=== PATIENT | male | born 1950 | race Caucasian/White ===

== ENCOUNTER → 2023-10-07 07:06 | Outpatient (REF) | payer MEDICARE, OTHER, SELFPAY ==
[2023-10-07 09:48] LABS: % Basophils 1.3 % (0-2); % Eosinophils 9.6 % (0-6); % Immature Granulocytes 3.4 % (0-0.5); % Lymphocytes 34.4 % (20.5-51.1); % Monocytes 8.3 % (1.7-9.3); Absolute Basophils 0.1 10^3/uL (0-0.2); Absolute Eosinophils 0.5 10^3/uL (0-0.7); Absolute Immature Granulocytes 0.2 10^3/uL (0-0.05); Absolute Lymphocytes 1.8 10^3/uL (1.2-3.4); Absolute Monocytes 0.4 10^3/uL (0.1-0.6); Absolute Neutrophils 2.3 10^3/uL (1.4-6.5); Hematocrit 33.5 % (39.0-52.0); Hemoglobin 11.2 g/dL (13.0-18.0); Mean Corp Hgb Conc. 33.4 g/dL (33.0-37.0); Mean Corpuscular Hgb 31.5 pg (27.0-31.0); Mean Corpuscular Volume 94.1 fL (80.0-94.0); Mean Platelet Volume 12.9 fL (7.4-10.4); Nucleated Red Blood Cells % 0.4 % (-); Platelet Count 122 10^3/uL (130-400); Red Blood Cell Count 3.56 10^6/uL (4.70-6.10); Red Cell Dist. Width 13.9 % (11.5-14.5); White Blood Cell Count 5.3 10^3/uL (4.8-10.8)
[2023-10-07 10:04] LABS: ALT (SGPT) 20 U/L (0-50); AST (SGOT) 32 U/L (17-59); Albumin 4.6 g/dl (3.5-5.0); Alkaline Phosphatase 74 U/L (38-126); Blood Urea Nitrogen 19 mg/dl (9-20); Calcium 9.8 mg/dl (8.4-10.2); Carbon Dioxide 28 mmol/L (22-30); Chloride 100 mmol/L (98-107); Glucose 128 mg/dl (70-99); Potassium 4.7 mmol/L (3.5-5.1); Sodium 137 mmol/L (135-145); Total Bilirubin 0.5 mg/dl (0.2-1.3); Total Protein 7.3 g/dl (6.3-8.2); eGFR > 60.00
[2023-10-07 10:26] LABS: PSA, Total - Screen 0.47 ng/ml (0.0-4.0); TSH Reflex To Free T4 3.06 uIU/ml (0.47-4.68)
[2023-10-07 10:54] LABS: Microalbumin, Random Urine <0.6 mg/dl (0.6-1.7)
[2023-10-08 10:20] LABS: Glycohemoglobin (HgbA1c) 6.3 % (4.0-5.6)
== END ==
LOC: HWLAB 07:06
PROVIDERS: ATTENDING PHYSICIAN Internal Medicine Endocrinology, Diabetes & Metabolism; FAMILY PHYSICIAN Nurse Practitioner Family
DX: E11.9 Type 2 diabetes mellitus without complications (principal); E78.5 Hyperlipidemia, unspecified; E11.40 Type 2 diabetes mellitus with diabetic neuropathy, unspecified; Z12.5 Encounter for screening for malignant neoplasm of prostate; R26.89 Other abnormalities of gait and mobility
CPT/HCPCS: 36415; 80053; 82043; 82570; 83036; 84443; 85025; G0103

== ENCOUNTER → 2024-01-10 08:02 | Outpatient (REF) | payer MEDICARE, OTHER, SELFPAY ==
[2024-01-10 10:09] LABS: ALT (SGPT) 57 U/L (0-50); AST (SGOT) 62 U/L (17-59); Albumin 4.8 g/dl (3.5-5.0); Alkaline Phosphatase 67 U/L (38-126); Blood Urea Nitrogen 15 mg/dl (9-20); Calcium 9.3 mg/dl (8.4-10.2); Carbon Dioxide 27 mmol/L (22-30); Chloride 100 mmol/L (98-107); Glucose 148 mg/dl (70-99); Iron 161 ug/dl (49-181); Potassium 4.5 mmol/L (3.5-5.1); Sodium 141 mmol/L (135-145); Total Bilirubin 0.4 mg/dl (0.2-1.3); Total Protein 7.7 g/dl (6.3-8.2); eGFR > 60.00
[2024-01-10 10:19] LABS: Percent Saturation 63 % (20-50); Total Iron Binding Capacity 253 ug/dl (261-462)
[2024-01-10 10:24] LABS: Hematocrit 31.9 % (39.0-52.0); Hemoglobin 10.9 g/dL (13.0-18.0); Mean Corp Hgb Conc. 34.2 g/dL (33.0-37.0); Mean Corpuscular Hgb 32.9 pg (27.0-31.0); Mean Corpuscular Volume 96.4 fL (80.0-94.0); Red Blood Cell Count 3.31 10^6/uL (4.70-6.10); Red Cell Dist. Width 14.2 % (11.5-14.5); White Blood Cell Count 3.6 10^3/uL (4.8-10.8)
[2024-01-10 11:13] LABS: Vitamin B12 962 pg/ml (239-931)
[2024-01-10 11:25] LABS: % Basophils 1.4 % (0-2); % Eosinophils 5.9 % (0-6); % Immature Granulocytes 6.4 % (0-0.5); % Lymphocytes 36.9 % (20.5-51.1); % Monocytes 11.5 % (1.7-9.3); % Neutrophils 37.9 % (42.2-75.2); Absolute Basophils 0.1 10^3/uL (0-0.2); Absolute Eosinophils 0.2 10^3/uL (0-0.7); Absolute Immature Granulocytes 0.2 10^3/uL (0-0.05); Absolute Lymphocytes 1.3 10^3/uL (1.2-3.4); Absolute Monocytes 0.4 10^3/uL (0.1-0.6); Absolute Neutrophils 1.4 10^3/uL (1.4-6.5); Mean Platelet Volume 12.5 fL (7.4-10.4); Nucleated Red Blood Cells % 0 % (-); Platelet Count 60 10^3/uL (130-400)
[2024-01-10 11:48] LABS: Glycohemoglobin (HgbA1c) 6.6 % (4.0-5.6)
== END ==
LOC: HWLAB 08:02
PROVIDERS: ATTENDING PHYSICIAN Internal Medicine Endocrinology, Diabetes & Metabolism; FAMILY PHYSICIAN Nurse Practitioner Family
DX: D64.9 Anemia, unspecified (principal); Z51.81 Encounter for therapeutic drug level monitoring; E11.9 Type 2 diabetes mellitus without complications
CPT/HCPCS: 36415; 80053; 82607; 82728; 83036; 83540; 83550; 85025

== ENCOUNTER → 2024-01-19 06:13 | Outpatient (REF) | payer MEDICARE, OTHER, SELFPAY ==
[2024-01-19 09:19] LABS: Hematocrit 30.4 % (39.0-52.0); Hemoglobin 10.3 g/dL (13.0-18.0); Mean Corp Hgb Conc. 33.9 g/dL (33.0-37.0); Mean Corpuscular Hgb 33.3 pg (27.0-31.0); Mean Corpuscular Volume 98.4 fL (80.0-94.0); Red Blood Cell Count 3.09 10^6/uL (4.70-6.10); Red Cell Dist. Width 14.5 % (11.5-14.5); White Blood Cell Count 3.8 10^3/uL (4.8-10.8)
[2024-01-19 09:27] LABS: APTT 29.1 Sec (23.4-35.0); PT 14.3 Sec (11.4-14.6)
[2024-01-19 09:29] LABS: % Basophils 1.6 % (0-2); % Eosinophils 7.1 % (0-6); % Immature Granulocytes 4.5 % (0-0.5); % Monocytes 8.6 % (1.7-9.3); % Neutrophils 28.2 % (42.2-75.2); Absolute Basophils 0.1 10^3/uL (0-0.2); Absolute Eosinophils 0.3 10^3/uL (0-0.7); Absolute Immature Granulocytes 0.2 10^3/uL (0-0.05); Absolute Lymphocytes 1.9 10^3/uL (1.2-3.4); Absolute Monocytes 0.3 10^3/uL (0.1-0.6); Absolute Neutrophils 1.1 10^3/uL (1.4-6.5); Nucleated Red Blood Cells % 0.5 % (-); Platelet Count 51 10^3/uL (130-400)
[2024-01-19 11:18] LABS: Folate > 20.0 ng/ml (2.76-20)
[2024-01-21 05:44] LABS: Copper, Serum 92.3 ug/dL (70.0-140.0)
== END ==
LOC: HWLAB 06:13
PROVIDERS: ATTENDING PHYSICIAN Nurse Practitioner Acute Care; FAMILY PHYSICIAN Nurse Practitioner Family
DX: D61.818 Other pancytopenia (principal); D75.89 Other specified diseases of blood and blood-forming organs; G64 Other disorders of peripheral nervous system; E11.65 Type 2 diabetes mellitus with hyperglycemia
CPT/HCPCS: 36415; 82525; 82746; 82784; 83521; 84155; 84165; 85025; 85610; 85730; 86334

== ENCOUNTER → 2024-02-24 06:57 | Outpatient (REF) | payer MEDICARE, OTHER, SELFPAY ==
[2024-02-24 07:35] VITALS: BP 120/68; BP_SYST 78
[2024-02-24 07:55] LABS: Hematocrit 26.4 % (39.0-52.0); Mean Corp Hgb Conc. 34.1 g/dL (33.0-37.0); Mean Corpuscular Hgb 33.6 pg (27.0-31.0); Mean Corpuscular Volume 98.5 fL (80.0-94.0); Red Blood Cell Count 2.68 10^6/uL (4.70-6.10); Red Cell Dist. Width 15.4 % (11.5-14.5); White Blood Cell Count 3.7 10^3/uL (4.8-10.8)
[2024-02-24 07:59] LABS: INR 1.13; PT 14.8 Sec (11.4-14.6)
[2024-02-24] MEDS: FLUSH (NSS) 1 FLUSH IV (08:15)
[2024-02-24] MEDS: NSS (PRESERVATIVE FREE) 0.25 ML IV (08:15)
[2024-02-24] MEDS: ATIVAN 0.5 MG IV (08:15)
[2024-02-24 08:59] VITALS: BP 125/87
[2024-02-24 09:00] LABS: Mean Platelet Volume 11.7 fL (7.4-10.4); Platelet Count 42 10^3/uL (130-400)
[2024-02-24 10:13] LABS: Absolute Neutrophils -Man Diff 1.5 10^3/uL (1.4-6.5); Band Neutrophils 6 % (0-3); Eosinophils 3 % (0-6); Lymphocytes 32 % (20-51); Monocytes 12 % (2-9); Segmented Neutrophils 35 % (42-75)
[2024-02-24 10:14] LABS: Atypical Lymphocytes 6 %; Metamyelocytes 1 % (-); Myelocytes 5 % (-); Normal RBC Morphology No; Platelets Checked YES
[2024-02-24 10:15] LABS: Anisocytosis Slight; Hypochromasia Slight; Ovalocytes FEW; Target Cells FEW
[2024-02-24 10:16] LABS: Acanthocytes FEW
[2024-02-24 10:17] LABS: Total Cells Counted 100
== END ==
LOC: RADI 06:57
PROVIDERS: ATTENDING PHYSICIAN Nurse Practitioner Acute Care; FAMILY PHYSICIAN Nurse Practitioner Family
DX: D61.818 Other pancytopenia (principal); D68.8 Other specified coagulation defects
CPT/HCPCS: 88305; 88311; 88312; 36415; 38222; 77012; 85025; 85610; 88313

== ENCOUNTER 2024-04-07 19:22 | Inpatient (IN) | payer MEDICARE, OTHER, SELFPAY ==
[2024-04-07] VITALS (16 sets, daily range): BP systolic 107–138; BP diastolic 55–71; BMI 27.7
[2024-04-07 12:19] LABS: ALT (SGPT) 32 U/L (0-50); AST (SGOT) 52 U/L (17-59); Albumin 4.1 g/dl (3.5-5.0); Alkaline Phosphatase 49 U/L (38-126); Blood Urea Nitrogen 12 mg/dl (9-20); Calcium 8.2 mg/dl (8.4-10.2); Carbon Dioxide 24 mmol/L (22-30); Chloride 101 mmol/L (98-107); Glucose 128 mg/dl (70-99); Potassium 4.4 mmol/L (3.5-5.1); Sodium 135 mmol/L (135-145); Total Protein 6.9 g/dl (6.3-8.2); eGFR > 60.00
[2024-04-07 13:18] LABS: Hematocrit 19.5 % (39.0-52.0); Hemoglobin 6.7 g/dL (13.0-18.0); Mean Corp Hgb Conc. 34.4 g/dL (33.0-37.0); Mean Corpuscular Hgb 34.2 pg (27.0-31.0); Mean Corpuscular Volume 99.5 fL (80.0-94.0); Platelet Count 19 10^3/uL (130-400); Red Blood Cell Count 1.96 10^6/uL (4.70-6.10); Red Cell Dist. Width 16.2 % (11.5-14.5); White Blood Cell Count 2.2 10^3/uL (4.8-10.8)
[2024-04-07 13:19] LABS: Nucleated Red Blood Cells % 2.7 % (-)
[2024-04-07 14:41] LABS: Band Neutrophils 3 % (0-3); Segmented Neutrophils 19 % (42-75)
[2024-04-07 14:42] LABS: Lymphocytes 54 % (20-51); Metamyelocytes 1 % (-); Myelocytes 3 % (-)
[2024-04-07 14:43] LABS: Atypical Lymphocytes 6 %; Monocytes 14 % (2-9)
[2024-04-07 14:44] LABS: Normal RBC Morphology No; Nucleated Red Blood Cells 2 (-); Platelets Checked Yes
[2024-04-07 14:45] LABS: Anisocytosis 1+; Hypochromasia 1+; Ovalocytes 1+; Total Cells Counted 100
[2024-04-07 14:46] LABS: Absolute Neutrophils -Man Diff 0.4 10^3/uL (1.4-6.5)
--- NOTE | 2024-04-07 15:10 | ED.GENMED ---
History of Present Illness
<Álvaro Valladares PA-C - Last Filed: 04/07/24 15:25>
General
Chief Complaint: Breathing Problem
Source: patient
Exam Limitations: none
Time Seen by Provider: 04/07/24 14:27
History of Present Illness
History of Present Illness:
73-year-old male presents with shortness of breath and dyspnea on exertion worsening over the past several days. He has been worked up in the recent past for pancytopenia. He had a bone marrow biopsy on 23 February. His follow-up appointment was
canceled and he does not see the oncologist again until April 16. He denies any active bleeding. He denies any black or dark or tarry stools. He denies chest pain abdominal pain. No other complaints. He states that at rest he feels okay but
with any exertion he becomes short of breath. He is not anticoagulated
Phy Exam
<Álvaro Valladares PA-C - Last Filed: 04/07/24 15:25>
Physical Exam
Physical Exam:
General: Well-appearing male no acute respiratory distress
HEENT: Normocephalic atraumatic
Heart: Regular rate and rhythm
Lungs: Clear no wheeze
Abdomen is soft nontender
Rectal exam: No hemorrhoids or fissures. Stool is brown and heme-negative
Extremities: Mild edema bilateral lower extremity
Scores
<Álvaro Valladares PA-C - Last Filed: 04/07/24 15:25>
Heart Failure Risk
Heart Failure Risk Score: Not Applicable
Course
<Álvaro Valladares PA-C - Last Filed: 04/07/24 15:25>
Orders/Labs/Results
Orders:
Orders
04/07/24 11:30
Electrocardiogram (*1) Urgent
Reason for Study: Chest Pain
EKG- Treatment ONCE
04/07/24 11:54
Type And Crossmatch [Type+Screen] Urgent
Complete Blood Count/With Diff Urgent
Comprehensive Metabolic Panel Urgent
Manual Differential Urgent
04/07/24 14:02
ABO2 Urgent
BBK Wristband Number:
Associate notified that ABO2 has been ordered: [id number]
Date: 04/07/24
Time: 12:04
Computer Systems Security Analyst ID: [id number]
04/07/24 15:16
Blood Bank Products [* Blood Bank Products] Urgent
Blood Bank Products: *Packed RBC Leuko(PRBC's)
Quantity: 1
Transfuse Today: Yes
Reason: Anemia
04/07/24 15:17
Blood Bank Products [* Blood Bank Products] Urgent
Blood Bank Products: *Plt Single Donor Leuko
Quantity: 1
Transfuse Today: Yes
Reason: Thrombocytopenia
Abnormal Lab Results
04/07/24
11:54
WBC 2.2 L* 10^3/uL
(4.8-10.8)
RBC 1.96 L 10^6/uL
(4.70-6.10)
Hgb 6.7 L* g/dL
(13.0-18.0)
Hct 19.5 L* %
(39.0-52.0)
MCV 99.5 H fL
(80.0-94.0)
MCH 34.2 H pg
(27.0-31.0)
RDW 16.2 H %
(11.5-14.5)
Plt Count 19 L* 10^3/uL
(130-400)
Abs Neuts (Manual) 0.4 L* 10^3/uL
(1.4-6.5)
Segmented Neutrophils 19 L %
(42-75)
Lymphocytes (Manual) 54 H %
(20-51)
Monocytes (Manual) 14 H %
(2-9)
Creatinine 0.6 L mg/dL
(0.7-1.3)
Glucose 128 H mg/dl
(70-99)
Calcium 8.2 L mg/dl
(8.4-10.2)
04/07/24 11:54
04/07/24 11:54
Vital Signs
Initial and Last Documented VS:
Initial Vital Signs
Temp Pulse Resp BP Pulse Ox
97.6 F 78 18 109/57 99
04/07/24 11:26 04/07/24 11:26 04/07/24 11:26 04/07/24 11:26 04/07/24 11:26
Last Documented Vital Signs
Temp Pulse Resp BP Pulse Ox
97.6 F 73 12 130/57 99
04/07/24 11:26 04/07/24 14:01 04/07/24 14:01 04/07/24 14:01 04/07/24 11:26
<Eliz Silver MD - Last Filed: 04/07/24 15:39>
Orders/Labs/Results
Orders:
Orders
04/07/24 11:30
Electrocardiogram (*1) Urgent
Reason for Study: Chest Pain
EKG- Treatment ONCE
04/07/24 11:54
Type And Crossmatch [Type+Screen] Urgent
Complete Blood Count/With Diff Urgent
Comprehensive Metabolic Panel Urgent
Manual Differential Urgent
04/07/24 14:02
ABO2 Urgent
BBK Wristband Number:
Associate notified that ABO2 has been ordered: [id number]
Date: 04/07/24
Time: 12:04
Computer Systems Security Analyst ID: [id number]
04/07/24 15:16
Blood Bank Products [* Blood Bank Products] Urgent
Blood Bank Products: *Packed RBC Leuko(PRBC's)
Quantity: 1
Transfuse Today: Yes
Reason: Anemia
04/07/24 15:17
Blood Bank Products [* Blood Bank Products] Urgent
Blood Bank Products: *Plt Single Donor Leuko
Quantity: 1
Transfuse Today: Yes
Reason: Thrombocytopenia
Abnormal Lab Results
04/07/24
11:54
WBC 2.2 L* 10^3/uL
(4.8-10.8)
RBC 1.96 L 10^6/uL
(4.70-6.10)
Hgb 6.7 L* g/dL
(13.0-18.0)
Hct 19.5 L* %
(39.0-52.0)
MCV 99.5 H fL
(80.0-94.0)
MCH 34.2 H pg
(27.0-31.0)
RDW 16.2 H %
(11.5-14.5)
Plt Count 19 L* 10^3/uL
(130-400)
Abs Neuts (Manual) 0.4 L* 10^3/uL
(1.4-6.5)
Segmented Neutrophils 19 L %
(42-75)
Lymphocytes (Manual) 54 H %
(20-51)
Monocytes (Manual) 14 H %
(2-9)
Creatinine 0.6 L mg/dL
(0.7-1.3)
Glucose 128 H mg/dl
(70-99)
Calcium 8.2 L mg/dl
(8.4-10.2)
04/07/24 11:54
04/07/24 11:54
Vital Signs
Initial and Last Documented VS:
Initial Vital Signs
Temp Pulse Resp BP Pulse Ox
97.6 F 78 18 109/57 99
04/07/24 11:26 04/07/24 11:26 04/07/24 11:26 04/07/24 11:26 04/07/24 11:26
Last Documented Vital Signs
Temp Pulse Resp BP Pulse Ox
97.6 F 73 12 130/57 99
04/07/24 11:26 04/07/24 14:01 04/07/24 14:04/07/24 14:04/07/24 11:26
<Álvaro Valladares PA-C - Last Filed: 04/07/24 15:25>
MDM/Problems Addressed
Differential Diagnosis Includes:
Patient with dyspnea on exertion. Past medical history of pancytopenia with recent bone marrow biopsy. Consider anemia source of shortness of breath versus CHF versus electrolyte abnormality
CBC demonstrates pancytopenia now with hemoglobin of 6.7 which is over 3 g drop from last month. Platelet count 19,000. White blood cell count is 2.2.
Will obtain consent for blood transfusion secondary to symptomatic anemia. Notified hematology. 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
<Álvaro Valladares PA-C - Last Filed: 04/07/24 15:25>
*Critical Care Note
Total Time (30-74mins, 75-104mins- exclusive of procedures): Not Applicable
<Álvaro Valladares PA-C - Last Filed: 04/07/24 15:25>
Update Note
Update Note:
Discussed findings with oncology. She recommended transfusing with blood and platelets. Due to his symptomatic anemia, will admit patient to hospital. Consent obtained. Unit of packed red blood cells and platelets were ordered
ED Attending Note
<Álvaro Valladares PA-C - Last Filed: 04/07/24 15:25>
-
Portions of this chart may have been created with voice recognition software.� Occasional wrong word or��sound alike� substitutions may have occurred due to the inherent limitations of voice recognition software.
<Eliz Silver MD - Last Filed: 04/07/24 15:39>
ED Attending Note
Patient seen and examined by attending physician: Yes
I performed the substantive portion of visit, reviewed & personally made and approve the management plan that is documented in note by myself or LALITHA.: Yes
ED Attending Note:
73-year-old male with recent anemia status post bone marrow biopsy but yet unaware of the results presents to the emergency department with complaints of dyspnea with minimal exertion over the past couple days. He denies chest pain, cough, fevers,
abdominal pain, or other complaints. On exam, patient in bed. Awake alert, eating a meal, in no distress. Case was reviewed with hematology plan is to transfuse patient both red cells and platelets, hematology will address bone marrow biopsy
results with patient.
Discharge Plan
Departure
Patient Disposition: Admit
Date of Disposition: 04/07/24
Time of Disposition: 15:25
Presentation/result/management discussed w/ accepting MD/DO: Hospitalist
Discharge Problem:
Symptomatic anemia
Prescriptions:
No Action
rosuvastatin 20 mg Tablet
20 mg PO DAILY
Centrum Silver 0.4 mg-300 mcg- 250 mcg Tablet
1 tab PO DAILY
Mounjaro 5 mg/0.5 mL Pen Injector
5 mg SC MO
cyanocobalamin (vitamin B-12) 1,000 mcg Tablet
1,000 mcg PO DAILY
metformin 500 mg Tablet Extended Release 24 Hr
1,000 mg PO DAILY
Referrals:
Ranjan Young CRNP [Family Provider] -
Interventions
Interventions:
*Risk Screen - Suicide Last Done: 04/07/24 11:26
*Neglect/Abuse Screening Last Done: 04/07/24 11:26
ED- Cardiac Assessment Last Done: 04/07/24 14:55
ED- Pulmonary Assessment Last Done: 04/07/24 14:55
Discharge Date and Time
Print Language: [place]
--- NOTE | 2024-04-07 18:29 | HPS.HSE ---
Family Physician
-
Family Physician: DALLAS Hinojosa
Chief Complaint
-
Dyspnea on exertion
History of Present Illness
73-year-old man presents with shortness of breath and dyspnea on exertion worsening over the past several days. He has been worked up in the recent past for pancytopenia. He had a bone marrow biopsy on 23 February. His follow-up with the
oncologist is on April 16. He denies any active bleeding, but had red streaks on his toilet paper yesterday after a hard stool. He denies any black or dark or tarry stools. He denies chest pain abdominal pain. No other complaints. He states
that at rest he feels okay but with any exertion he becomes short of breath. He is not anticoagulated. In the ED, his CBC was:
WBC 2.2, ANC 400
BUN/Creat 6.7/19.5
PLT 19
He was ordered PRBC and PLT transfusions.
Medical History
Past Medical History
Past Medical History: Reports Other
Additional Past Medical History:
unspecified hyperlipidemia
Type 2 diabetes mellitus with diabetic neuropathy,
Balance problem
Recent abnormal bone marrow biopsy
Past Surgical History: Reports None
Social History
Tobacco: Non-smoker
Alcohol: None
Drug: None
Personal:
Living: With Family
Family History
Family History: Not pertinent
Allergies / Home Medications
Allergies reflects when Allergies were last updated in [facility] [employer].
Home Medications with original date entered in [employer] [facility] [employer]
Allergy/Medication List:
Allergies
Allergy/AdvReac Type Severity Reaction Status Date / Time
No Known Allergies Allergy Verified 04/07/24 11:26
Home Medications
pyzwjloa-zex-fckwa acid 0.4 mg-lycopene 300 mcg-lutein 250 mcg tablet (Centrum Silver) 1 tab PO DAILY 02/22/24
rosuvastatin 20 mg tablet 20 mg PO DAILY 02/22/24
tirzepatide 5 mg/0.5 mL subcutaneous pen injector (Mounjaro) 5 mg SC MO 02/22/24
cyanocobalamin (vitamin B-12) 1,000 mcg tablet 1,000 mcg PO DAILY 04/07/24
metformin 500 mg tablet,extended release 24 hr 1,000 mg PO DAILY 04/07/24
Review of Systems
-
History Source: Patient
A 12 point ROS was completed and negative except as noted: Yes
Physical Exam
Vital Signs
Vital Signs
Temp Pulse Resp BP Pulse Ox
98.9 F 72 20 118/69 98
04/07/24 18:26 04/07/24 18:26 04/07/24 18:26 04/07/24 18:26 04/07/24 18:26
Physical Exam
General: Well Developed, Well Nourished, No Apparent Distress, Comfortable and Conversant
HEENT: NormoCephalic, Moist mucous membranes, Nose Appears Normal and Ears Appear Normal
Respiratory: Clear
Cardiac: S1/S2 and Regular Rhythm
GI: Soft, Non Tender and Non Distended
Musculoskeletal: No Clubbing, No Cyanosis and No Edema
Skin: Warm and Dry; No Rash or Jaundice
Neuro: Awake, Alert, Oriented and AO x 3
Psych: Calm
Laboratory Results
-
04/07/24 11:54
04/07/24 11:54
Laboratory Results
Total Bilirubin 1.0 mg/dl (0.2-1.3) 04/07/24 11:54
AST 52 U/L (17-59) 04/07/24 11:54
ALT 32 U/L (0-50) 04/07/24 11:54
Alkaline Phosphatase 49 U/L (38-126) 04/07/24 11:54
Data Reviewed
-
Lab Data: Labs Reviewed by me
Impression/Plan
-
IMPRESSION:
73 man with pancytopenia and TREVINO.
PLAN:
1. Pancytopenia - concerning for leukemia
Hematology consulted
PRBC and PLT transfused
Check CBC in am
Current ANC 400
AM plan based on CBC and plan by hematology.
2. Red streaks on toilet paper - likely hemorrhoids
Stool softener
Outpatient f/u
Full code
VCD for DVT (avoid heparin)
[2024-04-07] MEDS: COLACE 100 MG PO (21:02)
--- NOTE | 2024-04-08 07:02 | W.PN.HOSP.TC ---
Today's Communication/Plan
-
discharge
Assessment / Plan
Assessment / Plan
Physical Exam
General: No acute distress. Appears comfortable at this time
HEENT: NormoCephalic, Atraumatic, Moist mucous membranes, Pale Palpebral Conjunctiva
Respiratory: Clear
Cardiac: S1/S2 and Regular Rhythm
GI: Soft, Non Tender and Non Distended
Musculoskeletal: No Clubbing, No Cyanosis and No Edema
Skin: Pallor
Neuro: Aox3
Psych: Calm
73 man with pancytopenia and TREVINO.
PLAN:
#Pancytopenia
#Neutropenic
received 1 PRBC and PLT transfusion with subsequent improvement in levels noted
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
Patient reports overall feeling well, symptomatically improved, eager to go home
# Red streaks on toilet paper - likely hemorrhoids
Stool softener
Outpatient f/u with primary
Full code
VCD for DVT (avoid heparin)
Medically stable for discharge home with outpatient follow up recommendations.
discussed with patient and patient's Valarie
Total Time Preparing Discharge ___40____ minutes including examination of the patient, summary of the hospital stay, instructions for continuing care to all relevant caregivers; and preparation of discharge records, prescriptions, and referral
forms if necessary.
Anticipated Discharge: Today
Subjective/Interval History
-
Date of Service: April 08, 2024
Seen and examined at bedside in no acute distress sitting up comfortably in chair. Reports overall feeling well. Denies shortness of breath at rest. Reports ambulating without issues. Eager to go home. Denies new acute issues. Valarie
present during evaluation.
Objective Data
-
Labs:
Laboratory Results
04/08/24
05:31
WBC Pending
Hgb Pending
Hct Pending
Plt Count Pending
Vital Signs:
Vital Signs
Temp Pulse Resp BP Pulse Ox
99.0 F 70 17 125/65 98
04/07/24 23:31 04/07/24 23:31 04/07/24 23:31 04/07/24 23:31 04/07/24 23:31
I&O
04/07/24 04/08/24 04/09/24
06:59 06:59 06:59
Intake Total 1084 / 1084
Output Total 300 / 300
Balance 784 / 784
[2024-04-08 07:10] VITALS: BP 126/64
[2024-04-08 07:19] LABS: Hematocrit 20.8 % (39.0-52.0); Hemoglobin 7.1 g/dL (13.0-18.0); Mean Corp Hgb Conc. 34.1 g/dL (33.0-37.0); Mean Corpuscular Hgb 33.6 pg (27.0-31.0); Mean Corpuscular Volume 98.6 fL (80.0-94.0); Mean Platelet Volume 13.9 fL (7.4-10.4); Platelet Count 31 10^3/uL (130-400); Red Blood Cell Count 2.11 10^6/uL (4.70-6.10); Red Cell Dist. Width 16.8 % (11.5-14.5); White Blood Cell Count 2.4 10^3/uL (4.8-10.8)
--- NOTE | 2024-04-08 09:33 | CON.ONC ---
Impression
Impression
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
symptomatic anemia
thrombocytopenia
neutropenia
Plan
Plan
I reviewed BM biopsy results w/ patient and his , c/w high risk MDS
Okay for d/c home
Will arrange office visit to see me on 04/10 to plan treatment
Discussed azacitadine/venetoclax (per [facility] guidelines)
Will also refer to [facility] for BMT eval
Patient History
History of Present Illness
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 He's scheduled to see me in the office next week to review path and plan treatment, but presented
to the ER yesterday w/ TREVINO, and was found to have worsening cytopenias. He was transfused 1 unit prbcs and 1 unit platelets overnight, and is eager to go home. He feels well, no fevers or signs of infection.
Past-Medical/Surgical History
Past�Medical�History HLD,�DM2,�prostate�cancer,�b12�deficiency,�peripheral�neuropathy,�sleep�apnea
Surgical�History Hernia�repair�as�
Social�History Patient�denies�ever�using�tobacco. Social�use�of�alcohol.�Patient�reports�an�average�of�<�1�drinks�per�month. Denies�any�illicit�drug�use. Occupational�Status:�Former���retired. Patient�has�not�had�any�occupational�exposure.
Marital�Status:�Patient�is�
Family�Medical�History Father���Stroke Mother���Heart�problems,�Parkinsons,�guillian�bare Sister���CA,�thyroid�issues,�diabetes
Patient Medication
�Medication �Instructions �Recorded �Confirmed �Last Taken �Type
jrpfhfwh-zbd-bxbxs acid 0.4 1 tab PO DAILY 02/22/24 04/07/24 04/06/24 History
mg-lycopene 300 mcg-lutein 250 mcg
tablet (Centrum Silver)
rosuvastatin 20 mg tablet 20 mg PO DAILY 02/22/24 04/07/24 04/06/24 History
tirzepatide 5 mg/0.5 mL 5 mg SC MO 02/22/24 04/07/24 03/26/24 History
subcutaneous pen injector
(Mounjaro)
cyanocobalamin (vitamin B-12) 1,000 mcg PO DAILY 04/07/24 04/07/24 04/06/24 History
1,000 mcg tablet
metformin 500 mg tablet,extended 1,000 mg PO DAILY 04/07/24 04/07/24 04/06/24 History
release 24 hr
Active Medications
Generic Name Dose Route Start Last Admin
Trade Name Freq PRN Reason Stop Dose Admin
Cyanocobalamin 1,000 mcg 04/08/24 08:00
Cyanocobalamin 1,000 Mcg Tablet PO 05/06/24 07:59
DAILY LINDA
Docusate Sodium 100 mg 04/07/24 20:17 04/07/24 21:02
Docusate Sodium 100 Mg Capsule PO 05/05/24 20:16 100 mg
BID LINDA Administration
Metformin HCl 1,000 mg 04/08/24 08:00
Metformin 500 Mg Extended Release Tablet PO 05/06/24 07:59
DAILY LINDA
Multivitamins Therapeutic 1 tablet 04/08/24 08:00
Multivitamin Tablet PO 05/06/24 07:59
DAILY LINDA
Polyethylene Glycol 17 grams 04/07/24 20:17
Polyethylene Glycol Powder 17 Grams Packet PO 05/05/24 20:16
DAILYPRN PRN
constipation
Rosuvastatin Calcium 20 mg 04/08/24 08:00
Rosuvastatin (Crestor) 20 Mg Tablet PO 05/06/24 07:59
DAILY LINDA
Senna/Docusate Sodium 1 tablet 04/07/24 20:17
Docusate W/Senna (Yaneth-Colace) Tablet PO 05/05/24 20:16
BIDPRN PRN
constipation
Sodium Chloride 0 flush 04/07/24 22:00
Sodium Chloride 0.9% (Flush) Syringe IV 05/05/24 21:59
PER PROTOCOL LINDA
Review of Systems
-
All Other Systems: Not reviewed unless documented
Physical Exam
-
General: Well Developed, Well Nourished, No Apparent Distress, Comfortable and Conversant; Negative Respiratory Distress, Appears in Distress or Appears Chronically Ill
HEENT: Negative Jaundice
Neurology: Non Focal, No Lateralizing Symptoms and No Word Finding Difficulty
Skin: Warm and Dry
Psych: Calm and Intact Judgement/Insight
Labs
Lab Results
WBC 2.4 10^3/uL (4.8-10.8) L* 04/08/24 05:31
RBC 2.11 10^6/uL (4.70-6.10) L 04/08/24 05:31
Hgb 7.1 g/dL (13.0-18.0) L 04/08/24 05:31
Hct 20.8 % (39.0-52.0) L* 04/08/24 05:31
MCV 98.6 fL (80.0-94.0) H 04/08/24 05:31
MCH 33.6 pg (27.0-31.0) H 04/08/24 05:31
MCHC 34.1 g/dL (33.0-37.0) 04/08/24 05:31
RDW 16.8 % (11.5-14.5) H 04/08/24 05:31
Plt Count 31 10^3/uL (130-400) L D 04/08/24 05:31
MPV 13.9 fL (7.4-10.4) H 04/08/24 05:31
Creatinine 0.6 mg/dL (0.7-1.3) L 04/07/24 11:54
Vital Signs
Vital Signs
Temp Pulse Resp BP Pulse Ox
98.8 F 71 18 126/64 96
04/08/24 07:10 04/08/24 07:10 04/08/24 07:10 04/08/24 07:10 04/08/24 07:10
[2024-04-08] MEDS: VITAMIN B-12 1000 MCG PO (09:35)
[2024-04-08] MEDS: CRESTOR 20 MG PO (09:35)
[2024-04-08] MEDS: COLACE 100 MG PO (09:35)
[2024-04-08] MEDS: THERAGRAN 1 TABLET PO (09:35)
[2024-04-08] MEDS: GLUCOPHAGE XR EXTENDED RELEASE 1000 MG PO (09:36)
[2024-04-08 10:36] LABS: Atypical Lymphocytes 1 %; Band Neutrophils 2 % (0-3); Eosinophils 2 % (0-6); Lymphocytes 60 % (20-51); Metamyelocytes 1 % (-); Monocytes 2 % (2-9); Myelocytes 2 % (-); Plasmacytoid Lymphocytes 1 %; Segmented Neutrophils 21 % (42-75)
[2024-04-08 10:37] LABS: Platelets Checked Yes
[2024-04-08 10:38] LABS: Anisocytosis 1+; Hypochromasia 1+; Normal RBC Morphology No; Nucleated Red Blood Cells 2 (-); Ovalocytes 1+; Polychromasia 1+
[2024-04-08 10:39] LABS: Total Cells Counted 100
[2024-04-08 10:40] LABS: Absolute Neutrophils -Man Diff 0.5 10^3/uL (1.4-6.5); Blasts 8 % (-)
--- NOTE | 2024-04-08 10:58 | W.DCSUMMARY ---
Discharge Summary
Discharge Data
Date of Admission: 04/07/24
Date of Discharge: 04/08/24
-
Pending Results: No
Discharge Plan
-
Patient Disposition: Home (Routine Discharge)
Discharge Diagnosis/Procedures: Pancytopenia
Neutropenia
Bone Marrow Biopsy Results February 2024 concerning for Myelodysplastic Syndrome
Suspected Hemorrhoids
Condition: Fair
Diet: Other diet
Additional Diets: Neutropenic Diet
Activity: As tolerated
Driving Restrictions: As prior to admission
Bathing Restrictions: None
Activity Restrictions/Additional Instructions:
Please follow up with oncology at the planned date 04/10/24. Follow up with primary care provider in 1 week of discharge.
Colace, laxative, has been prescribed to minimize straining/exacerbation of likely hemorrhoids leading to bloody streaks on wiping. Hold if diarrhea. Colace is available over the counter.
Please take medications as prescribed/recommended and follow up with primary care provider and/or other healthcare provider involved in your care for refills and/or further adjustment to your medication regimen as necessary.
Instructions: Neutropenia, Low-bacteria diet
Referrals:
Ranjan Young CRNP [Family Provider] - in one week
Lore Kwong MD [Active] - 04/10/24
Prescriptions:
New
docusate sodium 100 mg Capsule
100 mg PO BID Qty: 60 0RF
Continued
rosuvastatin 20 mg Tablet
20 mg PO DAILY
Centrum Silver 0.4 mg-300 mcg- 250 mcg Tablet
1 tab PO DAILY
Mounjaro 5 mg/0.5 mL Pen Injector
5 mg SC MO
cyanocobalamin (vitamin B-12) 1,000 mcg Tablet
1,000 mcg PO DAILY
metformin 500 mg Tablet Extended Release 24 Hr
1,000 mg PO DAILY
Discharge Orders:
Discharge Patient (As Directed); Ordered 04/08/24
Ordered By: Brijesh Trujillo
Discharge Date and Time
Print Language: [place]
--- NOTE | 2024-04-08 11:38 | CM ---
Patient discharged home without CM assessment.
[2024-04-09 18:40] LABS: Hepatitis C Antibody Negative (Negative)
== END 2024-04-08 11:28 | disposition home or self-care (01) | DRG 810 ==
LOC: 2 NORTH 19:22
PROVIDERS: Student in an Organized Health Care Education/Training Program; ADMITTING PHYSICIAN Internal Medicine; ATTENDING PHYSICIAN Internal Medicine; CONSULT PHYSICIAN Internal Medicine Hematology & Oncology; EMERGENCY PHYSICIAN Emergency Medicine; FAMILY PHYSICIAN Nurse Practitioner Family
PROC: 30233N1 Transfusion of Nonautologous Red Blood Cells into Peripheral Vein, Percutaneous Approach (ICD-10-PCS; 2024-04-07)
PROC: 30233R1 Transfusion of Nonautologous Platelets into Peripheral Vein, Percutaneous Approach (ICD-10-PCS; 2024-04-07)
DX: D61.818 Other pancytopenia (principal); D70.9 Neutropenia, unspecified; D46.9 Myelodysplastic syndrome, unspecified; K64.9 Unspecified hemorrhoids; E78.5 Hyperlipidemia, unspecified; E11.42 Type 2 diabetes mellitus with diabetic polyneuropathy; Z79.84 Long term (current) use of oral hypoglycemic drugs; Z79.899 Other long term (current) drug therapy; Z85.46 Personal history of malignant neoplasm of prostate
CPT/HCPCS: 36430; 80053; 85025; 86803; 86850; 86900; 86901; 86920; 93005; 99285; P9016; P9073

== ENCOUNTER → 2024-04-10 14:31 | Outpatient (REF) | payer MEDICARE, OTHER, SELFPAY ==
[2024-04-10 15:26] LABS: Hematocrit 22.6 % (39.0-52.0); Hemoglobin 7.6 g/dL (13.0-18.0); Mean Corp Hgb Conc. 33.6 g/dL (33.0-37.0); Mean Corpuscular Hgb 33.6 pg (27.0-31.0); Platelet Count 21 10^3/uL (130-400); Red Blood Cell Count 2.26 10^6/uL (4.70-6.10); Red Cell Dist. Width 16.4 % (11.5-14.5); White Blood Cell Count 2.7 10^3/uL (4.8-10.8)
[2024-04-10 15:36] LABS: ALT (SGPT) 30 U/L (0-50); AST (SGOT) 47 U/L (17-59); Albumin 4.1 g/dl (3.5-5.0); Alkaline Phosphatase 62 U/L (38-126); Blood Urea Nitrogen 11 mg/dl (9-20); Calcium 8.5 mg/dl (8.4-10.2); Carbon Dioxide 29 mmol/L (22-30); Chloride 101 mmol/L (98-107); Glucose 139 mg/dl (70-99); LDH 303 U/L (120-246); Potassium 4.5 mmol/L (3.5-5.1); Sodium 138 mmol/L (135-145); Total Bilirubin 0.7 mg/dl (0.2-1.3); Uric Acid 4.7 mg/dl (3.5-8.5); eGFR > 60.00
[2024-04-10 15:55] LABS: Absolute Neutrophils -Man Diff 0.7 10^3/uL (1.4-6.5); Atypical Lymphocytes 4 %; Band Neutrophils 2 % (0-3); Lymphocytes 55 % (20-51); Monocytes 4 % (2-9); Segmented Neutrophils 26 % (42-75)
[2024-04-10 15:56] LABS: Blasts 9 % (-); Normal RBC Morphology Yes; Platelets Checked Yes; Total Cells Counted 100
[2024-04-10 16:06] LABS: TSH 1.65 uIU/ml (0.47-4.68)
== END ==
LOC: OIDL 14:31
PROVIDERS: ATTENDING PHYSICIAN Internal Medicine Hematology & Oncology
DX: D61.818 Other pancytopenia (principal); R53.82 Chronic fatigue, unspecified
CPT/HCPCS: 80053; 83615; 84443; 84550; 85025; 86850; 86900; 86901

== ENCOUNTER 2024-04-14 10:27 | Emergency (ER) | payer MEDICARE, OTHER, SELFPAY ==
[2024-04-14] VITALS (23 sets, daily range): BP systolic 104–125; BP diastolic 52–74; BMI 27.4
--- NOTE | 2024-04-14 11:24 | ED.GENMED ---
History of Present Illness
General
Chief Complaint: Abnormal Lab Value
Time Seen by Provider: 04/14/24 11:23
History of Present Illness
History of Present Illness:
TIME OF INITIAL ENCOUNTER:
HPI: The patient had a bone marrow biopsy last month that was concerning for myelodysplastic syndrome sign: The patient was admitted here overnight 1 week ago. He came back today because he felt that his hemoglobin was low again. Dr. Kwong, his
oncologist recommended that he follows up with [facility] and has an appointment this week related to the myelodysplastic syndrome. Last night, he collapsed but did not pass out. A similar episode happened again today.
EXAM:
GENERAL: Appears somewhat weak, diabetes
HEENT: Moist oral mucosa
CARDIOVASCULAR: No murmurs, normal heart rate, regular rhythm, No chest wall tenderness
PULMONARY: No respiratory distress, breath sounds are clear and equal
ABDOMEN: Soft with no peritoneal signs, no tenderness
RECTAL: No gross blood, Hemoccult negative, brown stool
NEUROLOGIC: Excellent strength all extremities, no coordination deficits
PSYCHIATRIC: Appropriate mental status, normal insight and judgement
EXTREMITIES: Nontender, no edema, moves all extremities equally
SKIN: Appears pale
NUMBER AND COMPLEXITY OF PROBLEMS ADDRESSED AT THE ENCOUNTER
� Chronic conditions affecting care: Myelodysplastic syndrome
� Acute Exacerbation and/or Progression of Chronic Illness: This is an acute but recurrent problem
� Differential Diagnosis includes: Anemia related to MDS, GI bleed, dysrhythmia less likely
AMOUNT AND/OR COMPLEXITY OF DATA TO BE REVIEWED AND ANALYZED
� I performed an independent evaluation of and my interpretation is:
EKG: Sinus 81, normal axis, no acute ST ability
CT:
X-rays:
Laboratory Studies: White count 1.8, hemoglobin 6.5 platelets 15, BUN normal, ferritin 890
Other:
� Review of other/old records: I reviewed records, the patient was admitted here 1 week ago and was transfused for the first time with a hemoglobin of 6.7. The following day was 7.1 and then 4 days ago was up to 7.6.
� Clinical information was obtained by an independent historian: I spoke to at bedside
� Prescriptions/Medications Considered but not given:
� Further testing considered but not performed:
RISK OF COMPLICATIONS AND/OR MORBIDITY OR MORTALITY OF PATIENT MANAGEMENT
� Social determinants of health affecting care: Lives at home
� Discussion with other providers: Notify Dr. Gaspar of patient's desire to go home and his abnormal lab findings
� Escalation of care including admission/observation vs risk of discharge considered: See below.
ANY OTHER UPDATES:
1 PM: It is noted that the patient's hemoglobin is down to 6.5. He is heme-negative brown stool he is pancytopenic.
Patient receiving blood and platelets. I offered and recommended keeping patient in the hospital however the patient adamantly prefers to go home. He has been hemodynamically stable and there has been no sign of GI bleeding.
2:45 PM: I reassessed patient. He received first round of platelets and is getting blood. He is still eager to go home. Well-appearing. Has close follow-up arranged.
Phy Exam
Physical Exam
Physical Exam:
See HPI
Course
Orders/Labs/Results
Orders:
Orders
04/14/24 10:38
Electrocardiogram (*1) Urgent
Reason for Study: Other
Other Reason for Exam: low hgb
EKG- Treatment ONCE
04/14/24 11:37
Type+Screen Urgent
Complete Blood Count/With Diff Urgent
Comprehensive Metabolic Panel Urgent
Ferritin Urgent
Iron Urgent
Manual Differential Urgent
Total Iron Binding Urgent
04/14/24 12:15
* Blood Bank Products Urgent
Blood Bank Products: *Packed RBC Leuko(PRBC's)
Quantity: 1
Transfuse Today: Yes
Reason: Anemia
04/14/24 12:38
Blood Bank Products [* Blood Bank Products] Urgent
's Orders: Eliseo Lincoln, DO
Blood Bank Products: *Plt Single Donor Leuko
Quantity: 2
Transfuse Today: Yes
Reason: Thrombocytopenia
Abnormal Lab Results
04/14/24
11:37
WBC 1.8 L* 10^3/uL
(4.8-10.8)
RBC 1.95 L 10^6/uL
(4.70-6.10)
Hgb 6.5 L* g/dL
(13.0-18.0)
Hct 19.2 L* %
(39.0-52.0)
MCV 98.5 H fL
(80.0-94.0)
MCH 33.3 H pg
(27.0-31.0)
RDW 16.3 H %
(11.5-14.5)
Plt Count 15 L* D 10^3/uL
(130-400)
Sodium 134 L mmol/L
(135-145)
Creatinine 0.5 L mg/dL
(0.7-1.3)
Glucose 144 H mg/dl
(70-99)
TIBC 217 L ug/dl
(261-462)
Ferritin 896.0 H ng/ml
(17.9-464.0)
Crossmatch IS Only See Detail
04/14/24 11:37
04/14/24 11:37
Vital Signs
Initial and Last Documented VS:
Initial Vital Signs
Temp Pulse Resp BP Pulse Ox
36.7 C 84 16 122/52 98
04/14/24 10:35 04/14/24 10:35 04/14/24 10:35 04/14/24 10:35 04/14/24 10:35
Last Documented Vital Signs
Temp Pulse Resp BP Pulse Ox
37.4 C 78 17 115/55 97
04/14/24 14:35 04/14/24 14:35 04/14/24 14:35 04/14/24 14:35 04/14/24 14:35
*Critical Care Note
Total Time (30-74mins, 75-104mins- exclusive of procedures): Not Applicable
ED Attending Note
-
Portions of this chart may have been created with voice recognition software.� Occasional wrong word or��sound alike� substitutions may have occurred due to the inherent limitations of voice recognition software.
Discharge Plan
Departure
Patient Disposition: Home (Routine Discharge)
Date of Disposition: 04/14/24
Time of Disposition: 14:22
Patient with high blood pressure during this ER visit?: Yes
Discharge Problem:
Pancytopenia
Instructions: Blood transfusion, BLOOD PRESSURE
Prescriptions:
No Action
rosuvastatin 20 mg Tablet
20 mg PO DAILY
Centrum Silver 0.4 mg-300 mcg- 250 mcg Tablet
1 tab PO DAILY
Mounjaro 5 mg/0.5 mL Pen Injector
5 mg SC MO
cyanocobalamin (vitamin B-12) 1,000 mcg Tablet
1,000 mcg PO DAILY
metformin 500 mg Tablet Extended Release 24 Hr
1,000 mg PO DAILY
docusate sodium 100 mg capsule
100 mg PO DAILY
Referrals:
Ranjan Young CRNP [Family Provider] -
Activity Restrictions/Additional Instructions:
Your white count is 1.8, hemoglobin 6.5 which is lower than last admission. Platelet count is 15. We have given you blood and platelets. I spoke to Dr. Gaspar. Return here if you feel worse. Follow-up with your doctors at [facility].
Interventions
Interventions:
*Risk Screen - Suicide Last Done: 04/14/24 10:35
*General Assessment Last Done: 04/14/24 11:43
*Neglect/Abuse Screening Last Done: 04/14/24 10:35
ED- Fall Risk Assessment Last Done: 04/14/24 11:44
*ED COVID-19 Vaccine History Last Done: 04/14/24 11:43
Discharge Date and Time
Print Language: LEBANESE
[2024-04-14 12:15] LABS: ALT (SGPT) 37 U/L (0-50); AST (SGOT) 54 U/L (17-59); Albumin 3.7 g/dl (3.5-5.0); Alkaline Phosphatase 55 U/L (38-126); Blood Urea Nitrogen 12 mg/dl (9-20); Calcium 8.5 mg/dl (8.4-10.2); Carbon Dioxide 27 mmol/L (22-30); Chloride 100 mmol/L (98-107); Estimated Creatinine Clearance 117 ml/min; Glucose 144 mg/dl (70-99); Iron 86 ug/dl (49-181); Potassium 4.3 mmol/L (3.5-5.1); Sodium 134 mmol/L (135-145); Total Bilirubin 0.7 mg/dl (0.2-1.3); Total Protein 6.6 g/dl (6.3-8.2); eGFR > 60.00
[2024-04-14 12:17] LABS: Hematocrit 19.2 % (39.0-52.0); Hemoglobin 6.5 g/dL (13.0-18.0); Mean Corp Hgb Conc. 33.9 g/dL (33.0-37.0); Mean Corpuscular Hgb 33.3 pg (27.0-31.0); Mean Corpuscular Volume 98.5 fL (80.0-94.0); Platelet Count 15 10^3/uL (130-400); Red Blood Cell Count 1.95 10^6/uL (4.70-6.10); Red Cell Dist. Width 16.3 % (11.5-14.5); White Blood Cell Count 1.8 10^3/uL (4.8-10.8)
[2024-04-14 12:24] LABS: Percent Saturation 39 % (20-50); Total Iron Binding Capacity 217 ug/dl (261-462)
--- NOTE | 2024-04-14 14:30 | EDRN ---
delay in note d/t pt care.. spoke with blood bank when receiving platelets for pt. they state that they had to call [facility] for another unit of platelets STAT. pt and updated on this. aware it could take up to 4 hours to receive from
[facility].
Spoke with blood bank at 1421 and they noted that the unit of platelet should be received @ this facility within the next hour. pt and aware. pt is receiving unit PRBC's @ this time.
[2024-04-14 14:37] LABS: Band Neutrophils 1 % (0-3); Lymphocytes 42 % (20-51); Monocytes 6 % (2-9)
[2024-04-14 14:38] LABS: Atypical Lymphocytes 4 %; Eosinophils 6 % (0-6); Metamyelocytes 3 % (-); Myelocytes 5 % (-); Plasmacytoid Lymphocytes 1 %
[2024-04-14 14:39] LABS: Promyelocytes 5 % (-)
[2024-04-14 14:41] LABS: Segmented Neutrophils 27 % (42-75)
[2024-04-14 14:42] LABS: Normal RBC Morphology No; Platelets Checked Yes
[2024-04-14 14:43] LABS: Anisocytosis Slight
[2024-04-14 14:47] LABS: Ovalocytes FEW
[2024-04-14 14:48] LABS: Total Cells Counted 100
[2024-04-14 14:51] LABS: Absolute Neutrophils -Man Diff 0.5 10^3/uL (1.4-6.5)
== END 2024-04-14 17:20 | disposition home or self-care (01) ==
LOC: EMR 10:27
PROVIDERS: EMERGENCY PHYSICIAN Emergency Medicine; FAMILY PHYSICIAN Nurse Practitioner Family
DX: D61.818 Other pancytopenia (principal); D46.9 Myelodysplastic syndrome, unspecified
CPT/HCPCS: 99283; 36430; 80053; 82728; 83540; 83550; 85025; 86850; 86900; 86901; 86920; 93005; P9016; P9073

== ENCOUNTER → 2024-04-16 10:30 | Outpatient (REF) | payer MEDICARE, OTHER, SELFPAY ==
[2024-04-16 11:34] LABS: ALT (SGPT) 35 U/L (0-50); AST (SGOT) 50 U/L (17-59); Alkaline Phosphatase 65 U/L (38-126); Blood Urea Nitrogen 11 mg/dl (9-20); Calcium 8.6 mg/dl (8.4-10.2); Carbon Dioxide 26 mmol/L (22-30); Chloride 99 mmol/L (98-107); Glucose 147 mg/dl (70-99); Sodium 135 mmol/L (135-145); eGFR > 60.00
[2024-04-16 11:42] LABS: Hematocrit 23.6 % (39.0-52.0); Mean Corp Hgb Conc. 33.9 g/dL (33.0-37.0); Mean Corpuscular Hgb 33.3 pg (27.0-31.0); Mean Corpuscular Volume 98.3 fL (80.0-94.0); Red Cell Dist. Width 15.9 % (11.5-14.5)
[2024-04-16 12:08] LABS: Absolute Neutrophils -Man Diff 0.7 10^3/uL (1.4-6.5); Band Neutrophils 1 % (0-3); Eosinophils 2 % (0-6); Lymphocytes 38 % (20-51); Monocytes 10 % (2-9); Platelet Count 20 10^3/uL (130-400); Segmented Neutrophils 36 % (42-75)
[2024-04-16 12:09] LABS: Anisocytosis 1+; Atypical Lymphocytes 4 %; Blasts 4 % (-); Hypochromasia 1+; Myelocytes 5 % (-); Normal RBC Morphology No; Ovalocytes 2+; Platelets Checked Yes; Polychromasia 1+
[2024-04-16 12:10] LABS: Total Cells Counted 100
== END ==
LOC: OIDL 10:30
PROVIDERS: ATTENDING PHYSICIAN Internal Medicine Hematology & Oncology
DX: D61.818 Other pancytopenia (principal)
CPT/HCPCS: 36415; 80053; 85025

== ENCOUNTER 2024-04-20 09:59 | Outpatient (RCR) | payer MEDICARE, OTHER, SELFPAY ==
[2024-04-20 12:50] VITALS: BP 127/66
[2024-04-20 13:05] VITALS: BP 111/73
[2024-04-20 15:10] VITALS: BP 135/65
== END 2024-04-20 15:37 | disposition home or self-care (01) ==
LOC: OID 09:59
PROVIDERS: ATTENDING PHYSICIAN Internal Medicine Hematology & Oncology
DX: D61.818 Other pancytopenia (principal); D75.89 Other specified diseases of blood and blood-forming organs; G64 Other disorders of peripheral nervous system; D46.22 Refractory anemia with excess of blasts 2
CPT/HCPCS: 36415; 36430; 85025; 86850; 86900; 86901; 86920

== ENCOUNTER 2024-05-05 04:15 | Inpatient (IN) | payer MEDICARE, OTHER, SELFPAY ==
[2024-05-04 20:53] VITALS: BP 150/58; BMI 27.2
[2024-05-04 21:00] VITALS: BP 121/55
[2024-05-04 21:27] LABS: ALT (SGPT) 44 U/L (0-50); AST (SGOT) 59 U/L (17-59); Albumin 3.8 g/dl (3.5-5.0); Alkaline Phosphatase 74 U/L (38-126); Blood Urea Nitrogen 16 mg/dl (9-20); Calcium 8.5 mg/dl (8.4-10.2); Carbon Dioxide 25 mmol/L (22-30); Chloride 96 mmol/L (98-107); Estimated Creatinine Clearance 117 ml/min; Glucose 170 mg/dl (70-99); Potassium 4.3 mmol/L (3.5-5.1); Sodium 129 mmol/L (135-145); Total Protein 7.1 g/dl (6.3-8.2); eGFR > 60.00
[2024-05-04 21:34] LABS: COVID-19 Antigen Negative (Negative)
[2024-05-04 21:39] LABS: Troponin I < 0.012 ng/ml
[2024-05-04 22:00] VITALS: BP 122/62
[2024-05-04 22:24] LABS: Hematocrit 24.1 % (39.0-52.0); Hemoglobin 7.9 g/dL (13.0-18.0); Mean Corp Hgb Conc. 32.8 g/dL (33.0-37.0); Mean Corpuscular Hgb 31.2 pg (27.0-31.0); Mean Corpuscular Volume 95.3 fL (80.0-94.0); Red Blood Cell Count 2.53 10^6/uL (4.70-6.10); Red Cell Dist. Width 15.7 % (11.5-14.5)
[2024-05-04 22:26] LABS: Atypical Lymphocytes 4 %; Band Neutrophils 4 % (0-3); Lymphocytes 36 % (20-51); Metamyelocytes 8 % (-); Monocytes 18 % (2-9); Myelocytes 6 % (-); Platelets Checked Yes; Segmented Neutrophils 22 % (42-75)
[2024-05-04 22:28] LABS: Anisocytosis 1+; Macrocytosis 2+; Normal RBC Morphology No; Nucleated Red Blood Cells 6 (-); Ovalocytes 1+; Tear Drop Red Blood Cells Occasional; Total Cells Counted 50
[2024-05-04 22:33] LABS: Platelet Count 16 10^3/uL (130-400)
[2024-05-04 22:34] LABS: Absolute Neutrophils -Man Diff 0.5 10^3/uL (1.4-6.5); Blasts 2 % (-)
[2024-05-04 23:04] VITALS: BP 119/77
--- NOTE | 2024-05-04 23:54 | ED.GENMED ---
History of Present Illness
General
Chief Complaint: Weakness
Time Seen by Provider: 05/04/24 23:16
History of Present Illness
History of Present Illness:
73-year-old male with MDS presenting for weakness. Patient reports chronic fatigue and weakness since being diagnosed with leukemia, however worsened tonight with difficulty ambulating. Notes that he gets this way when his blood counts are low.
He has been following with [place] [facility], and is due to start chemotherapy on Tuesday. He has a left upper extremity PICC line. Tonight, patient also started to have chills. He has had a mild cough since last week. Also notes some urinary
urgency. Denies abdominal pain. reports that she took his temperature earlier today and it was normal. Denies additional acute medical complaints
Phy Exam
Physical Exam
Physical Exam:
General: Well-appearing, no clinical signs of dehydration, nontoxic and in no acute distress
HEENT: protecting airway
Neck: appears supple
CV: Normal heart rate, regular rhythm
Resp: No accessory muscle use, no increased work of breathing, lungs clear to auscultation bilaterally
Abd: Soft and non-distended, no tenderness to palpation
Extremities: No deformities, no swelling, no erythema
Neuro: alert, no focal neurologic deficit
: deferred
Rectal: deferred
Psych: Normal affect
Skin: Intact
Course
Orders/Labs/Results
Orders:
Orders
05/04/24 21:04
Electrocardiogram (*1) Urgent
Reason for Study: Fatigue / Weakness
EKG- Treatment ONCE
05/04/24 21:05
COVID-19 Antigen Urgent
Source: Nasal Swab
Complete Blood Count/With Diff Urgent
Comprehensive Metabolic Panel Urgent
Manual Differential Urgent
Troponin I Urgent
Influenza A+B Rapid Molecular Urgent
MASON Source: Nasal Swab
Specimen Description:
05/04/24 21:06
CR Chest - 2 Views Urgent
Comment:
Reason For Exam: weak, cough, PICC line placement verification
05/04/24 23:45
Urinalysis Reflex To Culture Urgent
0.9% Sodium Chloride 1000 ml [Nss] 1,000 ml IV BOLUS
05/04/24 23:46
Blood Culture Q30M
MASON Source: Blood/Venous
Specimen Description:
05/05/24 00:02
* Blood Bank Products Urgent
Blood Bank Products: *Plt Single Donor Leuko
Quantity: 1
Transfuse Today: Yes
Reason: Thrombocytopenia
05/05/24 00:03
* Blood Bank Products Urgent
Blood Bank Products: *Packed RBC Leuko(PRBC's)
Quantity: 1
Transfuse Today: Yes
Reason: Thrombocytopenia
05/05/24 00:18
Type+Screen Routine
BBK Wristband Number:
Blood Culture Q30M
MASON Source: Blood/Venous
Specimen Description:
05/05/24 01:06
Lactic Acid Urgent
05/05/24 02:49
Zosyn 4.5 grams IVPB NOW Piperacillin/Tazo 4.5 Gram [Zosyn] 4.5 gram in 100 ml IV NOW
Abnormal Lab Results
05/04/24
21:05
WBC 2.0 L* 10^3/uL
(4.8-10.8)
RBC 2.53 L 10^6/uL
(4.70-6.10)
Hgb 7.9 L g/dL
(13.0-18.0)
Hct 24.1 L %
(39.0-52.0)
MCV 95.3 H fL
(80.0-94.0)
MCH 31.2 H pg
(27.0-31.0)
MCHC 32.8 L g/dL
(33.0-37.0)
RDW 15.7 H %
(11.5-14.5)
Plt Count 16 L* 10^3/uL
(130-400)
Abs Neuts (Manual) 0.5 L* 10^3/uL
(1.4-6.5)
Segmented Neutrophils 22 L %
(42-75)
Band Neutrophils 4 H %
(0-3)
Monocytes (Manual) 18 H %
(2-9)
Blast Cells 2 H* %
(-)
Sodium 129 L mmol/L
(135-145)
Chloride 96 L mmol/L
(98-107)
Creatinine 0.6 L mg/dL
(0.7-1.3)
Glucose 170 H mg/dl
(70-99)
05/04/24 21:05
05/04/24 21:05
Vital Signs
Initial and Last Documented VS:
Initial Vital Signs
Temp Pulse BP Pulse Ox
100 F 90 150/58 95
05/04/24 20:53 05/04/24 20:53 05/04/24 20:53 05/04/24 20:53
Last Documented Vital Signs
Temp Pulse Resp BP Pulse Ox
100 F 83 24 127/63 98
05/04/24 20:53 05/05/24 02:00 05/05/24 02:00 05/05/24 02:00 05/04/24 23:03
MDM/Problems Addressed
MDM/Problems Addressed:
73-year-old male with history of MDS presenting for weakness, fatigue, concern for fever. Vital signs are significant for low-grade fever.
On exam patient is resting comfortably, no acute distress or discomfort. Patient had laboratory analysis prior to my assessment. Patient with anemia and low platelets, however appear to be around his baseline. Patient also with low neutrophils.
In the setting of fever with low neutrophils, concern for neutropenic fever. Will add blood cultures. Unclear source of infection, however does note some cough and urinary symptoms. Viral swabs negative. Chest x-ray without sign of pneumonia.
Pending urinalysis. Patient notes that he gets transfusion when he is feeling incredibly weak, so will transfuse platelets and PRBC. Will draw cultures off of left upper extremity PICC line, however without external signs of infection.
02:50 - Patient still unable to provide urine. Will start broad antibiotics and plan for admission for neutropenic fever. Patient consented for transfusion
*Critical Care Note
Total Time (30-74mins, 75-104mins- exclusive of procedures): Not Applicable
ED Attending Note
-
Portions of this chart may have been created with voice recognition software.� Occasional wrong word or��sound alike� substitutions may have occurred due to the inherent limitations of voice recognition software.
Discharge Plan
Departure
Prescriptions:
No Action
rosuvastatin 20 mg Tablet
20 mg PO DAILY
Centrum Silver 0.4 mg-300 mcg- 250 mcg Tablet
1 tab PO DAILY
cyanocobalamin (vitamin B-12) 1,000 mcg Tablet
1,000 mcg PO DAILY
metformin 500 mg Tablet Extended Release 24 Hr
1,000 mg PO DAILY
docusate sodium 100 mg capsule
200 mg PO DAILY
prochlorperazine maleate 10 mg Tablet
10 mg PO Q6HPRN PRN (Reason: nausea)
Referrals:
NONE,* [Family Provider] -
Interventions
Interventions:
*Risk Screen - Suicide Last Done: 05/04/24 20:56
*General Assessment Last Done: 05/04/24 20:56
*Neglect/Abuse Screening Last Done: 05/04/24 20:56
ED- Fall Risk Assessment Last Done: 05/04/24 21:00
*ED COVID-19 Vaccine History Last Done: 05/04/24 20:56
ED- Cardiac Assessment Last Done: 05/04/24 20:59
ED- Neurological Assessment Last Done: 05/04/24 20:58
ED- Pulmonary Assessment Last Done: 05/04/24 20:59
Discharge Date and Time
Print Language: LUXEMBOURGER
[2024-05-05] VITALS (12 sets, daily range): BP systolic 117–147; BP diastolic 57–86; PULSE 83; O2SAT 97; BMI 26.7
[2024-05-05] MEDS: NSS 1000 IV ×3 (00:06→22:11)
[2024-05-05 01:26] LABS: Lactic Acid 0.8 mmol/L (0.7-2.0)
--- NOTE | 2024-05-05 03:49 | HPS.HSE ---
Family Physician
-
Family Physician: * NONE
Chief Complaint
-
Weakness and lethargy
History of Present Illness
This is a 73-year-old woman who has a past medical history of pancytopenia, diabetes, hyperlipidemia presenting to the emergency department with weakness.
Patient has a history of pancytopenia and was recently admitted with low hemoglobin and platelet counts as well as a low white count. Had a bone marrow consistent with myelodysplastic syndrome but also had 10% blast. He is currently being followed
by hematology oncology pain as well as atorvastatin. He is status post PICC line 5 days ago. Plan is to start treatment on Tuesday (in 2 days)
Patient reports that he has had a nonproductive cough for about 1 week. He has some nasal congestion. He is also reports some sore throat as well. Denies any headache. He denies any shortness of breath at rest but reports dyspnea on exertion
which he reports he is been going on for several weeks due to his anemia. Denies any abdominal pain, nausea vomiting or diarrhea. He denies any urinary symptoms such as dysuria, frequency incontinence or urgency. He denies having any flank pain.
He denies any skin rash. He denies any known sick contacts. He reports that this is the first time he had a fever.
On arrival in the emergency department he was febrile to 100, blood pressure was 127/60 with a pulse of 83 and he was satting at 100% on room air. ECG showed normal sinus rhythm at rate of 68, troponin was negative. COVID test was negative,
influenza was also negative. Chest x-ray shows no acute infiltrates. The CBC was notable for a white count of 2, ANC less than 500, platelet count was 16, hemoglobin was 7.9. He had a sodium of 129, rest of the electrolytes BUN and creatinine
were normal.
Medical History
Past Medical History
Past Medical History: Reports Hypercholesterolemia, NIDDM and Other (Pancytopenia)
Past Surgical History: Reports None
Social History
Tobacco: Non-smoker
Alcohol: Occasional
Drug: None
Personal:
Living: With Family
Employment: Retired
Family History
Family History: Not pertinent
Allergies / Home Medications
Allergies reflects when Allergies were last updated in [employer].
Home Medications with original date entered in [employer]
Allergy/Medication List:
Allergies
Allergy/AdvReac Type Severity Reaction Status Date / Time
No Known Allergies Allergy Verified 05/03/24 11:25
Home Medications
fidswvnr-zwj-yvbiw acid 0.4 mg-lycopene 300 mcg-lutein 250 mcg tablet (Centrum Silver) 1 tab PO DAILY 02/22/24
rosuvastatin 20 mg tablet 20 mg PO DAILY 02/22/24
cyanocobalamin (vitamin B-12) 1,000 mcg tablet 1,000 mcg PO DAILY 04/07/24
metformin 500 mg tablet,extended release 24 hr 1,000 mg PO DAILY 04/07/24
docusate sodium 100 mg capsule 200 mg PO DAILY 04/14/24
prochlorperazine maleate 10 mg tablet 10 mg PO Q6HPRN PRN nausea 05/04/24
Review of Systems
-
History Source: Patient
Constitutional: Reports Fatigue
EENT: Reports No Symptoms
Respiratory: Reports Cough
Cardiac: Reports No Symptoms
Abdomen/GI: Reports No Symptoms
: Reports No Symptoms
Musculoskeletal: Reports No Symptoms
Skin: Reports No Symptoms
Neurological: Reports No Symptoms
Endocrine: Reports No Symptoms
Hematologic/Lymphatic: Reports No Symptoms
Psych: Reports No Symptoms
Physical Exam
Vital Signs
Vital Signs
Temp Pulse Resp BP Pulse Ox
100 F 83 24 127/63 98
05/04/24 20:53 05/05/24 02:00 05/05/24 02:00 05/05/24 02:00 05/04/24 23:03
Physical Exam
General: Well Developed, Well Nourished, No Apparent Distress and Comfortable
HEENT: NormoCephalic, Anicteric, Moist mucous membranes, Atraumatic and PERRLA; No Thrush
Respiratory: Clear
Cardiac: S1/S2 and Regular Rhythm
Breast: Deferred by me
GI: Soft, Non Tender, Non Distended and Normal Bowel Sounds
Rectal: Deferred by Provider
Genito-urinary: Clear Urine and No costovertebral tender
Musculoskeletal: No Clubbing, No Cyanosis and No Edema
Skin: Warm; No Rash
Neuro: AO x 3 and Nonfocal/grossly intact
Hematologic/Lymphatic: No Lymphadenopathy
Psych: Calm
Laboratory Results
-
05/04/24 21:05
05/04/24 21:05
Laboratory Results
Lactic Acid 0.8 mmol/L (0.7-2.0) 05/05/24 01:06
Total Bilirubin 1.0 mg/dl (0.2-1.3) 05/04/24 21:05
AST 59 U/L (17-59) 05/04/24 21:05
ALT 44 U/L (0-50) 05/04/24 21:05
Alkaline Phosphatase 74 U/L (38-126) 05/04/24 21:05
Troponin I < 0.012 ng/ml 05/04/24 21:05
Data Reviewed
-
Diagnostic Radiology: Image Personally Visualized and interpreted
Medical Tests (Nuc Med, Echo, EKG etc): Image Personally Visualized and interpreted
Lab Data: Labs Reviewed by me
Old Records: Reviewed
Impression/Plan
-
IMPRESSION:
73-year-old coming with fever of unknown source. He has fatigue, lethargy and weakness and in the past this was attributed to his anemia he usually gets a transfusion. On the last admission they got a transfusion for same level of hemoglobin as
well as platelet transfusion. He is fever workup here so far has been negative with a negative chest x-ray, negative viral panel. Blood culture pending. Risk factors include neutropenia, recent PICC line placement and a URI with nonproductive
cough.
PLAN:
1. Fever of unknown source / neutropenic fever -
- admit to med/surg
- monitor fever profile
- u/a pending, urine culture pending
- blood culture sent
- negative flu/covid
- will check rapid strep and mono (sore throat)
- will cover for neutropenic fever with cefepime 2 g q 8
- given recent picc will add vancomycin for now
- mrsa swab
- ID consult.
2. Pancytopenia - MDS/ suspected, BM bx in Feb 2024, showing high risk MDS w/ 10% blasts. Worsening cytopenias, dyspneas and now fever. s/p picc with plan to start chemo in 2 days.
- transfuse for hgb > 8, 1 unit prbc
- transfuse 1 unit platelety
- monitor neutropenia, neutropenic precautions
- oncology consultation
3. DM II
- continue metformin and low dose ISS for now
4. Hyponatremia - na 129. He looks dehydrated on my exam. Urine is dark
- 1 L NS in ED, blood and platelet to be given
- continue with NS at 75 ml/hr
- reassess after volume expansion
DVT PPX - SCDs given thrombocytopenia
Code status - full code
[2024-05-05 03:57] LABS: Urine Albumin 2+ (Neg - Trace); Urine Bilirubin Negative (Negative); Urine Character Clear (Clear); Urine Color Yellow; Urine Glucose Negative (Negative); Urine Ketone 2+ (Negative); Urine Leukocyte Negative (Negative); Urine Nitrite Negative (Negative); Urine Occult Blood Negative (Negative); Urine Specific Gravity 1.015 (<1.030); Urine Urobilinogen 1+ (Neg - 1+)
[2024-05-05 04:17] LABS: Urine Squamous Cell 0-2 /LPF (Few)
[2024-05-05 04:18] LABS: Urine Bacteria Few (Negative); Urine Red Blood Cell 0-2 /HPF (0-2)
[2024-05-05] MEDS: STERILE WATER FOR INJECTION 10 ML IV ×3 (04:21→21:54)
[2024-05-05] MEDS: MAXIPIME 2000 MG IV ×3 (04:21→21:54)
[2024-05-05] MEDS: FLUSH (NSS) 1 FLUSH IV ×2 (04:21→12:54)
[2024-05-05] MEDS: VANCOCIN 540 MG IV (04:55)
[2024-05-05 05:35] LABS: Monotest Negative (Negative)
--- NOTE | 2024-05-05 05:45 | CON.ONC ---
Impression
Impression
Myelodysplastic syndrome with increased blasts 2, 10% blasts with cytogenetics complex karyotype including monosomy 5 and trisomy 8, also biallelic TP53 which is associated with a poor prognosis. IPSS-R risk category is very high risk.
Low grade neutropenic fever, Tm 100
pancytopenia
Plan
Plan
Follow cultures and temp curve. If remains afebrile and cultures negative, suspect he can be discharged soon (most likely Tuesday pm) with F/U Tuesday to start Vidaza chemotherapy as planned. Await formal ID consultation which has been ordered.
Regarding transfusion threshold, transfuse PRN for HgB < 7 and PLT < 10K to try to minimize exposure (lessens risk for alloimmunization).
Therefore, will CANCEL transfusions ordered in ER and not yet given.
Thank you
Patient History
History of Present Illness
CC: Weakness
73-year-old man who has a past medical history of pancytopenia, diabetes, hyperlipidemia presenting to the emergency department with weakness.
Patient has a history of pancytopenia and was recently diagnosed with high risk myelodysplastic syndrome. Plan is to start Vidaza + venetoclax Sunday 05/07. He has non specific symptoms including a nonproductive cough, nasal congestion, sore throat
for about 1 week. His encourgaed him to come to the ER for evaluation. In the ER his temp was 100, vitals otherwise normal. Because of neutropenia and low grade fever, he was admitted for infectious workup and antibiotic treatment and was
ordered 1 u PRBC for HgB 7.9 and 1 u PLT for PLT = 16k (not given yet). Started on empiric Vanco + Zosyn in ER and continued on Cefepime. Currently patient feels well and would prefer to be home as soon as possible.
Past-Medical/Surgical History
PMH: HLD, DM2, prostate cancer, b12 deficiency, peripheral neuropathy, sleep apnea
PSH: PICC line, Hernia repair as infant
SH: No TOB, ETOH 1x/mo, , retired
FH:
Father - Stroke
Mother - Heart problems, Parkinsons, guillian bare
Sister - CA, thyroid issues, diabetes
Patient Medication
�Medication �Instructions �Recorded �Confirmed �Last Taken �Type
fzpacddm-mtq-usbia acid 0.4 1 tab PO DAILY 02/22/24 05/04/24 05/03/24 History
mg-lycopene 300 mcg-lutein 250 mcg
tablet (Centrum Silver)
rosuvastatin 20 mg tablet 20 mg PO DAILY 02/22/24 05/04/24 05/03/24 History
cyanocobalamin (vitamin B-12) 1,000 mcg PO DAILY 04/07/24 05/04/24 05/03/24 History
1,000 mcg tablet
metformin 500 mg tablet,extended 1,000 mg PO DAILY 04/07/24 05/04/24 05/03/24 History
release 24 hr
docusate sodium 100 mg capsule 200 mg PO DAILY 04/14/24 05/04/24 05/03/24 History
prochlorperazine maleate 10 mg 10 mg PO Q6HPRN PRN nausea 05/04/24 05/04/24 Unknown History
tablet
Active Medications
Generic Name Dose Route Start Last Admin
Trade Name Freq PRN Reason Stop Dose Admin
Acetaminophen 650 mg 05/05/24 05:39
Acetaminophen 325 Mg Tablet PO 06/02/24 05:38
Q4HPRN PRN
mild pain/BETHEA/temp> 100.4F
Bisacodyl 10 mg 05/05/24 05:39
Bisacodyl 10 Mg Rectal Suppository RECTAL 06/02/24 05:38
[id number] PRN
constipation
Cefepime HCl 2,000 mg 05/05/24 11:30
Cefepime Hcl 2,000 Mg/12.5 Ml Vial IV
Q8H LINDA
Cyanocobalamin 1,000 mcg 05/05/24 08:00
Cyanocobalamin 1,000 Mcg Tablet PO 06/02/24 07:59
DAILY LINDA
Docusate Sodium 200 mg 05/05/24 08:00
Docusate Sodium 100 Mg Capsule PO 06/02/24 07:59
DAILY LINDA
Guaifenesin/Dextromethorphan 5 ml 05/05/24 05:39
Guaifenesin/Dextromethorphan 200 Mg/10 Ml Cup PO 06/02/24 05:38
Q4HPRN PRN
cough
Vancomycin HCl 2,000 mg/ 540 mls @ 270 mls/hr 05/05/24 03:52 05/05/24 04:55
Sodium Chloride IV 05/05/24 05:51 540 mls
NOW STA Administration
Sodium Chloride 1,000 mls @ 75 mls/hr 05/05/24 05:39
Nss IV
[id number] LINDA
Vancomycin HCl 1 each/ Device 0 mls @ 0 mls/hr 05/05/24 05:39
IV
PER PROTOCOL LINDA
As Directed
Insulin Aspart 0 units 05/05/24 07:30
Insulin Aspart Low Resistance 300 Units/3 Ml Pen.Injctr SC 06/02/24 07:29
AC LINDA
Protocol
Metformin HCl 1,000 mg 05/05/24 08:00
Metformin 500 Mg Extended Release Tablet PO 06/02/24 07:59
DAILY LINDA
Non-Formulary Medication 1 tablet 05/05/24 08:00
Vplwqito-Xfs-Fh-Lycopen-Lutein [Centrum Silver] PO 06/02/24 07:59
DAILY LINDA
Ondansetron HCl 4 mg 05/05/24 05:39
Ondansetron 4 Mg/2 Ml Vial IV 06/02/24 05:38
Q6HPRN PRN
nausea and vomiting
Polyethylene Glycol 17 grams 05/05/24 05:39
Polyethylene Glycol Powder 17 Grams Packet PO 06/02/24 05:38
DAILYPRN PRN
constipation
Rosuvastatin Calcium 20 mg 05/05/24 08:00
Rosuvastatin (Crestor) 20 Mg Tablet PO 06/02/24 07:59
DAILY LINDA
Sodium Chloride 0 flush 05/05/24 04:00 05/05/24 04:21
Sodium Chloride 0.9% (Flush) Syringe IV 06/02/24 03:59 1 flush
PER PROTOCOL LINDA Administration
Physical Exam
-
General: Well Developed, Well Nourished, No Apparent Distress and Comfortable; Negative Respiratory Distress
HEENT: Negative Jaundice
Cardiology: Normal Sinus Rhythm, S1 and S2
Pulmonary: Clear
GI: Soft and Normal Bowel Sounds
Extremities: No C/C/E
Neurology: Non Focal
Psych: Calm
Labs
Lab Results
WBC 2.0 10^3/uL (4.8-10.8) L* 05/04/24 21:05
RBC 2.53 10^6/uL (4.70-6.10) L 05/04/24 21:05
Hgb 7.9 g/dL (13.0-18.0) L 05/04/24 21:05
Hct 24.1 % (39.0-52.0) L 05/04/24 21:05
MCV 95.3 fL (80.0-94.0) H 05/04/24 21:05
MCH 31.2 pg (27.0-31.0) H 05/04/24 21:05
MCHC 32.8 g/dL (33.0-37.0) L 05/04/24 21:05
RDW 15.7 % (11.5-14.5) H 05/04/24 21:05
Plt Count 16 10^3/uL (130-400) L* 05/04/24 21:05
MPV Not Reportable 05/04/24 21:05
Creatinine 0.6 mg/dL (0.7-1.3) L 05/04/24 21:05
Vital Signs
Vital Signs
Temp Pulse Resp BP Pulse Ox
99.4 F 86 19 132/62 97
05/05/24 05:43 05/05/24 05:43 05/05/24 05:43 05/05/24 05:43 05/05/24 05:43
[2024-05-05] MEDS: CRESTOR 20 MG PO (08:12)
[2024-05-05] MEDS: COLACE 200 MG PO (08:12)
[2024-05-05] MEDS: THERAGRAN 1 TABLET PO (08:12)
[2024-05-05] MEDS: GLUCOPHAGE XR EXTENDED RELEASE 1000 MG PO (08:12)
[2024-05-05] MEDS: VITAMIN B-12 1000 MCG PO (08:13)
[2024-05-05 08:14] LABS: Glucose - Point of Care 118 mg/dl (70-99)
--- NOTE | 2024-05-05 08:29 | PHA.VAN.IN ---
Assessment
- Assessment
Renal Function: Appears similar to baseline
Concomitant Antimicrobials: Cefepime 2G Q8H
AUC Dosing Plan
- Dosing Variables
Dosing Weight (kg): 84.414
Dosing CrCl (ml/min): 117
Vd coefficient (L/kg): 0.7
- Empiric Dosing
Initial / Loading Dose: Vanco 2000mg Loading Dose Given on 05/05/24 at 0455
Maintenance Regimen: Vanco 1500mg Q12H Starting 05/05/24 at 1800
Estimated AUC (mcg*h/mL): 538
Estimated Peak (mcg*h/mL): 36
Estimated Trough (mcg/ml): 12.4
Estimated Half Life (H): 11.14
- Monitoring
No levels ordered at this time: Consider in the next few days
Pharmacokinetics Vancomycin I
- -
Patient Age: 73
Patient Sex: Male
Vancomycin Day #: 1
Indication: Skin And Soft Tissue
Requesting Provider: Jenny
Pertinent Antimicrobial Allergies:
No Known Drug Allergies
Height / Weight:
Height 5 ft 10 in
Actual Weight 84.414 kg
Pertinent Past Medical History: T2DM, pancytopenia, myelodysplastic syndrome
- Vital Signs / Lab Results
Temp Pulse Resp BP Pulse Ox
100.1 F 86 20 147/68 96
05/05/24 07:10 05/05/24 07:10 05/05/24 07:10 05/05/24 07:10 05/05/24 07:10
Lab Results - Hematology
05/04/24
21:05
WBC 2.0 L*
Band Neutrophils 4 H
Lab Results - Chemistry
05/04/24
21:05
BUN 16
Creatinine 0.6 L
Estimated Creat Clear 117
Albumin 3.8
05/05/24 05/05/24
00:18 01:06
Lactic Acid Cancelled 0.8
Lab Results - Urine
05/05/24
03:49
Urine Nitrite (Reflex) Negative
Leukocyte Esterase Rfl Negative
Urine WBC (Reflex) 3-5
Ur Squamous Epith Cells 0-2
Urine Bacteria (Reflex) Few A
Microbiology Results
05/05/24 04:21 Streptococcus Rapid Screen - Final
Throat/Pharynx Rapid Strep Screen (Group A) Negative
05/04/24 21:05 Influenza Types A & B (JAIMIE) - Final
Nasal Swab Negative for Influenza A & B, NAAT
Negative results must be combined with clinical observations
and patient history.
Nucleic Acid Amplification test (NAAT)performed on the
[employer] platform.
--- NOTE | 2024-05-05 09:35 | W.PN.HOSP.TC ---
Today's Communication/Plan
-
hold on transfusions
PT/OT
await ID
await cultures
Assessment / Plan
Assessment / Plan
pt is a 73 year old male
Neutropenic fever--Fever of unknown source--WBC 2K with ANC 500, 2 blasts (10% by cytogenics)--cultures pending--covid/flu neg--await ID consult--has PICC line--cont vanco/cefepime--rapid strep neg
Pancytopenia - MDS/BM bx in Feb 2024, showing high risk MDS w/10% blasts by cytogenics. Worsening cytopenias, dyspneas and now fever. s/p picc with plan to start chemo in 2 days- transfuse for hgb <7, platelet < 10K to minimize exposure (lessens
risk for alloimmunization) as per heme--apprec onc
Type 2 DM- continue metformin and low dose ISS for now
Hyponatremia--Na 129 on admission --cont IVF--await labs
DVT Proph - SCDs given thrombocytopenia
Code status - full code
Anticipated Discharge: 24 - 48 hours
Subjective/Interval History
-
Date of Service: May 05, 2024
pt denies c/o-- (on phone with him when I entered the room) says he is weak and needs the blood (per [facility])
Objective Data
-
Labs:
Laboratory Results
05/04/24 05/05/24 05/05/24
21:05 08:53 08:54
WBC 2.0 L* Pending
Hgb 7.9 L Pending
Hct 24.1 L Pending
Plt Count 16 L* Pending
Sodium Pending
Potassium Pending
Chloride Pending
Carbon Dioxide Pending
BUN Pending
Creatinine Pending
Glucose Pending
Calcium Pending
Vital Signs:
max temp for 24 hours
05/04/24
20:53
Temp 100 F
Vital Signs
Temp Pulse Resp BP Pulse Ox
100.1 F 86 20 147/68 96
05/05/24 07:10 05/05/24 07:10 05/05/24 07:10 05/05/24 07:10 05/05/24 07:10
Review of Systems
-
All other systems: Reviewed and negative
Physical Exam
-
General: Well Developed, Well Nourished and No Apparent Distress
HEENT: Normocephalic and Atraumatic
Respiratory: Clear to Auscultation; Negative Wheezes or Rhonchi
Cardiac: Regular Rhythm and S1/S2; Negative Murmur
GI: Soft, Nontender, Nondistended and Normal Bowel Sounds
Musculoskeletal: No Clubbing, No Cyanosis and No Edema
Neuro: Awake and Alert
Psych: Calm
[2024-05-05 10:05] LABS: Hematocrit 21.7 % (39.0-52.0); Hemoglobin 7.5 g/dL (13.0-18.0); Mean Corp Hgb Conc. 34.6 g/dL (33.0-37.0); Mean Corpuscular Hgb 32.6 pg (27.0-31.0); Mean Corpuscular Volume 94.3 fL (80.0-94.0); Platelet Count 15 10^3/uL (130-400); White Blood Cell Count 2.4 10^3/uL (4.8-10.8)
[2024-05-05 10:14] LABS: Blood Urea Nitrogen 10 mg/dl (9-20); Carbon Dioxide 23 mmol/L (22-30); Chloride 99 mmol/L (98-107); Estimated Creatinine Clearance 117 ml/min; Glucose 114 mg/dl (70-99); Potassium 4.2 mmol/L (3.5-5.1); Sodium 131 mmol/L (135-145); eGFR > 60.00
[2024-05-05 12:10] LABS: Glucose - Point of Care 170 mg/dl (70-99)
--- NOTE | 2024-05-05 12:11 | CON.ID ---
Consultation
-
Date/Time Consultation Requested: 05/05/2024 0539
Date/Time Consultation Performed: 05/05/2024 1123
Requesting Provider: Dr. Alvarado
Performing Provider: Dr. Escalante
Reason for Consultation: Febrile neutropenia
Chief Complaint / Past History
History of Present Illness
Wang Donaldson is a 73-year-old man with a significant past medical history of MDS being evaluated regarding febrile neutropenia. History is obtained from chart review, along with patient interview.
The patient is followed in the outpatient setting by [facility]on[facility] for his underlying MDS, and is due to initiate chemotherapy early next week. He reports feeling wavering fatigue over the past month, but yesterday while at home he developed severe
fatigue in the evening. According to his , he slid off the bed, and she could not get him back up onto the bed, at which time EMS was called. They have been following his temperatures, and his temp was noted to be normal yesterday a.m., but
when EMS arrived he was noted to be 100.3. Prior to admission he denies any pain. He denies any chills, but always feels 'cold'. He denies any cough or congestion. Of note, in anticipation of upcoming chemotherapy a PICC line was placed this
past week. It has been cared for by home nursing and flushed daily. There have been no reported issues with it thus far.
Past History
Additional Past Medical History:
MDS
DM
Additional Past Surgical History:
Hernia repair
Allergy History:
No Known Allergies Allergy (Verified 05/03/24 11:25)
Medications Reviewed: Yes
Current Antibiotics:
Cefepime 2 g IV every 8 hours
Vancomycin (dosing per pharmacy)
Social History
Tobacco: Non-Smoker
Alcohol: None
Drug: None
Personal:
Living: With Family
Employment: Retired
Family History
Family History: Not Pertinent
Review of Systems
Vital Signs
Temp Pulse Resp BP Pulse Ox
100.1 F 86 20 147/68 96
05/05/24 07:10 05/05/24 07:10 05/05/24 07:10 05/05/24 07:10 05/05/24 12:07
Physical Exam
Physical Exam
Constitutional: No Acute Distress, Comfortable, Chronically Ill and Non-toxic
Eyes: No Conjunctival Hemorrhage and Sclera Anicteric
Cardiovascular: S1/S2; Negative S3/S4 or Murmur
Pulmonary: Clear; Negative Wheezes, Rales or Rhonchi
Gastrointestinal: Soft; Negative Non Tender or Non Distended
Genito-Urinary: Negative Silver or CVA Tenderness
Extremities: Negative Edema, Cyanosis or Erythema
Neurological: Awake and Alert
Psychological: Calm
.
Lab / Diagnostic Study Results
05/05/24 08:53
05/05/24 08:54
Total Counted 50 05/04/24 21:05
Abs Neuts (Manual) 0.5 10^3/uL (1.4-6.5) L* 05/04/24 21:05
Segmented Neutrophils 22 % (42-75) L 05/04/24 21:05
Band Neutrophils 4 % (0-3) H 05/04/24 21:05
Lymphocytes (Manual) 36 % (20-51) 05/04/24 21:05
Lactic Acid 0.8 mmol/L (0.7-2.0) 05/05/24 01:06
Ur Squamous Epith Cells 0-2 /LPF (Few) 05/05/24 03:49
Microbiology Results
Micro:
05/05/24 04:21 Streptococcus Screen (MASON) - Pending
Throat/Pharynx Streptococcus Rapid Screen - Final
Rapid Strep Screen (Group A) Negative
05/05/24 04:21 MRSA Screen - Pending
Nose
05/05/24 00:18 Blood Culture - Pending
Blood/Venous
05/05/24 00:08 Blood Culture - Pending
Blood/Venous
05/04/24 21:05 Influenza Types A & B (JAIMIE) - Final
Nasal Swab Negative for Influenza A & B, NAAT
Negative results must be combined with clinical observations
and patient history.
Nucleic Acid Amplification test (NAAT)performed on the
[employer] platform.
Imaging:
05/04/2024 CXR (2 view): No acute cardiopulmonary processes noted.
Assessment / Plan
Neutropenia
- ANC ~ 500
Low-grade temperature (although not specifically to the point of 100.5)
Profound fatigue
MDS
-Tentatively to start chemotherapy this coming week
Hx DM
Recommendations:
Given profound fatigue and low-grade fever, agree with initiation of cefepime.
Will continue for now.
Discontinue further vancomycin.
Await blood cultures.
If cultures remain negative, and patient remains afebrile, agree with discharge in the next 24 hours or so with follow-up in the outpatient setting.
Care Review
Plan reviewed with: Physician (Hospitalist)
[2024-05-05 13:40] LABS: Band Neutrophils 12 % (0-3); Segmented Neutrophils 24 % (42-75)
[2024-05-05 13:41] LABS: Eosinophils 12 % (0-6); Lymphocytes 40 % (20-51); Monocytes 8 % (2-9); Normal RBC Morphology No; Platelets Checked Yes
[2024-05-05 13:42] LABS: Anisocytosis 1+; Myelocytes 2 % (-); Nucleated Red Blood Cells 2 (-)
[2024-05-05 13:43] LABS: Acanthocytes FEW; Ovalocytes 1+; Polychromasia 1+
[2024-05-05 13:44] LABS: Target Cells FEW; Total Cells Counted 100
[2024-05-05 13:46] LABS: Absolute Neutrophils -Man Diff 0.8 10^3/uL (1.4-6.5)
[2024-05-05 13:47] LABS: Blasts 2 % (-)
--- NOTE | 2024-05-05 15:08 | CM ---
CM met with pt and spouse at bedside.
Pt resides with spouse in a 2 SH bedroom/bath on 2nd floor. Stair lift recently installed. Has a RW on each level. Uses RW for ambulation independently. There is 1 +1 step to enter the home. Bathroom equipped with grab bars.
Pt is currently open with [facility]. Preference is to resume with [facility] [place]. Will send referral via [facility].
Confirmed PCP is Shawn Young with [facility]. Pharmacy is [facility] in [place].
Discharge dispo anticipated is home with resumption of care/[facility].
[2024-05-05 16:51] LABS: Glucose - Point of Care 171 mg/dl (70-99)
--- NOTE | 2024-05-05 19:25 | PTCARENOTE ---
Pt noted with bruised/purple lump on the occipital area, stating that he 'bumped his head on the side of the bed', but does not recall when it happened. C/o pain only when palpating the area. Neurological checks done and WNL. VS 122/58, 81, T98.2,
Pox 98% RA. Manufacturers Representative DALLAS Novak, made aware, no new orders at this time, apply ice as needed for pain and will perform ordered head MRI in the morning.
[2024-05-05 22:09] LABS: Glucose - Point of Care 125 mg/dl (70-99)
[2024-05-06] MEDS: MAXIPIME 2000 MG IV (04:53)
[2024-05-06] MEDS: STERILE WATER FOR INJECTION 10 ML IV (04:59)
[2024-05-06 07:20] VITALS: BP 136/71
[2024-05-06 07:32] LABS: Glucose - Point of Care 101 mg/dl (70-99)
[2024-05-06 08:33] LABS: Hematocrit 20.5 % (39.0-52.0); Mean Corp Hgb Conc. 34.1 g/dL (33.0-37.0); Mean Corpuscular Volume 93.6 fL (80.0-94.0); Platelet Count 11 10^3/uL (130-400); Red Blood Cell Count 2.19 10^6/uL (4.70-6.10); Red Cell Dist. Width 15.9 % (11.5-14.5); White Blood Cell Count 2.4 10^3/uL (4.8-10.8)
[2024-05-06] MEDS: VITAMIN B-12 1000 MCG PO (08:45)
[2024-05-06] MEDS: CRESTOR 20 MG PO (08:45)
[2024-05-06] MEDS: THERAGRAN 1 TABLET PO (08:45)
[2024-05-06] MEDS: COLACE 200 MG PO (08:45)
[2024-05-06] MEDS: GLUCOPHAGE XR EXTENDED RELEASE 1000 MG PO (08:45)
[2024-05-06 08:52] LABS: ALT (SGPT) 40 U/L (0-50); AST (SGOT) 56 U/L (17-59); Albumin 3.2 g/dl (3.5-5.0); Alkaline Phosphatase 59 U/L (38-126); Blood Urea Nitrogen 9 mg/dl (9-20); Calcium 7.8 mg/dl (8.4-10.2); Carbon Dioxide 22 mmol/L (22-30); Chloride 102 mmol/L (98-107); Estimated Creatinine Clearance 117 ml/min; Glucose 100 mg/dl (70-99); Potassium 3.9 mmol/L (3.5-5.1); Sodium 131 mmol/L (135-145); Total Bilirubin 0.9 mg/dl (0.2-1.3); Total Protein 6.2 g/dl (6.3-8.2); eGFR > 60.00
--- NOTE | 2024-05-06 09:12 | W.PN.HOSP.TC ---
Addendum entered and electronically signed by Clark Paul MD 05/06/24 14:49:
MRI brain: There are no focal or acute intracranial abnormalities.
There is moderate cortical and cerebellar atrophy with extensive nonspecific white matter changes as described above.
There is bilateral maxillary sinusitis worse on the left than the right
Medically cleared for d/c.
Total time spent on d/c = 34 min. This included today's physical exam, progress note, review of laboratory and diagnostic data, preparation of discharge documents and prescriptions, and discussions about the pt's hospital course and discharge plan
with the patient and other emergency medicine medical director involved in the patient's care.
Original Note:
Today's Communication/Plan
-
d/c if OK with ID
Assessment / Plan
Assessment / Plan
Gen: NAD, AAOx3.
Eyes: EOMI, PERRLA, no scleral icterus.
Neck: supple.
CV: RRR, +S1/S2, no m/r/g.
Resp: CTAB, no rales, wheezes, or rhonchi.
Abd: +BS, soft, NT, ND
Skin: No rashes.
Neuro: CN 2-12 intact, non-focal.
Psych: Normal mood and affect.
Lab Results
05/04/24 05/05/24 05/05/24
21:05 00:18 01:06
WBC 2.0 L*
RBC 2.53 L
Hgb 7.9 L
Hct 24.1 L
MCV 95.3 H
MCH 31.2 H
MCHC 32.8 L
RDW 15.7 H
Plt Count 16 L*
Plt Count Comment Yes
MPV Not Reportable
Total Counted 50
Abs Neuts (Manual) 0.5 L*
Segmented Neutrophils 22 L
Band Neutrophils 4 H
Lymphocytes (Manual) 36
Monocytes (Manual) 18 H
Eosinophils (Manual)
Metamyelocytes 8
Myelocytes 6
Nucleated RBCs 6
Atypical Lymphocytes 4
Blast Cells 2 H*
Normal RBC Morphology No
Polychromasia
Anisocytosis 1+
Macrocytosis 2+
Target Cells
Tear Drop Cells Occasional
Ovalocytes 1+
Acanthocytes (Spur)
Sodium 129 L
Potassium 4.3
Chloride 96 L
Carbon Dioxide 25
BUN 16
Creatinine 0.6 L
Estimated Creat Clear 117
eGFR > 60.00
Glucose 170 H
Lactic Acid Cancelled 0.8
Calcium 8.5
Magnesium
Total Bilirubin 1.0
AST 59
ALT 44
Alkaline Phosphatase 74
Troponin I < 0.012
Total Protein 7.1
Albumin 3.8
Urine Color
Urine Clarity
Urine pH
Ur Specific [place]
Urine Ketones
Ur Occult Blood Reflex
Urine Nitrite (Reflex)
Urine Bilirubin
Urine Urobilinogen
Leukocyte Esterase Rfl
Urine RBC
Urine WBC (Reflex)
Ur Squamous Epith Cells
Urine Bacteria (Reflex)
Urine Glucose
Urine Albumin (Reflex)
Monoscreen
SARS-CoV-2 Antigen Negative
POC Glucose
Blood Type O POS
Antibody Screen Negative
Crossmatch IS Only See Detail
05/05/24 05/05/24 05/05/24
03:49 04:21 08:13
WBC
RBC
Hgb
Hct
MCV
MCH
MCHC
RDW
Plt Count
Plt Count Comment
MPV
Total Counted
Abs Neuts (Manual)
Segmented Neutrophils
Band Neutrophils
Lymphocytes (Manual)
Monocytes (Manual)
Eosinophils (Manual)
Metamyelocytes
Myelocytes
Nucleated RBCs
Atypical Lymphocytes
Blast Cells
Normal RBC Morphology
Polychromasia
Anisocytosis
Macrocytosis
Target Cells
Tear Drop Cells
Ovalocytes
Acanthocytes (Spur)
Sodium
Potassium
Chloride
Carbon Dioxide
BUN
Creatinine
Estimated Creat Clear
eGFR
Glucose
Lactic Acid
Calcium
Magnesium
Total Bilirubin
AST
ALT
Alkaline Phosphatase
Troponin I
Total Protein
Albumin
Urine Color Yellow
Urine Clarity Clear
Urine pH 6.0
Ur Specific [place] 1.015
Urine Ketones 2+ A
Ur Occult Blood Reflex Negative
Urine Nitrite (Reflex) Negative
Urine Bilirubin Negative
Urine Urobilinogen 1+
Leukocyte Esterase Rfl Negative
Urine RBC 0-2
Urine WBC (Reflex) 3-5
Ur Squamous Epith Cells 0-2
Urine Bacteria (Reflex) Few A
Urine Glucose Negative
Urine Albumin (Reflex) 2+ A
Monoscreen Negative
SARS-CoV-2 Antigen
POC Glucose 118 H
Blood Type
Antibody Screen
Crossmatch IS Only
05/05/24 05/05/24 05/05/24
08:53 08:54 12:09
WBC 2.4 L*
RBC 2.30 L
Hgb 7.5 L
Hct 21.7 L
MCV 94.3 H
MCH 32.6 H
MCHC 34.6
RDW 16.0 H
Plt Count 15 L*
Plt Count Comment Yes
MPV Not Reportable
Total Counted 100
Abs Neuts (Manual) 0.8 L*
Segmented Neutrophils 24 L
Band Neutrophils 12 H D
Lymphocytes (Manual) 40
Monocytes (Manual) 8
Eosinophils (Manual) 12 H
Metamyelocytes
Myelocytes 2
Nucleated RBCs 2
Atypical Lymphocytes
Blast Cells 2 H*
Normal RBC Morphology No
Polychromasia 1+
Anisocytosis 1+
Macrocytosis
Target Cells Few
Tear Drop Cells
Ovalocytes 1+
Acanthocytes (Spur) Few
Sodium 131 L
Potassium 4.2
Chloride 99
Carbon Dioxide 23
BUN 10
Creatinine 0.6 L
Estimated Creat Clear 117
eGFR > 60.00
Glucose 114 H
Lactic Acid
Calcium 8.0 L
Magnesium
Total Bilirubin
AST
ALT
Alkaline Phosphatase
Troponin I
Total Protein
Albumin
Urine Color
Urine Clarity
Urine pH
Ur Specific [place]
Urine Ketones
Ur Occult Blood Reflex
Urine Nitrite (Reflex)
Urine Bilirubin
Urine Urobilinogen
Leukocyte Esterase Rfl
Urine RBC
Urine WBC (Reflex)
Ur Squamous Epith Cells
Urine Bacteria (Reflex)
Urine Glucose
Urine Albumin (Reflex)
Monoscreen
SARS-CoV-2 Antigen
POC Glucose 170 H
Blood Type
Antibody Screen
Crossmatch IS Only
05/05/24 05/05/24 05/06/24
16:50 22:03 07:26
WBC
RBC
Hgb
Hct
MCV
MCH
MCHC
RDW
Plt Count
Plt Count Comment
MPV
Total Counted
Abs Neuts (Manual)
Segmented Neutrophils
Band Neutrophils
Lymphocytes (Manual)
Monocytes (Manual)
Eosinophils (Manual)
Metamyelocytes
Myelocytes
Nucleated RBCs
Atypical Lymphocytes
Blast Cells
Normal RBC Morphology
Polychromasia
Anisocytosis
Macrocytosis
Target Cells
Tear Drop Cells
Ovalocytes
Acanthocytes (Spur)
Sodium
Potassium
Chloride
Carbon Dioxide
BUN
Creatinine
Estimated Creat Clear
eGFR
Glucose
Lactic Acid
Calcium
Magnesium
Total Bilirubin
AST
ALT
Alkaline Phosphatase
Troponin I
Total Protein
Albumin
Urine Color
Urine Clarity
Urine pH
Ur Specific [place]
Urine Ketones
Ur Occult Blood Reflex
Urine Nitrite (Reflex)
Urine Bilirubin
Urine Urobilinogen
Leukocyte Esterase Rfl
Urine RBC
Urine WBC (Reflex)
Ur Squamous Epith Cells
Urine Bacteria (Reflex)
Urine Glucose
Urine Albumin (Reflex)
Monoscreen
SARS-CoV-2 Antigen
POC Glucose 171 H 125 H 101 H
Blood Type
Antibody Screen
Crossmatch IS Only
05/06/24
08:15
WBC 2.4 L*
RBC 2.19 L
Hgb 7.0 L
Hct 20.5 L*
MCV 93.6
MCH 32.0 H
MCHC 34.1
RDW 15.9 H
Plt Count 11 L* D
Plt Count Comment
MPV
Total Counted
Abs Neuts (Manual)
Segmented Neutrophils
Band Neutrophils
Lymphocytes (Manual)
Monocytes (Manual)
Eosinophils (Manual)
Metamyelocytes
Myelocytes
Nucleated RBCs
Atypical Lymphocytes
Blast Cells
Normal RBC Morphology
Polychromasia
Anisocytosis
Macrocytosis
Target Cells
Tear Drop Cells
Ovalocytes
Acanthocytes (Spur)
Sodium 131 L
Potassium 3.9
Chloride 102
Carbon Dioxide 22
BUN 9
Creatinine 0.5 L
Estimated Creat Clear 117
eGFR > 60.00
Glucose 100 H
Lactic Acid
Calcium 7.8 L
Magnesium 2.0
Total Bilirubin 0.9
AST 56
ALT 40
Alkaline Phosphatase 59
Troponin I
Total Protein 6.2 L
Albumin 3.2 L
Urine Color
Urine Clarity
Urine pH
Ur Specific [place]
Urine Ketones
Ur Occult Blood Reflex
Urine Nitrite (Reflex)
Urine Bilirubin
Urine Urobilinogen
Leukocyte Esterase Rfl
Urine RBC
Urine WBC (Reflex)
Ur Squamous Epith Cells
Urine Bacteria (Reflex)
Urine Glucose
Urine Albumin (Reflex)
Monoscreen
SARS-CoV-2 Antigen
POC Glucose
Blood Type
Antibody Screen
Crossmatch IS Only
05/05/24 04:21 Nose MRSA Screen - Final
No Methicillin Resistant Staphylococcus aureus isolated.
05/05/24 00:18 Blood/Venous Blood Culture - Preliminary
No Growth in 24 hours- Final report to follow
05/05/24 00:08 Blood/Venous Blood Culture - Preliminary
No Growth in 24 hours- Final report to follow
05/05/24 04:21 Throat/Pharynx Streptococcus Rapid Screen - Final
Rapid Strep Screen (Group A) Negative
05/04/24 21:05 Nasal Swab Influenza Types A & B (JAIMIE) - Final
Negative for Influenza A & B, NAAT
Negative results must be combined with clinical observations
and patient history.
Nucleic Acid Amplification test (NAAT)performed on the
[employer] platform.
CXR: No acute cardiopulmonary process.
Neutropenic fever:
-with pancytopenia
-source unknown, CXR NEG, U/A unremarkable
-COVID/Flu NEG
-BCxs NGTD, rapid strep NEG
-ID/ONC following
-cont Cefepime
Pancytopenia:
-due to MDS
-BMBx Feb 2024 showed high risk MDS w/10% blasts by cytogenics
-presents with worsening cytopenias, dyspneas and now fever
-s/p PICC with plan to start chemo in 2 days
-transfuse for hgb <7, platelet < 10K to minimize exposure (lessens risk for alloimmunization) as per ONC
Other problems:
DM2: continue metformin/SSI/accuchecks
Hyponatremia, mild, improved with IVFs
MRI brain done, read pending
FULL code
No DVT proph with severe thrombocytopenia (plts 11)
Anticipated Discharge: Within 24 hours
Subjective/Interval History
-
Date of Service: May 06, 2024
No new complaints.
Objective Data
-
Labs:
Laboratory Results
05/06/24
08:15
WBC 2.4 L*
Hgb 7.0 L
Hct 20.5 L*
Plt Count 11 L* D
Sodium 131 L
Potassium 3.9
Chloride 102
Carbon Dioxide 22
BUN 9
Creatinine 0.5 L
Glucose 100 H
Calcium 7.8 L
Total Bilirubin 0.9
AST 56
ALT 40
Alkaline Phosphatase 59
Vital Signs:
Vital Signs
Temp Pulse Resp BP Pulse Ox
99.7 F 76 20 136/71 95
05/06/24 07:20 05/06/24 07:20 05/06/24 07:20 05/06/24 07:20 05/06/24 07:20
I&O
05/05/24 05/06/24 05/07/24
06:59 06:59 06:59
Intake Total 1780 / 1780 900 / 900
Output Total 500 / 500
Balance 1280 / 1280 900 / 900
[2024-05-06 09:24] LABS: Band Neutrophils 4 % (0-3); Eosinophils 5 % (0-6); Lymphocytes 48 % (20-51); Monocytes 10 % (2-9); Myelocytes 2 % (-); Segmented Neutrophils 29 % (42-75)
[2024-05-06 09:25] LABS: Absolute Neutrophils -Man Diff 0.7 10^3/uL (1.4-6.5); Anisocytosis 1+; Blasts 2 % (-); Hypochromasia 1+; Normal RBC Morphology No; Ovalocytes Slight; Platelets Checked Yes; Polychromasia 1+; Total Cells Counted 100
--- NOTE | 2024-05-06 11:08 | W.PN.ID1 ---
Date of Service
Date of Service: May 06, 2024
Today's Communication
Discontinue antibiotics. See below�
Assessment / Plan
Neutropenia
- ANC ~ 500
Low-grade temperature (although not specifically to the point of 100.5)
Profound fatigue
MDS
-Tentatively to start chemotherapy this coming week
Hx DM
Recommendations:
Cultures negative at this point in time. Patient has remained afebrile overnight.
No objection from a Infectious Diseases standpoint to discharge. No further antibiotics are necessary.
Patient will be seen tomorrow in the outpatient infusion department.
����������������������������������������������������������
Chief Complaint
-: Fever
Subjective / Review of Systems
Review of Systems: No Fever, No Chills and No Cough
Vital Signs / Physical Exam
Vital Signs
Vital Signs
Temp Pulse Resp BP Pulse Ox
99.7 F 76 20 136/71 95
05/06/24 07:20 05/06/24 07:20 05/06/24 07:20 05/06/24 07:20 05/06/24 07:20
Physical Exam
Constitutional: No Acute Distress, Comfortable and Non-toxic
Eyes: Sclera Anicteric
Pulmonary: Clear and Non Labored
Gastrointestinal: Non Distended
Neurological: Awake and Alert
Psychological: Calm
Objective Data
Lab Data
Lab Results
05/06/24 08:15
05/06/24 08:15
Estimated Creat Clear 117 ml/min 05/06/24 08:15
Lactic Acid 0.8 mmol/L (0.7-2.0) 05/05/24 01:06
Total Bilirubin 0.9 mg/dl (0.2-1.3) 05/06/24 08:15
AST 56 U/L (17-59) 05/06/24 08:15
ALT 40 U/L (0-50) 05/06/24 08:15
Alkaline Phosphatase 59 U/L (38-126) 05/06/24 08:15
Most recent labs reviewed.
Micro Results:
05/05/24 04:21 Streptococcus Screen (MASON) - Preliminary
Throat/Pharynx Culture in Progress
Streptococcus Rapid Screen - Final
Rapid Strep Screen (Group A) Negative
05/05/24 04:21 MRSA Screen - Final
Nose No Methicillin Resistant Staphylococcus aureus isolated.
05/05/24 00:18 Blood Culture - Preliminary
Blood/Venous No Growth in 24 hours- Final report to follow
05/05/24 00:08 Blood Culture - Preliminary
Blood/Venous No Growth in 24 hours- Final report to follow
05/04/24 21:05 Influenza Types A & B (JAIMIE) - Final
Nasal Swab Negative for Influenza A & B, NAAT
Negative results must be combined with clinical observations
and patient history.
Nucleic Acid Amplification test (NAAT)performed on the
Med[employer] platform.
Imaging:
05/04/2024 CXR (2 view): No acute cardiopulmonary processes noted.
Care Review
Plan reviewed with: Physician (Hospitalist)
--- NOTE | 2024-05-06 11:13 | CM ---
Addendum entered by Gudelia Quiros 05/06/24 15:09:
updated clinical information sent to [facility] via [facility]
Addendum entered by Gudelia Quiros 05/06/24 14:56:
[facility]

Addendum entered by Gudelia Quiros 05/06/24 14:54:
Plan: Discharge to home today with Home Health Services from [facility]; family will transport home
[facility] will resume services
Original Note:
Received a note via [facility] that patient was current with [facility]
Plan: Discharge to home tomorrow; new Home Health referral sent to [facility] for home PT
[2024-05-06] MEDS: NSS IV (11:49)
[2024-05-06 15:05] VITALS: BP 127/68
[2024-05-07 19:00] LABS: Hepatitis C Antibody Negative (Negative)
== END 2024-05-06 15:30 | disposition home or self-care (01) | DRG 809 ==
LOC: 2 NORTH 04:15
PROVIDERS: Emergency Medicine; Internal Medicine; ADMITTING PHYSICIAN Internal Medicine; ATTENDING PHYSICIAN Internal Medicine; CONSULT PHYSICIAN Internal Medicine Hematology & Oncology; CONSULT PHYSICIAN Internal Medicine Infectious Disease; EMERGENCY PHYSICIAN Student in an Organized Health Care Education/Training Program
DX: D70.9 Neutropenia, unspecified (principal); C95.90 Leukemia, unspecified not having achieved remission; E87.1 Hypo-osmolality and hyponatremia; Q93.9 Deletion from autosomes, unspecified; D61.818 Other pancytopenia; Z11.52 Encounter for screening for COVID-19; E11.42 Type 2 diabetes mellitus with diabetic polyneuropathy; Q92.8 Other specified trisomies and partial trisomies of autosomes; Z79.4 Long term (current) use of insulin; Z79.899 Other long term (current) drug therapy; Z82.0 Family history of epilepsy and other diseases of the nervous system; Z82.3 Family history of stroke; Z83.3 Family history of diabetes mellitus
CPT/HCPCS: 36591; 70551; 71046; 80048; 80053; 81003; 81015; 82962; 83605; 83735; 84484; 85025; 86308; 86803; 86850; 86900; 86901; 86920; 87040; 87070; 87502; 87811; 87880; 93005; 96361; 96374; 97116; 97163; 97167; 97530; 97535; 99285

== ENCOUNTER 2024-05-15 14:46 | Emergency (ER) | payer MEDICARE, OTHER, SELFPAY ==
[2024-05-15 15:05] VITALS: BP 114/50
[2024-05-15 15:22] VITALS: BP 119/62
[2024-05-15 15:26] VITALS: BMI 26.5
[2024-05-15 15:28] VITALS: BP 119/62
--- NOTE | 2024-05-15 15:31 | EDRN ---
this RN received the pt from the waiting room, [facility] did not do transfusion reaction lab work, this RN notified Dr. Kwong and lab was ordered and confirmed with the lab
[2024-05-15 16:00] VITALS: BP 112/60
[2024-05-15 16:15] LABS: COVID-19 Antigen Negative (Negative)
--- NOTE | 2024-05-15 16:37 | ED.GENMED ---
History of Present Illness
General
Chief Complaint: Medication Reaction
Source: patient
Time Seen by Provider: 05/15/24 15:49
History of Present Illness
History of Present Illness:
73-year-old male presents to the emergency room from the outpatient infusion center for suspected transfusion reaction. Patient was receiving platelets and during the infusion of platelets began to have chills and rigors. His temperature increased
to 101. Patient received 100 mg of Solu-Cortef, 50 mg of Benadryl and 650 of Tylenol at 2 PM. Currently the patient feels back to his baseline. He denies any chest pain, flank pain or back pain, shortness of breath.
Phy Exam
Physical Exam
Physical Exam:
General: Awake, Alert, Oriented X3. No acute distress but appears chronically ill
Vitals: unremarkable
Head: Atraumatic
Eyes: Pupils equal, EOMI
Throat: Airway intact, no exudates
Neck: Trachea midline
Lungs: Clear and equal b/l
Heart: Regular rate, no murmurs
Abd: Soft, Nontender, No pulsatile mass
Neuro: Nonfocal
Skin: Pale, warm, dry, no rash
Extremities: pulses equal b/l, no edema
Sepsis
Sepsis Screening
Sepsis Assessment: Sepsis Ruled Out
Sepsis Screen
Sepsis Screen: Sepsis Ruled Out
Date: 05/15/24
Time: 19:59
Course
Orders/Labs/Results
Orders:
Orders
05/15/24 15:36
Transfusion Reaction Urgent
COVID-19 Antigen Urgent
Source: Nasal Swab
Influenza A+B Rapid Molecular Urgent
MASON Source: Nasal Swab
Specimen Description:
Vital Signs
Initial and Last Documented VS:
Initial Vital Signs
Temp Pulse Resp BP Pulse Ox
101.0 F H 94 20 114/50 98
05/15/24 15:05 05/15/24 15:05 05/15/24 15:05 05/15/24 15:05 05/15/24 15:05
Last Documented Vital Signs
Temp Pulse Resp BP Pulse Ox
98.5 F 77 29 105/60 95
05/15/24 15:28 05/15/24 17:30 05/15/24 17:30 05/15/24 17:00 05/15/24 17:30
MDM/Problems Addressed
Differential Diagnosis Includes:
Transfusion reaction, viral syndrome
MDM/Problems Addressed:
Viral test negative. Patient's fever resolved. He has no symptoms at the time my evaluation. Transfusion reaction panel sent. Discussed presentation sound Spencer. No need to hospitalize the patient. They will try to arrange further
transfusions over the next couple days.
*Pulse Oximetry
Patient hypoxic: no
*Critical Care Note
Total Time (30-74mins, 75-104mins- exclusive of procedures): Not Applicable
ED Attending Note
-
Portions of this chart may have been created with voice recognition software.� Occasional wrong word or��sound alike� substitutions may have occurred due to the inherent limitations of voice recognition software.
Discharge Plan
Departure
Patient Disposition: Home (Routine Discharge)
Date of Disposition: 05/15/24
Time of Disposition: 17:29
Patient with high blood pressure during this ER visit?: No
Condition: Good
Discharge Problem:
Transfusion reaction due to platelet antibody
Instructions: Blood transfusion
Prescriptions:
No Action
rosuvastatin 20 mg Tablet
20 mg PO DAILY
Centrum Silver 0.4 mg-300 mcg- 250 mcg Tablet
1 tab PO DAILY
cyanocobalamin (vitamin B-12) 1,000 mcg Tablet
1,000 mcg PO DAILY
metformin 500 mg Tablet Extended Release 24 Hr
1,000 mg PO DAILY
azacitidine [Vidaza] 100 mg Recon Soln
157 mg IV DAILY
docusate sodium 100 mg capsule
200 mg PO DAILY
prochlorperazine maleate 10 mg Tablet
10 mg PO Q6HPRN PRN (Reason: nausea)
Activity Restrictions/Additional Instructions:
It appears he had a reaction to the platelet transfusion. I discuss your situation with Dr. Lore Kwong who feels it is safe at this point for you to go home. Call the office tomorrow to see if they can arrange for your blood products in the
next day or 2. This will somewhat depend upon the testing the blood bank has to do in response to this reaction.
Interventions
Interventions:
*Risk Screen - Suicide Last Done: 05/15/24 15:28
*General Assessment Last Done: 05/15/24 15:28
*Neglect/Abuse Screening Last Done: 05/15/24 15:28
ED- Fall Risk Assessment Last Done: 05/15/24 15:28
*ED COVID-19 Vaccine History Last Done: 05/15/24 15:05
*Nursing Disposition Last Done: 05/15/24 17:41
ED-Skin Assessment Last Done: 05/15/24 15:28
ED- Pulmonary Assessment Last Done: 05/15/24 15:28
ED-EENT Assessment Last Done: 05/15/24 15:28
Discharge Date and Time
Discharge Date/Time: 05/15/24 18:04
Print Language: PERSIAN
[2024-05-15 17:00] VITALS: BP 105/60
== END 2024-05-15 18:04 | disposition home or self-care (01) ==
LOC: EMR 14:46
PROVIDERS: EMERGENCY PHYSICIAN Emergency Medicine; FAMILY PHYSICIAN Nurse Practitioner Family
DX: T80.910A Acute hemolytic transfusion reaction, unspecified incompatibility, initial encounter (principal); R50.9 Fever, unspecified; Y84.8 Other medical procedures as the cause of abnormal reaction of the patient, or of later complication, without mention of misadventure at the time of the procedure; Y92.238 Other place in hospital as the place of occurrence of the external cause; Z11.52 Encounter for screening for COVID-19
CPT/HCPCS: 99283; 86078; 87502; 87811

== ENCOUNTER 2024-05-18 09:07 | Outpatient (RCR) | payer MEDICARE, OTHER, SELFPAY ==
[2024-04-20 12:07] LABS: Hematocrit 19.4 % (39.0-52.0); Hemoglobin 6.7 g/dL (13.0-18.0); Mean Corp Hgb Conc. 34.5 g/dL (33.0-37.0); Mean Corpuscular Hgb 33.7 pg (27.0-31.0); Mean Corpuscular Volume 97.5 fL (80.0-94.0); Platelet Count 16 10^3/uL (130-400); Red Blood Cell Count 1.99 10^6/uL (4.70-6.10); Red Cell Dist. Width 15.8 % (11.5-14.5)
[2024-04-20 12:08] LABS: Absolute Neutrophils -Man Diff 0.5 10^3/uL (1.4-6.5); Band Neutrophils 4 % (0-3); Eosinophils 5 % (0-6); Lymphocytes 47 % (20-51); Monocytes 7 % (2-9); Plasmacytoid Lymphocytes 6 %; Segmented Neutrophils 23 % (42-75)
[2024-04-20 12:09] LABS: Anisocytosis 1+; Hypochromasia 1+; Metamyelocytes 5 % (-); Myelocytes 2 % (-); Normal RBC Morphology No; Nucleated Red Blood Cells 2 (-); Ovalocytes 2+; Platelets Checked Yes; Polychromasia 1+; Promyelocytes 1 % (-)
[2024-04-20 12:10] LABS: Acanthocytes 1+; Total Cells Counted 100
[2024-04-23 10:00] VITALS: BP 126/62
[2024-04-23 10:48] LABS: ALT (SGPT) 38 U/L (0-50); AST (SGOT) 56 U/L (17-59); Albumin 3.9 g/dl (3.5-5.0); Alkaline Phosphatase 69 U/L (38-126); Blood Urea Nitrogen 9 mg/dl (9-20); Calcium 8.5 mg/dl (8.4-10.2); Carbon Dioxide 25 mmol/L (22-30); Chloride 101 mmol/L (98-107); Glucose 150 mg/dl (70-99); Potassium 4.1 mmol/L (3.5-5.1); Sodium 136 mmol/L (135-145); Total Bilirubin 1.1 mg/dl (0.2-1.3); Total Protein 6.9 g/dl (6.3-8.2); eGFR > 60.00
[2024-04-23 11:23] LABS: Hematocrit 23.1 % (39.0-52.0); Hemoglobin 7.8 g/dL (13.0-18.0); Mean Corp Hgb Conc. 33.8 g/dL (33.0-37.0); Mean Corpuscular Hgb 32.5 pg (27.0-31.0); Mean Corpuscular Volume 96.3 fL (80.0-94.0); Platelet Count 17 10^3/uL (130-400); Red Cell Dist. Width 15.8 % (11.5-14.5); White Blood Cell Count 1.9 10^3/uL (4.8-10.8)
[2024-04-23 11:25] VITALS: BP 126/62
[2024-04-23 11:40] VITALS: BP 118/62
[2024-04-23 13:40] VITALS: BP 146/71
[2024-04-23 14:27] LABS: Absolute Neutrophils -Man Diff 0.6 10^3/uL (1.4-6.5); Band Neutrophils 2 % (0-3); Segmented Neutrophils 34 % (42-75)
[2024-04-23 14:28] LABS: Atypical Lymphocytes 2 %; Blasts 5 % (-); Lymphocytes 39 % (20-51); Metamyelocytes 1 % (-); Monocytes 11 % (2-9); Myelocytes 5 % (-); Platelets Checked Yes; Total Cells Counted 100
[2024-04-23 14:29] LABS: Normal RBC Morphology Yes
[2024-04-26 14:20] LABS: Hematocrit 28.6 % (39.0-52.0); Hemoglobin 9.6 g/dL (13.0-18.0); Mean Corp Hgb Conc. 33.6 g/dL (33.0-37.0); Mean Corpuscular Hgb 31.8 pg (27.0-31.0); Mean Corpuscular Volume 94.7 fL (80.0-94.0); Platelet Count 20 10^3/uL (130-400); Red Blood Cell Count 3.02 10^6/uL (4.70-6.10); Red Cell Dist. Width 16.3 % (11.5-14.5); White Blood Cell Count 2.3 10^3/uL (4.8-10.8)
[2024-04-26 14:23] LABS: ALT (SGPT) 43 U/L (0-50); AST (SGOT) 58 U/L (17-59); Albumin 3.8 g/dl (3.5-5.0); Alkaline Phosphatase 77 U/L (38-126); Blood Urea Nitrogen 10 mg/dl (9-20); Carbon Dioxide 31 mmol/L (22-30); Chloride 99 mmol/L (98-107); Glucose 137 mg/dl (70-99); Potassium 4.4 mmol/L (3.5-5.1); Sodium 135 mmol/L (135-145); Total Bilirubin 0.8 mg/dl (0.2-1.3); Total Protein 7.4 g/dl (6.3-8.2); eGFR > 60.00
[2024-04-26 15:06] LABS: Absolute Neutrophils -Man Diff 0.3 10^3/uL (1.4-6.5); Band Neutrophils 0 % (0-3); Lymphocytes 62 % (20-51); Segmented Neutrophils 15 % (42-75)
[2024-04-26 15:07] LABS: Atypical Lymphocytes 2 %; Eosinophils 3 % (0-6); Monocytes 15 % (2-9); Myelocytes 3 % (-); Platelets Checked YES
[2024-04-26 15:08] LABS: Normal RBC Morphology No
[2024-04-26 15:09] LABS: Microcytosis FEW; Ovalocytes FEW; Target Cells FEW
[2024-04-26 15:23] LABS: Total Cells Counted 100
[2024-05-03 11:12] VITALS: BP 116/52
[2024-05-03 12:19] LABS: Hematocrit 24.6 % (39.0-52.0); Hemoglobin 8.3 g/dL (13.0-18.0); Mean Corp Hgb Conc. 33.7 g/dL (33.0-37.0); Mean Corpuscular Hgb 31.8 pg (27.0-31.0); Mean Corpuscular Volume 94.3 fL (80.0-94.0); Platelet Count 17 10^3/uL (130-400); Red Blood Cell Count 2.61 10^6/uL (4.70-6.10); Red Cell Dist. Width 15.9 % (11.5-14.5); White Blood Cell Count 2.5 10^3/uL (4.8-10.8)
[2024-05-03 12:23] LABS: ALT (SGPT) 41 U/L (0-50); AST (SGOT) 51 U/L (17-59); Albumin 3.9 g/dl (3.5-5.0); Alkaline Phosphatase 79 U/L (38-126); Blood Urea Nitrogen 12 mg/dl (9-20); Calcium 8.5 mg/dl (8.4-10.2); Carbon Dioxide 26 mmol/L (22-30); Chloride 97 mmol/L (98-107); Glucose 151 mg/dl (70-99); Potassium 4.1 mmol/L (3.5-5.1); Sodium 131 mmol/L (135-145); Total Bilirubin 1.1 mg/dl (0.2-1.3); Total Protein 7.1 g/dl (6.3-8.2); eGFR > 60.00
[2024-05-03 14:16] LABS: Absolute Neutrophils -Man Diff 0.9 10^3/uL (1.4-6.5); Band Neutrophils 1 % (0-3); Segmented Neutrophils 36 % (42-75)
[2024-05-03 14:17] LABS: Blasts 3 % (-); Eosinophils 3 % (0-6); Hypochromasia 1+; Lymphocytes 38 % (20-51); Macrocytosis Occasional; Metamyelocytes 2 % (-); Monocytes 11 % (2-9); Myelocytes 6 % (-); Normal RBC Morphology No; Platelets Checked Yes
[2024-05-03 14:18] LABS: Ovalocytes 1+; Total Cells Counted 100
[2024-05-07] MEDS: CATHFLO/ACTIVASE 2 MG INTRACATH (11:58)
[2024-05-07 12:20] VITALS: BP 112/62
[2024-05-07] MEDS: DECADRON 50.8 MG IV (12:37)
[2024-05-07] MEDS: ALOXI 5 MG IV (12:37)
[2024-05-07 12:47] LABS: ALT (SGPT) 43 U/L (0-50); AST (SGOT) 56 U/L (17-59); Albumin 3.9 g/dl (3.5-5.0); Alkaline Phosphatase 67 U/L (38-126); Blood Urea Nitrogen 11 mg/dl (9-20); Calcium 8.3 mg/dl (8.4-10.2); Carbon Dioxide 21 mmol/L (22-30); Chloride 100 mmol/L (98-107); Glucose 149 mg/dl (70-99); Sodium 133 mmol/L (135-145); Total Bilirubin 1.1 mg/dl (0.2-1.3); Total Protein 6.9 g/dl (6.3-8.2); eGFR > 60.00
[2024-05-07 12:49] VITALS: BMI 27.4
[2024-05-07 12:51] LABS: Hematocrit 22.5 % (39.0-52.0); Hemoglobin 7.7 g/dL (13.0-18.0); Mean Corp Hgb Conc. 34.2 g/dL (33.0-37.0); Mean Corpuscular Hgb 32.1 pg (27.0-31.0); Mean Corpuscular Volume 93.8 fL (80.0-94.0); Red Cell Dist. Width 15.9 % (11.5-14.5)
[2024-05-07] MEDS: VIDAZA 115.7 MG IV (12:56)
[2024-05-07 12:57] LABS: Absolute Neutrophils -Man Diff 0.6 10^3/uL (1.4-6.5); Band Neutrophils 2 % (0-3); Eosinophils 2 % (0-6); Lymphocytes 51 % (20-51); Metamyelocytes 4 % (-); Monocytes 5 % (2-9); Myelocytes 3 % (-); Platelet Count 14 10^3/uL (130-400); Platelets Checked Yes; Segmented Neutrophils 33 % (42-75); White Blood Cell Count 1.8 10^3/uL (4.8-10.8)
[2024-05-07 12:58] LABS: Anisocytosis 1+; Normal RBC Morphology No; Ovalocytes Slight; Total Cells Counted 100
[2024-05-08 10:23] VITALS: BP 113/58
[2024-05-08] MEDS: VIDAZA 115.7 MG IV (10:30)
[2024-05-09] VITALS (7 sets, daily range): BP systolic 114–136; BP diastolic 51–60
[2024-05-09] MEDS: VIDAZA 115.7 MG IV (11:37)
[2024-05-09 12:22] LABS: ALT (SGPT) 35 U/L (0-50); AST (SGOT) 41 U/L (17-59); Albumin 3.3 g/dl (3.5-5.0); Alkaline Phosphatase 64 U/L (38-126); Blood Urea Nitrogen 14 mg/dl (9-20); Calcium 8.4 mg/dl (8.4-10.2); Carbon Dioxide 23 mmol/L (22-30); Chloride 104 mmol/L (98-107); Estimated Creatinine Clearance 117 ml/min; Glucose 140 mg/dl (70-99); Potassium 4.1 mmol/L (3.5-5.1); Sodium 134 mmol/L (135-145); Total Bilirubin 0.7 mg/dl (0.2-1.3); Total Protein 6.5 g/dl (6.3-8.2); eGFR > 60.00
[2024-05-09 13:09] LABS: Mean Corp Hgb Conc. 34.5 g/dL (33.0-37.0); Mean Corpuscular Hgb 32.3 pg (27.0-31.0); Mean Corpuscular Volume 93.6 fL (80.0-94.0); Red Cell Dist. Width 16.1 % (11.5-14.5)
[2024-05-09 13:10] LABS: Band Neutrophils 2 % (0-3); Hemoglobin 7.1 g/dL (13.0-18.0); Segmented Neutrophils 30 % (42-75)
[2024-05-09 13:11] LABS: Anisocytosis 1+; Hypochromasia 1+; Lymphocytes 53 % (20-51); Metamyelocytes 4 % (-); Monocytes 8 % (2-9); Myelocytes 3 % (-); Normal RBC Morphology No; Platelets Checked Yes; Polychromasia 1+
[2024-05-09 13:12] LABS: Acanthocytes 1+; Ovalocytes 1+; Total Cells Counted 100
[2024-05-09 13:17] LABS: Hematocrit 20.8 % (39.0-52.0); Platelet Count 14 10^3/uL (130-400); White Blood Cell Count 2.3 10^3/uL (4.8-10.8)
[2024-05-09 13:18] LABS: Absolute Neutrophils -Man Diff 0.7 10^3/uL (1.4-6.5)
[2024-05-10] MEDS: VIDAZA 115.7 MG IV (11:36)
[2024-05-10] MEDS: ALOXI 5 MG IV (11:37)
[2024-05-10 11:45] VITALS: BP 127/65
[2024-05-11] MEDS: VIDAZA 115.7 MG IV (11:27)
[2024-05-11 11:31] VITALS: BP 131/60
--- NOTE | 2024-05-11 12:34 | SURV.CONR ---
Survivorship Consultation
- -
Met with patient to discuss my role at the [facility] and survivorship. Discussed current treatment regimen and under the care of Dr. Kwong and Dr. Sexton at [facility]. He is undergoing treatment for high risk MDS. My contact information was provided. Will
continue to monitor and meet with him as needed. Undergoing several follow up appts in the next few weeks including Dr. Sexton and Dr. Kwong. Currently feeling well at today's visit. Labs being monitored routinely. Had blood and platelets this
week. Bleeding precautions reviewed. Will continue to monitor.
[2024-05-14 10:00] VITALS: BP 116/56
[2024-05-14 10:50] LABS: ALT (SGPT) 28 U/L (0-50); AST (SGOT) 32 U/L (17-59); Albumin 3.3 g/dl (3.5-5.0); Alkaline Phosphatase 67 U/L (38-126); Blood Urea Nitrogen 10 mg/dl (9-20); Calcium 8.4 mg/dl (8.4-10.2); Carbon Dioxide 27 mmol/L (22-30); Chloride 101 mmol/L (98-107); Estimated Creatinine Clearance 117 ml/min; Glucose 218 mg/dl (70-99); Sodium 134 mmol/L (135-145); Total Bilirubin 0.9 mg/dl (0.2-1.3); Total Protein 6.4 g/dl (6.3-8.2); eGFR > 60.00
[2024-05-14] MEDS: ALOXI 5 MG IV (11:05)
[2024-05-14] MEDS: VIDAZA 115.7 MG IV (11:05)
[2024-05-14 11:56] LABS: Hematocrit 21.8 % (39.0-52.0); Hemoglobin 7.4 g/dL (13.0-18.0); Mean Corp Hgb Conc. 33.9 g/dL (33.0-37.0); Mean Corpuscular Hgb 30.8 pg (27.0-31.0); Mean Corpuscular Volume 90.8 fL (80.0-94.0); Platelet Count 14 10^3/uL (130-400); Red Cell Dist. Width 16.8 % (11.5-14.5); White Blood Cell Count 2.3 10^3/uL (4.8-10.8)
[2024-05-14 12:37] LABS: Segmented Neutrophils 26 % (42-75)
[2024-05-14 12:38] LABS: Anisocytosis Slight; Band Neutrophils 2 % (0-3); Eosinophils 8 % (0-6); Hypochromasia Slight; Lymphocytes 50 % (20-51); Metamyelocytes 5 % (-); Monocytes 4 % (2-9); Myelocytes 5 % (-); Normal RBC Morphology No; Ovalocytes Slight; Platelets Checked Yes; Total Cells Counted 100
[2024-05-14 12:39] LABS: Absolute Neutrophils -Man Diff 0.6 10^3/uL (1.4-6.5)
[2024-05-15] VITALS (9 sets, daily range): BP systolic 107–154; BP diastolic 46–100
[2024-05-15] MEDS: VIDAZA 115.7 MG IV (10:40)
[2024-05-15] MEDS: BENADRYL 50 MG IV (12:50)
[2024-05-15] MEDS: TYLENOL 650 MG PO (12:50)
[2024-05-15] MEDS: SOLU-CORTEF 100 MG IV (12:57)
--- NOTE | 2024-05-15 13:05 | PTCARENOTE ---
1245 Platelet transfusion completed Post vs within normal limits.
Pt c/o shaking chills Nss started
VS 98.4 hr 104 resp 22 BP 154/96 PUlse OX 100 % RA
Ricardo Brown DOUGH MIXER HELPER notified
1250 Benadryl 50 mg given IV push, Solucortef 100mg Given IV push, Tyleno 650 mg given po
1300 Temp 97.7 HR 101 Resp 20 BP 140/100 Pulse OX remains 100% RA
1310 Shaking subsiding Temp 98.8 HR 104 Resp 20 BP 143/58
1315 Pt resting quietly Skaing resolved.
--- NOTE | 2024-05-15 14:09 | PTCARENOTE ---
Pt now with temp of 101 Bp 134/49 HR 100 resp 16
Spoke with Ricardo Brown PROGRAMMING SPECIALIST Requesting to have patient go to the ED and have work up for Transfusion reaction Blood Bank notified.
[2024-05-16] MEDS: TYLENOL 1000 MG PO (11:15)
[2024-05-16] MEDS: BENADRYL 25 MG PO (11:16)
[2024-05-16 11:26] VITALS: BP 125/66
[2024-05-16 11:35] VITALS: BP 125/66
[2024-05-16 11:50] VITALS: BP 96/76
[2024-05-16 12:51] VITALS: BP 117/61
[2024-05-16 13:50] VITALS: BP 127/63
[2024-05-17 10:15] VITALS: BP 112/58
[2024-05-17 11:17] LABS: Hematocrit 22.1 % (39.0-52.0); Hemoglobin 7.7 g/dL (13.0-18.0); Mean Corp Hgb Conc. 34.8 g/dL (33.0-37.0); Mean Corpuscular Hgb 31.2 pg (27.0-31.0); Mean Corpuscular Volume 89.5 fL (80.0-94.0); Platelet Count 8 10^3/uL (130-400); Red Blood Cell Count 2.47 10^6/uL (4.70-6.10); Red Cell Dist. Width 16.8 % (11.5-14.5); White Blood Cell Count 2.4 10^3/uL (4.8-10.8)
[2024-05-17 11:20] LABS: ALT (SGPT) 40 U/L (0-50); AST (SGOT) 47 U/L (17-59); Albumin 3.2 g/dl (3.5-5.0); Alkaline Phosphatase 67 U/L (38-126); Blood Urea Nitrogen 17 mg/dl (9-20); Calcium 8.4 mg/dl (8.4-10.2); Carbon Dioxide 27 mmol/L (22-30); Chloride 100 mmol/L (98-107); Estimated Creatinine Clearance 100 ml/min; Glucose 194 mg/dl (70-99); Potassium 4.2 mmol/L (3.5-5.1); Sodium 133 mmol/L (135-145); Total Bilirubin 0.8 mg/dl (0.2-1.3); Total Protein 6.2 g/dl (6.3-8.2); eGFR > 60.00
[2024-05-17 12:35] LABS: Absolute Neutrophils -Man Diff 0.6 10^3/uL (1.4-6.5); Anisocytosis Slight; Band Neutrophils 2 % (0-3); Eosinophils 3 % (0-6); Hypochromasia Slight; Lymphocytes 57 % (20-51); Metamyelocytes 4 % (-); Monocytes 2 % (2-9); Myelocytes 5 % (-); Normal RBC Morphology No; Platelets Checked Yes; Segmented Neutrophils 27 % (42-75); Total Cells Counted 100
--- NOTE | 2024-05-17 14:06 | PTCARENOTE ---
1050-preliminary lab results for [facility]onaldson 54 tiger text to Ricardo Brown COD CLERK HGB 7.7, HCT 22.5 Platelets at 8,000 WBC 2.4 with ANC of 600 Sending specimen down for review. Pt denies signs of bleeding and patient is afebrile.
1340- Call received from [facility] [facility]. Pt planned for transfusion of 1 unit Platelets and 1 unit PRBC (CMV neg and Irradiated products) for tomorrow. Neutropenic and bleeding precautions reviewed with patient and spouse. Pt discharged
in stable condition, ambulating with walker.
[2024-05-18] VITALS (7 sets, daily range): BP systolic 118–138; BP diastolic 53–83
[2024-05-18] MEDS: BENADRYL 25 MG PO (09:38)
[2024-05-18] MEDS: TYLENOL 1000 MG PO (09:38)
== END 2024-05-18 14:47 | disposition home or self-care (01) ==
LOC: OID 09:07
PROVIDERS: ATTENDING PHYSICIAN Internal Medicine Hematology & Oncology; FAMILY PHYSICIAN Nurse Practitioner Family
DX: D61.818 Other pancytopenia (principal); D75.89 Other specified diseases of blood and blood-forming organs; D46.22 Refractory anemia with excess of blasts 2
CPT/HCPCS: 36415; 36430; 36591; 80053; 85025; 86850; 86900; 86901; 86920; 86922; 96367; 96375; 96413; J2469; J2997; J9025; P9058; P9073

== ENCOUNTER 2024-05-25 22:22 | Inpatient (IN) | payer MEDICARE, OTHER, SELFPAY ==
[2024-05-25] VITALS (10 sets, daily range): BP systolic 123–151; BP diastolic 57–85; BMI 27.5
[2024-05-25 15:24] LABS: ALT (SGPT) 35 U/L (0-50); AST (SGOT) 51 U/L (17-59); Albumin 3.9 g/dl (3.5-5.0); Alkaline Phosphatase 68 U/L (38-126); Blood Urea Nitrogen 12 mg/dl (9-20); Calcium 8.6 mg/dl (8.4-10.2); Carbon Dioxide 25 mmol/L (22-30); Chloride 95 mmol/L (98-107); Glucose 243 mg/dl (70-99); Potassium 4.4 mmol/L (3.5-5.1); Sodium 131 mmol/L (135-145); Total Bilirubin 1.4 mg/dl (0.2-1.3); Total Protein 6.9 g/dl (6.3-8.2); eGFR > 60.00
[2024-05-25 15:33] LABS: % Basophils 0.4 % (0-2); % Eosinophils 0.8 % (0-6); % Immature Granulocytes 0.4 % (0-0.5); % Lymphocytes 43.9 % (20.5-51.1); % Monocytes 15.9 % (1.7-9.3); % Neutrophils 38.6 % (42.2-75.2); Absolute Lymphocytes 1.1 10^3/uL (1.2-3.4); Absolute Monocytes 0.4 10^3/uL (0.1-0.6); Hematocrit 22.9 % (39.0-52.0); Hemoglobin 7.8 g/dL (13.0-18.0); Mean Corp Hgb Conc. 34.1 g/dL (33.0-37.0); Mean Corpuscular Hgb 30.1 pg (27.0-31.0); Mean Corpuscular Volume 88.4 fL (80.0-94.0); Nucleated Red Blood Cells % 1.6 % (-); Platelet Count 11 10^3/uL (130-400); Red Blood Cell Count 2.59 10^6/uL (4.70-6.10); Red Cell Dist. Width 15.3 % (11.5-14.5); White Blood Cell Count 2.5 10^3/uL (4.8-10.8)
--- NOTE | 2024-05-25 16:46 | ED.GENMED ---
History of Present Illness
General
Chief Complaint: Swelling
Source: patient
Exam Limitations: none
Time Seen by Provider: 05/25/24 16:37
History of Present Illness
History of Present Illness:
See MDM
Past History
Past History
ED Past Medical History: Cancer
ED Past Surgical History: Orthopedic
Social History
Tobacco: Non-smoker
Alcohol: None
Phy Exam
Physical Exam
Physical Exam:
See MDM
Scores
Heart Failure Risk
Heart Failure Risk Score: Not Applicable
Course
Orders/Labs/Results
Orders:
Orders
05/25/24 14:53
Type And Crossmatch [Type+Screen] Urgent
Complete Blood Count/With Diff Urgent
Comprehensive Metabolic Panel Urgent
05/25/24 16:44
CT Neck With Iv Contrast Urgent
Comment:
Reason For Exam: R facial swelling
0.9% Sodium Chloride 1000 ml [Nss] 1,000 ml IV BOLUS
05/25/24 16:53
Clindamycin 600 mg/50 ml [Cleocin] 600 mg in 50 ml IV NOW
05/25/24 19:55
Acetaminophen [Tylenol] 650 mg PO NOW STA
Abnormal Lab Results
05/25/24
14:53
WBC 2.5 L 10^3/uL
(4.8-10.8)
RBC 2.59 L 10^6/uL
(4.70-6.10)
Hgb 7.8 L g/dL
(13.0-18.0)
Hct 22.9 L %
(39.0-52.0)
RDW 15.3 H %
(11.5-14.5)
Plt Count 11 L* D 10^3/uL
(130-400)
Absolute Neuts (auto) 1.0 L 10^3/uL
(1.4-6.5)
Absolute Lymphs (auto) 1.1 L 10^3/uL
(1.2-3.4)
Neutrophils % 38.6 L %
(42.2-75.2)
Monocytes % 15.9 H %
(1.7-9.3)
Sodium 131 L mmol/L
(135-145)
Chloride 95 L mmol/L
(98-107)
Creatinine 0.6 L mg/dL
(0.7-1.3)
Glucose 243 H mg/dl
(70-99)
Total Bilirubin 1.4 H mg/dl
(0.2-1.3)
05/25/24 14:53
05/25/24 14:53
Vital Signs
Initial and Last Documented VS:
Initial Vital Signs
Temp Pulse Resp BP Pulse Ox
98.5 F 72 20 125/66 96
05/25/24 14:43 05/25/24 14:43 05/25/24 14:43 05/25/24 14:43 05/25/24 14:43
Last Documented Vital Signs
Temp Pulse Resp BP Pulse Ox
99.6 F 101 16 136/77 95
05/25/24 19:52 05/25/24 19:23 05/25/24 19:23 05/25/24 19:00 05/25/24 19:23
MDM/Problems Addressed
Differential Diagnosis Includes:
HPI and MDM Narrative:
73-year-old male presenting for evaluation of fever and right facial swelling. Patient does have a history of MDS and receives chemotherapy. Patient states he and his talked to his on-call doctors and he was instructed for him to go to the
emergency department for evaluation. On exam, patient does have right facial swelling and mild erythema. Will obtain CT to rule out deep space infection such as an abscess. Will start IV clindamycin. I discussed with patient that I recommend IV
antibiotics and admission given his immunocompromise state and fevers. Patient has significant lab abnormalities in regards to leukopenia, anemia and thrombocytopenia. However, these are very close to baseline. Patient has received 4 bags of
platelets this past week
Physical exam
General: Well appearing and non-toxic
HEENT: protecting airway. Dry mucous membranes. Edema and erythema noted to right cheek. No dental abscess noted
Neck: appears supple
CV: No evidence of cyanosis
Resp: No accessory muscle use
Abd: Non-distended
Extremities: No deformities. No leg edema
Neuro: alert
Psych: Normal affect
Skin: Intact
Problems Addressed including Acute and Chronic Conditions affecting care:
1. Facial infection
Acuity: acute
Prognosis: stable
Details: Will start IV antibiotics given his immunocompromise state. Will obtain CT looking for any evidence of abscess
Updates
8 PM patient now developing rigors. Will give Tylenol. CT consistent with facial cellulitis but no evidence of abscess
Differential Diagnosis (but not limited to): Dental abscess, cellulitis, parotitis
Testing considered: Lactic acid
Drug therapy (if applicable): OTC meds, please see d/c instruction regarding Rx drugs
Amount and/or Complexity of Data Reviewed
Clinical info obtained from: Patient
External data reviewed: N/A
Labs I independently reviewed (but not limited to): Leukopenia, thrombocytopenia, anemia
Radiology: The CT scan was personally and independently reviewed. In addition, official CT report reviewed.
Pulse Ox: not hypoxic
EKG independently reviewed: N/A
Engineering Teacher: N/A
Critical Care: N/A
Risk of Complication:
Social Determinants of health: Good social support
Discussed with other providers: Hospitalist
Escalation of Care includes Admit/Obs: Given the severe cellulitis while immunocompromise, will admit for IV antibiotics
Occasional wrong word or 'sound a like' substitutions may have occurred due to the inherent limitations of voice recognition software. Read the chart carefully and recognize, using context, where substitutions have occurred.
*Critical Care Note
Total Time (30-74mins, 75-104mins- exclusive of procedures): Not Applicable
ED Attending Note
-
Portions of this chart may have been created with voice recognition software.� Occasional wrong word or��sound alike� substitutions may have occurred due to the inherent limitations of voice recognition software.
Discharge Plan
Departure
Patient Disposition: Admit
Date of Disposition: 05/25/24
Time of Disposition: 20:00
Admit to: Med/Surg
Presentation/result/management discussed w/ accepting MD/DO: Hospitalist
Discharge Problem:
Cellulitis, face, Thrombocytopenia, Anemia
Prescriptions:
No Action
rosuvastatin 20 mg Tablet
20 mg PO DAILY
cyanocobalamin (vitamin B-12) 1,000 mcg Tablet
1,000 mcg PO DAILY
metformin 500 mg Tablet Extended Release 24 Hr
1,000 mg PO DAILY
docusate sodium 100 mg capsule
100 mg PO DAILY
prochlorperazine maleate 10 mg Tablet
10 mg PO Q6HPRN PRN (Reason: nausea)
Theragen Tablet
1 tab PO DAILY
Referrals:
Ranjan Young CRNP [Family Provider] -
Interventions
Interventions:
*Risk Screen - Suicide Last Done: 05/25/24 16:39
*General Assessment Last Done: 05/25/24 14:43
*Neglect/Abuse Screening Last Done: 05/25/24 16:39
*ED- Fall Risk Assessment Last Done: 05/25/24 16:46
*ED COVID-19 Vaccine History Last Done: 05/25/24 16:39
ED- Cardiac Assessment Last Done: 05/25/24 16:39
ED- Pulmonary Assessment Last Done: 05/25/24 16:33
ED-Skin Assessment Last Done: 05/25/24 16:33
Discharge Date and Time
Print Language: PORTUGUESE
[2024-05-25] MEDS: NSS 1000 IV (17:06)
[2024-05-25] MEDS: CLEOCIN 50 IV (17:06)
[2024-05-25] MEDS: TYLENOL 650 MG PO (20:05)
--- NOTE | 2024-05-25 22:15 | HPS.HSE ---
Family Physician
-
Family Physician: DALLAS Hinojosa
Chief Complaint
-
Facial swelling / Pain
History of Present Illness
Patient is a 73y M with PMH significant for MDS on chemotherapy who presents to ED complaining of R facial swelling and pain. History obtained from patient and his at the bedside. Patient states that swelling has been present / increasing
for the past few days. states that it started last PM. Temp at home to 100.1 this AM. Patient denies any drainage / discharge into the mouth. No recent injury / trauma. No recent dental work, etc.
Patient denies any cough. He denies N/V/D though states that he had one episode of emesis last PM and one loose stool.
Patient completed his last 7 day course of Vidaza on 05/15/24.
He is currently transfusion dependent and had platelet transfusions on 05/18, 05/21 and 05/24.
He had PRBC transfusions on 05/16 and 05/18. (Irradiated / leukoreduced / CMV negative)
Medical History
Past Medical History
Past Medical History: Reports Other
Additional Past Medical History:
DM-II
MDS
Past Surgical History: Reports Other
Additional Past Surgical History:
Bone Marrow Biopsy
Social History
Tobacco: Non-smoker
Alcohol: None
Drug: None
Personal:
Family History
Family History: Not pertinent
Allergies / Home Medications
Allergies reflects when Allergies were last updated in [facility].
Home Medications with original date entered in [facility]
Allergy/Medication List:
Allergies
Allergy/AdvReac Type Severity Reaction Status Date / Time
No Known Allergies Allergy Verified 05/25/24 14:43
Home Medications
rosuvastatin 20 mg tablet 20 mg PO DAILY High Cholesterol 02/22/24
cyanocobalamin (vitamin B-12) 1,000 mcg tablet 1,000 mcg PO DAILY Supplement 04/07/24
metformin 500 mg tablet,extended release 24 hr 1,000 mg PO DAILY Diabetes 04/07/24
docusate sodium 100 mg capsule 100 mg PO DAILY STOOL SOFTENER 04/14/24
prochlorperazine maleate 10 mg tablet 10 mg PO Q6HPRN PRN nausea 05/04/24
therapeutic multivitamin 1 tab PO DAILY 05/25/24
Review of Systems
-
History Source: Patient and Family
A 12 point ROS was completed and negative except as noted: Yes
Constitutional: Reports Fever and Fatigue; Denies Chills
EENT: Reports Other (facial swelling / redness); Denies Sore Throat
Respiratory: Denies Cough or Trouble Breathing
Cardiac: Denies Chest Pain or Palpitations
Abdomen/GI: Reports Nausea, Vomiting and Diarrhea; Denies Abdominal Pain, Bloody Stools, Black Stools or Anorexia
: Denies Dysuria, Frequency or Flank Pain
Musculoskeletal: Denies Joint Pain or Edema
Neurological: Denies Dizzy or Headache
Psych: Denies Depression or Anxiety
Physical Exam
Vital Signs
Vital Signs
Temp Pulse Resp BP Pulse Ox
99.6 F 87 21 123/79 92
05/25/24 19:52 05/25/24 22:00 05/25/24 22:00 05/25/24 22:00 05/25/24 21:15
Physical Exam
General: Other (73y M in no acute distress.)
HEENT: Other (MMM. Edema of the R buccal mucosa / overlying cheek with mild erythema and tenderness. No fluctuance / fluid collection. No intraoral abscess / etc.)
Respiratory: Clear; No Wheezes, Rales or Rhonchi
Cardiac: S1/S2, Regular Rhythm and Murmur (II/ NATALIE)
GI: Soft, Non Tender, Non Distended and Normal Bowel Sounds
Musculoskeletal: No Clubbing, No Cyanosis and No Edema
Skin: Other (Mild / scattered petechiae.)
Neuro: AO x 3 and Nonfocal/grossly intact
Laboratory Results
-
05/25/24 14:53
05/25/24 14:53
Laboratory Results
Total Bilirubin 1.4 mg/dl (0.2-1.3) H 05/25/24 14:53
AST 51 U/L (17-59) 05/25/24 14:53
ALT 35 U/L (0-50) 05/25/24 14:53
Alkaline Phosphatase 68 U/L (38-126) 05/25/24 14:53
Impression/Plan
-
A/P: Patient is a 73y M with PMH significant for MDS on chemotherapy who presents to [facility] complaining of R facial pain, swelling and redness.
Right Facial Cellulitis
- Admit for further evaluation and treatment.
- Continue IV abx with clindamycin for now.
- Follow clinically for improvement.
- CT done in the ED shows no underlying parotitis, abscess / fluid collection, etc.
- No evidence of clear odontogenic focus - but would likely benefit from formal dental evaluation after discharge.
- Infectious Disease evaluation for additional recommendations.
MDS on Chemotherapy
Transfusion-dependent Pancytopenia
- Cell counts are fairly stable compared to recent values.
- ANC = 1000 c/w neutropenia (though also stable).
- Platelets stable / improved after recent transfusion(s).
- Follow cell counts and provide additional transfusion support as needed.
- Patient receives Benadryl / Tylenol pre-treatment prior to transfusions.
- Heme/Onc eval for additional recommendations.
DM-II
- Stable. Hold metformin.
- Follow glucose and cover with SSI as needed.
- Update A1C.
DVT Prophylaxis: SCDs
Code Status: Full
[2024-05-26] VITALS (9 sets, daily range): BP systolic 100–142; BP diastolic 44–89; PULSE 80
[2024-05-26] MEDS: TYLENOL 650 MG PO ×4 (00:15→14:16)
--- NOTE | 2024-05-26 00:20 | VATNOTE ---
Paged by PCN due to evaluate patients PICC line. Patient with a 5FR DL PICC in the left arm placed at [facility] about a month ago, per . Patient has the dressing changed at outpatient lab every Tuesday. Dressing clean and intact with biopatch
dated 05/21. PCN aware that there was no xray done to check for placement and that should be done before using the PICC line. She will reach out to [employer] for order and will contact VAT RN if a peripheral line is needed in the mean time.
--- NOTE | 2024-05-26 04:56 | PTCARENOTE ---
05/25/2024: Pt admitted via stretcher from ed to on room air. Patient drowsy but oriented x3. Pt's provided admission information reporting pt is forgetful at times. Pt oriented to room, call valverde within reach.
--- NOTE | 2024-05-26 05:04 | PTCARENOTE ---
05/25/24: Pt had PICC upon arrival at ED. No verification of placement at this time. CXR performed at bedside awaiting radiology before accessing for medication use.
[2024-05-26] MEDS: NSS 1000 IV ×2 (06:30→19:32)
[2024-05-26] MEDS: CLEOCIN 50 IV ×2 (06:31→12:23)
[2024-05-26] MEDS: CLEOCIN IV (06:44)
[2024-05-26 07:07] LABS: Blood Urea Nitrogen 11 mg/dl (9-20); Calcium 8.7 mg/dl (8.4-10.2); Carbon Dioxide 25 mmol/L (22-30); Chloride 97 mmol/L (98-107); Estimated Creatinine Clearance 117 ml/min; Glucose 176 mg/dl (70-99); Hematocrit 21.1 % (39.0-52.0); Hemoglobin 7.4 g/dL (13.0-18.0); Mean Corp Hgb Conc. 35.1 g/dL (33.0-37.0); Mean Corpuscular Hgb 31.2 pg (27.0-31.0); Platelet Count 8 10^3/uL (130-400); Potassium 4.2 mmol/L (3.5-5.1); Red Blood Cell Count 2.37 10^6/uL (4.70-6.10); Red Cell Dist. Width 15.4 % (11.5-14.5); Sodium 132 mmol/L (135-145); White Blood Cell Count 1.7 10^3/uL (4.8-10.8); eGFR > 60.00
[2024-05-26 07:26] LABS: Glucose - Point of Care 211 mg/dl (70-99)
[2024-05-26] MEDS: CRESTOR 20 MG PO (09:11)
[2024-05-26] MEDS: COLACE 100 MG PO (09:11)
[2024-05-26] MEDS: VITAMIN B-12 1000 MCG PO (09:11)
[2024-05-26 10:39] LABS: Band Neutrophils 4 % (0-3); Eosinophils 1 % (0-6); Lymphocytes 45 % (20-51); Metamyelocytes 1 % (-); Monocytes 12 % (2-9); Myelocytes 8 % (-); Segmented Neutrophils 29 % (42-75)
[2024-05-26 10:40] LABS: Normal RBC Morphology Yes; Nucleated Red Blood Cells 2 (-); Platelets Checked Yes; Total Cells Counted 100
[2024-05-26 10:41] LABS: Absolute Neutrophils -Man Diff 0.5 10^3/uL (1.4-6.5)
--- NOTE | 2024-05-26 11:12 | W.PN.HOSP.TC ---
Today's Communication/Plan
-
Continue antibiotics
Platelet transfusion
Hematology consult
ID consult
Assessment / Plan
Assessment / Plan
Gen-AAOx3, NAD
HEENT-NC, AT, anicteric, clear oral mm
Neck-supple
CV-reg, no M, +S1/S2
Lungs-clear B/L
Abd-soft, NT, ND
Ext-no edema
Musculoskeletal-no cyanosis, clubbing
Skin-warm and dry
Neuro-grossly non-focal
Psych-calm, cooperative
Right facial cellulitis -in a immunosuppressed host. Symptoms started May 24. Denies any recent dental work. Currently on IV clindamycin. Hemodynamically stable. at the bedside states the redness is improved overnight. ID
consulted.
CT neck without abscess.
Pancytopenia -suspect multifactorial etiology including MDS and chemotherapy. Counts slightly lower today compared to yesterday. Monitor daily.
ANC 500.
Platelet transfusion today per hematology.
MDS -transfusion dependent. Received 1 round of chemotherapy with Vidaza. Hematology/oncology consulted.
Hyponatremia -appears chronic. Counts are stable.
Hyperlipidemia
DM2 with hyperglycemia -hold metformin. Use sliding scale insulin for now.
Full code
updated at the bedside.
Anticipated Discharge: > 48 hours
Subjective/Interval History
-
Date of Service: May 26, 2024
Patient seen and examined. Feels somewhat better in terms of right cheek pain.
Objective Data
-
Labs:
Laboratory Results
05/26/24
06:26
WBC 1.7 L*
Hgb 7.4 L
Hct 21.1 L
Plt Count 8 L* D
Sodium 132 L
Potassium 4.2
Chloride 97 L
Carbon Dioxide 25
BUN 11
Creatinine 0.6 L
Glucose 176 H
Calcium 8.7
Vital Signs:
Vital Signs
Temp Pulse Resp BP Pulse Ox
100.7 F H 87 20 128/55 96
05/26/24 07:15 05/26/24 07:15 05/26/24 07:15 05/26/24 07:15 05/26/24 07:15
Review of Systems
-
History Source: Patient
All other systems: Reviewed and negative
[2024-05-26 12:02] LABS: Glucose - Point of Care 241 mg/dl (70-99)
--- NOTE | 2024-05-26 12:09 | CON.ID ---
Consultation
-
Date/Time Consultation Requested: May 25, 20248
Date/Time Consultation Performed: May 26, 2024 1210
Requesting Provider: Dr. Rickey Lucas
Performing Provider: Dr. Sarah Marroquin
Reason for Consultation: Facial cellulitis
Chief Complaint / Past History
Chief Complaint
Facial swelling and redness
History of Present Illness
73-year-old man with a significant past medical history of MDS, transfusion dependent, recently started on Vidaza s/p cycle 1 May 07 to May 15 who presented to the hospital yesterday due to facial swelling. Per he developed acute
right lower face redness and swelling about 2 days ago. There is discomfort. He then developed low-grade fever 100.5 and came to the hospital. He was febrile last night to 102. He is neutropenic ANC 500. CT of the neck showed severe right cheek
subcutaneous edema without fluid collections. He is currently on clindamycin. Per the redness improved today. Patient denies headache, sinus congestion, or sore throat. No trauma. No dental work recently. No dental pain. He shaves with
an electric razor. He cleans a razor every other day. Had episode of diarrhea few days ago resolved.
Past History
Additional Past Medical History:
MDS, transfusion dependent, on Vidaza initiated 05/07
DM2
Additional Past Surgical History:
Hernia repair
Allergy History:
No Known Allergies Allergy (Verified 05/25/24 14:43)
Medications Reviewed: Yes
Current Antibiotics:
Clindamycin 600 mg IV every 6 hours
Social History
Tobacco: Non-Smoker
Alcohol: None
Drug: None
Personal:
Living: With Family
Employment: Retired
Family History
Family History: Not Pertinent
Review of Systems
Review of Systems
General: Fever and Change in Appetite; Negative Chills
HEENT: Negative Sinus Problems or Headache
Cardiovascular: Negative Chest Pain or Dyspnea
Respiratory: Negative Dyspnea or Cough
Genital / Urological: Negative Dysuria, Hematuria or Flank Pain
Endocrine: Weakness
Neurological: Negative Dizziness
All systems: All other systems were reviewed and were negative
Vital Signs
Temp Pulse Resp BP Pulse Ox
100.7 F H 87 20 128/55 96
05/26/24 07:15 05/26/24 07:15 05/26/24 07:15 05/26/24 07:15 05/26/24 07:15
Selected Entries
05/26/24
03:15
Temp max 102.5 F H
Physical Exam
Physical Exam
Constitutional: No Acute Distress and Comfortable
Head: Other (Right cheek to lower jaw with induration, minimal erythema, + warmth, tender)
Eyes: No Conjunctival Hemorrhage and Sclera Anicteric
Pharynx: Benign
Oral: No Thrush
Cardiovascular: Regular Rate and S1/S2
Pulmonary: Clear
Gastrointestinal: Soft, Non Tender, Non Distended and Normal Bowel Sounds
Genito-Urinary: Negative CVA Tenderness
Extremities: Negative Edema
Neurological: AO x 3
Lines: PICC (LUE)
Lab / Diagnostic Study Results
05/26/24 06:26
05/26/24 06:26
Abs Immat Gran (auto) 0.0 10^3/uL (0-0.05) 05/25/24 14:53
Absolute Neuts (auto) 1.0 10^3/uL (1.4-6.5) L 05/25/24 14:53
Absolute Lymphs (auto) 1.1 10^3/uL (1.2-3.4) L 05/25/24 14:53
Absolute Monos (auto) 0.4 10^3/uL (0.1-0.6) 05/25/24 14:53
Absolute Basos (auto) 0.0 10^3/uL (0-0.2) 05/25/24 14:53
Total Counted 100 05/26/24 06:26
Immature Gran % 0.4 % (0-0.5) 05/25/24 14:53
Neutrophils % 38.6 % (42.2-75.2) L 05/25/24 14:53
Lymphocytes % 43.9 % (20.5-51.1) 05/25/24 14:53
Monocytes % 15.9 % (1.7-9.3) H 05/25/24 14:53
Eosinophils % 0.8 % (0-6) 05/25/24 14:53
Basophils % 0.4 % (0-2) 05/25/24 14:53
Abs Neuts (Manual) 0.5 10^3/uL (1.4-6.5) L* 05/26/24 06:26
Segmented Neutrophils 29 % (42-75) L 05/26/24 06:26
Band Neutrophils 4 % (0-3) H 05/26/24 06:26
Lymphocytes (Manual) 45 % (20-51) 05/26/24 06:26
Eosinophils (Manual) 1 % (0-6) 05/26/24 06:26
Microbiology Results
05/25/[address]: Findings consistent with severe cellulitis of the lower right cheek/face. No loculated fluid collections. Findings consistent with severe cellulitis of the lower right cheek/face. No loculated fluid collections.
05/26/34 CXR: Left upper extremity PICC tip projects over the superior vena cava.
Assessment / Plan
# Neutropenic fever
# Acute right lower facial cellulitis
# MDS, transfusion dependent, recent first cycle Vidaza (05/07- 05/15)
# Pancytopenia due to MDS
# DM2
- Blood cx's x 2
- DC clindamycin
- Start broad spectrum abx Vancomycin and cefepime given profound immunosuppression.
- Follow temps, WBC
Care Review
Plan reviewed with: Physician (Dr. Oro)
[2024-05-26] MEDS: NSS IV ×2 (12:10→19:32)
[2024-05-26] MEDS: FLUSH (NSS) 1 FLUSH IV ×2 (12:24→12:55)
[2024-05-26] MEDS: VANCOCIN 540 MG IV (12:54)
[2024-05-26] MEDS: NOVOLOG FLEXPEN-LOW RESISTANCE 2 UNITS SC (12:59)
--- NOTE | 2024-05-26 13:10 | CON.ONC ---
Impression
Impression
right facial cellulitis
MDS
pancytopenia
Plan
Plan
1. Right facial cellulitis - immunocompromised state - MDS
-CT neck reviewed
-continue antibiotics as per ID
2. MDS/ pancytopenia
-transfuse plts today
-Hb 7.4g/dl
-monitor CBC and transfuse prn
-f/u outpt w/ Dr. Kwong for continued management
Will continue to follow with you.
Patient History
History of Present Illness
73y/o male seen in oncology/ hematology consultation regarding h/o MDS w/ pancytopenia.
The patient was diagnosed w/ MDS in February and is currently undergoing treatment w/ Dr. Kwong w/ lary, receiving his 1st cycles in mid-April. He is transfusion dependent of plts and PRBCs - receiving multiple transfusions in the past 4-6
weeks.
He now presents to the ER on 05/25 w/ right facial swelling. CT imaging in the ER revealed findings consistent with severe cellulitis of the lower right cheek/face. No loculated fluid collections. He has been placed on antibiotics w/ cefepime and
vancomycin.
CBC today w/ thrombocytopenia -plts 8000 - transfusion has been ordered. Hemoglobin is 7.4g/dl. WBC is 1700 w/ 500 neutrophils.
The patient is lethargic this afternoon. No SOB at rest or chest pain. He has had fevers to 102.5F. Right facial swelling persists.
Past-Medical/Surgical History
PMH:
MDS - increased blasts 2
pancytopenia
hyperlipidemia
DM
B12 deficiency
neuropathy
FEDE
PSH:
hernia repair
SH: no tobacco, no significant ETOH
FH: non-contributory
Allergies: NKDA
Patient Medication
�Medication �Instructions �Recorded �Confirmed �Last Taken �Type
rosuvastatin 20 mg tablet 20 mg PO DAILY High Cholesterol 02/22/24 05/25/24 05/24/24 History
cyanocobalamin (vitamin B-12) 1,000 mcg PO DAILY Supplement 04/07/24 05/25/24 05/24/24 History
1,000 mcg tablet
metformin 500 mg tablet,extended 1,000 mg PO DAILY Diabetes 04/07/24 05/25/24 05/24/24 History
release 24 hr
docusate sodium 100 mg capsule 100 mg PO DAILY STOOL SOFTENER 04/14/24 05/25/24 05/24/24 History
prochlorperazine maleate 10 mg 10 mg PO Q6HPRN PRN nausea 05/04/24 05/25/24 Unknown History
tablet
therapeutic multivitamin 1 tab PO DAILY 05/25/24 05/25/24 Unknown History
Active Medications
Generic Name Dose Route Start Last Admin
Trade Name Freq PRN Reason Stop Dose Admin
Acetaminophen 650 mg 05/25/24 23:08 05/26/24 09:20
Acetaminophen 325 Mg Tablet PO 06/22/24 23:07 650 mg
Q4HPRN PRN Administration
Mild Pain / Temp > 101
Acetaminophen 650 mg 05/26/24 13:06
Acetaminophen 325 Mg Tablet PO 05/26/24 13:07
NOW ONE
Cefepime HCl 2,000 mg 05/26/24 14:00
Cefepime Hcl 2,000 Mg/12.5 Ml Vial IV
Q8H LINDA
Cyanocobalamin 1,000 mcg 05/26/24 08:00 05/26/24 09:11
Cyanocobalamin 1,000 Mcg Tablet PO 06/23/24 07:59 1,000 mcg
DAILY LINDA Administration
Dextrose 12.5 grams 05/26/24 11:18
Dextrose 50% (0.5 Grams/Ml) 50 Ml Syringe IV 06/23/24 11:17
[id number] PRN
hypoglycemia
Protocol
Diphenhydramine HCl 25 mg 05/26/24 13:07
Diphenhydramine 25 Mg Capsule PO 05/26/24 13:08
NOW ONE
Docusate Sodium 100 mg 05/26/24 08:00 05/26/24 09:11
Docusate Sodium 100 Mg Capsule PO 06/23/24 07:59 100 mg
DAILY LINDA Administration
Glucagon 1 mg 05/26/24 11:18
Glucagon 1 Mg Vial IM 06/23/24 11:17
PRN PRN
hypoglycemia
Protocol
Sodium Chloride 1,000 mls @ 80 mls/hr 05/26/24 06:39
Nss IV
.[id number] LINDA
Vancomycin HCl 1 each/ Device 0 mls @ 0 mls/hr 05/26/24 18:00
IV
PER PROTOCOL LINDA
As Directed
Vancomycin HCl 2,000 mg/ 540 mls @ 270 mls/hr 05/26/24 12:42 05/26/24 12:54
Sodium Chloride IV 05/26/24 14:41 540 mls
NOW STA Administration
Insulin Aspart 0 units 05/26/24 11:30 05/26/24 12:59
Insulin Aspart Low Resistance 300 Units/3 Ml Pen.Injctr SC 06/23/24 11:29 2 units
AC LINDA Administration
Protocol
Rosuvastatin Calcium 20 mg 05/26/24 08:00 05/26/24 09:11
Rosuvastatin (Crestor) 20 Mg Tablet PO 06/23/24 07:59 20 mg
DAILY LINDA Administration
Sodium Chloride 0 flush 05/25/24 23:00 05/26/24 12:55
Sodium Chloride 0.9% (Flush) Syringe IV 06/22/24 22:59 1 flush
PER PROTOCOL LINDA Administration
Review of Systems
-
An ROS was performed w/ pertinent findings as per HPI.
Physical Exam
-
General: Well Developed and No Apparent Distress
HEENT: Other (right facial fullness, no redness); Negative Jaundice
Cardiology: Normal Sinus Rhythm
Pulmonary: Clear
Extremities: No C/C/E
Labs
Lab Results
WBC 1.7 10^3/uL (4.8-10.8) L* 05/26/24 06:
RBC 2.37 10^6/uL (4.70-6.10) L 05/26/24 06:
Hgb 7.4 g/dL (13.0-18.0) L 05/26/24 06:
Hct 21.1 % (39.0-52.0) L 05/26/24 06:
MCV 89.0 fL (80.0-94.0) 05/26/24 06:
MCH 31.2 pg (27.0-31.0) H 05/26/24 06:
MCHC 35.1 g/dL (33.0-37.0) 05/26/24 06:
RDW 15.4 % (11.5-14.5) H 05/26/24 06:
Plt Count 8 10^3/uL (130-400) L* D 05/26/24 06:
MPV Not Reportable 05/26/24 06:
Abs Immat Gran (auto) 0.0 10^3/uL (0-0.05) 05/25/24 14:53
Absolute Neuts (auto) 1.0 10^3/uL (1.4-6.5) L 05/25/24 14:53
Absolute Lymphs (auto) 1.1 10^3/uL (1.2-3.4) L 05/25/24 14:53
Absolute Monos (auto) 0.4 10^3/uL (0.1-0.6) 05/25/24 14:53
Absolute Eos (auto) 0.0 10^3/uL (0-0.7) 05/25/24 14:53
Absolute Basos (auto) 0.0 10^3/uL (0-0.2) 05/25/24 14:53
Immature Gran % 0.4 % (0-0.5) 05/25/24 14:53
Neutrophils % 38.6 % (42.2-75.2) L 05/25/24 14:53
Lymphocytes % 43.9 % (20.5-51.1) 05/25/24 14:53
Monocytes % 15.9 % (1.7-9.3) H 05/25/24 14:53
Eosinophils % 0.8 % (0-6) 05/25/24 14:53
Basophils % 0.4 % (0-2) 05/25/24 14:53
Creatinine 0.6 mg/dL (0.7-1.3) L 05/26/24 06:26
Vital Signs
Vital Signs
Temp Pulse Resp BP Pulse Ox
100.7 F H 87 20 128/55 96
05/26/24 07:15 05/26/24 07:15 05/26/24 07:15 05/26/24 07:15 05/26/24 07:15
[2024-05-26] MEDS: MAXIPIME 2000 MG IV ×2 (14:17→21:15)
[2024-05-26] MEDS: BENADRYL 25 MG PO (14:17)
[2024-05-26] MEDS: FLUSH (NSS) 2 FLUSH IV (14:23)
[2024-05-26] MEDS: STERILE WATER FOR INJECTION 10 ML IV ×2 (14:31→21:15)
--- NOTE | 2024-05-26 14:44 | PHA.VAN.IN ---
Assessment
- Assessment
Renal Function: Appears similar to baseline (SCr 0.6, CrCl 117)
Maximum Temperature: 102.5
Concomitant Antimicrobials: Cefepime
AUC Dosing Plan
- Dosing Variables
Dosing Weight (kg): 86.954
Dosing CrCl (ml/min): 117
Vd coefficient (L/kg): 0.7
- Empiric Dosing
Initial / Loading Dose: Vanco 2000mg loading given 05/26/24 at 1254
Maintenance Regimen: Vanco 1500mg Q12H Starting 05/27/24 0600
Estimated AUC (mcg*h/mL): 510
Estimated Peak (mcg*h/mL): 35
Estimated Trough (mcg/ml): 11.5
Estimated Half Life (H): 6.83
- Monitoring
No levels ordered at this time: Consider in the next few days
Pharmacokinetics Vancomycin I
- -
Patient Age: 73
Patient Sex: Male
Vancomycin Day #: 1
Indication: Neutropenic Fever
Requesting Provider: MILVIA
Pertinent Antimicrobial Allergies:
No Known Drug Allergies
Height / Weight:
Height 5 ft 10 in
Actual Weight 86.954 kg
Pertinent Past Medical History: T2DM
- Vital Signs / Lab Results
Temp Pulse Resp BP Pulse Ox
98.4 F 82 18 100/44 96
05/26/24 14:35 05/26/24 14:35 05/26/24 14:35 05/26/24 14:35 05/26/24 08:00
Lab Results - Hematology
05/25/24 05/26/24
14:53 06:26
WBC 2.5 L 1.7 L*
Band Neutrophils 4 H
Lab Results - Chemistry
05/25/24 05/26/24
14:53 06:26
BUN 12 11
Creatinine 0.6 L 0.6 L
Estimated Creat Clear 117
Albumin 3.9
--- NOTE | 2024-05-26 16:41 | W.PN.UPDATE ---
Update Note
Progress Note Update
cross coverage update:
Once IV tylenol 1000 mg ordered for intractable fever
[2024-05-26] MEDS: NOVOLOG FLEXPEN-LOW RESISTANCE 1 UNITS SC (16:58)
[2024-05-26 17:00] LABS: Glucose - Point of Care 179 mg/dl (70-99)
[2024-05-26] MEDS: OFIRMEV 100 IV (19:29)
[2024-05-26 21:37] LABS: Glucose - Point of Care 173 mg/dl (70-99)
[2024-05-27] VITALS (8 sets, daily range): BP systolic 109–145; BP diastolic 55–71
[2024-05-27] MEDS: TYLENOL 650 MG PO ×5 (03:57→21:16)
[2024-05-27] MEDS: STERILE WATER FOR INJECTION 10 ML IV ×3 (05:01→21:02)
[2024-05-27] MEDS: MAXIPIME 2000 MG IV ×3 (05:01→21:02)
[2024-05-27] MEDS: VANCOCIN 530 MG IV ×2 (05:05→18:03)
[2024-05-27 07:20] LABS: Glucose - Point of Care 182 mg/dl (70-99)
[2024-05-27 08:17] LABS: Hematocrit 18.6 % (39.0-52.0); Hemoglobin 6.3 g/dL (13.0-18.0); Mean Corp Hgb Conc. 33.9 g/dL (33.0-37.0); Mean Corpuscular Hgb 30.4 pg (27.0-31.0); Mean Corpuscular Volume 89.9 fL (80.0-94.0); Platelet Count 9 10^3/uL (130-400); Red Blood Cell Count 2.07 10^6/uL (4.70-6.10); Red Cell Dist. Width 15.6 % (11.5-14.5); White Blood Cell Count 1.3 10^3/uL (4.8-10.8)
[2024-05-27] MEDS: NOVOLOG FLEXPEN-LOW RESISTANCE 1 UNITS SC (09:11)
[2024-05-27] MEDS: COLACE 100 MG PO (09:12)
[2024-05-27] MEDS: VITAMIN B-12 1000 MCG PO (09:12)
[2024-05-27] MEDS: CRESTOR 20 MG PO (09:12)
--- NOTE | 2024-05-27 09:13 | PHA.VAN.FU ---
Vancomycin Assessment / Plan
- Assessment
Renal Function: Stable (SCr 0.6)
WBC's are: Trending Down (1.7 -> 1.3)
In the past 24 hrs, patient has been: Febrile (102.1)
- Dosing Plan
Continue: Vanco 1500mg Q12H
- Monitoring Plan
No level(s) ordered at this time: Consider in the next few days
- Follow Up
Pharmacy will continue to follow.
Vancomycin Follow UP
- -
Patient Age: 73
Patient Sex: Male
Vancomycin Day #: 2
Indication: Neutropenic Fever
Requesting Provider: MILVIA
Pertinent Antimicrobial Allergies:
No Known Drug Allergies
Height / Weight:
Height 5 ft 10 in
Actual Weight 86.954 kg
Pertinent Past Medical History: T2DM
- Vital Signs / Lab Results
Temp Pulse Resp BP Pulse Ox
98.8 F 99 18 130/62 97
05/27/24 07:17 05/27/24 07:17 05/27/24 07:17 05/27/24 07:17 05/27/24 07:17
Lab Results - Hematology
05/25/24 05/26/24 05/27/24
14:53 06:26 07:51
WBC 2.5 L 1.7 L* 1.3 L*
Band Neutrophils 4 H
Lab Results - Chemistry
05/25/24 05/26/24
14:53 06:26
BUN 12 11
Creatinine 0.6 L 0.6 L
Estimated Creat Clear 117
Albumin 3.9
[2024-05-27 09:49] LABS: Atypical Lymphocytes 2 %; Band Neutrophils 2 % (0-3); Eosinophils 4 % (0-6); Lymphocytes 46 % (20-51); Metamyelocytes 12 % (-); Monocytes 4 % (2-9); Segmented Neutrophils 30 % (42-75)
[2024-05-27 09:50] LABS: Anisocytosis 1+; Hypochromasia FEW; Normal RBC Morphology No; Nucleated Red Blood Cells 6 (-); Platelets Checked Yes; Polychromasia 1+
[2024-05-27 09:51] LABS: Basophilic Stippling FEW; Ovalocytes 1+; Total Cells Counted 100
[2024-05-27 09:53] LABS: Absolute Neutrophils -Man Diff 0.4 10^3/uL (1.4-6.5)
--- NOTE | 2024-05-27 10:18 | W.PN.ID1 ---
Date of Service
Date of Service: May 27, 2024
Today's Communication
Continue Vancomycin, cefepime.
Assessment / Plan
# Neutropenic fever
# Acute right lower facial cellulitis
# MDS, transfusion dependent, recent first cycle Vidaza (05/07- 05/15)
# Pancytopenia due to MDS
# DM2
- Blood cx's x 2 pending
- Continue Vancomycin and cefepime
- Follow temps, WBC
-Follow closely
Chief Complaint
-: Cellulitis
Subjective / Review of Systems
Mouth is dry. Cheek better, less pain.
Vital Signs / Physical Exam
Vital Signs
Vital Signs
Temp Pulse Resp BP Pulse Ox
98.8 F 99 18 130/62 97
05/27/24 07:17 05/27/24 07:17 05/27/24 07:17 05/27/24 07:17 05/27/24 07:17
Physical Exam
Constitutional: No Acute Distress and Comfortable
Head: Other (Right lower face - less induration, softer)
Eyes: No Conjunctival Hemorrhage and Sclera Anicteric
Cardiovascular: Regular Rate and S1/S2
Pulmonary: Clear
Gastrointestinal: Soft, Non Tender and Non Distended
Extremities: Negative Edema
Neurological: AO x 3; Negative Meningeal Signs
Lines: PICC (LUE no erythema)
Objective Data
Lab Data
Lab Results
05/27/24 07:51
05/26/24 06:26
Estimated Creat Clear 117 ml/min 05/26/24 06:26
Total Bilirubin 1.4 mg/dl (0.2-1.3) H 05/25/24 14:53
AST 51 U/L (17-59) 05/25/24 14:53
ALT 35 U/L (0-50) 05/25/24 14:53
Alkaline Phosphatase 68 U/L (38-126) 05/25/24 14:53
Most recent labs reviewed.
Micro Results:
05/26/24 13:13 Blood Culture - Pending
Blood/Venous
05/26/24 12:51 Blood Culture - Pending
Blood/Venous
05/25/[address]: Findings consistent with severe cellulitis of the lower right cheek/face. No loculated fluid collections. Findings consistent with severe cellulitis of the lower right cheek/face. No loculated fluid collections.
05/26/34 CXR: Left upper extremity PICC tip projects over the superior vena cava.
--- NOTE | 2024-05-27 10:56 | CM ---
Patient seen at bedside with
IA completed
DX: facial cellulitis, neutropenia
Lives at home with in a 2 story home with stair glide, 2 steps to enter
PLOF: Ambulates with walker
DME: Walker, stair glide, commode, grab bars on toilet & bed and shower
States current with [facility] for PT, also [facility] infusion in past
Referral placed in [facility]
PCP: Álvaro Young
Pharmacy: [facility]
PLAN: Home with [facility]
[2024-05-27 11:46] LABS: Glucose - Point of Care 260 mg/dl (70-99)
--- NOTE | 2024-05-27 11:58 | W.PN.HOSP.TC ---
Today's Communication/Plan
-
Continue antibiotics
Transfuse
Await cultures
Assessment / Plan
Assessment / Plan
Gen-AAOx3, NAD
HEENT-NC, AT, anicteric, clear oral mm, right cheek swelling and firmness improving.
Neck-supple
CV-reg, no M, +S1/S2
Lungs-clear B/L
Abd-soft, NT, ND
Ext-no edema
Musculoskeletal-no cyanosis, clubbing
Skin-warm and dry
Neuro-grossly non-focal
Psych-calm, cooperative
Neutropenic fever -ANC 400. Continue antibiotics per ID. Blood cultures pending.
Right facial cellulitis -in a immunosuppressed host. Symptoms started May 24. Denies any recent dental work. Hemodynamically stable. at the bedside states the redness is improved overnight. Now on cefepime, vancomycin per ID.
CT neck without abscess.
Pancytopenia -suspect multifactorial etiology including MDS and chemotherapy. Counts down compared to yesterday.
Plan to transfuse platelets again today, as well as PRBCs. Discussed with family. Hematology following.
MDS -transfusion dependent. Received 1 round of chemotherapy with Vidaza.
Hyponatremia -appears chronic. Counts are stable.
Hyperlipidemia
DM2 with hyperglycemia -hold metformin. Use sliding scale insulin for now.
Full code
updated at the bedside.
Anticipated Discharge: > 48 hours
Subjective/Interval History
-
Date of Service: May 27, 2024
Patient seen and examined. No complaints.
Objective Data
-
Labs:
Laboratory Results
05/27/24
07:51
WBC 1.3 L*
Hgb 6.3 L*
Hct 18.6 L*
Plt Count 9 L*
Vital Signs:
Vital Signs
Temp Pulse Resp BP Pulse Ox
98.8 F 99 18 130/62 97
05/27/24 07:17 05/27/24 07:17 05/27/24 07:17 05/27/24 07:17 05/27/24 11:49
I&O
05/26/24 05/27/24 05/28/24
05:59 06:59 06:59
Intake Total
Balance
Review of Systems
-
History Source: Patient
All other systems: Reviewed and negative
[2024-05-27] MEDS: NOVOLOG FLEXPEN-LOW RESISTANCE 3 UNITS SC ×2 (12:09→17:18)
[2024-05-27 13:05] LABS: Glycohemoglobin (HgbA1c) 6.9 % (4.0-5.6)
[2024-05-27] MEDS: BENADRYL 25 MG PO (13:06)
[2024-05-27] MEDS: FLUSH (NSS) 2 FLUSH IV (15:02)
--- NOTE | 2024-05-27 15:23 | W.PN.ONC ---
Today's Communication / Plan
-
transfuse plts and PRBCs today
Impression
Impression
right facial cellulitis
MDS
pancytopenia
Plan
Plan
1. Right facial cellulitis - immunocompromised state - MDS
-CT neck reviewed
-continue antibiotics as per ID
2. MDS/ pancytopenia
-transfuse plts and PRBCs today
-monitor CBC and transfuse prn
-f/u outpt w/ Dr. Kwong for continued management
Will continue to follow with you.
Subjective/Objective
Subjective/Objective
facial fullness improved - no new complaints
Vital Signs:
Vital Signs
Temp Pulse Resp BP Pulse Ox
99.1 F 86 18 119/56 97
05/27/24 14:19 05/27/24 14:19 05/27/24 14:19 05/27/24 14:19 05/27/24 11:49
Lab Results:
Laboratory Data
WBC 1.3 10^3/uL (4.8-10.8) L* 05/27/24 07:51
Hgb 6.3 g/dL (13.0-18.0) L* 05/27/24 07:51
Plt Count 9 10^3/uL (130-400) L* 05/27/24 07:51
eGFR > 60.00 05/26/24 06:26
Exam:
Gen: awake in NAD
HEENT: facial fullness improved
CV: RRR
Pulm: CTAb
Orders
Orders
Orders From Last 24 Hours
05/27/24 09:40
* Blood Bank Products Routine
05/27/24 09:41
* Blood Bank Products Routine
05/27/24 12:37
Acetaminophen [Tylenol] 650 mg PO NOW ONE
05/27/24 12:38
Diphenhydramine [Benadryl] 25 mg PO NOW ONE
[2024-05-27 17:17] LABS: Glucose - Point of Care 283 mg/dl (70-99)
[2024-05-27] MEDS: NSS 1000 IV (18:06)
[2024-05-27] MEDS: ZOFRAN 4 MG IV (21:23)
--- NOTE | 2024-05-27 21:37 | PTCARENOTE ---
Pt vomit and appeared to have small clots. BUSINESS ACCOUNT LEADER notified and Zofran order.
[2024-05-27 21:48] LABS: Glucose - Point of Care 223 mg/dl (70-99)
[2024-05-28] VITALS (9 sets, daily range): BP systolic 125–147; BP diastolic 68–87
[2024-05-28] MEDS: TYLENOL 650 MG PO ×3 (05:00→15:08)
[2024-05-28] MEDS: MAXIPIME 2000 MG IV ×3 (05:01→22:33)
[2024-05-28] MEDS: VANCOCIN 530 MG IV ×2 (05:01→17:54)
[2024-05-28] MEDS: STERILE WATER FOR INJECTION 10 ML IV ×3 (05:01→22:32)
[2024-05-28] MEDS: ZOFRAN 4 MG IV (05:14)
[2024-05-28 06:37] LABS: Hematocrit 20.4 % (39.0-52.0); Hemoglobin 6.8 g/dL (13.0-18.0); Mean Corp Hgb Conc. 33.3 g/dL (33.0-37.0); Mean Corpuscular Hgb 29.3 pg (27.0-31.0); Mean Corpuscular Volume 87.9 fL (80.0-94.0); Platelet Count 12 10^3/uL (130-400); Red Blood Cell Count 2.32 10^6/uL (4.70-6.10); Red Cell Dist. Width 16.4 % (11.5-14.5); White Blood Cell Count 1.3 10^3/uL (4.8-10.8)
[2024-05-28 07:40] LABS: Glucose - Point of Care 233 mg/dl (70-99)
[2024-05-28 07:42] LABS: Anisocytosis 1+; Band Neutrophils 0 % (0-3); Eosinophils 4 % (0-6); Hypochromasia 1+; Lymphocytes 53 % (20-51); Metamyelocytes 1 % (-); Monocytes 4 % (2-9); Myelocytes 3 % (-); Normal RBC Morphology No; Platelets Checked Yes; Polychromasia 1+; Segmented Neutrophils 35 % (42-75); Total Cells Counted 100
[2024-05-28 07:43] LABS: Absolute Neutrophils -Man Diff 0.4 10^3/uL (1.4-6.5)
--- NOTE | 2024-05-28 08:28 | W.PN.ONC2 ---
Today's Communication / Plan
-
.
Impression
Impression
right facial cellulitis
MDS
pancytopenia
Plan
Plan
1. Right facial cellulitis - immunocompromised state - MDS
-continue antibiotics as per ID
2. MDS/ pancytopenia
-transfuse plts and PRBCs today
-monitor CBC and transfuse prn
-f/u outpt w/ Dr. Kwong for continued management
Will continue to follow with you.
Subjective/Objective
Subjective
Vital Signs:
Vital Signs
Temp Pulse Resp BP Pulse Ox
99.9 F 101 18 133/71 92
05/28/24 08:08 05/28/24 08:08 05/28/24 08:08 05/28/24 08:08 05/28/24 08:08
Lab Results:
Laboratory Data
WBC 1.3 10^3/uL (4.8-10.8) L* 05/28/24 05:48
Hgb 6.8 g/dL (13.0-18.0) L* 05/28/24 05:48
Plt Count 12 10^3/uL (130-400) L* D 05/28/24 05:48
eGFR > 60.00 05/26/24 06:26
[2024-05-28] MEDS: NOVOLOG FLEXPEN-LOW RESISTANCE 2 UNITS SC ×2 (08:31→13:25)
[2024-05-28] MEDS: COLACE 100 MG PO (08:32)
[2024-05-28] MEDS: VITAMIN B-12 1000 MCG PO (08:32)
[2024-05-28] MEDS: CRESTOR 20 MG PO (08:32)
[2024-05-28] MEDS: BENADRYL 25 MG PO ×2 (10:00→15:08)
--- NOTE | 2024-05-28 10:05 | PHA.VAN.FU ---
Vancomycin Assessment / Plan
- Assessment
Renal Function: No New Labs Today
WBC's are: Stable
Neutropenia: ANC = 400
Concomitant Antimicrobials: cefepime
- Dosing Plan
Continue: Vanc 1500mg Q12H
- Monitoring Plan
Peak Level: 05/28 21:30
Trough Level: 05/29 05:30
Monitoring Comments: levels to be drawn after 4th maintenance dose
- Follow Up
Pharmacy will continue to follow.
Vancomycin Follow UP
- -
Patient Age: 73
Patient Sex: Male
Vancomycin Day #: 3
Indication: Neutropenic Fever
Requesting Provider: Dr. Marroquin
Pertinent Antimicrobial Allergies:
No Known Drug Allergies
Height / Weight:
Height 5 ft 10 in
Actual Weight 86.954 kg
Pertinent Past Medical History: DM 2, MDS
- Vital Signs / Lab Results
Temp Pulse Resp BP Pulse Ox
99.9 F 101 18 133/71 92
05/28/24 08:08 05/28/24 08:08 05/28/24 08:08 05/28/24 08:08 05/28/24 08:08
Lab Results - Hematology
05/25/24 05/26/24 05/27/24
14:53 06:26 07:51
WBC 2.5 L 1.7 L* 1.3 L*
Band Neutrophils 4 H 2
05/28/24
05:48
WBC 1.3 L*
Band Neutrophils 0
Lab Results - Chemistry
05/25/24 05/26/24
14:53 06:26
BUN 12 11
Creatinine 0.6 L 0.6 L
Estimated Creat Clear 117
Albumin 3.9
Microbiology Results
05/26/24 13:13 Blood Culture - Preliminary
Blood/Venous No Growth in 24 hours- Final report to follow
05/26/24 12:51 Blood Culture - Preliminary
Blood/Venous No Growth in 24 hours- Final report to follow
[2024-05-28 12:15] LABS: Glucose - Point of Care 236 mg/dl (70-99)
--- NOTE | 2024-05-28 12:25 | W.PN.HOSP.TC ---
Today's Communication/Plan
-
Monitor vital signs see plan
Transfuse PRBC and platelets, need Tylenol and Benadryl prior
Discussed with spouse at bedside
Encourage ambulation and p.o. intake
Follow fever curve
Continue antibiotics per infectious disease
Check EKG
PT/OT
Assessment / Plan
Assessment / Plan
Gen-AAOx3, NAD
HEENT-NC, AT, anicteric, clear oral mm, right cheek swelling and firmness improving.
Neck-supple
CV-reg, no M, +S1/S2
Lungs-clear B/L
Abd-soft, NT, ND
Ext-no edema
Musculoskeletal-no cyanosis, clubbing
Skin-warm and dry
Neuro-grossly non-focal
Psych-calm, cooperative
Neutropenic fever -ANC 400. Continue antibiotics per ID. Blood cultures NGTD
Right facial cellulitis -in a immunosuppressed host. Symptoms started May 24. Denies any recent dental work. Hemodynamically stable. at the bedside states the redness is improved overnight. Now on cefepime, vancomycin per ID.
CT neck without abscess.
Pancytopenia -suspect multifactorial etiology including MDS and chemotherapy.
Transfuse PRBC and platelets today. Discussed with family. Hematology following.
MDS -transfusion dependent. Received 1 round of chemotherapy with Vidaza.
Hyponatremia -appears chronic. Counts are stable.
Hyperlipidemia
DM2 with hyperglycemia -hold metformin. Use sliding scale insulin for now.
Full code
updated at the bedside.
I spent a total of 51 minutes with the patient or on the floor. More than 50% of this time involved counseling and coordination of care.
Anticipated Discharge: 24 - 48 hours
Subjective/Interval History
-
Date of Service: May 28, 2024
Denies pain
Objective Data
-
Labs:
Laboratory Results
05/28/24
05:48
WBC 1.3 L*
Hgb 6.8 L*
Hct 20.4 L*
Plt Count 12 L* D
Vital Signs:
Vital Signs
Temp Pulse Resp BP Pulse Ox
99.9 F 101 18 133/71 92
05/28/24 08:08 05/28/24 08:08 05/28/24 08:08 05/28/24 08:08 05/28/24 08:08
I&O
05/27/24 05/28/24 05/29/24
06:59 06:59 06:59
Intake Total 4533 / 4533
Output Total 225 / 225
Balance 4308 / 4308
--- NOTE | 2024-05-28 12:59 | W.PN.ID1 ---
Date of Service
Date of Service: May 28, 2024
Today's Communication
Continue Vancomycin and cefepime.
Assessment / Plan
# Neutropenic fever.
Fever trending down.
ANC 400.
# Acute right lower facial cellulitis
Improving
# MDS, transfusion dependent, recent first cycle Vidaza (05/07- 05/15)
# Pancytopenia due to MDS
# DM2
- Blood cx's x 2 neg to date.
- Continue Vancomycin and cefepime (d3)
- Follow temps, WBC
Chief Complaint
-: Cellulitis
Subjective / Review of Systems
Continues to feel better - right side of face.
Vital Signs / Physical Exam
Vital Signs
Vital Signs
Temp Pulse Resp BP Pulse Ox
99.6 F 98 16 130/68 93
05/28/24 11:45 05/28/24 11:45 05/28/24 11:45 05/28/24 11:45 05/28/24 11:45
Selected Entries
05/27/24
18:41
Temp 101.5 F H
Physical Exam
Constitutional: No Acute Distress and Comfortable
Head: Other (right lower face decreasing erythema and induration)
Cardiovascular: Regular Rate and S1/S2
Pulmonary: Clear
Gastrointestinal: Soft, Non Tender, Non Distended and Normal Bowel Sounds
Extremities: Negative Edema
Neurological: AO x 3
Objective Data
Lab Data
Lab Results
05/26/24 06:26
Estimated Creat Clear 117 ml/min 05/26/24 06:26
Total Bilirubin 1.4 mg/dl (0.2-1.3) H 05/25/24 14:53
AST 51 U/L (17-59) 05/25/24 14:53
ALT 35 U/L (0-50) 05/25/24 14:53
Alkaline Phosphatase 68 U/L (38-126) 05/25/24 14:53
Most recent labs reviewed.
Micro Results:
05/26/24 12:51 Blood Culture - Preliminary
Blood/Venous No Growth in 48 hours- Final report to follow
05/26/24 13:13 Blood Culture - Preliminary
Blood/Venous No Growth in 24 hours- Final report to follow
05/25/[address]: Findings consistent with severe cellulitis of the lower right cheek/face. No loculated fluid collections. Findings consistent with severe cellulitis of the lower right cheek/face. No loculated fluid collections.
05/26/34 CXR: Left upper extremity PICC tip projects over the superior vena cava.
--- NOTE | 2024-05-28 15:23 | PN.CDI ---
CDI
- -
CDI:
Physician Documentation Request
Admit Date: 05/25/24 22:22
Dear Doctor Usama,
Please review the following and provide your response in the progress notes.
Clinical Indicators:
Pt admitted with right facial cellulitis and pancytopenia.
Selected Entries
05/25/24
18:00 05/25/24
19:23 05/25/24
23:20
Temp 102.3 F H
Pulse 96 101
05/26/24
03:15 05/26/24
14:54
Temp 102.1 F H
Pulse 91
Laboratory Tests
05/25/24 05/26/24 05/27/24
14:53 06:26 07:51
WBC 2.5 L 1.7 L* 1.3 L*
Please clarify which of the following most accurately describes the status of the patient's infection:
Sepsis
- Systemic manifestations of infection, with 2 or more SIRS criteria which include:
- Fever >100.4 degrees F or hypothermia < 96.8 degrees F
- Leukocytosis - WBC > 12,000 or leukopenia - WBC < 4,000 or > 10% bands
- Tachycardia > 90 beats per minute
- Tachypnea - RR > 20 breaths per minute or PaCO2 , 32mmHg
Source: Merck Manual 2013
- Indicate the known or suspected organism
- Indicate the known or suspected underlying infection, such as UTI, pneumonia or cellulitis
Local Infection only (Cellulitis), Without Systemic Illness
Other
Use of terms such as suspected, likely, concern for, or probable (associated with a specific diagnosis that is being evaluated, monitored, or treated as if it exists) are acceptable and can be coded in the inpatient setting, when documented at the
time of discharge.
Thank you,
Chula Yepez RN
CDI Specialist
[place] [facility]
Please use your independent medical judgment in providing your response.
--- NOTE | 2024-05-28 16:24 | CM ---
Reviewed the chart notes and spoke with the patient, spouse, and daughter at the bedside. Provided homecare title searcher list. Discussed adding to existing [facility] services of PT/OT/LINE MAINTENANCE TECHNICIAN. Referral updated and sent in [facility]. CM continues to be
available to patient/family and is monitoring medical plan for needs at discharge.
Plan: Discharge to home with resumption of [facility].
[2024-05-28 17:19] LABS: Glucose - Point of Care 356 mg/dl (70-99)
[2024-05-28] MEDS: NOVOLOG FLEXPEN-LOW RESISTANCE 5 UNITS SC (17:25)
[2024-05-28 20:42] LABS: Hematocrit 21.8 % (39.0-52.0); Hemoglobin 7.6 g/dL (13.0-18.0); Mean Corp Hgb Conc. 34.9 g/dL (33.0-37.0); Mean Corpuscular Hgb 30.2 pg (27.0-31.0); Mean Corpuscular Volume 86.5 fL (80.0-94.0); Platelet Count 13 10^3/uL (130-400); Red Blood Cell Count 2.52 10^6/uL (4.70-6.10)
[2024-05-28 21:11] LABS: % Eosinophils 2.1 % (0-6); % Immature Granulocytes 21.9 % (0-0.5); % Lymphocytes 38.5 % (20.5-51.1); % Monocytes 8.3 % (1.7-9.3); % Neutrophils 28.2 % (42.2-75.2); Absolute Immature Granulocytes 0.2 10^3/uL (0-0.05); Absolute Lymphocytes 0.4 10^3/uL (1.2-3.4); Absolute Monocytes 0.1 10^3/uL (0.1-0.6); Absolute Neutrophils 0.3 10^3/uL (1.4-6.5); Nucleated Red Blood Cells % 5.2 % (-)
[2024-05-28 22:04] LABS: Glucose - Point of Care 268 mg/dl (70-99)
[2024-05-28 22:30] LABS: Vancomycin Peak 20.8 ug/ml (18-26)
[2024-05-29] VITALS (7 sets, daily range): BP systolic 135–166; BP diastolic 67–93; PULSE 100–114; O2SAT 94
[2024-05-29] MEDS: CATHFLO/ACTIVASE 2 MG INTRACATH (00:51)
--- NOTE | 2024-05-29 00:53 | VATNOTE ---
purple lumen of PICC completely occluded can not flush and no blood return. cathflo administered with stopcock and reassess in 30 minutes
--- NOTE | 2024-05-29 01:43 | VATNOTE ---
Cathflo reassessed able to instill more cathflo into lumen will recheck in 30 minutes
--- NOTE | 2024-05-29 02:44 | VATNOTE ---
Reassessed cathflo instill no blood return will recheck in 30 minutes
--- NOTE | 2024-05-29 04:36 | VATNOTE ---
Cathflo attempt unsuccessful. Purple lumen remains occluded PCN aware.
[2024-05-29] MEDS: MAXIPIME 2000 MG IV ×2 (05:01→13:32)
[2024-05-29] MEDS: STERILE WATER FOR INJECTION 10 ML IV ×2 (05:01→13:32)
[2024-05-29 06:33] LABS: Blood Urea Nitrogen 17 mg/dl (9-20); Calcium 8.3 mg/dl (8.4-10.2); Carbon Dioxide 22 mmol/L (22-30); Chloride 101 mmol/L (98-107); Estimated Creatinine Clearance 100 ml/min; Glucose 241 mg/dl (70-99); Potassium 3.9 mmol/L (3.5-5.1); Sodium 132 mmol/L (135-145); eGFR > 60.00
[2024-05-29 06:37] LABS: Vancomycin Trough 12.4 ug/ml (5-20)
[2024-05-29] MEDS: VANCOCIN 530 MG IV ×2 (06:40→17:23)
[2024-05-29 06:41] LABS: Hematocrit 21.1 % (39.0-52.0); Hemoglobin 7.5 g/dL (13.0-18.0); Mean Corp Hgb Conc. 35.5 g/dL (33.0-37.0); Mean Corpuscular Hgb 30.7 pg (27.0-31.0); Mean Corpuscular Volume 86.5 fL (80.0-94.0); Platelet Count 15 10^3/uL (130-400); Red Blood Cell Count 2.44 10^6/uL (4.70-6.10); Red Cell Dist. Width 16.1 % (11.5-14.5); White Blood Cell Count 1.1 10^3/uL (4.8-10.8)
[2024-05-29 07:25] LABS: Glucose - Point of Care 269 mg/dl (70-99)
--- NOTE | 2024-05-29 08:38 | W.PN.ONC ---
Today's Communication / Plan
-
1. Right facial cellulitis - immunocompromised state - MDS
-improving, continue antibiotics (vanco, cefepime) as per ID
2. MDS/ pancytopenia
- s/p cycle #1 of azacitadine 05/07 - 05/15/24
- continue aggressive transfusion support (goal hgb > 7.5 and platelets >/= 15 in hospital, would would transfuse to hgb > 8, and plat > 20 at discharge)
- monitor CBC and transfuse prn
- met with transplant team last week at [place], thought to NOT BE a candidate for transplant
- d/w Dr Sexton at [place], continue supportive care. Plan to repeat BM bx after 4-6 cycles of treatment (response to azacitadine in MDS is usually slow)
- cycle #2 is scheduled to start 06/04/24. Would postpone if needed for treatment of infection or other non-hematologic toxicity (persistent cytopenias is usually not an indication to delay treatment)
- discussed goals of care w/ . Patient is still interested in aggressive treatments
3. weakness
- per , he's physically difficult to manage at home, especially when hgb drops
- she has contact numbers to look into home health aide options
- would benefit from PT
Impression
Impression
right facial cellulitis
MDS, s/p cycle #1 azacitadine 05/07 to 05/15
pancytopenia
Plan
Plan
1. Right facial cellulitis - immunocompromised state - MDS
-improving, continue antibiotics (vanco, cefepime) as per ID
2. MDS/ pancytopenia
- s/p cycle #1 of azacitadine 05/07 - 05/15/24
- continue aggressive transfusion support (goal hgb > 7.5 and platelets >/= 15 in hospital, would would transfuse to hgb > 8, and plat > 20 at discharge)
- monitor CBC and transfuse prn
- met with transplant team last week at [place], thought to NOT BE a candidate for transplant
- d/w Dr Sexton at [place], continue supportive care. Plan to repeat BM bx after 4-6 cycles of treatment (response to azacitadine in MDS is usually slow)
- cycle #2 is scheduled to start 06/04/24. Would postpone if needed for treatment of infection or other non-hematologic toxicity (persistent cytopenias is usually not an indication to delay treatment)
- discussed goals of care w/ . Patient is still interested in aggressive treatments
3. weakness
- per , he's physically difficult to manage at home, especially when hgb drops
- she has contact numbers to look into home health aide options
- would benefit from PT
Will continue to follow with you.
Subjective/Objective
Subjective/Objective
Sleepy, arousable but falls back to sleep quickly. States his facial swelling is improving. at bedside.
Vital Signs:
Vital Signs
Temp Pulse Resp BP Pulse Ox
97.8 F 99 16 158/89 90
05/29/24 07:20 05/29/24 07:20 05/29/24 07:20 05/29/24 07:20 05/29/24 07:20
mild right cheek swelling
ecchymoses at right elbow
Lab Results:
Laboratory Data
WBC 1.1 10^3/uL (4.8-10.8) L* 05/29/24 05:50
Hgb 7.5 g/dL (13.0-18.0) L 05/29/24 05:50
Plt Count 15 10^3/uL (130-400) L* 05/29/24 05:50
eGFR > 60.00 05/29/24 05:50
[2024-05-29] MEDS: NOVOLOG FLEXPEN-LOW RESISTANCE 3 UNITS SC (08:42)
[2024-05-29] MEDS: COLACE 100 MG PO (08:45)
[2024-05-29] MEDS: VITAMIN B-12 1000 MCG PO (08:45)
[2024-05-29] MEDS: CRESTOR 20 MG PO (08:45)
--- NOTE | 2024-05-29 08:59 | PHA.VAN.FU ---
Vancomycin Assessment / Plan
- Assessment
Renal Function: Stable
Neutropenia: ANC = 300 3/10 PM
Concomitant Antimicrobials: cefepime
- Assessment - Therapeutic Drug Monitoring
Extrapolated Cmax (mcg/mL): 25
Peak level was drawn: Appropriately (drawn ~2.7H after end of previous infusion)
Extrapolated Cmin (mcg/mL): 12.3
Trough Drawn: Appropriately
Levels were drawn: At steady state (levels drawn after 4th maintenance dose)
Calculated AUC (mcg*h/mL): 432
Calculated ke: 0.067
Calculated half life (H): 10.3
Calculated Vd (L): 103 (~1.2 L/kg)
Calculated Vanc CL (ml/min): 116
- Dosing Plan
Continue: Vanc 1500mg Q12H
- Monitoring Plan
Level(s) appropriate: Recheck trough at minimum of weekly intervals, Repeat sooner for changes in renal function or clinical status
Next Level Due (Date): ~06/05
- Follow Up
Pharmacy will continue to follow.
Vancomycin Follow UP
- -
Patient Age: 73
Patient Sex: Male
Vancomycin Day #: 4
Indication: Neutropenic Fever
Requesting Provider: Dr. Marroquin
Pertinent Antimicrobial Allergies:
No Known Drug Allergies
Height / Weight:
Height 5 ft 10 in
Actual Weight 86.954 kg
Pertinent Past Medical History: DM 2, MDS
- Vital Signs / Lab Results
Temp Pulse Resp BP Pulse Ox
97.8 F 99 16 158/89 90
05/29/24 07:20 05/29/24 07:20 05/29/24 07:20 05/29/24 07:20 05/29/24 07:20
Lab Results - Hematology
05/26/24 05/27/24 05/28/24
06:26 07:51 05:48
WBC 1.3 L* 1.3 L*
Band Neutrophils 4 H 2 0
05/28/24 05/29/24
20:05 05:50
WBC 1.0 L* 1.1 L*
Band Neutrophils
Lab Results - Chemistry
05/29/24
05:50
BUN 17
Creatinine 0.7
Estimated Creat Clear 100
Microbiology Results
05/26/24 13:13 Blood Culture - Preliminary
Blood/Venous No Growth in 48 hours- Final report to follow
05/26/24 12:51 Blood Culture - Preliminary
Blood/Venous No Growth in 48 hours- Final report to follow
Therapeutic Drug Monitoring
Vancomycin Peak 20.8 ug/ml (18-26) 05/28/24 22:07
Vancomycin Trough 12.4 ug/ml (5-20) 05/29/24 05:50
[2024-05-29 09:32] LABS: Band Neutrophils 3 % (0-3); Eosinophils 1 % (0-6); Lymphocytes 54 % (20-51); Metamyelocytes 2 % (-); Monocytes 4 % (2-9); Myelocytes 3 % (-); Normal RBC Morphology No; Platelets Checked Yes; Segmented Neutrophils 33 % (42-75)
[2024-05-29 09:33] LABS: Hypochromasia 1+; Microcytosis 1+; Polychromasia 1+; Total Cells Counted 100
[2024-05-29 09:35] LABS: Absolute Neutrophils -Man Diff 0.3 10^3/uL (1.4-6.5)
--- NOTE | 2024-05-29 10:43 | PTCARENOTE ---
Addendum entered by Mely Gonzalez RN 05/29/24 16:41:
pt with very poor appetite this shift for this RN. see worklist for intake charting. however pt with elevated sugars due to having orange soda and rootbeer brought in from home. sugars being managed at this time with insulin coverage.
Original Note:
pt aaox2-3 this shift for this nurse. disoriented to year when working with this RN and PT. pt with high bp. orthostatics taken and had + result and symptomatic with body repositioning. charted in worklist. MD made aware. pt with increased right
side weakness, facial tremor noticed and MD also made aware. pt at bedside and stated the weakness and tremor has been happening but much worse than his baseline. pt for US or UE for edema and going for head CT right after.
--- NOTE | 2024-05-29 11:32 | W.PN.HOSP.TC ---
Today's Communication/Plan
-
Monitor vital signs
see plan
Continue to monitor CBC
Discussed with infectious disease, DC further cefepime
Check MRI brain
Monitor mental status closely
Assessment / Plan
Assessment / Plan
Gen-AAOx3, NAD
HEENT-NC, AT, anicteric, clear oral mm, right cheek swelling and firmness improving.
Neck-supple
CV-reg, no M, +S1/S2
Lungs-clear B/L
Abd-soft, NT, ND
Ext-no edema
Neuro-grossly non-focal
Psych-calm, cooperative
Neutropenic fever -ANC 300. Continue antibiotics per ID. Blood cultures NGTD
Right facial cellulitis -in a immunosuppressed host. Symptoms started May 24. Denies any recent dental work. Hemodynamically stable. at the bedside states the redness is improved overnight. Now on cefepime, vancomycin per ID.
CT neck without abscess.
change in mental status; appears encephalopathy
per spouse, patient is forgetful at times but otherwise AAOx3; now he appears slow to respond with some myoclonus
CT head without acute abnormality, could be a sign of NPH. Check MRI
Could this also be secondary to cefepime induced neurotoxicity. Discussed with infectious disease, discontinue cefepime for now
Pancytopenia -suspect multifactorial etiology including MDS and chemotherapy.
s/p PRBC and platelets 05/28. Discussed with family. Hematology following.
MDS -transfusion dependent. Received 1 round of chemotherapy with Vidaza.
Hyponatremia -appears chronic. monitor
Hyperlipidemia
DM2 with hyperglycemia -hold metformin. Use sliding scale insulin for now.
Full code
updated at the bedside.
I spent a total of 52 minutes with the patient or on the floor. More than 50% of this time involved counseling and coordination of care.
Anticipated Discharge: > 48 hours
Subjective/Interval History
-
Date of Service: May 29, 2024
confused at times
Objective Data
-
Labs:
Laboratory Results
05/29/24
05:50
WBC 1.1 L*
Hgb 7.5 L
Hct 21.1 L
Plt Count 15 L*
Sodium 132 L
Potassium 3.9
Chloride 101
Carbon Dioxide 22
BUN 17
Creatinine 0.7
Glucose 241 H
Calcium 8.3 L
Vital Signs:
Vital Signs
Temp Pulse Resp BP Pulse Ox
98.9 F 98 17 135/82 91
05/29/24 11:29 05/29/24 11:29 05/29/24 11:29 05/29/24 11:29 05/29/24 11:29
I&O
05/28/24 05/29/24 05/30/24
06:59 06:59 06:59
Intake Total 4533 / 4533 1085 / 1085 530 / 530
Output Total 225 / 225
Balance 4308 / 4308 1085 / 1085 530 / 530
[2024-05-29 11:40] LABS: Glucose - Point of Care 320 mg/dl (70-99)
[2024-05-29] MEDS: NOVOLOG FLEXPEN-LOW RESISTANCE 4 UNITS SC (12:47)
--- NOTE | 2024-05-29 14:14 | W.PN.ID1 ---
Addendum entered and electronically signed by Sarah Marroquin MD 05/29/24 14:29:
Per hospitalist and , patient with acute mental status change.
Can dc cefepime.
Continue Vancomycin.
d/w Dr. Forrester
Original Note:
Date of Service
Date of Service: May 29, 2024
Today's Communication
Continue Vanco/cefepime for now.
Assessment / Plan
# Neutropenic fever.
Fever trending down.
ANC 400.
# Acute right lower facial cellulitis
Resolving
# MDS, transfusion dependent, recent first cycle Vidaza (05/07- 05/15)
# Pancytopenia due to MDS
# DM2
- Blood cx's x 2 neg to date.
- Continue Vancomycin and cefepime (d4)
- When afebrile x 24-48h, will transition to po abx.
- Follow temps, WBC
- LUE edema - ordered periph vasc US -> no DVT
Chief Complaint
-: Cellulitis
Subjective / Review of Systems
Face continues to improve.
note LUE swelling.
Vital Signs / Physical Exam
Vital Signs
Vital Signs
Temp Pulse Resp BP Pulse Ox
98.9 F 98 17 135/82 91
05/29/24 11:29 05/29/24 11:29 05/29/24 11:29 05/29/24 11:29 05/29/24 11:29
Physical Exam
Constitutional: No Acute Distress and Comfortable
Head: Other (right lower face minimal edema)
Cardiovascular: Regular Rate and S1/S2
Pulmonary: Clear
Gastrointestinal: Soft, Non Tender and Non Distended
Extremities: Edema (LUE minimal edema, ecchymotic elbow)
Neurological: AO x 3
Lines: PICC (LUE)
Objective Data
Lab Data
Lab Results
05/29/24 05:50
05/29/24 05:50
Estimated Creat Clear 100 ml/min 05/29/24 05:50
Total Bilirubin 1.4 mg/dl (0.2-1.3) H 05/25/24 14:53
AST 51 U/L (17-59) 05/25/24 14:53
ALT 35 U/L (0-50) 05/25/24 14:53
Alkaline Phosphatase 68 U/L (38-126) 05/25/24 14:53
Most recent labs reviewed.
Micro Results:
05/26/24 13:13 Blood Culture - Preliminary
Blood/Venous No Growth in 72 hours- Final report to follow
05/26/24 12:51 Blood Culture - Preliminary
Blood/Venous No Growth in 72 hours- Final report to follow
05/25/[address]: Findings consistent with severe cellulitis of the lower right cheek/face. No loculated fluid collections. Findings consistent with severe cellulitis of the lower right cheek/face. No loculated fluid collections.
05/26/34 CXR: Left upper extremity PICC tip projects over the superior vena cava.
--- NOTE | 2024-05-29 14:58 | CM ---
Reviewed the chart notes. Patient with change in mental status. PT recommending SNF. Patient maximum assist with body mobility. CM continues to be available to patient/family and is monitoring medical plan for needs at discharge.
Plan: Discharge plans will depend on the patient's progress.
[2024-05-29 16:41] LABS: Glucose - Point of Care 388 mg/dl (70-99)
[2024-05-29] MEDS: NOVOLOG FLEXPEN-LOW RESISTANCE 5 UNITS SC (17:21)
[2024-05-29] MEDS: DESENEX/MITRAZOL/ZEASORB 1 APPLIC TOPICAL (20:35)
--- NOTE | 2024-05-29 20:51 | VATNOTE ---
FOLLOW UP-5FR DL L PICC -BOTH LUMENS FLUSH WELL AND HAVE A GOOD BR. PCN MADE AWARE OF UPDATED SITUATION.
[2024-05-29 21:42] LABS: Glucose - Point of Care 364 mg/dl (70-99)
[2024-05-29] MEDS: NOVOLOG FLEXPEN 5 UNITS SC (22:05)
[2024-05-29 23:58] LABS: Glucose - Point of Care 328 mg/dl (70-99)
[2024-05-30] VITALS (12 sets, daily range): BP systolic 124–141; BP diastolic 66–81
[2024-05-30] MEDS: NOVOLOG FLEXPEN 4 UNITS SC (00:38)
[2024-05-30 05:08] LABS: Hematocrit 20.6 % (39.0-52.0); Hemoglobin 7.1 g/dL (13.0-18.0); Mean Corp Hgb Conc. 34.5 g/dL (33.0-37.0); Mean Corpuscular Hgb 29.8 pg (27.0-31.0); Mean Corpuscular Volume 86.6 fL (80.0-94.0); Mean Platelet Volume 12.5 fL (7.4-10.4); Platelet Count 15 10^3/uL (130-400); Red Blood Cell Count 2.38 10^6/uL (4.70-6.10); Red Cell Dist. Width 15.8 % (11.5-14.5)
[2024-05-30 05:24] LABS: Blood Urea Nitrogen 18 mg/dl (9-20); Calcium 8.1 mg/dl (8.4-10.2); Carbon Dioxide 23 mmol/L (22-30); Chloride 102 mmol/L (98-107); Estimated Creatinine Clearance 117 ml/min; Glucose 252 mg/dl (70-99); Potassium 3.9 mmol/L (3.5-5.1); Sodium 132 mmol/L (135-145); eGFR > 60.00
[2024-05-30] MEDS: VANCOCIN 530 MG IV (05:59)
[2024-05-30 06:31] LABS: Glucose - Point of Care 264 mg/dl (70-99)
--- NOTE | 2024-05-30 07:03 | W.PN.ONC2 ---
Today's Communication / Plan
-
Would transfuse 1 u PRBC and 1 u PLT for HgB = 7.1 and PLT = 15K. Blood bank aware and trying to get as they are out of stock. Should be available later today. There is no urgent need for transfusion stat. Dr. Sexton ([place]) is recommending
irradiated and CMV negative products for him.
Impression
Impression
right facial cellulitis
MDS, s/p cycle #1 azacitadine 05/07 to 05/15
pancytopenia
Plan
Plan
1. Right facial cellulitis - immunocompromised state - MDS
-improving, continue antibiotics (vanco, cefepime) as per ID
2. MDS/ pancytopenia
- s/p cycle #1 of azacitadine 05/07 - 05/15/24
- continue aggressive transfusion support (goal hgb > 7.5 and platelets >/= 15 in hospital, would would transfuse to hgb > 8, and plat > 20 at discharge)
- monitor CBC and transfuse prn
- met with transplant team last week at [place], thought to NOT BE a candidate for transplant
- d/w Dr Sexton at [place], continue supportive care. Plan to repeat BM bx after 4-6 cycles of treatment (response to azacitadine in MDS is usually slow)
- cycle #2 is scheduled to start 06/04/24. Would postpone if needed for treatment of infection or other non-hematologic toxicity (persistent cytopenias is usually not an indication to delay treatment)
- discussed goals of care w/ . Patient is still interested in aggressive treatments
3. weakness
- per , he's physically difficult to manage at home, especially when hgb drops
- she has contact numbers to look into home health aide options
- would benefit from PT
Will continue to follow with you.
Subjective/Objective
Chief Complaint
ACS Heme Onc F/U
Subjective
Overall feeling okay (better). Right jaw pain is improved.
Vital Signs:
Vital Signs
Temp Pulse Resp BP Pulse Ox
98.0 F 88 18 139/77 95
05/30/24 03:01 05/30/24 03:01 05/30/24 03:01 05/30/24 03:01 05/30/24 03:01
Lab Results:
Laboratory Data
WBC 1.0 10^3/uL (4.8-10.8) L* 05/30/24 04:36
Hgb 7.1 g/dL (13.0-18.0) L 05/30/24 04:36
Plt Count 15 10^3/uL (130-400) L* 05/30/24 04:36
eGFR > 60.00 05/30/24 04:36
Physical Exam
HEENT: No Jaundice
Cardiology: S1 and S2
Pulmonary: Clear
GI: Soft
[2024-05-30 07:33] LABS: Glucose - Point of Care 269 mg/dl (70-99)
[2024-05-30] MEDS: TYLENOL 650 MG PO (07:46)
[2024-05-30] MEDS: BENADRYL 25 MG PO (07:47)
--- NOTE | 2024-05-30 08:21 | PHA.VAN.FU ---
Vancomycin Assessment / Plan
- Assessment
Renal Function: Stable
Neutropenia: ANC = 300 (05/29/24)
Concomitant Antimicrobials: cefepime
- Dosing Plan
Continue: Vanc 1500mg Q12H
- Monitoring Plan
Level(s) appropriate: Recheck trough at minimum of weekly intervals, Repeat sooner for changes in renal function or clinical status
Next Level Due (Date): ~06/05
- Follow Up
Pharmacy will continue to follow.
Vancomycin Follow UP
- -
Patient Age: 73
Patient Sex: Male
Vancomycin Day #: 5
Indication: Neutropenic Fever
Requesting Provider: Dr. Marroquin
Pertinent Antimicrobial Allergies:
No Known Drug Allergies
Height / Weight:
Height 5 ft 10 in
Actual Weight 86.954 kg
Pertinent Past Medical History: DM 2, MDS
- Vital Signs / Lab Results
Temp Pulse Resp BP Pulse Ox
98.0 F 82 16 141/75 95
05/30/24 07:25 05/30/24 07:25 05/30/24 07:25 05/30/24 07:25 05/30/24 07:25
Lab Results - Hematology
05/27/24 05/28/24 05/28/24
07:51 05:48 20:05
WBC 1.3 L* 1.3 L* 1.0 L*
Band Neutrophils 2 0
05/29/24 05/30/24
05:50 04:36
WBC 1.1 L* 1.0 L*
Band Neutrophils 3
Lab Results - Chemistry
05/29/24 05/30/24
05:50 04:36
BUN 17 18
Creatinine 0.7 0.6 L
Estimated Creat Clear 100 117
Microbiology Results
05/26/24 13:13 Blood Culture - Preliminary
Blood/Venous No Growth in 72 hours- Final report to follow
05/26/24 12:51 Blood Culture - Preliminary
Blood/Venous No Growth in 72 hours- Final report to follow
Therapeutic Drug Monitoring
Vancomycin Peak 20.8 ug/ml (18-26) 05/28/24 22:07
Vancomycin Trough 12.4 ug/ml (5-20) 05/29/24 05:50
--- NOTE | 2024-05-30 08:26 | PN.CDI ---
CDI
- -
CDI:
Physician Documentation Request
Admit Date: 05/25/24 22:22
Dear Doctor Usama,
Please review the following and provide your response in the progress notes.
Clinical Indicators:
Pt admitted with right facial cellulitis.
05/29 Progress note: 'change in mental status; appears encephalopathy
per spouse, patient is forgetful at times but otherwise AAOx3; now he appears slow to respond with some myoclonus
Could this also be secondary to cefepime induced neurotoxicity. Discussed with infectious disease, discontinue cefepime for now'
Please specify the known or suspected type of the documented encephalopathy.
Metabolic
Septic
Toxic
Toxic metabolic
Due to a specified condition (such as UTI, hyponatremia, CVA etc)
Other
Use of terms such as suspected, likely, concern for, or probable (associated with a specific diagnosis that is being evaluated, monitored, or treated as if it exists) are acceptable and can be coded in the inpatient setting, when documented at the
time of discharge.
Thank you,
Chula Yepez RN, BSN
CDI Specialist
[place] [facility]
Please use your independent medical judgment in providing your response.
[2024-05-30] MEDS: CRESTOR 20 MG PO (08:52)
[2024-05-30] MEDS: DESENEX/MITRAZOL/ZEASORB 1 APPLIC TOPICAL ×2 (08:53→19:58)
[2024-05-30] MEDS: COLACE 100 MG PO (08:53)
[2024-05-30] MEDS: VITAMIN B-12 1000 MCG PO (08:53)
[2024-05-30 08:56] LABS: Absolute Neutrophils -Man Diff 0.3 10^3/uL (1.4-6.5); Band Neutrophils 2 % (0-3); Eosinophils 1 % (0-6); Lymphocytes 47 % (20-51); Metamyelocytes 7 % (-); Monocytes 5 % (2-9); Myelocytes 7 % (-); Segmented Neutrophils 31 % (42-75)
[2024-05-30 08:57] LABS: Anisocytosis 1+; Hypochromasia 1+; Normal RBC Morphology No; Ovalocytes Slight; Platelets Checked Yes; Polychromasia Slight; Total Cells Counted 100
[2024-05-30] MEDS: NOVOLOG FLEXPEN-LOW RESISTANCE 3 UNITS SC ×2 (09:13→17:16)
--- NOTE | 2024-05-30 11:40 | W.PN.HOSP.TC ---
Today's Communication/Plan
-
Monitor vitals
See plan
Continue diabetic per infectious disease
Monitor mental status closely
Transfuse 1 unit PRBC and platelets today
Continue to monitor CBC
Discussed with spouse at bedside
Assessment / Plan
Assessment / Plan
Gen-AAOx3, NAD
HEENT-NC, AT, anicteric, clear oral mm, right cheek swelling and firmness improving.
Neck-supple
CV-reg, no M, +S1/S2
Lungs-clear B/L
Abd-soft, NT, ND
Ext-no edema
Neuro-grossly non-focal
Psych-calm, cooperative
Neutropenic fever -ANC 300. Continue antibiotics per ID. Blood cultures NGTD
Sepsis likely 2/2 Right facial cellulitis -in a immunosuppressed host. Symptoms started May 24. Denies any recent dental work. Hemodynamically stable. at the bedside states the redness is improved overnight. Now on vancomycin, ID
following. Was on cefepime as well which is discontinued
CT neck without abscess.
change in mental status; appears TME likely 2/2 cefepime
per spouse, patient is forgetful at times but otherwise AAOx3; now he appears slow to respond with some myoclonus
CT head without acute abnormality, could be a sign of NPH. MRI without any concern of NPH. no acute CVA
Could this also be secondary to cefepime induced neurotoxicity. Discussed with infectious disease, discontinue cefepime for now. symptoms improving
Pancytopenia -suspect multifactorial etiology including MDS and chemotherapy.
s/p PRBC and platelets 05/28. Discussed with family. Hematology following.
transfuse another unit prbc and plts today
MDS -transfusion dependent. Received 1 round of chemotherapy with Vidaza.
Hyponatremia -appears chronic. monitor
Hyperlipidemia
DM2 with hyperglycemia -hold metformin. Use sliding scale insulin for now.
Full code
updated at the bedside.
I spent a total of 52 minutes with the patient or on the floor. More than 50% of this time involved counseling and coordination of care.
Anticipated Discharge: 24 - 48 hours
Subjective/Interval History
-
Date of Service: May 30, 2024
sleeping after benadryl
Objective Data
-
Labs:
Laboratory Results
05/30/24
04:36
WBC 1.0 L*
Hgb 7.1 L
Hct 20.6 L*
Plt Count 15 L*
Sodium 132 L
Potassium 3.9
Chloride 102
Carbon Dioxide 23
BUN 18
Creatinine 0.6 L
Glucose 252 H
Calcium 8.1 L
Vital Signs:
Vital Signs
Temp Pulse Resp BP Pulse Ox
98.4 F 72 18 126/74 96
05/30/24 11:28 05/30/24 11:28 05/30/24 11:28 05/30/24 11:28 05/30/24 11:28
I&O
05/29/24 05/30/24 05/31/24
06:59 06:59 06:59
Intake Total 1085 / 1085 4320 / 4320 274 / 274
Balance 1085 / 1085 4320 / 4320 274 / 274
[2024-05-30 12:27] LABS: Glucose - Point of Care 322 mg/dl (70-99)
--- NOTE | 2024-05-30 12:56 | W.PN.ID1 ---
Date of Service
Date of Service: May 30, 2024
Today's Communication
Transition to Augmentin 875mg po bid through 06/03
Assessment / Plan
# Neutropenic fever.
Fever resolved
ANC 300.
# Acute right lower facial cellulitis
Resolving
# MDS, transfusion dependent, recent first cycle Vidaza (05/07- 05/15)
# Pancytopenia due to MDS
# DM2
- Blood cx's x 2 neg to date.
- s/p 4 days cefepime.
-Mental status improved off high dose cefepime.
- Transition IV Vancomycin (5) to Augmentin 875mg po bid through 06/04
Chief Complaint
-: Cellulitis
Subjective / Review of Systems
Confusion resolved after dc cefepime. at bedside. Pt feels well.
Vital Signs / Physical Exam
Vital Signs
Vital Signs
Temp Pulse Resp BP Pulse Ox
98.4 F 72 18 126/74 96
05/30/24 11:28 05/30/24 11:28 05/30/24 11:28 05/30/24 11:28 05/30/24 11:28
Physical Exam
Constitutional: No Acute Distress and Comfortable
Head: Other (right lower face mild edema, nontender)
Eyes: Sclera Anicteric
Cardiovascular: Regular Rate and S1/S2
Pulmonary: Clear
Gastrointestinal: Soft, Non Tender and Non Distended
Extremities: Edema (LUE minimal edema, ecchymotic elbow)
Lines: PICC (LUE)
Objective Data
Lab Data
Lab Results
05/30/24 04:36
05/30/24 04:36
Estimated Creat Clear 117 ml/min 05/30/24 04:36
Total Bilirubin 1.4 mg/dl (0.2-1.3) H 05/25/24 14:53
AST 51 U/L (17-59) 05/25/24 14:53
ALT 35 U/L (0-50) 05/25/24 14:53
Alkaline Phosphatase 68 U/L (38-126) 05/25/24 14:53
Most recent labs reviewed.
Micro Results:
05/26/24 12:51 Blood Culture - Preliminary
Blood/Venous No Growth in 4 days- Final report to follow
05/26/24 13:13 Blood Culture - Preliminary
Blood/Venous No Growth in 72 hours- Final report to follow
05/25/[address]: Findings consistent with severe cellulitis of the lower right cheek/face. No loculated fluid collections. Findings consistent with severe cellulitis of the lower right cheek/face. No loculated fluid collections.
05/26/34 CXR: Left upper extremity PICC tip projects over the superior vena cava.
Care Review
Plan reviewed with: Physician (Dr. Forrester)
[2024-05-30] MEDS: NOVOLOG FLEXPEN-LOW RESISTANCE 4 UNITS SC (13:16)
--- NOTE | 2024-05-30 14:15 | PTCARENOTE ---
Patient received 1 unit of blood and platelets as ordered. No s/s of distress noted during or after transfusion. Vs documented.No complaints at this time. Patient tolerated the transfusion well. Plan of care on going. call [facility] within reach.
[2024-05-30 16:53] LABS: Glucose - Point of Care 254 mg/dl (70-99)
--- NOTE | 2024-05-30 17:29 | PTCARENOTE ---
Patient Bladder scanned for 500ml for no urine output. denies pain. Md aware straight cath ordered. Pt Tolerated straight cath well X1. straight cath output 350ml and pt voided on pad( mod saturation). no c/o at this time. Plan of care ongoing. call
[facility] within reach.
--- NOTE | 2024-05-30 18:10 | PTCARENOTE ---
Patient noted with +2 scrotal edema. denies pain. md aware. no new orders at this time. plan of care ongoing. call [facility] within reach.
[2024-05-30] MEDS: AUGMENTIN 875 MG/125 MG 1 TABLET PO (19:58)
[2024-05-30 21:39] LABS: Glucose - Point of Care 229 mg/dl (70-99)
[2024-05-31] VITALS (7 sets, daily range): BP systolic 120–154; BP diastolic 66–79; PULSE 75–87; O2SAT 95
--- NOTE | 2024-05-31 07:41 | W.PN.ONC2 ---
Today's Communication / Plan
-
Assuming blood counts are adequate as described in the plan, patient is okay to be discharged home today on oral antibiotics if all other specialties agree.
Impression
Impression
right facial cellulitis
MDS, s/p cycle #1 azacitadine 05/07 to 05/15
pancytopenia
Plan
Plan
1. Right facial cellulitis - immunocompromised state - MDS
-improving, antibiotics (vanco, cefepime) switched to Augmentin yesterday as per ID
2. MDS/ pancytopenia
- s/p cycle #1 of azacitadine 05/07 - 05/15/24
- continue aggressive transfusion support (goal hgb > 7.5 and platelets >/= 15 in hospital, would would transfuse to hgb > 8, and plat > 20 at discharge)
- monitor CBC and transfuse prn
- met with transplant team last week at [place], thought to NOT BE a candidate for transplant
- d/w Dr Sexton at [place], continue supportive care. Plan to repeat BM bx after 4-6 cycles of treatment (response to azacitadine in MDS is usually slow)
- cycle #2 is scheduled to start 06/04/24. Would postpone if needed for treatment of infection or other non-hematologic toxicity (persistent cytopenias is usually not an indication to delay treatment)
- discussed goals of care w/ . Patient is still interested in aggressive treatments
3. weakness
- per , he's physically difficult to manage at home, especially when hgb drops
- she has contact numbers to look into home health aide options
- would benefit from PT
Will continue to follow with you.
Subjective/Objective
Chief Complaint
ACS hematology oncology
Subjective
Patient is feeling pretty well. He has not opposed to being discharged today. Follow-up CBC is pending. He was transfused 1 unit PRBCs and 1 unit of platelets yesterday.
Vital Signs:
Vital Signs
Temp Pulse Resp BP Pulse Ox
98.6 F 73 16 135/75 96
05/31/24 02:55 05/31/24 02:55 05/31/24 02:55 05/31/24 02:55 05/31/24 02:55
Lab Results:
Laboratory Data
WBC 1.0 10^3/uL (4.8-10.8) L* 05/30/24 04:36
Hgb 7.1 g/dL (13.0-18.0) L 05/30/24 04:36
Plt Count 15 10^3/uL (130-400) L* 05/30/24 04:36
eGFR > 60.00 05/30/24 04:36
Physical Exam
HEENT: No Jaundice
Cardiology: S1 and S2
Pulmonary: Clear
GI: Soft
Extremities: No C/C/E
[2024-05-31 07:46] LABS: Glucose - Point of Care 203 mg/dl (70-99)
[2024-05-31 08:00] LABS: Hematocrit 22.7 % (39.0-52.0); Mean Corp Hgb Conc. 35.2 g/dL (33.0-37.0); Mean Corpuscular Hgb 30.7 pg (27.0-31.0); Mean Platelet Volume 12.2 fL (7.4-10.4); Platelet Count 18 10^3/uL (130-400); Red Blood Cell Count 2.61 10^6/uL (4.70-6.10); Red Cell Dist. Width 15.6 % (11.5-14.5); White Blood Cell Count 1.3 10^3/uL (4.8-10.8)
[2024-05-31] MEDS: NOVOLOG FLEXPEN-LOW RESISTANCE 2 UNITS SC ×3 (08:20→17:03)
[2024-05-31] MEDS: VITAMIN B-12 1000 MCG PO (08:20)
[2024-05-31] MEDS: COLACE 100 MG PO (08:20)
[2024-05-31] MEDS: AUGMENTIN 875 MG/125 MG 1 TABLET PO ×2 (08:20→19:33)
[2024-05-31] MEDS: CRESTOR 20 MG PO (08:20)
[2024-05-31] MEDS: DESENEX/MITRAZOL/ZEASORB 1 APPLIC TOPICAL ×2 (08:21→19:33)
[2024-05-31 08:39] LABS: Blood Urea Nitrogen 18 mg/dl (9-20); Calcium 7.7 mg/dl (8.4-10.2); Carbon Dioxide 24 mmol/L (22-30); Chloride 102 mmol/L (98-107); Estimated Creatinine Clearance 117 ml/min; Glucose 189 mg/dl (70-99); Potassium 3.7 mmol/L (3.5-5.1); Sodium 132 mmol/L (135-145); eGFR > 60.00
[2024-05-31 09:07] LABS: Band Neutrophils 10 % (0-3); Segmented Neutrophils 30 % (42-75)
[2024-05-31 09:08] LABS: Atypical Lymphocytes 2 %; Eosinophils 1 % (0-6); Lymphocytes 43 % (20-51); Metamyelocytes 6 % (-); Monocytes 2 % (2-9); Myelocytes 6 % (-)
[2024-05-31 09:09] LABS: Anisocytosis 1+; Normal RBC Morphology No; Ovalocytes 1+; Platelets Checked Yes; Total Cells Counted 100
[2024-05-31 09:11] LABS: Absolute Neutrophils -Man Diff 0.5 10^3/uL (1.4-6.5)
--- NOTE | 2024-05-31 09:47 | W.PN.ID1 ---
Date of Service
Date of Service: May 31, 2024
Today's Communication
Continue Augmentin 875mg po bid through 06/04.
ID will sign off.
Assessment / Plan
# Neutropenic fever.
Fever resolved
ANC 300.
# Acute right lower facial cellulitis
Resolving
# MDS, transfusion dependent, recent first cycle Vidaza (05/07- 05/15)
# Pancytopenia due to MDS
# DM2
- Blood cx's x 2 neg
- s/p 4 days cefepime and 5d Vanco
-Mental status resolved off high dose cefepime.
-Continue Augmentin 875mg po bid through 06/04
- ID will sign off.
Chief Complaint
-: Cellulitis
Subjective / Review of Systems
Patient feels 'great'.
Vital Signs / Physical Exam
Vital Signs
Vital Signs
Temp Pulse Resp BP Pulse Ox
97.8 F 68 16 148/77 98
05/31/24 07:25 05/31/24 07:25 05/31/24 07:25 05/31/24 07:25 05/31/24 07:25
Physical Exam
Constitutional: No Acute Distress and Comfortable
Head: Other (right lower face edema/erythema resolved.)
Cardiovascular: Regular Rate and S1/S2
Gastrointestinal: Soft, Non Tender and Non Distended
Genito-Urinary: Negative CVA Tenderness
Neurological: AO x 3
Objective Data
Lab Data
Lab Results
05/31/24 07:35
05/31/24 07:35
Estimated Creat Clear 117 ml/min 05/31/24 07:35
Total Bilirubin 1.4 mg/dl (0.2-1.3) H 05/25/24 14:53
AST 51 U/L (17-59) 05/25/24 14:53
ALT 35 U/L (0-50) 05/25/24 14:53
Alkaline Phosphatase 68 U/L (38-126) 05/25/24 14:53
Most recent labs reviewed.
Micro Results:
05/26/24 13:13 Blood Culture - Preliminary
Blood/Venous No Growth in 4 days- Final report to follow
05/26/24 12:51 Blood Culture - Preliminary
Blood/Venous No Growth in 4 days- Final report to follow
05/25/[address]: Findings consistent with severe cellulitis of the lower right cheek/face. No loculated fluid collections. Findings consistent with severe cellulitis of the lower right cheek/face. No loculated fluid collections.
05/26/34 CXR: Left upper extremity PICC tip projects over the superior vena cava.
Care Review
Plan reviewed with: Physician (Dr. Forrester)
--- NOTE | 2024-05-31 11:23 | W.PN.HOSP.TC ---
Today's Communication/Plan
-
Monitor vital signs see plan
PT/OT today
Slowly improving
Continue with antibiotics
If afebrile and counts remain stable then can start DC planning
Discussed with spouse at bedside
Assessment / Plan
Assessment / Plan
Gen-AAOx3, NAD
HEENT-NC, AT, anicteric, clear oral mm, right cheek swelling better
Neck-supple
CV-reg, no M, +S1/S2
Lungs-clear B/L
Abd-soft, NT, ND
Ext-no edema
Neuro-grossly non-focal
Psych-calm, cooperative
Neutropenic fever -ANC 500. Continue antibiotics per ID. Continue Augmentin 875mg po bid through 06/04. blood cultures NGTD
Sepsis likely 2/2 Right facial cellulitis -in a immunosuppressed host. Symptoms started May 24. Denies any recent dental work. Hemodynamically stable. at the bedside states the redness is improved overnight. Augmentin 875mg po
bid through 06/04
CT neck without abscess.
change in mental status; appears TME likely 2/2 cefepime
per spouse, patient is forgetful at times but otherwise AAOx3; now he appears slow to respond with some myoclonus
CT head without acute abnormality, could be a sign of NPH. MRI without any concern of NPH. no acute CVA
Could this also be secondary to cefepime induced neurotoxicity. Discussed with infectious disease, discontinue cefepime for now. symptoms improving
Pancytopenia -suspect multifactorial etiology including MDS and chemotherapy.
s/p PRBC and platelets 05/28, 05/29. Discussed with family. Hematology following.
transfuse prn
MDS -transfusion dependent. Received 1 round of chemotherapy with Vidaza.
Hyponatremia -appears chronic. monitor
Hyperlipidemia
DM2 with hyperglycemia -hold metformin. Use sliding scale insulin for now.
Full code
updated at the bedside.
I spent a total of 51 minutes with the patient or on the floor. More than 50% of this time involved counseling and coordination of care.
Anticipated Discharge: Within 24 hours
Subjective/Interval History
-
Date of Service: May 31, 2024
Denies pain
Objective Data
-
Labs:
Laboratory Results
05/31/24
07:35
WBC 1.3 L*
Hgb 8.0 L
Hct 22.7 L
Plt Count 18 L*
Sodium 132 L
Potassium 3.7
Chloride 102
Carbon Dioxide 24
BUN 18
Creatinine 0.6 L
Glucose 189 H
Calcium 7.7 L
Vital Signs:
Vital Signs
Temp Pulse Resp BP Pulse Ox
97.8 F 68 16 148/77 98
05/31/24 07:25 05/31/24 07:25 05/31/24 07:25 05/31/24 07:25 05/31/24 10:07
I&O
05/30/24 05/31/24 06/01/24
06:59 06:59 06:59
Intake Total 4320 / 4320 1234 / 1234
Output Total 550 / 550
Balance 4320 / 4320 684 / 684
[2024-05-31 11:42] LABS: Glucose - Point of Care 244 mg/dl (70-99)
--- NOTE | 2024-05-31 15:37 | CM ---
Reviewed the chart notes and spoke with the patient and spouse at the bedside. Reviewed the area SNF list in the room. Discussed PT recommendations of SNF. CM continues to be available to patient/family and is monitoring medical plan for needs at
discharge.
Plan: Discharge to SNF/rehab once medically stable. No precert required.
[2024-05-31] MEDS: MIRALAX PO (16:56)
[2024-05-31 17:00] LABS: Glucose - Point of Care 249 mg/dl (70-99)
--- NOTE | 2024-05-31 17:59 | PTCARENOTE ---
pt oob to chair with x2 assist and RW this morning until mid afternoon. totaling about 5 hours. pt verbalized minimal dizziness after getting into the chair. VSS. pt inc of bowel and bladder, no BM for this nurse. last stool on 05/28. made aware.
miralax added as daily order. pt cooperative and pleasant for this RN. PICC line with blood return and flushing properly at this time for this RN.
[2024-05-31 21:25] LABS: Glucose - Point of Care 259 mg/dl (70-99)
[2024-06-01 03:16] VITALS: BP 147/78
[2024-06-01 07:53] LABS: Glucose - Point of Care 194 mg/dl (70-99)
[2024-06-01 07:55] VITALS: BP 145/73
--- NOTE | 2024-06-01 08:36 | W.PN.ONC2 ---
Today's Communication / Plan
-
.
Impression
Impression
right facial cellulitis
MDS, s/p cycle #1 azacitadine 05/07 to 05/15
pancytopenia
Plan
Plan
1. Right facial cellulitis - immunocompromised state - MDS
-improving, antibiotics (vanco, cefepime) switched to Augmentin
-ID following
2. MDS/ pancytopenia
- s/p cycle #1 of azacitadine 05/07 - 05/15/24
- continue aggressive transfusion support (goal hgb > 7.5 and platelets >/= 15 in hospital, would would transfuse to hgb > 8, and plat > 20 at discharge)
- monitor CBC and transfuse prn
- met with transplant team last week at [place], thought to NOT BE a candidate for transplant
- d/w Dr Sexton at [place], continue supportive care. Plan to repeat BM bx after 4-6 cycles of treatment (response to azacitadine in MDS is usually slow)
- cycle #2 is scheduled to start 06/04/24. Would postpone if needed for treatment of infection or other non-hematologic toxicity (persistent cytopenias is usually not an indication to delay treatment)
- discussed goals of care w/ . Patient is still interested in aggressive treatments
3. weakness
- per , he's physically difficult to manage at home, especially when hgb drops
- she has contact numbers to look into home health aide options
- would benefit from PT
Will continue to follow with you.
Subjective/Objective
Subjective
no new complaints
Vital Signs:
Vital Signs
Temp Pulse Resp BP Pulse Ox
97.9 F 69 18 145/73 97
06/01/24 07:55 06/01/24 07:55 06/01/24 07:55 06/01/24 07:55 06/01/24 07:55
Lab Results:
Laboratory Data
WBC 1.3 10^3/uL (4.8-10.8) L* 05/31/24 07:35
Hgb 8.0 g/dL (13.0-18.0) L 05/31/24 07:35
Plt Count 18 10^3/uL (130-400) L* 05/31/24 07:35
eGFR > 60.00 05/31/24 07:35
[2024-06-01 08:37] LABS: Hematocrit 22.9 % (39.0-52.0); Hemoglobin 8.1 g/dL (13.0-18.0); Mean Corp Hgb Conc. 35.4 g/dL (33.0-37.0); Mean Corpuscular Hgb 30.7 pg (27.0-31.0); Mean Corpuscular Volume 86.7 fL (80.0-94.0); Platelet Count 22 10^3/uL (130-400); Red Blood Cell Count 2.64 10^6/uL (4.70-6.10); Red Cell Dist. Width 15.5 % (11.5-14.5); White Blood Cell Count 1.2 10^3/uL (4.8-10.8)
[2024-06-01 08:56] LABS: Blood Urea Nitrogen 14 mg/dl (9-20); Calcium 7.6 mg/dl (8.4-10.2); Carbon Dioxide 30 mmol/L (22-30); Chloride 100 mmol/L (98-107); Estimated Creatinine Clearance 117 ml/min; Glucose 184 mg/dl (70-99); Potassium 3.5 mmol/L (3.5-5.1); Sodium 130 mmol/L (135-145); eGFR > 60.00
[2024-06-01] MEDS: AUGMENTIN 875 MG/125 MG 1 TABLET PO ×2 (09:03→21:48)
[2024-06-01] MEDS: COLACE 100 MG PO (09:04)
[2024-06-01] MEDS: MIRALAX 17 GRAMS PO (09:04)
[2024-06-01] MEDS: CRESTOR 20 MG PO (09:04)
[2024-06-01] MEDS: DESENEX/MITRAZOL/ZEASORB 1 APPLIC TOPICAL ×2 (09:04→21:56)
[2024-06-01] MEDS: VITAMIN B-12 1000 MCG PO (09:04)
[2024-06-01] MEDS: NOVOLOG FLEXPEN-LOW RESISTANCE 1 UNITS SC (09:06)
[2024-06-01 10:42] LABS: Band Neutrophils 8 % (0-3); Eosinophils 14 % (0-6); Lymphocytes 34 % (20-51); Monocytes 4 % (2-9); Segmented Neutrophils 24 % (42-75)
[2024-06-01 10:43] LABS: Anisocytosis 1+; Atypical Lymphocytes 2 %; Hypochromasia 2+; Metamyelocytes 10 % (-); Myelocytes 4 % (-); Normal RBC Morphology No; Nucleated Red Blood Cells 2 (-); Ovalocytes 1+; Platelets Checked Yes; Polychromasia 1+
[2024-06-01 10:44] LABS: Acanthocytes 1+; Target Cells FEW; Total Cells Counted 100
[2024-06-01 10:45] LABS: Absolute Neutrophils -Man Diff 0.3 10^3/uL (1.4-6.5)
[2024-06-01 11:20] VITALS: BP 138/71
[2024-06-01 11:28] LABS: Glucose - Point of Care 217 mg/dl (70-99)
[2024-06-01] MEDS: NOVOLOG FLEXPEN-LOW RESISTANCE 2 UNITS SC ×2 (12:13→18:26)
--- NOTE | 2024-06-01 12:23 | W.PN.HOSP.TC ---
Today's Communication/Plan
-
Monitor vital signs see plan
PT/OT
Discussed with spouse, they will need to decide on SNF
Continue to monitor CBC
cw abx
Assessment / Plan
Assessment / Plan
Gen-AAOx3, NAD
HEENT-NC, AT, anicteric, clear oral mm, right cheek swelling better
Neck-supple
CV-reg, no M, +S1/S2
Lungs-clear B/L
Abd-soft, NT, ND
Ext-no edema
Neuro-grossly non-focal
Psych-calm, cooperative
Neutropenic fever -ANC 300. Continue antibiotics per ID. Continue Augmentin 875mg po bid through 06/04. blood cultures NGTD
Sepsis likely 2/2 Right facial cellulitis -in a immunosuppressed host. Symptoms started May 24. Denies any recent dental work. Hemodynamically stable. at the bedside states the redness is improved overnight. Augmentin 875mg po
bid through 06/04
CT neck without abscess.
change in mental status; appears TME likely 2/2 cefepime
per spouse, patient is forgetful at times but otherwise AAOx3; now he appears slow to respond with some myoclonus
CT head without acute abnormality, could be a sign of NPH. MRI without any concern of NPH. no acute CVA
Could this also be secondary to cefepime induced neurotoxicity. Discussed with infectious disease, cefepime discontinued. symptoms improving
Pancytopenia -suspect multifactorial etiology including MDS and chemotherapy.
s/p PRBC and platelets 05/28, 05/29. Discussed with family. Hematology following.
transfuse prn
MDS -transfusion dependent. Received 1 round of chemotherapy with Vidaza.
Hyponatremia -appears chronic. monitor
Hyperlipidemia
DM2 with hyperglycemia -hold metformin. Use sliding scale insulin for now.
Full code
updated at the bedside.
PT/OT rec SNF
Anticipated Discharge: Within 24 hours
Subjective/Interval History
-
Date of Service: June 01, 2024
denies pain
Objective Data
-
Labs:
Laboratory Results
06/01/24
08:02
WBC 1.2 L*
Hgb 8.1 L
Hct 22.9 L
Plt Count 22 L* D
Sodium 130 L
Potassium 3.5
Chloride 100
Carbon Dioxide 30
BUN 14
Creatinine 0.5 L
Glucose 184 H
Calcium 7.6 L
Vital Signs:
Vital Signs
Temp Pulse Resp BP Pulse Ox
98.1 F 73 17 138/71 99
06/01/24 11:20 06/01/24 11:20 06/01/24 11:20 06/01/24 11:20 06/01/24 11:20
I&O
05/31/24 06/01/24 06/02/24
06:59 06:59 06:59
Intake Total 1234 / 1234 840 / 840
Output Total 550 / 550
Balance 684 / 684 840 / 840
--- NOTE | 2024-06-01 14:34 | CM ---
Reviewed the chart notes and spoke with the patient and his spouse at the bedside. Patient's spouse toured [facility] and [facility]. [facility] able to accept patient. No precert required. [facility] is to [facility] P[facility] information and weekly
labs usually drawn on patient. CM continues to be available to patient/family and is monitoring medical plan for needs at discharge.
Plan: Discharge to [facility] when medically stable. No precert required.
[2024-06-01 15:11] VITALS: BP 140/76
[2024-06-01 17:14] LABS: Glucose - Point of Care 215 mg/dl (70-99)
[2024-06-01 21:56] LABS: Glucose - Point of Care 202 mg/dl (70-99)
[2024-06-01] MEDS: NOVOLOG FLEXPEN-LOW RESISTANCE SC (22:04)
[2024-06-01 23:06] VITALS: BP 141/75
[2024-06-02 07:20] LABS: Glucose - Point of Care 187 mg/dl (70-99)
[2024-06-02 07:45] VITALS: BP 153/82
[2024-06-02] MEDS: VITAMIN B-12 1000 MCG PO (08:01)
[2024-06-02] MEDS: CRESTOR 20 MG PO (08:01)
[2024-06-02] MEDS: AUGMENTIN 875 MG/125 MG 1 TABLET PO ×2 (08:01→21:24)
[2024-06-02] MEDS: DESENEX/MITRAZOL/ZEASORB 1 APPLIC TOPICAL ×2 (08:03→21:25)
[2024-06-02 08:04] LABS: Glucose - Point of Care 176 mg/dl (70-99)
[2024-06-02] MEDS: COLACE PO (08:30)
[2024-06-02] MEDS: MIRALAX PO (08:31)
[2024-06-02] MEDS: NOVOLOG FLEXPEN-LOW RESISTANCE 1 UNITS SC (09:03)
--- NOTE | 2024-06-02 09:08 | PTCARENOTE ---
Around 21:30, ACCU check obtained and BS >200, gave 2 units of insulin per protocol. notified in AM and BS check obtained again at 0800 and was 176. Pt assessed and A/Ox3 in bed. VS stable, remote in reach.
[2024-06-02 09:14] LABS: Hematocrit 26.2 % (39.0-52.0); Mean Corp Hgb Conc. 34.4 g/dL (33.0-37.0); Mean Corpuscular Volume 87.3 fL (80.0-94.0); Platelet Count 31 10^3/uL (130-400); Red Cell Dist. Width 15.1 % (11.5-14.5); White Blood Cell Count 1.2 10^3/uL (4.8-10.8)
[2024-06-02 09:26] LABS: Blood Urea Nitrogen 12 mg/dl (9-20); Calcium 7.9 mg/dl (8.4-10.2); Carbon Dioxide 25 mmol/L (22-30); Chloride 97 mmol/L (98-107); Estimated Creatinine Clearance 117 ml/min; Glucose 187 mg/dl (70-99); Potassium 3.5 mmol/L (3.5-5.1); eGFR > 60.00
[2024-06-02 09:32] LABS: Sodium 131 mmol/L (135-145)
--- NOTE | 2024-06-02 10:27 | W.PN.ONC ---
Today's Communication / Plan
-
d/c planning --> to rehab
cycle #2 vidaza to be r/s after rehab stay
monitor CBC 2x/week, outpatient transfusions as needed
Impression
Impression
right facial cellulitis
MDS, s/p cycle #1 azacitadine 05/07 to 05/15
pancytopenia
Plan
Plan
1. Right facial cellulitis - immunocompromised state - MDS
-improving, antibiotics (vanco, cefepime) switched to Augmentin
-ID following
2. MDS/ pancytopenia
- s/p cycle #1 of azacitadine 05/07 - 05/15/24
- continue aggressive transfusion support (goal hgb > 7.5 and platelets >/= 15 in hospital, would would transfuse to hgb > 8, and plat > 20 at discharge)
- monitor CBC and transfuse prn
- met with transplant team at [place], thought to NOT BE a candidate for transplant
- d/w Dr Sexton at [place], continue supportive care. Plan to repeat BM bx after 4-6 cycles of treatment (response to azacitadine in MDS is usually slow)
- cycle #2 was scheduled to start 06/04/24. Will postpone until after rehab stay (persistent cytopenias is usually not an indication to delay treatment)
- discussed goals of care w/ . Patient is still interested in aggressive treatments
3. weakness
- d/c to rehab
Will continue to follow with you.
Subjective/Objective
Subjective/Objective
facial cellulitis has resolved
OOB, eating breakfast
appetite is poor
weak in general
Vital Signs:
Vital Signs
Temp Pulse Resp BP Pulse Ox
97.5 F 65 20 153/82 98
06/02/24 07:45 06/02/24 07:45 06/02/24 07:45 06/02/24 07:45 06/02/24 07:45
Lab Results:
Laboratory Data
WBC 1.2 10^3/uL (4.8-10.8) L* 06/02/24 08:39
Hgb 9.0 g/dL (13.0-18.0) L 06/02/24 08:39
Plt Count 31 10^3/uL (130-400) L D 06/02/24 08:39
eGFR > 60.00 06/02/24 08:39
[2024-06-02 11:38] LABS: Band Neutrophils 6 % (0-3); Segmented Neutrophils 28 % (42-75)
[2024-06-02 11:39] LABS: Atypical Lymphocytes 3 %; Lymphocytes 48 % (20-51); Metamyelocytes 6 % (-); Monocytes 2 % (2-9); Myelocytes 7 % (-)
[2024-06-02 11:42] LABS: Platelets Checked Yes
[2024-06-02 11:43] LABS: Absolute Neutrophils -Man Diff 0.4 10^3/uL (1.4-6.5); Anisocytosis 1+; Hypochromasia 2+; Normal RBC Morphology No; Ovalocytes Slight; Polychromasia Slight; Total Cells Counted 100
[2024-06-02 11:44] LABS: Vacuolated Segs Slight
[2024-06-02 12:01] LABS: Glucose - Point of Care 237 mg/dl (70-99)
[2024-06-02] MEDS: NOVOLOG FLEXPEN-LOW RESISTANCE 2 UNITS SC ×2 (12:41→16:52)
--- NOTE | 2024-06-02 13:04 | W.PN.HOSP.TC ---
Today's Communication/Plan
-
Monitor vital signs see plan
Monitor CBC
Continue antibiotics
Discharge planning
Discussed with spouse at bedside
Assessment / Plan
Assessment / Plan
Gen-AAOx3, NAD
HEENT-NC, AT, anicteric, clear oral mm, right cheek swelling better
Neck-supple
CV-reg, no M, +S1/S2
Lungs-clear B/L
Abd-soft, NT, ND
Ext-no edema
Neuro-grossly non-focal
Psych-calm, cooperative
Neutropenic fever -ANC 300. Continue antibiotics per ID. Continue Augmentin 875mg po bid through 06/04. blood cultures NGTD
Sepsis likely 2/2 Right facial cellulitis -in a immunosuppressed host. Symptoms started May 24. Denies any recent dental work. Hemodynamically stable. at the bedside states the redness is improved overnight. Augmentin 875mg po
bid through 06/04
CT neck without abscess.
change in mental status; appears TME likely 2/2 cefepime
per spouse, patient is forgetful at times but otherwise AAOx3; now he appears slow to respond with some myoclonus
CT head without acute abnormality, could be a sign of NPH. MRI without any concern of NPH. no acute CVA
Could this also be secondary to cefepime induced neurotoxicity. Discussed with infectious disease, cefepime discontinued. symptoms improving
Pancytopenia -suspect multifactorial etiology including MDS and chemotherapy.
s/p PRBC and platelets 05/28, 05/29. Discussed with family. Hematology following.
transfuse prn
Counts improving
MDS -transfusion dependent. Received 1 round of chemotherapy with Vidaza.
Hyponatremia -appears chronic. monitor
Hyperlipidemia
DM2 with hyperglycemia -hold metformin. Use sliding scale insulin for now.
Full code
updated at the bedside.
PT/OT rec SNF
Anticipated Discharge: Within 24 hours
Subjective/Interval History
-
Date of Service: June 02, 2024
Denies pain
Objective Data
-
Labs:
Laboratory Results
06/02/24
08:39
WBC 1.2 L*
Hgb 9.0 L
Hct 26.2 L
Plt Count 31 L D
Sodium 131 L
Potassium 3.5
Chloride 97 L
Carbon Dioxide 25
BUN 12
Creatinine 0.5 L
Glucose 187 H
Calcium 7.9 L
Vital Signs:
Vital Signs
Temp Pulse Resp BP Pulse Ox
97.5 F 65 20 153/82 98
06/02/24 07:45 06/02/24 07:45 06/02/24 07:45 06/02/24 07:45 06/02/24 11:20
I&O
06/01/24 06/02/24 06/03/24
06:59 06:59 06:59
Intake Total 840 / 840 1750 / 1750
Output Total 300 / 300
Balance 840 / 840 1450 / 1450
[2024-06-02 15:25] VITALS: BP 145/76
[2024-06-02 16:51] LABS: Glucose - Point of Care 232 mg/dl (70-99)
[2024-06-02 22:47] LABS: Glucose - Point of Care 225 mg/dl (70-99)
[2024-06-02 23:29] VITALS: BP 149/73
[2024-06-03 05:33] LABS: Hematocrit 23.1 % (39.0-52.0); Hemoglobin 7.9 g/dL (13.0-18.0); Mean Corp Hgb Conc. 34.2 g/dL (33.0-37.0); Mean Corpuscular Volume 87.8 fL (80.0-94.0); Platelet Count 32 10^3/uL (130-400); Red Blood Cell Count 2.63 10^6/uL (4.70-6.10); Red Cell Dist. Width 15.1 % (11.5-14.5); White Blood Cell Count 1.6 10^3/uL (4.8-10.8)
[2024-06-03 05:35] LABS: Blood Urea Nitrogen 11 mg/dl (9-20); Calcium 7.7 mg/dl (8.4-10.2); Carbon Dioxide 27 mmol/L (22-30); Chloride 98 mmol/L (98-107); Estimated Creatinine Clearance 117 ml/min; Glucose 169 mg/dl (70-99); Potassium 3.2 mmol/L (3.5-5.1); Sodium 132 mmol/L (135-145); eGFR > 60.00
[2024-06-03 05:36] VITALS: BMI 28.8
[2024-06-03 06:00] VITALS: BMI 28.8
[2024-06-03 07:44] LABS: % Basophils 0.6 % (0-2); % Eosinophils 3.2 % (0-6); % Immature Granulocytes 9.5 % (0-0.5); % Lymphocytes 55.1 % (20.5-51.1); % Monocytes 3.2 % (1.7-9.3); % Neutrophils 28.4 % (42.2-75.2); Absolute Eosinophils 0.1 10^3/uL (0-0.7); Absolute Immature Granulocytes 0.2 10^3/uL (0-0.05); Absolute Lymphocytes 0.9 10^3/uL (1.2-3.4); Absolute Monocytes 0.1 10^3/uL (0.1-0.6); Absolute Neutrophils 0.5 10^3/uL (1.4-6.5); Nucleated Red Blood Cells % 1.3 % (-)
[2024-06-03 07:45] VITALS: BP 143/78
[2024-06-03 07:51] LABS: Glucose - Point of Care 185 mg/dl (70-99)
[2024-06-03] MEDS: CRESTOR 20 MG PO (08:18)
[2024-06-03] MEDS: KCL 40 MEQ PO (08:18)
[2024-06-03] MEDS: AUGMENTIN 875 MG/125 MG 1 TABLET PO ×2 (08:18→20:44)
[2024-06-03] MEDS: COLACE PO (08:19)
[2024-06-03] MEDS: MIRALAX PO (08:19)
[2024-06-03] MEDS: VITAMIN B-12 1000 MCG PO (08:19)
[2024-06-03] MEDS: NOVOLOG FLEXPEN-LOW RESISTANCE 1 UNITS SC (08:19)
[2024-06-03] MEDS: DESENEX/MITRAZOL/ZEASORB 1 APPLIC TOPICAL ×2 (08:27→20:46)
--- NOTE | 2024-06-03 10:23 | W.PN.HOSP.TC ---
Today's Communication/Plan
-
Monitor vital signs see plan
Hemoglobin dropped to 7.9, continue to monitor
PT/OT
Discussed with spouse at bedside
Possible discharge tomorrow if counts continue to improve
Replete potassium
Assessment / Plan
Assessment / Plan
Gen-AAOx3, NAD
HEENT-NC, AT, anicteric, clear oral mm, right cheek swelling better
Neck-supple
CV-reg, no M, +S1/S2
Lungs-clear B/L
Abd-soft, NT, ND
Ext-no edema
Neuro-grossly non-focal
Psych-calm, cooperative
Neutropenic fever -ANC 500. Continue antibiotics per ID. Continue Augmentin 875mg po bid through 06/04. blood cultures NGTD
Sepsis likely 2/2 Right facial cellulitis -in a immunosuppressed host. Symptoms started May 24. Denies any recent dental work. Hemodynamically stable. at the bedside states the redness is improved overnight. Augmentin 875mg po
bid through 06/04
CT neck without abscess.
change in mental status; appears TME likely 2/2 cefepime
per spouse, patient is forgetful at times but otherwise AAOx3; now he appears slow to respond with some myoclonus
CT head without acute abnormality, could be a sign of NPH. MRI without any concern of NPH. no acute CVA
Could this also be secondary to cefepime induced neurotoxicity. Discussed with infectious disease, cefepime discontinued. symptoms improving
Pancytopenia -suspect multifactorial etiology including MDS and chemotherapy.
s/p PRBC and platelets 05/28, 05/29. Discussed with family. Hematology following.
transfuse prn
hgb today 7.9; monitor
Hypokalemia
Replete
MDS -transfusion dependent. Received 1 round of chemotherapy with Vidaza.
Hyponatremia -appears chronic. monitor
Hyperlipidemia
DM2 with hyperglycemia -hold metformin. Use sliding scale insulin for now.
Full code
updated at the bedside.
PT/OT rec SNF
Anticipated Discharge: Within 24 hours
Subjective/Interval History
-
Date of Service: June 03, 2024
denies pain
Objective Data
-
Labs:
Laboratory Results
06/03/24
04:37
WBC 1.6 L*
Hgb 7.9 L
Hct 23.1 L
Plt Count 32 L
Sodium 132 L
Potassium 3.2 L
Chloride 98
Carbon Dioxide 27
BUN 11
Creatinine 0.5 L
Glucose 169 H
Calcium 7.7 L
Vital Signs:
Vital Signs
Temp Pulse Resp BP Pulse Ox
97.6 F 74 20 143/78 97
06/03/24 07:45 06/03/24 07:45 06/03/24 07:45 06/03/24 07:45 06/03/24 07:45
I&O
06/02/24 06/03/24 06/04/24
06:59 06:59 06:59
Intake Total 1750 / 1750 830 / 830
Output Total 300 / 300
Balance 1450 / 1450 830 / 830
[2024-06-03 12:06] LABS: Glucose - Point of Care 257 mg/dl (70-99)
[2024-06-03] MEDS: NOVOLOG FLEXPEN-LOW RESISTANCE 3 UNITS SC (12:22)
[2024-06-03 15:50] VITALS: BP 154/76
--- NOTE | 2024-06-03 15:51 | CM ---
Reviewed the chart notes and spoke with the patient and spouse at the bedside. IMM reviewed. CM continues to be available to patient/family and is monitoring medical plan for needs at discharge.
Plan: Discharge to [facility] when medically stable.
[2024-06-03 16:56] LABS: Glucose - Point of Care 224 mg/dl (70-99)
[2024-06-03] MEDS: NOVOLOG FLEXPEN-LOW RESISTANCE 2 UNITS SC (17:12)
[2024-06-03] MEDS: FLUSH (NSS) 1 FLUSH IV (20:44)
[2024-06-03 22:15] LABS: Glucose - Point of Care 195 mg/dl (70-99)
[2024-06-04 05:49] VITALS: BMI 28.3
[2024-06-04 06:35] LABS: Hemoglobin 7.9 g/dL (13.0-18.0); Mean Corp Hgb Conc. 34.3 g/dL (33.0-37.0); Mean Corpuscular Hgb 30.4 pg (27.0-31.0); Mean Corpuscular Volume 88.5 fL (80.0-94.0); Platelet Count 40 10^3/uL (130-400); White Blood Cell Count 1.4 10^3/uL (4.8-10.8)
[2024-06-04 07:00] VITALS: BP 122/74
[2024-06-04 07:08] LABS: Blood Urea Nitrogen 11 mg/dl (9-20); Calcium 7.9 mg/dl (8.4-10.2); Carbon Dioxide 29 mmol/L (22-30); Chloride 100 mmol/L (98-107); Estimated Creatinine Clearance 117 ml/min; Glucose 165 mg/dl (70-99); Potassium 3.8 mmol/L (3.5-5.1); Sodium 132 mmol/L (135-145); eGFR > 60.00
[2024-06-04 07:28] LABS: Band Neutrophils 6 % (0-3); Eosinophils 12 % (0-6); Lymphocytes 45 % (20-51); Metamyelocytes 3 % (-); Monocytes 1 % (2-9); Myelocytes 1 % (-); Segmented Neutrophils 31 % (42-75)
[2024-06-04 07:29] LABS: Anisocytosis 1+; Hypochromasia Slight; Normal RBC Morphology No; Nucleated Red Blood Cells 2 (-); Ovalocytes 1+; Platelets Checked Yes; Polychromasia 1+; Vacuolated Segs 1+
[2024-06-04 07:30] LABS: Glucose - Point of Care 170 mg/dl (70-99)
[2024-06-04 07:30] LABS: Total Cells Counted 100
[2024-06-04 07:31] LABS: Absolute Neutrophils -Man Diff 0.5 10^3/uL (1.4-6.5)
[2024-06-04] MEDS: COLACE PO (08:13)
[2024-06-04] MEDS: MIRALAX PO (08:13)
[2024-06-04] MEDS: CRESTOR 20 MG PO (08:14)
[2024-06-04] MEDS: DESENEX/MITRAZOL/ZEASORB 1 APPLIC TOPICAL (08:14)
[2024-06-04] MEDS: NOVOLOG FLEXPEN-LOW RESISTANCE 1 UNITS SC (08:14)
[2024-06-04] MEDS: VITAMIN B-12 1000 MCG PO (08:14)
--- NOTE | 2024-06-04 08:58 | W.PN.ONC2 ---
Today's Communication / Plan
-
.
Impression
Impression
right facial cellulitis
MDS, s/p cycle #1 azacitadine 05/07 to 05/15
pancytopenia
Plan
Plan
1. Right facial cellulitis - immunocompromised state - MDS
-improving, antibiotics (vanco, cefepime) switched to Augmentin
-ID following
2. MDS/ pancytopenia
- s/p cycle #1 of azacitadine 05/07 - 05/15/24
- continue aggressive transfusion support (goal hgb > 7.5 and platelets >/= 15 in hospital, would would transfuse to hgb > 8, and plat > 20 at discharge)
- monitor CBC and transfuse prn
- met with transplant team at [place], thought to NOT BE a candidate for transplant
- d/w Dr Sexton at [place], continue supportive care. Plan to repeat BM bx after 4-6 cycles of treatment (response to azacitadine in MDS is usually slow)
- cycle #2 was scheduled to start 06/04/24. Will postpone until after rehab stay (persistent cytopenias is usually not an indication to delay treatment)
- discussed goals of care w/ . Patient is still interested in aggressive treatments
-check CBC Qmon/thurs for prn transfusion upon discharge -script given to
3. weakness
- d/c to rehab
Will continue to follow with you.
Subjective/Objective
Subjective
no new complaints
working with PT
Vital Signs:
Vital Signs
Temp Pulse Resp BP Pulse Ox
97.7 F 75 18 122/74 95
06/04/24 07:00 06/04/24 07:00 06/04/24 07:00 06/04/24 07:00 06/04/24 07:00
Lab Results:
Laboratory Data
WBC 1.4 10^3/uL (4.8-10.8) L* 06/04/24 06:09
Hgb 7.9 g/dL (13.0-18.0) L 06/04/24 06:09
Plt Count 40 10^3/uL (130-400) L D 06/04/24 06:09
eGFR > 60.00 06/04/24 06:09
--- NOTE | 2024-06-04 10:48 | W.PN.HOSP.TC ---
Today's Communication/Plan
-
Monitor vital signs see plan
Has not required transfusion a few days, hemoglobin 7.9. Platelets in 40s
Discharge today
Discussed with spouse at bedside
Time of discharge 38 minutes
Assessment / Plan
Assessment / Plan
Gen-AAOx3, NAD
HEENT-NC, AT, anicteric, clear oral mm, right cheek swelling better
Neck-supple
CV-reg, no M, +S1/S2
Lungs-clear B/L
Abd-soft, NT, ND
Ext-no edema
Neuro-grossly non-focal
Psych-calm, cooperative
Neutropenic fever -ANC 500. Continue antibiotics per ID. Continue Augmentin 875mg po bid through 06/04. blood cultures NGTD
Sepsis likely 2/2 Right facial cellulitis -in a immunosuppressed host. Symptoms started May 24. Denies any recent dental work. Hemodynamically stable. at the bedside states the redness is improved overnight. Augmentin 875mg po
bid through 06/04
CT neck without abscess.
change in mental status; appears TME likely 2/2 cefepime
per spouse, patient is forgetful at times but otherwise AAOx3; now he appears slow to respond with some myoclonus
CT head without acute abnormality, could be a sign of NPH. MRI without any concern of NPH. no acute CVA
Could this also be secondary to cefepime induced neurotoxicity. Discussed with infectious disease, cefepime discontinued. symptoms improving
Pancytopenia -suspect multifactorial etiology including MDS and chemotherapy.
s/p PRBC and platelets 05/28, 05/29. Discussed with family. Hematology following.
transfuse prn
hgb today 7.9; monitor. Has not required any transfusion few days. Patient will follow up with oncology/hematology outpatient
Hypokalemia
Replete
MDS -transfusion dependent. Received 1 round of chemotherapy with Vidaza.
Hyponatremia -appears chronic. monitor
Hyperlipidemia
DM2 with hyperglycemia -hold metformin. Use sliding scale insulin for now.
Full code
updated at the bedside.
PT/OT rec SNF
Anticipated Discharge: Today
Subjective/Interval History
-
Date of Service: June 04, 2024
denies pain
Objective Data
-
Labs:
Laboratory Results
06/04/24
06:09
WBC 1.4 L*
Hgb 7.9 L
Hct 23.0 L
Plt Count 40 L D
Sodium 132 L
Potassium 3.8
Chloride 100
Carbon Dioxide 29
BUN 11
Creatinine 0.5 L
Glucose 165 H
Calcium 7.9 L
Vital Signs:
Vital Signs
Temp Pulse Resp BP Pulse Ox
97.7 F 75 18 122/74 95
06/04/24 07:00 06/04/24 07:00 06/04/24 07:00 06/04/24 07:00 06/04/24 07:00
I&O
06/03/24 06/04/24 06/05/24
06:59 06:59 06:59
Intake Total 830 / 830 600 / 600
Balance 830 / 830 600 / 600
--- NOTE | 2024-06-04 10:53 | W.DCSUMMARY ---
Discharge Summary
Discharge Data
Date of Admission: 05/25/24
Date of Discharge: 06/04/24
-
Pending Results: No
Hospital Course
73-year-old male with past medical history of transfusion dependent MDS, hyperlipidemia, diabetes mellitus came to the hospital with neutropenic fever and sepsis secondary to right facial cellulitis. Patient was initially started on IV antibiotics
which was later transitioned to p.o. antibiotics. Patient finished antibiotics prior to discharge. CT neck was done which did not show any abscess. While patient was in the hospital he developed TME which was likely thought was secondary to
sepsis and cefepime. Once cefepime was discontinued patient mental status continue to improve. He also had CT scan of the head which initially showed as possible signs of NPH however MRI brain did not had any concern of NPH. While patient was in
the hospital he was also pancytopenic and required multiple times blood and platelet transfusion. Prior to discharge his hemoglobin and platelets were improving. He was also eval by physical therapy who recommended SNF. Once his symptoms and labs
continue to improve, he was then discharged to rehab with instructions to follow-up with all his physicians outpatient.
Discharge Plan
-
Patient Disposition: Custodial/SNF
Discharge Diagnosis/Procedures: Neutropenic fever
Sepsis secondary to right facial cellulitis
TME likely secondary to cefepime and sepsis
Pancytopenia multifactorial secondary to MDS and chemotherapy
MDS transfusion dependent
Diet: As tolerated
Activity: As tolerated
Driving Restrictions: As prior to admission
Bathing Restrictions: None
Blood Work: CBC and CMP later this week at rehab
Activity Restrictions/Additional Instructions:
Please follow-up with your booster pump operator soon
Referrals:
Ranjan Young CRNP [Family Provider] - in less than 1 week
Fredi Gaspar MD [Active] -
Sarah Marroquin MD [Active] -
Prescriptions:
New
miconazole nitrate [Miconazorb AF] 2 % Powder
1 applic topical BID Qty: 85 0RF
polyethylene glycol 3350 17 gram Powder In Packet
17 g PO DAILY Qty: 0 0RF
acetaminophen 325 mg Tablet
650 mg PO Q4HPRN PRN (Reason: Mild Pain / Temp > 101) Qty: 0 0RF
Continued
rosuvastatin 20 mg Tablet
20 mg PO DAILY
cyanocobalamin (vitamin B-12) 1,000 mcg Tablet
1,000 mcg PO DAILY
metformin 500 mg Tablet Extended Release 24 Hr
1,000 mg PO DAILY
docusate sodium 100 mg capsule
100 mg PO DAILY
prochlorperazine maleate 10 mg Tablet
10 mg PO Q6HPRN PRN (Reason: nausea)
therapeutic multivitamin Tablet
1 tab PO DAILY
Discharge Orders:
Discharge Patient (As Directed); Ordered 06/04/24
Ordered By: Norm Forrester
Discharge Date and Time
Discharge Date/Time: 06/04/24 16:33
Print Language: AUSTRALIAN
[2024-06-04 11:39] LABS: Glucose - Point of Care 274 mg/dl (70-99)
[2024-06-04] MEDS: NOVOLOG FLEXPEN-LOW RESISTANCE 3 UNITS SC (11:49)
--- NOTE | 2024-06-04 12:17 | CM ---
CM reviewed pt with Dr Forrester- ready for dc
Bed confirmed at [facility]
Bedside update to pt and spouse who are in agreement with plan
IMM completed day prior
Pt remains a 2 person assist for transfers
Medical necessity completed
betting clerks to arrange for BLS transport
Discharge Disposition- [facility] via BLS
Phone- [phone] Fax- [phone]
[2024-06-04 12:39] VITALS: BP 130/75; PULSE 83; O2SAT 97
[2024-06-04 14:59] VITALS: BP 133/75
== END 2024-06-04 16:33 | DRG 871 ==
LOC: 2 NORTH 22:22
PROVIDERS: Hospitalist; ADMITTING PHYSICIAN Hospitalist; ATTENDING PHYSICIAN Internal Medicine; CONSULT PHYSICIAN Internal Medicine Hematology & Oncology; CONSULT PHYSICIAN Internal Medicine Infectious Disease; EMERGENCY PHYSICIAN Student in an Organized Health Care Education/Training Program; FAMILY PHYSICIAN Nurse Practitioner Family
PROC: 30233R1 Transfusion of Nonautologous Platelets into Peripheral Vein, Percutaneous Approach (ICD-10-PCS; 2024-05-26)
PROC: 30233N1 Transfusion of Nonautologous Red Blood Cells into Peripheral Vein, Percutaneous Approach (ICD-10-PCS; 2024-05-27)
DX: A41.9 Sepsis, unspecified organism (principal); D61.810 Antineoplastic chemotherapy induced pancytopenia; G92.8 Other toxic encephalopathy; L03.211 Cellulitis of face; D61.818 Other pancytopenia; D84.821 Immunodeficiency due to drugs; D46.9 Myelodysplastic syndrome, unspecified; E11.40 Type 2 diabetes mellitus with diabetic neuropathy, unspecified; G47.33 Obstructive sleep apnea (adult) (pediatric); R50.81 Fever presenting with conditions classified elsewhere; T45.1X5A Adverse effect of antineoplastic and immunosuppressive drugs, initial encounter; E11.65 Type 2 diabetes mellitus with hyperglycemia; E53.8 Deficiency of other specified B group vitamins; E78.5 Hyperlipidemia, unspecified; D70.3 Neutropenia due to infection; T36.1X5A Adverse effect of cephalosporins and other beta-lactam antibiotics, initial encounter; Z79.84 Long term (current) use of oral hypoglycemic drugs; Z79.899 Other long term (current) drug therapy
CPT/HCPCS: 36430; 70450; 70491; 70553; 71045; 80048; 80053; 80202; 82962; 83036; 85025; 86850; 86900; 86901; 86920; 87040; 93005; 93971; 96361; 96374; 97110; 97116; 97163; 97167; 97530; 97535; 99285; A9575; J2997; P9058; P9073; Q9967

== ENCOUNTER → 2024-06-06 11:58 | Outpatient (REF) | payer MEDICARE, OTHER, SELFPAY ==
[2024-06-06 12:25] LABS: Hematocrit 23.2 % (39.0-52.0); Hemoglobin 7.8 g/dL (13.0-18.0); Mean Corp Hgb Conc. 33.6 g/dL (33.0-37.0); Mean Corpuscular Volume 89.2 fL (80.0-94.0); Red Cell Dist. Width 14.7 % (11.5-14.5); White Blood Cell Count 1.5 10^3/uL (4.8-10.8)
[2024-06-06 12:47] LABS: Absolute Neutrophils 0.4 10^3/uL (1.4-6.5)
[2024-06-06 12:48] LABS: % Basophils 2.8 % (0-2); % Eosinophils 2.1 % (0-6); % Immature Granulocytes 6.9 % (0-0.5); % Lymphocytes 55.9 % (20.5-51.1); % Monocytes 4.1 % (1.7-9.3); % Neutrophils 28.2 % (42.2-75.2); Absolute Immature Granulocytes 0.1 10^3/uL (0-0.05); Absolute Lymphocytes 0.8 10^3/uL (1.2-3.4); Absolute Monocytes 0.1 10^3/uL (0.1-0.6); Nucleated Red Blood Cells % 1.4 % (-)
[2024-06-06 14:06] LABS: ALT (SGPT) 20 U/L (0-50); AST (SGOT) 23 U/L (17-59); Albumin 2.7 g/dl (3.5-5.0); Alkaline Phosphatase 76 U/L (38-126); Blood Urea Nitrogen 8 mg/dl (9-20); Carbon Dioxide 28 mmol/L (22-30); Chloride 100 mmol/L (98-107); Glucose 139 mg/dl (70-99); Potassium 3.8 mmol/L (3.5-5.1); Sodium 134 mmol/L (135-145); Total Protein 5.8 g/dl (6.3-8.2); eGFR > 60.00
== END ==
LOC: OLABN 11:58
PROVIDERS: ATTENDING PHYSICIAN Family Medicine
DX: D49.0 Neoplasm of unspecified behavior of digestive system (principal); G92.8 Other toxic encephalopathy; A41.9 Sepsis, unspecified organism; L03.211 Cellulitis of face; G47.33 Obstructive sleep apnea (adult) (pediatric); E78.5 Hyperlipidemia, unspecified
CPT/HCPCS: 36415; 80053; 85025

== ENCOUNTER → 2024-06-07 09:41 | Outpatient (REF) | payer OTHER, MEDICARE, SELFPAY ==
[2024-06-07 11:53] LABS: ALT (SGPT) 19 U/L (0-50); AST (SGOT) 22 U/L (17-59); Albumin 2.8 g/dl (3.5-5.0); Alkaline Phosphatase 77 U/L (38-126); Blood Urea Nitrogen 9 mg/dl (9-20); Carbon Dioxide 29 mmol/L (22-30); Chloride 101 mmol/L (98-107); Glucose 150 mg/dl (70-99); Potassium 3.8 mmol/L (3.5-5.1); Sodium 134 mmol/L (135-145); Total Bilirubin 0.9 mg/dl (0.2-1.3); Total Protein 6.1 g/dl (6.3-8.2); eGFR > 60.00
[2024-06-07 12:00] LABS: % Basophils 2.2 % (0-2); % Eosinophils 0.5 % (0-6); % Immature Granulocytes 5.5 % (0-0.5); % Lymphocytes 57.4 % (20.5-51.1); % Monocytes 7.7 % (1.7-9.3); % Neutrophils 26.7 % (42.2-75.2); Absolute Immature Granulocytes 0.1 10^3/uL (0-0.05); Absolute Lymphocytes 1.1 10^3/uL (1.2-3.4); Absolute Monocytes 0.1 10^3/uL (0.1-0.6); Absolute Neutrophils 0.5 10^3/uL (1.4-6.5); Hematocrit 23.5 % (39.0-52.0); Hemoglobin 7.8 g/dL (13.0-18.0); Mean Corp Hgb Conc. 33.2 g/dL (33.0-37.0); Mean Corpuscular Volume 90.4 fL (80.0-94.0); Nucleated Red Blood Cells % 1.1 % (-); Platelet Count 37 10^3/uL (130-400); Red Cell Dist. Width 14.8 % (11.5-14.5); White Blood Cell Count 1.8 10^3/uL (4.8-10.8)
== END ==
LOC: OLABP 09:41
PROVIDERS: ATTENDING PHYSICIAN Family Medicine
DX: D49.0 Neoplasm of unspecified behavior of digestive system (principal); G92.8 Other toxic encephalopathy; D46.9 Myelodysplastic syndrome, unspecified; A41.9 Sepsis, unspecified organism; L03.211 Cellulitis of face; G47.33 Obstructive sleep apnea (adult) (pediatric); E78.5 Hyperlipidemia, unspecified
CPT/HCPCS: 36415; 80053; 85025

== ENCOUNTER 2024-06-11 18:05 | Emergency (ER) | payer MEDICARE, OTHER, SELFPAY ==
[2024-06-11] VITALS (8 sets, daily range): BP systolic 134–156; BP diastolic 66–79; BMI 27.5
--- NOTE | 2024-06-11 18:07 | ED.GENMED ---
History of Present Illness
General
Chief Complaint: Abnormal Lab Value
Time Seen by Provider: 06/11/24 18:06
History of Present Illness
History of Present Illness:
TIME OF INITIAL ENCOUNTER: 6:08 PM
HPI: The patient was sent here for blood transfusion. He has a history of myelodysplastic syndrome diagnosed 2 months ago and has had multiple blood transfusions in the recent past. He is known to Dr. Lore Kwong. He 'feels great' and has no
specific complaints currently. He denies any rectal bleeding.
EXAM:
GENERAL: Well appearing in no distress
HEENT: Moist oral mucosa
CARDIOVASCULAR: No murmurs, normal heart rate, regular rhythm, No chest wall tenderness
PULMONARY: No respiratory distress, breath sounds are clear and equal
ABDOMEN: Soft with no peritoneal signs, no tenderness
NEUROLOGIC: Excellent strength all extremities, no coordination deficits
PSYCHIATRIC: Appropriate mental status, normal insight and judgement
EXTREMITIES: Nontender, no edema, moves all extremities equally
SKIN: Chest slightly pale, heme-negative brown stool
NUMBER AND COMPLEXITY OF PROBLEMS ADDRESSED AT THE ENCOUNTER
� Chronic conditions affecting care: Myelodysplastic syndrome, diabetes, hyperlipidemia, neuropathy
� Acute Exacerbation and/or Progression of Chronic Illness: This is an acute but recurring problem
� Differential Diagnosis includes: Myelodysplastic syndrome, transfusion dependence, GI bleed unlikely based on physical exam today.
AMOUNT AND/OR COMPLEXITY OF DATA TO BE REVIEWED AND ANALYZED
� I performed an independent evaluation of and my interpretation is:
EKG:
CT:
X-rays:
Laboratory Studies: Hemoglobin 6.9, platelets 39, ANC 500, chemistries unremarkable
Other:
� Review of other/old records: I reviewed records the patient was admitted from May 25 through June 04 of this year. At that time he also developed toxic metabolic encephalopathy secondary to sepsis and was placed on cefepime.
I further reviewed records, last December his hemoglobin was around 10 and in March was down to 6.7 started receiving blood transfusions. This past month or 2 his baseline hemoglobin has been around 7.5 and did receive blood when his hemoglobin
dropped to 6.3 in May 27. He was discharged to 7.8 on June 07 and currently is 6.9.
� Clinical information was obtained by an independent historian: I spoke to the at bedside
� Prescriptions/Medications Considered but not given:
� Further testing considered but not performed:
RISK OF COMPLICATIONS AND/OR MORBIDITY OR MORTALITY OF PATIENT MANAGEMENT
� Social determinants of health affecting care: Currently staying at [facility] for rehab
� Discussion with other providers: I discussed case with Dr. Pearce who agrees with 1 unit of blood. Will hold off on platelet transfusion.
� Escalation of care including admission/observation vs risk of discharge considered: The patient is getting a unit of blood room and then plan is discharge back to [facility].
ANY OTHER UPDATES:
No episodes while in ED as of 11 PM
Past History
Past History
ED Past Medical History: Cancer
ED Past Surgical History: Orthopedic
Social History
Tobacco: Non-smoker
Alcohol: None
Phy Exam
Physical Exam
Physical Exam:
See HPI
Course
Orders/Labs/Results
Orders:
Orders
06/11/24 18:16
CR Chest Portable - 1 View Urgent
Comment:
Reason For Exam: confirm picc placement
Reason Study Needs to be Portable: Unable to Transport
06/11/24 19:29
Type And Crossmatch [Type+Screen] Urgent
Basic Metabolic Panel Urgent
Complete Blood Count/With Diff Urgent
Manual Differential Urgent
06/11/24 20:24
* Blood Bank Products Urgent
Blood Bank Products: *Packed RBC Leuko(PRBC's)
Quantity: 1
Transfuse Today: Yes
Reason: Anemia
Abnormal Lab Results
06/11/24
19:29
WBC 1.6 L* 10^3/uL
(4.8-10.8)
RBC 2.28 L 10^6/uL
(4.70-6.10)
Hgb 6.9 L* g/dL
(13.0-18.0)
Hct 20.5 L* %
(39.0-52.0)
RDW 14.9 H %
(11.5-14.5)
Plt Count 39 L D 10^3/uL
(130-400)
Abs Neuts (Manual) 0.5 L* 10^3/uL
(1.4-6.5)
Segmented Neutrophils 32 L %
(42-75)
Lymphocytes (Manual) 56 H %
(20-51)
Eosinophils (Manual) 8 H %
(0-6)
Creatinine 0.4 L mg/dL
(0.7-1.3)
Glucose 181 H mg/dl
(70-99)
Crossmatch IS Only See Detail
06/11/24 19:29
06/11/24 19:29
Vital Signs
Initial and Last Documented VS:
Initial Vital Signs
Temp Pulse Resp BP Pulse Ox
36.4 C 74 25 154/79 98
06/11/24 18:07 06/11/24 18:07 06/11/24 18:07 06/11/24 18:07 06/11/24 18:07
Last Documented Vital Signs
Temp Pulse Resp BP Pulse Ox
37.0 C 71 24 158/77 99
06/12/24 00:06 06/12/24 00:06 06/12/24 00:06 06/12/24 00:06 06/12/24 00:05
*Critical Care Note
Total Time (30-74mins, 75-104mins- exclusive of procedures): Not Applicable
ED Attending Note
-
Portions of this chart may have been created with voice recognition software.� Occasional wrong word or��sound alike� substitutions may have occurred due to the inherent limitations of voice recognition software.
Discharge Plan
Departure
Patient Disposition: Home (Routine Discharge)
Date of Disposition: 06/11/24
Time of Disposition: 22:58
Patient with high blood pressure during this ER visit?: Yes
Discharge Problem:
Myelodysplastic syndrome, Anemia
Instructions: Blood transfusion
Prescriptions:
No Action
rosuvastatin 20 mg Tablet
20 mg PO DAILY
cyanocobalamin (vitamin B-12) 1,000 mcg Tablet
1,000 mcg PO DAILY
metformin 500 mg Tablet Extended Release 24 Hr
1,000 mg PO DAILY
docusate sodium 100 mg capsule
100 mg PO DAILY
prochlorperazine maleate 10 mg Tablet
10 mg PO Q6HPRN PRN (Reason: nausea)
therapeutic multivitamin Tablet
1 tab PO DAILY
miconazole nitrate [Miconazorb AF] 2 % Powder
1 applic topical BID Qty: 85 0RF
polyethylene glycol 3350 17 gram Powder In Packet
17 g PO DAILY Qty: 0 0RF
acetaminophen 325 mg Tablet
650 mg PO Q4HPRN PRN (Reason: Mild Pain / Temp > 101) Qty: 0 0RF
Referrals:
Lore Kwong MD [Active] - Follow up in 2-3 days
Sreedhar Sykes MD [Family Provider] -
Activity Restrictions/Additional Instructions:
Hemoglobin was 6.9, platelet count was 39. We gave 1 unit of blood. Follow-up with Dr. Kwong.
Interventions
Interventions:
*Risk Screen - Suicide Last Done: 06/11/24 18:07
*General Assessment Last Done: 06/11/24 18:07
*Neglect/Abuse Screening Last Done: 06/11/24 18:07
*ED- Fall Risk Assessment Last Done: 06/11/24 18:07
*ED COVID-19 Vaccine History Last Done: 06/11/24 18:07
*Nursing Disposition Last Done: 06/12/24 00:10
Discharge Date and Time
Discharge Date/Time: 06/12/24 00:10
Print Language: BHUTANESE
[2024-06-11 19:44] LABS: Hematocrit 20.5 % (39.0-52.0); Hemoglobin 6.9 g/dL (13.0-18.0); Mean Corp Hgb Conc. 33.7 g/dL (33.0-37.0); Mean Corpuscular Hgb 30.3 pg (27.0-31.0); Mean Corpuscular Volume 89.9 fL (80.0-94.0); Platelet Count 39 10^3/uL (130-400); Red Blood Cell Count 2.28 10^6/uL (4.70-6.10); Red Cell Dist. Width 14.9 % (11.5-14.5); White Blood Cell Count 1.6 10^3/uL (4.8-10.8)
[2024-06-11 19:56] LABS: Blood Urea Nitrogen 9 mg/dl (9-20); Calcium 8.6 mg/dl (8.4-10.2); Carbon Dioxide 29 mmol/L (22-30); Chloride 102 mmol/L (98-107); Estimated Creatinine Clearance 117 ml/min; Glucose 181 mg/dl (70-99); Potassium 3.9 mmol/L (3.5-5.1); Sodium 136 mmol/L (135-145); eGFR > 60.00
[2024-06-11 20:08] LABS: Band Neutrophils 0 % (0-3); Eosinophils 8 % (0-6); Lymphocytes 56 % (20-51); Monocytes 4 % (2-9); Segmented Neutrophils 32 % (42-75)
[2024-06-11 20:09] LABS: Anisocytosis 1+; Normal RBC Morphology No; Platelets Checked Yes
[2024-06-11 20:10] LABS: Ovalocytes 1+
[2024-06-11 20:12] LABS: Hypochromasia 1+
[2024-06-11 20:13] LABS: Absolute Neutrophils -Man Diff 0.5 10^3/uL (1.4-6.5); Total Cells Counted 100
[2024-06-12] VITALS: BP 159/81
[2024-06-12 00:05] VITALS: BP 158/77
[2024-06-12 00:06] VITALS: BP 158/77
== END 2024-06-12 00:10 | disposition home or self-care (01) ==
LOC: EMR 18:05
PROVIDERS: EMERGENCY PHYSICIAN Emergency Medicine; FAMILY PHYSICIAN Family Medicine
DX: D46.9 Myelodysplastic syndrome, unspecified (principal); R03.0 Elevated blood-pressure reading, without diagnosis of hypertension; E11.40 Type 2 diabetes mellitus with diabetic neuropathy, unspecified; E78.5 Hyperlipidemia, unspecified; Z85.9 Personal history of malignant neoplasm, unspecified
CPT/HCPCS: 99285; 36430; 36415; 71045; 80048; 80053; 85025; 86850; 86900; 86901; 86920; P9058

== ENCOUNTER → 2024-06-14 09:45 | Outpatient (REF) | payer OTHER, MEDICARE, SELFPAY ==
[2024-06-14 10:42] LABS: Hematocrit 21.7 % (39.0-52.0); Hemoglobin 7.3 g/dL (13.0-18.0); Mean Corp Hgb Conc. 33.6 g/dL (33.0-37.0); Mean Corpuscular Hgb 30.2 pg (27.0-31.0); Mean Corpuscular Volume 89.7 fL (80.0-94.0); Platelet Count 27 10^3/uL (130-400); Red Blood Cell Count 2.42 10^6/uL (4.70-6.10); Red Cell Dist. Width 15.5 % (11.5-14.5); White Blood Cell Count 1.8 10^3/uL (4.8-10.8)
[2024-06-14 10:44] LABS: ALT (SGPT) 17 U/L (0-50); AST (SGOT) 22 U/L (17-59); Albumin 3.2 g/dl (3.5-5.0); Alkaline Phosphatase 88 U/L (38-126); Blood Urea Nitrogen 11 mg/dl (9-20); Calcium 8.6 mg/dl (8.4-10.2); Carbon Dioxide 31 mmol/L (22-30); Chloride 103 mmol/L (98-107); Glucose 135 mg/dl (70-99); Potassium 4.1 mmol/L (3.5-5.1); Sodium 138 mmol/L (135-145); Total Bilirubin 1.1 mg/dl (0.2-1.3); Total Protein 6.3 g/dl (6.3-8.2); eGFR > 60.00
[2024-06-14 11:40] LABS: % Basophils 1.1 % (0-2); % Eosinophils 11.9 % (0-6); % Immature Granulocytes 5.7 % (0-0.5); % Lymphocytes 59.7 % (20.5-51.1); % Monocytes 4.5 % (1.7-9.3); % Neutrophils 17.1 % (42.2-75.2); Absolute Eosinophils 0.2 10^3/uL (0-0.7); Absolute Immature Granulocytes 0.1 10^3/uL (0-0.05); Absolute Lymphocytes 1.1 10^3/uL (1.2-3.4); Absolute Monocytes 0.1 10^3/uL (0.1-0.6); Absolute Neutrophils 0.3 10^3/uL (1.4-6.5); Nucleated Red Blood Cells % 0 % (-)
== END ==
LOC: OLABP 09:45
DX: G92.8 Other toxic encephalopathy (principal); D46.9 Myelodysplastic syndrome, unspecified; A41.9 Sepsis, unspecified organism; G47.33 Obstructive sleep apnea (adult) (pediatric)
CPT/HCPCS: 36415; 80053; 85025

== ENCOUNTER 2024-06-18 10:35 | Outpatient (RCR) | payer MEDICARE, OTHER, SELFPAY ==
[2024-05-21 10:50] VITALS: BP 136/64
[2024-05-21 11:46] LABS: Hematocrit 26.9 % (39.0-52.0); Hemoglobin 9.1 g/dL (13.0-18.0); Mean Corp Hgb Conc. 33.8 g/dL (33.0-37.0); Mean Corpuscular Hgb 30.5 pg (27.0-31.0); Mean Corpuscular Volume 90.3 fL (80.0-94.0); Red Blood Cell Count 2.98 10^6/uL (4.70-6.10); Red Cell Dist. Width 15.5 % (11.5-14.5)
[2024-05-21 12:21] LABS: % Lymphocytes 47.5 % (20.5-51.1); % Monocytes 14.8 % (1.7-9.3); % Neutrophils 24.6 % (42.2-75.2); Platelet Count 6 10^3/uL (130-400); White Blood Cell Count 2.4 10^3/uL (4.8-10.8)
[2024-05-21 12:22] LABS: % Basophils 0.8 % (0-2); % Eosinophils 2.1 % (0-6); % Immature Granulocytes 10.2 % (0-0.5); Absolute Eosinophils 0.1 10^3/uL (0-0.7); Absolute Immature Granulocytes 0.2 10^3/uL (0-0.05); Absolute Lymphocytes 1.1 10^3/uL (1.2-3.4); Absolute Monocytes 0.4 10^3/uL (0.1-0.6); Absolute Neutrophils 0.6 10^3/uL (1.4-6.5); Nucleated Red Blood Cells % 0.8 % (-)
[2024-05-21 12:26] LABS: ALT (SGPT) 48 U/L (0-50); AST (SGOT) 45 U/L (17-59); Albumin 3.4 g/dl (3.5-5.0); Alkaline Phosphatase 83 U/L (38-126); Blood Urea Nitrogen 11 mg/dl (9-20); Calcium 8.8 mg/dl (8.4-10.2); Carbon Dioxide 28 mmol/L (22-30); Chloride 99 mmol/L (98-107); Glucose 160 mg/dl (70-99); Potassium 4.3 mmol/L (3.5-5.1); Sodium 133 mmol/L (135-145); Total Bilirubin 0.7 mg/dl (0.2-1.3); Total Protein 6.6 g/dl (6.3-8.2); eGFR > 60.00
[2024-05-21] MEDS: TYLENOL 1000 MG PO (12:53)
[2024-05-21] MEDS: BENADRYL 25 MG PO (12:53)
[2024-05-21 13:08] VITALS: BP 119/72
[2024-05-21 13:25] VITALS: BP 125/63
[2024-05-21 14:16] VITALS: BP 122/64
[2024-05-24 11:25] VITALS: BP 116/54
[2024-05-24 12:06] LABS: ALT (SGPT) 34 U/L (0-50); AST (SGOT) 34 U/L (17-59); Albumin 3.6 g/dl (3.5-5.0); Alkaline Phosphatase 70 U/L (38-126); Blood Urea Nitrogen 10 mg/dl (9-20); Calcium 8.9 mg/dl (8.4-10.2); Carbon Dioxide 29 mmol/L (22-30); Chloride 99 mmol/L (98-107); Glucose 174 mg/dl (70-99); Potassium 4.4 mmol/L (3.5-5.1); Sodium 133 mmol/L (135-145); Total Bilirubin 0.8 mg/dl (0.2-1.3); Total Protein 6.8 g/dl (6.3-8.2); eGFR > 60.00
[2024-05-24 12:22] LABS: Hematocrit 24.3 % (39.0-52.0); Hemoglobin 8.3 g/dL (13.0-18.0); Mean Corp Hgb Conc. 34.2 g/dL (33.0-37.0); Mean Corpuscular Hgb 30.6 pg (27.0-31.0); Mean Corpuscular Volume 89.7 fL (80.0-94.0); Red Blood Cell Count 2.71 10^6/uL (4.70-6.10); Red Cell Dist. Width 15.3 % (11.5-14.5); White Blood Cell Count 2.2 10^3/uL (4.8-10.8)
[2024-05-24 12:23] LABS: Platelet Count 6 10^3/uL (130-400)
[2024-05-24 12:24] LABS: Absolute Neutrophils -Man Diff 0.6 10^3/uL (1.4-6.5); Anisocytosis 1+; Band Neutrophils 1 % (0-3); Eosinophils 6 % (0-6); Hypochromasia Slight; Lymphocytes 55 % (20-51); Metamyelocytes 1 % (-); Monocytes 4 % (2-9); Myelocytes 5 % (-); Normal RBC Morphology No; Platelets Checked Yes; Segmented Neutrophils 28 % (42-75); Total Cells Counted 100
[2024-05-24] MEDS: TYLENOL 1000 MG PO (13:28)
[2024-05-24] MEDS: BENADRYL 25 MG PO (13:29)
[2024-05-24 13:49] VITALS: BP 128/59
[2024-05-24 14:06] VITALS: BP 131/62
[2024-05-24 14:56] VITALS: BP 133/63
[2024-05-24 15:15] VITALS: BP 133/63
[2024-06-15 08:21] VITALS: BP 130/70
[2024-06-15] MEDS: BENADRYL 25 MG PO (08:32)
[2024-06-15 08:50] VITALS: BP 130/70
[2024-06-15 09:05] VITALS: BP 145/66
[2024-06-15 11:30] VITALS: BP 141/86
[2024-06-18 10:45] VITALS: BP 115/56
[2024-06-18 11:34] LABS: % Basophils 2.6 % (0-2); % Eosinophils 11.5 % (0-6); % Lymphocytes 48.7 % (20.5-51.1); % Monocytes 10.9 % (1.7-9.3); % Neutrophils 26.3 % (42.2-75.2); Absolute Eosinophils 0.2 10^3/uL (0-0.7); Absolute Lymphocytes 0.8 10^3/uL (1.2-3.4); Absolute Monocytes 0.2 10^3/uL (0.1-0.6); Hematocrit 24.3 % (39.0-52.0); Hemoglobin 8.2 g/dL (13.0-18.0); Mean Corp Hgb Conc. 33.7 g/dL (33.0-37.0); Mean Corpuscular Hgb 30.8 pg (27.0-31.0); Mean Corpuscular Volume 91.4 fL (80.0-94.0); Red Blood Cell Count 2.66 10^6/uL (4.70-6.10); Red Cell Dist. Width 14.9 % (11.5-14.5)
[2024-06-18 11:40] LABS: ALT (SGPT) 16 U/L (0-50); AST (SGOT) 23 U/L (17-59); Albumin 3.7 g/dl (3.5-5.0); Alkaline Phosphatase 91 U/L (38-126); Blood Urea Nitrogen 11 mg/dl (9-20); Calcium 8.6 mg/dl (8.4-10.2); Carbon Dioxide 27 mmol/L (22-30); Chloride 101 mmol/L (98-107); Glucose 175 mg/dl (70-99); Platelet Count 16 10^3/uL (130-400); Potassium 3.9 mmol/L (3.5-5.1); Sodium 139 mmol/L (135-145); Total Bilirubin 0.7 mg/dl (0.2-1.3); Total Protein 6.9 g/dl (6.3-8.2); eGFR > 60.00
[2024-06-18 11:41] LABS: Absolute Neutrophils 0.4 10^3/uL (1.4-6.5); White Blood Cell Count 1.6 10^3/uL (4.8-10.8)
== END 2024-06-18 23:59 | disposition home or self-care (01) ==
LOC: OID 10:35
PROVIDERS: ATTENDING PHYSICIAN Internal Medicine Hematology & Oncology; FAMILY PHYSICIAN Nurse Practitioner Family
DX: D61.818 Other pancytopenia (principal); D75.89 Other specified diseases of blood and blood-forming organs; D46.22 Refractory anemia with excess of blasts 2
CPT/HCPCS: 36430; 36591; 80053; 85025; 86850; 86900; 86901; 86920; P9058; P9073

== ENCOUNTER → 2024-07-10 09:06 | Outpatient (REF) | payer MEDICARE, OTHER, SELFPAY ==
[2024-07-10 12:37] LABS: ALT (SGPT) 29 U/L (0-50); AST (SGOT) 31 U/L (17-59); Albumin 4.3 g/dl (3.5-5.0); Alkaline Phosphatase 84 U/L (38-126); Blood Urea Nitrogen 18 mg/dl (9-20); Calcium 9.4 mg/dl (8.4-10.2); Carbon Dioxide 30 mmol/L (22-30); Chloride 101 mmol/L (98-107); Glucose 175 mg/dl (70-99); Potassium 4.4 mmol/L (3.5-5.1); Sodium 140 mmol/L (135-145); Total Bilirubin 0.7 mg/dl (0.2-1.3); Total Protein 7.4 g/dl (6.3-8.2); eGFR > 60.00
[2024-07-10 12:49] LABS: Microalbumin, Random Urine 0.8 mg/dl (0.6-1.7); Microalbumin/creatinine Ratio 12.3 mg/g
[2024-07-10 14:20] LABS: Glycohemoglobin (HgbA1c) 6.2 % (4.0-5.6)
== END ==
LOC: HWLAB 09:06
PROVIDERS: ATTENDING PHYSICIAN Internal Medicine Endocrinology, Diabetes & Metabolism; FAMILY PHYSICIAN Nurse Practitioner Family
DX: E11.9 Type 2 diabetes mellitus without complications (principal)
CPT/HCPCS: 36415; 80053; 82043; 82570; 83036

== ENCOUNTER 2024-07-16 09:55 | Outpatient (RCR) | payer MEDICARE, OTHER, SELFPAY ==
[2024-06-21 14:47] LABS: % Basophils 1.3 % (0-2); % Immature Granulocytes 0.4 % (0-0.5); % Lymphocytes 54.2 % (20.5-51.1); % Monocytes 16.7 % (1.7-9.3); % Neutrophils 20.4 % (42.2-75.2); Absolute Eosinophils 0.2 10^3/uL (0-0.7); Absolute Lymphocytes 1.2 10^3/uL (1.2-3.4); Absolute Monocytes 0.4 10^3/uL (0.1-0.6); Mean Corp Hgb Conc. 33.3 g/dL (33.0-37.0); Mean Platelet Volume 10.6 fL (7.4-10.4); Platelet Count 31 10^3/uL (130-400); Red Blood Cell Count 2.58 10^6/uL (4.70-6.10); Red Cell Dist. Width 16.1 % (11.5-14.5); White Blood Cell Count 2.3 10^3/uL (4.8-10.8)
[2024-06-21 14:48] LABS: Absolute Neutrophils 0.5 10^3/uL (1.4-6.5)
[2024-06-21 16:08] LABS: Urine Albumin 2+ (Neg - Trace); Urine Bilirubin Negative (Negative); Urine Character Slightly Cloudy (Clear); Urine Color Yellow; Urine Glucose Negative (Negative); Urine Ketone Negative (Negative); Urine Leukocyte 3+ (Negative); Urine Nitrite Positive (Negative); Urine Occult Blood 3+ (Negative); Urine Urobilinogen Negative (Neg - 1+); Urine pH 6.5 (5.0-9.0)
[2024-06-21 16:16] LABS: Urine Squamous Cell 0-2 /LPF (Few)
[2024-06-21 16:17] LABS: Urine Bacteria Many (Negative); Urine White Cell 30-40 /HPF (0-5)
[2024-06-25 10:40] VITALS: BP 141/65
[2024-06-25 10:57] LABS: % Eosinophils 2.9 % (0-6); % Immature Granulocytes 0.6 % (0-0.5); % Lymphocytes 27.6 % (20.5-51.1); % Monocytes 15.3 % (1.7-9.3); % Neutrophils 52.6 % (42.2-75.2); Absolute Eosinophils 0.1 10^3/uL (0-0.7); Absolute Lymphocytes 0.9 10^3/uL (1.2-3.4); Absolute Monocytes 0.5 10^3/uL (0.1-0.6); Absolute Neutrophils 1.6 10^3/uL (1.4-6.5); Hematocrit 25.4 % (39.0-52.0); Hemoglobin 8.4 g/dL (13.0-18.0); Mean Corp Hgb Conc. 33.1 g/dL (33.0-37.0); Mean Corpuscular Hgb 31.8 pg (27.0-31.0); Mean Corpuscular Volume 96.2 fL (80.0-94.0); Platelet Count 73 10^3/uL (130-400); Red Blood Cell Count 2.64 10^6/uL (4.70-6.10); White Blood Cell Count 3.1 10^3/uL (4.8-10.8)
[2024-06-25 11:31] LABS: ALT (SGPT) 19 U/L (0-50); AST (SGOT) 24 U/L (17-59); Albumin 3.5 g/dl (3.5-5.0); Alkaline Phosphatase 98 U/L (38-126); Blood Urea Nitrogen 13 mg/dl (9-20); Calcium 8.9 mg/dl (8.4-10.2); Carbon Dioxide 27 mmol/L (22-30); Chloride 103 mmol/L (98-107); Glucose 302 mg/dl (70-99); Potassium 4.2 mmol/L (3.5-5.1); Sodium 139 mmol/L (135-145); Total Bilirubin 0.5 mg/dl (0.2-1.3); Total Protein 6.8 g/dl (6.3-8.2); eGFR > 60.00
[2024-06-25] MEDS: DECADRON 50.8 MG IV (11:54)
[2024-06-25] MEDS: ALOXI 5 MG IV (11:55)
[2024-06-25] MEDS: VIDAZA 115.7 MG IV (12:13)
[2024-06-26 10:35] VITALS: BP 130/74
[2024-06-26] MEDS: VIDAZA 115.7 MG IV (10:58)
[2024-06-27 10:15] VITALS: BP 135/62
[2024-06-27] MEDS: VIDAZA 115.7 MG IV (10:32)
[2024-06-28 11:30] VITALS: BP 139/67
[2024-06-28 11:37] LABS: % Basophils 1.1 % (0-2); % Eosinophils 1.9 % (0-6); % Immature Granulocytes 0.9 % (0-0.5); % Lymphocytes 28.5 % (20.5-51.1); % Monocytes 11.7 % (1.7-9.3); % Neutrophils 55.9 % (42.2-75.2); Absolute Basophils 0.1 10^3/uL (0-0.2); Absolute Eosinophils 0.1 10^3/uL (0-0.7); Absolute Immature Granulocytes 0.1 10^3/uL (0-0.05); Absolute Lymphocytes 1.5 10^3/uL (1.2-3.4); Absolute Monocytes 0.6 10^3/uL (0.1-0.6); Hematocrit 26.8 % (39.0-52.0); Hemoglobin 8.8 g/dL (13.0-18.0); Mean Corp Hgb Conc. 32.8 g/dL (33.0-37.0); Mean Corpuscular Hgb 31.9 pg (27.0-31.0); Mean Corpuscular Volume 97.1 fL (80.0-94.0); Mean Platelet Volume 10.6 fL (7.4-10.4); Platelet Count 106 10^3/uL (130-400); Red Blood Cell Count 2.76 10^6/uL (4.70-6.10); Red Cell Dist. Width 20.7 % (11.5-14.5); White Blood Cell Count 5.3 10^3/uL (4.8-10.8)
[2024-06-28] MEDS: VIDAZA 115.7 MG IV (11:55)
[2024-06-28] MEDS: ALOXI 5 MG IV (11:56)
[2024-06-28 12:24] LABS: ALT (SGPT) 24 U/L (0-50); AST (SGOT) 26 U/L (17-59); Albumin 3.7 g/dl (3.5-5.0); Alkaline Phosphatase 86 U/L (38-126); Blood Urea Nitrogen 16 mg/dl (9-20); Calcium 9.3 mg/dl (8.4-10.2); Carbon Dioxide 28 mmol/L (22-30); Chloride 101 mmol/L (98-107); Glucose 135 mg/dl (70-99); Potassium 4.5 mmol/L (3.5-5.1); Sodium 136 mmol/L (135-145); Total Bilirubin 0.4 mg/dl (0.2-1.3); eGFR > 60.00
[2024-06-29 11:42] VITALS: BP 161/80
[2024-06-29] MEDS: VIDAZA 115.7 MG IV (11:54)
[2024-07-02 10:45] VITALS: BP 143/70
[2024-07-02 11:00] LABS: % Basophils 1.2 % (0-2); % Neutrophils 63.8 % (42.2-75.2); Absolute Basophils 0.1 10^3/uL (0-0.2); Absolute Eosinophils 0.1 10^3/uL (0-0.7); Absolute Immature Granulocytes 0.1 10^3/uL (0-0.05); Absolute Lymphocytes 1.1 10^3/uL (1.2-3.4); Absolute Monocytes 0.4 10^3/uL (0.1-0.6); Absolute Neutrophils 3.1 10^3/uL (1.4-6.5); Hemoglobin 9.2 g/dL (13.0-18.0); Mean Corp Hgb Conc. 32.9 g/dL (33.0-37.0); Mean Corpuscular Hgb 31.9 pg (27.0-31.0); Mean Corpuscular Volume 97.2 fL (80.0-94.0); Mean Platelet Volume 10.8 fL (7.4-10.4); Platelet Count 145 10^3/uL (130-400); Red Blood Cell Count 2.88 10^6/uL (4.70-6.10); Red Cell Dist. Width 21.2 % (11.5-14.5); White Blood Cell Count 4.9 10^3/uL (4.8-10.8)
[2024-07-02] MEDS: ALOXI 5 MG IV (11:33)
[2024-07-02 11:39] LABS: ALT (SGPT) 27 U/L (0-50); AST (SGOT) 28 U/L (17-59); Alkaline Phosphatase 90 U/L (38-126); Blood Urea Nitrogen 10 mg/dl (9-20); Carbon Dioxide 27 mmol/L (22-30); Chloride 102 mmol/L (98-107); Glucose 268 mg/dl (70-99); Potassium 4.2 mmol/L (3.5-5.1); Sodium 139 mmol/L (135-145); Total Bilirubin 0.5 mg/dl (0.2-1.3); Total Protein 6.9 g/dl (6.3-8.2); eGFR > 60.00
[2024-07-02] MEDS: VIDAZA 115.7 MG IV (11:41)
[2024-07-03 10:05] VITALS: BP 129/66
[2024-07-03] MEDS: VIDAZA 115.7 MG IV (10:28)
[2024-07-05 10:55] VITALS: BP 138/62
[2024-07-05 11:05] LABS: % Basophils 1.6 % (0-2); % Eosinophils 2.6 % (0-6); % Immature Granulocytes 0.4 % (0-0.5); % Lymphocytes 21.3 % (20.5-51.1); % Monocytes 8.1 % (1.7-9.3); Absolute Basophils 0.1 10^3/uL (0-0.2); Absolute Eosinophils 0.1 10^3/uL (0-0.7); Absolute Lymphocytes 1.1 10^3/uL (1.2-3.4); Absolute Monocytes 0.4 10^3/uL (0.1-0.6); Absolute Neutrophils 3.4 10^3/uL (1.4-6.5); Hematocrit 29.4 % (39.0-52.0); Hemoglobin 9.4 g/dL (13.0-18.0); Mean Corpuscular Hgb 32.1 pg (27.0-31.0); Mean Corpuscular Volume 100.3 fL (80.0-94.0); Mean Platelet Volume 10.2 fL (7.4-10.4); Platelet Count 144 10^3/uL (130-400); Red Blood Cell Count 2.93 10^6/uL (4.70-6.10); Red Cell Dist. Width 21.7 % (11.5-14.5); White Blood Cell Count 5.1 10^3/uL (4.8-10.8)
[2024-07-05 11:50] LABS: ALT (SGPT) 26 U/L (0-50); AST (SGOT) 29 U/L (17-59); Albumin 3.7 g/dl (3.5-5.0); Alkaline Phosphatase 92 U/L (38-126); Blood Urea Nitrogen 16 mg/dl (9-20); Calcium 9.1 mg/dl (8.4-10.2); Carbon Dioxide 29 mmol/L (22-30); Chloride 100 mmol/L (98-107); Glucose 267 mg/dl (70-99); Potassium 4.4 mmol/L (3.5-5.1); Sodium 138 mmol/L (135-145); Total Bilirubin 0.5 mg/dl (0.2-1.3); Total Protein 6.6 g/dl (6.3-8.2); eGFR > 60.00
[2024-07-09 09:39] LABS: % Basophils 1.7 % (0-2); % Eosinophils 4.2 % (0-6); % Immature Granulocytes 0.6 % (0-0.5); % Lymphocytes 20.4 % (20.5-51.1); % Monocytes 8.6 % (1.7-9.3); % Neutrophils 64.5 % (42.2-75.2); Absolute Basophils 0.1 10^3/uL (0-0.2); Absolute Eosinophils 0.2 10^3/uL (0-0.7); Absolute Monocytes 0.4 10^3/uL (0.1-0.6); Absolute Neutrophils 3.1 10^3/uL (1.4-6.5); Hematocrit 29.5 % (39.0-52.0); Hemoglobin 9.6 g/dL (13.0-18.0); Mean Corp Hgb Conc. 32.5 g/dL (33.0-37.0); Mean Corpuscular Hgb 32.9 pg (27.0-31.0); Mean Platelet Volume 10.4 fL (7.4-10.4); Platelet Count 128 10^3/uL (130-400); Red Blood Cell Count 2.92 10^6/uL (4.70-6.10); Red Cell Dist. Width 21.6 % (11.5-14.5); White Blood Cell Count 4.8 10^3/uL (4.8-10.8)
[2024-07-09 09:54] VITALS: BP 127/63
[2024-07-09 10:14] LABS: Blood Urea Nitrogen 18 mg/dl (9-20); Carbon Dioxide 26 mmol/L (22-30); Chloride 103 mmol/L (98-107); Glucose 276 mg/dl (70-99); Potassium 4.6 mmol/L (3.5-5.1); Sodium 139 mmol/L (135-145); eGFR > 60.00
[2024-07-09 11:00] LABS: Urine Bilirubin Negative (Negative); Urine Character Clear (Clear); Urine Color Yellow; Urine Glucose 1+ (Negative); Urine Ketone Negative (Negative); Urine Leukocyte Negative (Negative); Urine Nitrite Negative (Negative); Urine Occult Blood Negative (Negative); Urine Urobilinogen Negative (Neg - 1+)
[2024-07-09 11:11] LABS: Urine Albumin Negative (Neg - Trace)
[2024-07-12 10:45] VITALS: BP 131/61
[2024-07-12 10:59] LABS: % Basophils 1.3 % (0-2); % Eosinophils 4.7 % (0-6); % Immature Granulocytes 0.4 % (0-0.5); % Lymphocytes 29.5 % (20.5-51.1); % Monocytes 11.5 % (1.7-9.3); % Neutrophils 52.6 % (42.2-75.2); Absolute Basophils 0.1 10^3/uL (0-0.2); Absolute Eosinophils 0.2 10^3/uL (0-0.7); Absolute Lymphocytes 1.4 10^3/uL (1.2-3.4); Absolute Monocytes 0.5 10^3/uL (0.1-0.6); Absolute Neutrophils 2.5 10^3/uL (1.4-6.5); Hematocrit 30.5 % (39.0-52.0); Mean Corp Hgb Conc. 32.8 g/dL (33.0-37.0); Mean Corpuscular Hgb 32.9 pg (27.0-31.0); Mean Corpuscular Volume 100.3 fL (80.0-94.0); Mean Platelet Volume 9.6 fL (7.4-10.4); Platelet Count 104 10^3/uL (130-400); Red Blood Cell Count 3.04 10^6/uL (4.70-6.10); Red Cell Dist. Width 20.9 % (11.5-14.5); White Blood Cell Count 4.7 10^3/uL (4.8-10.8)
[2024-07-12 11:54] LABS: ALT (SGPT) 26 U/L (0-50); AST (SGOT) 28 U/L (17-59); Albumin 3.9 g/dl (3.5-5.0); Alkaline Phosphatase 82 U/L (38-126); Blood Urea Nitrogen 19 mg/dl (9-20); Calcium 9.5 mg/dl (8.4-10.2); Carbon Dioxide 28 mmol/L (22-30); Chloride 103 mmol/L (98-107); Glucose 135 mg/dl (70-99); Potassium 4.6 mmol/L (3.5-5.1); Sodium 139 mmol/L (135-145); Total Bilirubin 0.6 mg/dl (0.2-1.3); eGFR > 60.00
[2024-07-16 10:09] LABS: % Basophils 1.2 % (0-2); % Eosinophils 5.7 % (0-6); % Immature Granulocytes 0.2 % (0-0.5); % Lymphocytes 27.6 % (20.5-51.1); % Monocytes 10.6 % (1.7-9.3); % Neutrophils 54.7 % (42.2-75.2); Absolute Basophils 0.1 10^3/uL (0-0.2); Absolute Eosinophils 0.3 10^3/uL (0-0.7); Absolute Lymphocytes 1.4 10^3/uL (1.2-3.4); Absolute Monocytes 0.5 10^3/uL (0.1-0.6); Absolute Neutrophils 2.7 10^3/uL (1.4-6.5); Hematocrit 31.8 % (39.0-52.0); Hemoglobin 10.5 g/dL (13.0-18.0); Mean Corpuscular Hgb 33.2 pg (27.0-31.0); Mean Corpuscular Volume 100.6 fL (80.0-94.0); Mean Platelet Volume 10.7 fL (7.4-10.4); Platelet Count 103 10^3/uL (130-400); Red Blood Cell Count 3.16 10^6/uL (4.70-6.10); White Blood Cell Count 4.9 10^3/uL (4.8-10.8)
[2024-07-16 10:33] LABS: ALT (SGPT) 25 U/L (0-50); AST (SGOT) 28 U/L (17-59); Albumin 3.9 g/dl (3.5-5.0); Alkaline Phosphatase 82 U/L (38-126); Blood Urea Nitrogen 15 mg/dl (9-20); Calcium 9.5 mg/dl (8.4-10.2); Carbon Dioxide 26 mmol/L (22-30); Chloride 104 mmol/L (98-107); Glucose 253 mg/dl (70-99); Potassium 4.5 mmol/L (3.5-5.1); Sodium 139 mmol/L (135-145); Total Bilirubin 0.5 mg/dl (0.2-1.3); Total Protein 6.9 g/dl (6.3-8.2); eGFR > 60.00
== END 2024-07-18 10:41 | disposition home or self-care (01) ==
LOC: OID 09:55
PROVIDERS: ATTENDING PHYSICIAN Internal Medicine Hematology & Oncology; FAMILY PHYSICIAN Nurse Practitioner Family
DX: D61.818 Other pancytopenia (principal); D75.89 Other specified diseases of blood and blood-forming organs; D46.22 Refractory anemia with excess of blasts 2
CPT/HCPCS: 36591; 80048; 80053; 81003; 81015; 85025; 86850; 86900; 86901; 87077; 87086; 87186; 96367; 96374; 96375; 96413; J2469; J9025

== ENCOUNTER 2024-08-16 09:12 | Outpatient (RCR) | payer MEDICARE, OTHER, SELFPAY ==
[2024-07-19 11:28] VITALS: BP 110/65
[2024-07-19 11:34] LABS: % Eosinophils 4.9 % (0-6); % Immature Granulocytes 0.4 % (0-0.5); % Lymphocytes 29.5 % (20.5-51.1); % Monocytes 10.6 % (1.7-9.3); % Neutrophils 53.6 % (42.2-75.2); ALT (SGPT) 28 U/L (0-50); AST (SGOT) 28 U/L (17-59); Absolute Basophils 0.1 10^3/uL (0-0.2); Absolute Eosinophils 0.2 10^3/uL (0-0.7); Absolute Lymphocytes 1.5 10^3/uL (1.2-3.4); Absolute Monocytes 0.5 10^3/uL (0.1-0.6); Absolute Neutrophils 2.6 10^3/uL (1.4-6.5); Albumin 3.8 g/dl (3.5-5.0); Alkaline Phosphatase 83 U/L (38-126); Blood Urea Nitrogen 15 mg/dl (9-20); Calcium 9.3 mg/dl (8.4-10.2); Carbon Dioxide 27 mmol/L (22-30); Chloride 104 mmol/L (98-107); Glucose 220 mg/dl (70-99); Hematocrit 30.4 % (39.0-52.0); Hemoglobin 10.4 g/dL (13.0-18.0); Mean Corp Hgb Conc. 34.2 g/dL (33.0-37.0); Mean Corpuscular Hgb 33.9 pg (27.0-31.0); Mean Platelet Volume 11.8 fL (7.4-10.4); Nucleated Red Blood Cells % 0.4 % (-); Platelet Count 87 10^3/uL (130-400); Potassium 4.4 mmol/L (3.5-5.1); Red Blood Cell Count 3.07 10^6/uL (4.70-6.10); Sodium 138 mmol/L (135-145); Total Bilirubin 0.5 mg/dl (0.2-1.3); Total Protein 6.9 g/dl (6.3-8.2); White Blood Cell Count 4.9 10^3/uL (4.8-10.8); eGFR > 60.00
[2024-07-23 09:32] LABS: % Basophils 2.4 % (0-2); % Eosinophils 4.4 % (0-6); % Immature Granulocytes 0.4 % (0-0.5); % Lymphocytes 30.7 % (20.5-51.1); % Monocytes 8.7 % (1.7-9.3); % Neutrophils 53.4 % (42.2-75.2); Absolute Basophils 0.1 10^3/uL (0-0.2); Absolute Eosinophils 0.2 10^3/uL (0-0.7); Absolute Lymphocytes 1.4 10^3/uL (1.2-3.4); Absolute Monocytes 0.4 10^3/uL (0.1-0.6); Absolute Neutrophils 2.4 10^3/uL (1.4-6.5); Hemoglobin 10.7 g/dL (13.0-18.0); Mean Corp Hgb Conc. 33.4 g/dL (33.0-37.0); Mean Corpuscular Hgb 33.5 pg (27.0-31.0); Mean Corpuscular Volume 100.3 fL (80.0-94.0); Mean Platelet Volume 12.3 fL (7.4-10.4); Platelet Count 78 10^3/uL (130-400); Red Blood Cell Count 3.19 10^6/uL (4.70-6.10); Red Cell Dist. Width 17.9 % (11.5-14.5); White Blood Cell Count 4.5 10^3/uL (4.8-10.8)
[2024-07-23 09:35] VITALS: BP 121/67
[2024-07-23] MEDS: ALOXI 5 MG IV (10:02)
[2024-07-23] MEDS: DECADRON 50.8 MG IV (10:03)
[2024-07-23 10:21] LABS: ALT (SGPT) 36 U/L (0-50); AST (SGOT) 38 U/L (17-59); Albumin 4.3 g/dl (3.5-5.0); Alkaline Phosphatase 87 U/L (38-126); Blood Urea Nitrogen 16 mg/dl (9-20); Carbon Dioxide 25 mmol/L (22-30); Chloride 102 mmol/L (98-107); Glucose 267 mg/dl (70-99); Potassium 4.6 mmol/L (3.5-5.1); Sodium 139 mmol/L (135-145); Total Bilirubin 0.5 mg/dl (0.2-1.3); Total Protein 7.2 g/dl (6.3-8.2); eGFR > 60.00
[2024-07-23] MEDS: VIDAZA 115.7 MG IV (10:25)
[2024-07-24] MEDS: VIDAZA 115.7 MG IV (09:43)
[2024-07-25 10:14] VITALS: BP 111/56
[2024-07-25] MEDS: VIDAZA 115.7 MG IV (10:20)
[2024-07-26] MEDS: ALOXI 5 MG IV (10:09)
[2024-07-26 10:10] LABS: % Basophils 3.1 % (0-2); % Eosinophils 3.9 % (0-6); % Immature Granulocytes 0.4 % (0-0.5); % Lymphocytes 29.3 % (20.5-51.1); % Monocytes 7.1 % (1.7-9.3); % Neutrophils 56.2 % (42.2-75.2); Absolute Basophils 0.2 10^3/uL (0-0.2); Absolute Eosinophils 0.2 10^3/uL (0-0.7); Absolute Lymphocytes 1.5 10^3/uL (1.2-3.4); Absolute Monocytes 0.4 10^3/uL (0.1-0.6); Absolute Neutrophils 2.9 10^3/uL (1.4-6.5); Hematocrit 29.8 % (39.0-52.0); Mean Corp Hgb Conc. 33.6 g/dL (33.0-37.0); Mean Corpuscular Hgb 33.9 pg (27.0-31.0); Mean Platelet Volume 13.2 fL (7.4-10.4); Platelet Count 84 10^3/uL (130-400); Red Blood Cell Count 2.95 10^6/uL (4.70-6.10); Red Cell Dist. Width 17.7 % (11.5-14.5); White Blood Cell Count 5.1 10^3/uL (4.8-10.8)
[2024-07-26] MEDS: VIDAZA 115.7 MG IV (10:10)
[2024-07-26 10:55] VITALS: BP 117/58
[2024-07-26 11:00] LABS: ALT (SGPT) 62 U/L (0-50); AST (SGOT) 51 U/L (17-59); Albumin 3.5 g/dl (3.5-5.0); Alkaline Phosphatase 73 U/L (38-126); Blood Urea Nitrogen 18 mg/dl (9-20); Calcium 9.1 mg/dl (8.4-10.2); Carbon Dioxide 28 mmol/L (22-30); Chloride 101 mmol/L (98-107); Glucose 296 mg/dl (70-99); Potassium 4.5 mmol/L (3.5-5.1); Sodium 136 mmol/L (135-145); Total Bilirubin 0.5 mg/dl (0.2-1.3); Total Protein 6.3 g/dl (6.3-8.2); eGFR > 60.00
[2024-07-27 10:13] VITALS: BP 130/75
[2024-07-27] MEDS: VIDAZA 115.7 MG IV (10:37)
[2024-07-30 09:00] VITALS: BP 123/57
[2024-07-30 09:36] LABS: % Basophils 2.2 % (0-2); % Eosinophils 5.6 % (0-6); % Immature Granulocytes 0.4 % (0-0.5); % Lymphocytes 26.3 % (20.5-51.1); % Monocytes 5.6 % (1.7-9.3); % Neutrophils 59.9 % (42.2-75.2); Absolute Basophils 0.1 10^3/uL (0-0.2); Absolute Eosinophils 0.3 10^3/uL (0-0.7); Absolute Lymphocytes 1.4 10^3/uL (1.2-3.4); Absolute Monocytes 0.3 10^3/uL (0.1-0.6); Absolute Neutrophils 3.2 10^3/uL (1.4-6.5); Hemoglobin 10.2 g/dL (13.0-18.0); Mean Corp Hgb Conc. 32.9 g/dL (33.0-37.0); Mean Corpuscular Hgb 33.2 pg (27.0-31.0); Mean Platelet Volume 11.6 fL (7.4-10.4); Platelet Count 61 10^3/uL (130-400); Red Blood Cell Count 3.07 10^6/uL (4.70-6.10); Red Cell Dist. Width 16.7 % (11.5-14.5); White Blood Cell Count 5.4 10^3/uL (4.8-10.8)
[2024-07-30] MEDS: ALOXI 5 MG IV (09:47)
[2024-07-30] MEDS: VIDAZA 115.7 MG IV (09:50)
[2024-07-30 10:32] LABS: Albumin 3.6 g/dl (3.5-5.0); Blood Urea Nitrogen 17 mg/dl (9-20); Carbon Dioxide 27 mmol/L (22-30); Chloride 103 mmol/L (98-107); Glucose 243 mg/dl (70-99); Total Bilirubin 0.4 mg/dl (0.2-1.3); Total Protein 6.4 g/dl (6.3-8.2); eGFR > 60.00
[2024-07-30 11:07] LABS: ALT (SGPT) 34 U/L (0-50); AST (SGOT) 27 U/L (17-59); Alkaline Phosphatase 95 U/L (38-126); Potassium 4.7 mmol/L (3.5-5.1); Sodium 137 mmol/L (135-145)
[2024-07-31] MEDS: VIDAZA 115.7 MG IV (10:00)
[2024-07-31 10:05] VITALS: BP 118/61
[2024-08-06 09:15] VITALS: BP 140/74
[2024-08-06 09:29] LABS: % Basophils 1.2 % (0-2); % Eosinophils 12.9 % (0-6); % Lymphocytes 30.6 % (20.5-51.1); % Monocytes 5.3 % (1.7-9.3); Absolute Basophils 0.1 10^3/uL (0-0.2); Absolute Eosinophils 0.5 10^3/uL (0-0.7); Absolute Lymphocytes 1.3 10^3/uL (1.2-3.4); Absolute Monocytes 0.2 10^3/uL (0.1-0.6); Absolute Neutrophils 2.1 10^3/uL (1.4-6.5); Hematocrit 29.1 % (39.0-52.0); Mean Corp Hgb Conc. 34.4 g/dL (33.0-37.0); Mean Corpuscular Hgb 34.5 pg (27.0-31.0); Mean Corpuscular Volume 100.3 fL (80.0-94.0); Mean Platelet Volume 11.7 fL (7.4-10.4); Platelet Count 37 10^3/uL (130-400); Red Cell Dist. Width 16.3 % (11.5-14.5); White Blood Cell Count 4.1 10^3/uL (4.8-10.8)
[2024-08-06 10:53] LABS: ALT (SGPT) 28 U/L (0-50); AST (SGOT) 27 U/L (17-59); Albumin 3.8 g/dl (3.5-5.0); Alkaline Phosphatase 76 U/L (38-126); Blood Urea Nitrogen 13 mg/dl (9-20); Calcium 9.3 mg/dl (8.4-10.2); Carbon Dioxide 29 mmol/L (22-30); Chloride 104 mmol/L (98-107); Glucose 297 mg/dl (70-99); Potassium 4.3 mmol/L (3.5-5.1); Sodium 139 mmol/L (135-145); Total Bilirubin 0.4 mg/dl (0.2-1.3); Total Protein 6.7 g/dl (6.3-8.2); eGFR > 60.00
[2024-08-09 09:15] VITALS: BP 135/63
[2024-08-09 09:35] LABS: % Basophils 1.2 % (0-2); % Eosinophils 14.2 % (0-6); % Monocytes 5.6 % (1.7-9.3); Absolute Eosinophils 0.5 10^3/uL (0-0.7); Absolute Lymphocytes 1.3 10^3/uL (1.2-3.4); Absolute Monocytes 0.2 10^3/uL (0.1-0.6); Absolute Neutrophils 1.4 10^3/uL (1.4-6.5); Hematocrit 30.5 % (39.0-52.0); Hemoglobin 10.2 g/dL (13.0-18.0); Mean Corp Hgb Conc. 33.4 g/dL (33.0-37.0); Mean Corpuscular Hgb 33.4 pg (27.0-31.0); Mean Platelet Volume 10.1 fL (7.4-10.4); Platelet Count 32 10^3/uL (130-400); Red Blood Cell Count 3.05 10^6/uL (4.70-6.10); Red Cell Dist. Width 15.8 % (11.5-14.5); White Blood Cell Count 3.4 10^3/uL (4.8-10.8)
[2024-08-09 10:10] LABS: ALT (SGPT) 30 U/L (0-50); AST (SGOT) 29 U/L (17-59); Albumin 3.9 g/dl (3.5-5.0); Alkaline Phosphatase 77 U/L (38-126); Blood Urea Nitrogen 16 mg/dl (9-20); Calcium 9.3 mg/dl (8.4-10.2); Carbon Dioxide 25 mmol/L (22-30); Chloride 108 mmol/L (98-107); Glucose 164 mg/dl (70-99); Potassium 4.3 mmol/L (3.5-5.1); Sodium 139 mmol/L (135-145); Total Bilirubin 0.6 mg/dl (0.2-1.3); Total Protein 6.7 g/dl (6.3-8.2); eGFR > 60.00
[2024-08-14 09:42] VITALS: BP 128/69
[2024-08-14 09:52] LABS: % Basophils 0.8 % (0-2); % Eosinophils 12.5 % (0-6); % Lymphocytes 46.4 % (20.5-51.1); % Monocytes 3.8 % (1.7-9.3); % Neutrophils 36.5 % (42.2-75.2); Absolute Eosinophils 0.3 10^3/uL (0-0.7); Absolute Lymphocytes 1.2 10^3/uL (1.2-3.4); Absolute Monocytes 0.1 10^3/uL (0.1-0.6); Hematocrit 27.7 % (39.0-52.0); Hemoglobin 9.6 g/dL (13.0-18.0); Mean Corp Hgb Conc. 34.7 g/dL (33.0-37.0); Mean Corpuscular Hgb 34.8 pg (27.0-31.0); Mean Corpuscular Volume 100.4 fL (80.0-94.0); Mean Platelet Volume 12.9 fL (7.4-10.4); Platelet Count 40 10^3/uL (130-400); Red Blood Cell Count 2.76 10^6/uL (4.70-6.10); Red Cell Dist. Width 15.2 % (11.5-14.5); White Blood Cell Count 2.7 10^3/uL (4.8-10.8)
[2024-08-14 10:14] LABS: ALT (SGPT) 22 U/L (0-50); AST (SGOT) 23 U/L (17-59); Albumin 3.8 g/dl (3.5-5.0); Alkaline Phosphatase 53 U/L (38-126); Blood Urea Nitrogen 13 mg/dl (9-20); Carbon Dioxide 29 mmol/L (22-30); Chloride 104 mmol/L (98-107); Glucose 169 mg/dl (70-99); Potassium 4.2 mmol/L (3.5-5.1); Sodium 135 mmol/L (135-145); Total Bilirubin 0.6 mg/dl (0.2-1.3); Total Protein 6.7 g/dl (6.3-8.2); eGFR > 60.00
[2024-08-16 09:15] VITALS: BP 123/66
[2024-08-16 10:43] LABS: Hematocrit 28.7 % (39.0-52.0); Hemoglobin 10.1 g/dL (13.0-18.0); Mean Corp Hgb Conc. 35.2 g/dL (33.0-37.0); Mean Corpuscular Hgb 34.7 pg (27.0-31.0); Mean Corpuscular Volume 98.6 fL (80.0-94.0); Mean Platelet Volume 13.4 fL (7.4-10.4); Platelet Count 52 10^3/uL (130-400); Red Blood Cell Count 2.91 10^6/uL (4.70-6.10); Red Cell Dist. Width 15.1 % (11.5-14.5)
[2024-08-16 10:44] LABS: Band Neutrophils 3 % (0-3); Eosinophils 11 % (0-6); Lymphocytes 53 % (20-51); Metamyelocytes 1 % (-); Monocytes 2 % (2-9); Myelocytes 2 % (-); Normal RBC Morphology No; Nucleated Red Blood Cells 3 (-); Platelets Checked Yes; Segmented Neutrophils 28 % (42-75)
[2024-08-16 10:45] LABS: Anisocytosis 1+; Hypochromasia Slight
[2024-08-16 10:46] LABS: Polychromasia 1+; Spherocytes 1+; Total Cells Counted 100
[2024-08-16 10:49] LABS: Absolute Neutrophils -Man Diff 0.7 10^3/uL (1.4-6.5); White Blood Cell Count 2.4 10^3/uL (4.8-10.8)
== END 2024-08-17 08:03 | disposition home or self-care (01) ==
LOC: OID 09:12
PROVIDERS: ATTENDING PHYSICIAN Internal Medicine Hematology & Oncology; FAMILY PHYSICIAN Nurse Practitioner Family
DX: D61.818 Other pancytopenia (principal); D75.89 Other specified diseases of blood and blood-forming organs; D46.22 Refractory anemia with excess of blasts 2
CPT/HCPCS: 36591; 80053; 85025; 86850; 86900; 86901; 96367; 96375; 96413; J2469; J9025

== ENCOUNTER 2024-09-14 13:34 | Outpatient (RCR) | payer MEDICARE, OTHER, SELFPAY | END 2024-09-14 23:59 | disposition home or self-care (01) | LOC: RPT 13:34 | PROVIDERS: ATTENDING PHYSICIAN Internal Medicine Hematology & Oncology; FAMILY PHYSICIAN Nurse Practitioner Family | DX: R26.89 Other abnormalities of gait and mobility (principal); G62.9 Polyneuropathy, unspecified; C95.90 Leukemia, unspecified not having achieved remission; M62.81 Muscle weakness (generalized) | CPT/HCPCS: 97110; 97112; 97162 ==

== ENCOUNTER 2024-09-17 09:03 | Outpatient (RCR) | payer MEDICARE, OTHER, SELFPAY ==
[2024-08-20 09:43] VITALS: BP 110/62
[2024-08-20 11:01] LABS: Hematocrit 29.8 % (39.0-52.0); Hemoglobin 10.2 g/dL (13.0-18.0); Mean Corp Hgb Conc. 34.2 g/dL (33.0-37.0); Mean Corpuscular Hgb 34.2 pg (27.0-31.0); Red Blood Cell Count 2.98 10^6/uL (4.70-6.10); Red Cell Dist. Width 14.9 % (11.5-14.5); White Blood Cell Count 2.7 10^3/uL (4.8-10.8)
[2024-08-20 11:15] LABS: ALT (SGPT) 33 U/L (0-50); AST (SGOT) 36 U/L (17-59); Albumin 4.2 g/dl (3.5-5.0); Alkaline Phosphatase 71 U/L (38-126); Blood Urea Nitrogen 19 mg/dl (9-20); Calcium 9.1 mg/dl (8.4-10.2); Carbon Dioxide 23 mmol/L (22-30); Chloride 106 mmol/L (98-107); Glucose 159 mg/dl (70-99); Potassium 4.4 mmol/L (3.5-5.1); Sodium 137 mmol/L (135-145); Total Bilirubin 0.5 mg/dl (0.2-1.3); Total Protein 7.3 g/dl (6.3-8.2); eGFR > 60.00
[2024-08-20 11:42] LABS: Mean Platelet Volume 13.8 fL (7.4-10.4); Platelet Count 77 10^3/uL (130-400)
[2024-08-20 11:44] LABS: Atypical Lymphocytes 1 %; Eosinophils 2 % (0-6); Lymphocytes 68 % (20-51); Metamyelocytes 3 % (-); Monocytes 6 % (2-9); Myelocytes 2 % (-); Platelets Checked Yes; Segmented Neutrophils 18 % (42-75)
[2024-08-20 11:45] LABS: Normal RBC Morphology Yes
[2024-08-20 11:46] LABS: Total Cells Counted 100
[2024-08-20 11:47] LABS: Band Neutrophils 0 % (0-3)
[2024-08-20 11:51] LABS: Absolute Neutrophils -Man Diff 0.4 10^3/uL (1.4-6.5)
[2024-08-23 10:00] VITALS: BP 112/63
[2024-08-23 10:22] LABS: % Basophils 1.1 % (0-2); % Eosinophils 5.4 % (0-6); % Immature Granulocytes 0.4 % (0-0.5); % Lymphocytes 56.6 % (20.5-51.1); % Monocytes 11.8 % (1.7-9.3); % Neutrophils 24.7 % (42.2-75.2); Absolute Eosinophils 0.2 10^3/uL (0-0.7); Absolute Lymphocytes 1.6 10^3/uL (1.2-3.4); Absolute Monocytes 0.3 10^3/uL (0.1-0.6); Absolute Neutrophils 0.7 10^3/uL (1.4-6.5); Hematocrit 30.2 % (39.0-52.0); Hemoglobin 10.3 g/dL (13.0-18.0); Mean Corp Hgb Conc. 34.1 g/dL (33.0-37.0); Mean Corpuscular Hgb 34.2 pg (27.0-31.0); Mean Corpuscular Volume 100.3 fL (80.0-94.0); Mean Platelet Volume 13.5 fL (7.4-10.4); Nucleated Red Blood Cells % 0 % (-); Platelet Count 105 10^3/uL (130-400); Red Blood Cell Count 3.01 10^6/uL (4.70-6.10); Red Cell Dist. Width 14.6 % (11.5-14.5); White Blood Cell Count 2.8 10^3/uL (4.8-10.8)
[2024-08-27 09:15] VITALS: BP 103/59; BMI 28.0
[2024-08-27 09:34] LABS: % Eosinophils 4.2 % (0-6); % Immature Granulocytes 0.2 % (0-0.5); % Lymphocytes 47.8 % (20.5-51.1); % Monocytes 9.7 % (1.7-9.3); % Neutrophils 37.1 % (42.2-75.2); Absolute Eosinophils 0.2 10^3/uL (0-0.7); Absolute Lymphocytes 1.9 10^3/uL (1.2-3.4); Absolute Monocytes 0.4 10^3/uL (0.1-0.6); Absolute Neutrophils 1.5 10^3/uL (1.4-6.5); Hematocrit 30.7 % (39.0-52.0); Hemoglobin 10.5 g/dL (13.0-18.0); Mean Corp Hgb Conc. 34.2 g/dL (33.0-37.0); Mean Corpuscular Hgb 34.3 pg (27.0-31.0); Mean Corpuscular Volume 100.3 fL (80.0-94.0); Mean Platelet Volume 12.4 fL (7.4-10.4); Platelet Count 87 10^3/uL (130-400); Red Blood Cell Count 3.06 10^6/uL (4.70-6.10)
[2024-08-27 09:59] LABS: ALT (SGPT) 28 U/L (0-50); AST (SGOT) 31 U/L (17-59); Albumin 4.3 g/dl (3.5-5.0); Alkaline Phosphatase 71 U/L (38-126); Blood Urea Nitrogen 15 mg/dl (9-20); Calcium 9.2 mg/dl (8.4-10.2); Carbon Dioxide 25 mmol/L (22-30); Chloride 105 mmol/L (98-107); Estimated Creatinine Clearance 117 ml/min; Glucose 184 mg/dl (70-99); Potassium 4.8 mmol/L (3.5-5.1); Sodium 138 mmol/L (135-145); Total Bilirubin 0.5 mg/dl (0.2-1.3); Total Protein 7.5 g/dl (6.3-8.2); eGFR > 60.00
[2024-08-27] MEDS: ALOXI 5 MG IV (10:26)
[2024-08-27] MEDS: DECADRON 50.8 MG IV (10:27)
[2024-08-27] MEDS: VIDAZA 115.7 MG IV (10:57)
[2024-08-28] MEDS: VIDAZA 115.7 MG IV (10:04)
[2024-08-28 10:08] VITALS: BP 116/59
[2024-08-29 09:15] VITALS: BP 112/60
[2024-08-29] MEDS: VIDAZA 115.7 MG IV (09:58)
[2024-08-30 09:15] VITALS: BP 125/64
[2024-08-30 09:38] LABS: % Eosinophils 4.5 % (0-6); % Immature Granulocytes 0.2 % (0-0.5); % Monocytes 9.5 % (1.7-9.3); % Neutrophils 44.8 % (42.2-75.2); Absolute Basophils 0.1 10^3/uL (0-0.2); Absolute Eosinophils 0.2 10^3/uL (0-0.7); Absolute Monocytes 0.5 10^3/uL (0.1-0.6); Absolute Neutrophils 2.3 10^3/uL (1.4-6.5); Hematocrit 30.2 % (39.0-52.0); Hemoglobin 10.1 g/dL (13.0-18.0); Mean Corp Hgb Conc. 33.4 g/dL (33.0-37.0); Mean Corpuscular Hgb 33.7 pg (27.0-31.0); Mean Corpuscular Volume 100.7 fL (80.0-94.0); Mean Platelet Volume 11.8 fL (7.4-10.4); Platelet Count 84 10^3/uL (130-400); Red Cell Dist. Width 13.9 % (11.5-14.5); White Blood Cell Count 5.1 10^3/uL (4.8-10.8)
[2024-08-30] MEDS: ALOXI 5 MG IV (09:40)
[2024-08-30] MEDS: VIDAZA 115.7 MG IV (09:51)
[2024-08-31 09:49] VITALS: BP 116/62
[2024-08-31] MEDS: VIDAZA 115.7 MG IV (10:06)
[2024-09-03 09:43] LABS: % Basophils 0.8 % (0-2); % Immature Granulocytes 0.4 % (0-0.5); % Lymphocytes 39.8 % (20.5-51.1); % Monocytes 7.8 % (1.7-9.3); % Neutrophils 47.2 % (42.2-75.2); Absolute Eosinophils 0.2 10^3/uL (0-0.7); Absolute Lymphocytes 1.9 10^3/uL (1.2-3.4); Absolute Monocytes 0.4 10^3/uL (0.1-0.6); Absolute Neutrophils 2.2 10^3/uL (1.4-6.5); Hematocrit 30.8 % (39.0-52.0); Hemoglobin 10.6 g/dL (13.0-18.0); Mean Corp Hgb Conc. 34.4 g/dL (33.0-37.0); Mean Corpuscular Hgb 34.5 pg (27.0-31.0); Mean Corpuscular Volume 100.3 fL (80.0-94.0); Mean Platelet Volume 12.4 fL (7.4-10.4); Platelet Count 82 10^3/uL (130-400); Red Blood Cell Count 3.07 10^6/uL (4.70-6.10); Red Cell Dist. Width 13.5 % (11.5-14.5); White Blood Cell Count 4.7 10^3/uL (4.8-10.8)
[2024-09-03 09:45] VITALS: BP 111/64
[2024-09-03] MEDS: ALOXI 5 MG IV (10:04)
[2024-09-03 10:32] LABS: ALT (SGPT) 24 U/L (0-50); AST (SGOT) 26 U/L (17-59); Albumin 4.1 g/dl (3.5-5.0); Alkaline Phosphatase 69 U/L (38-126); Blood Urea Nitrogen 13 mg/dl (9-20); Calcium 9.7 mg/dl (8.4-10.2); Carbon Dioxide 28 mmol/L (22-30); Chloride 104 mmol/L (98-107); Estimated Creatinine Clearance 117 ml/min; Glucose 174 mg/dl (70-99); Potassium 4.4 mmol/L (3.5-5.1); Sodium 139 mmol/L (135-145); Total Bilirubin 0.4 mg/dl (0.2-1.3); Total Protein 7.1 g/dl (6.3-8.2); eGFR > 60.00
[2024-09-03] MEDS: VIDAZA 115.7 MG IV (10:37)
[2024-09-04 09:43] VITALS: BP 117/68
[2024-09-04] MEDS: VIDAZA 115.7 MG IV (09:50)
[2024-09-06 09:25] VITALS: BP 125/74
[2024-09-06 09:38] LABS: % Basophils 0.6 % (0-2); % Eosinophils 3.8 % (0-6); % Immature Granulocytes 0.2 % (0-0.5); % Lymphocytes 32.4 % (20.5-51.1); % Monocytes 6.4 % (1.7-9.3); % Neutrophils 56.6 % (42.2-75.2); Absolute Eosinophils 0.2 10^3/uL (0-0.7); Absolute Lymphocytes 1.6 10^3/uL (1.2-3.4); Absolute Monocytes 0.3 10^3/uL (0.1-0.6); Absolute Neutrophils 2.9 10^3/uL (1.4-6.5); Hematocrit 31.8 % (39.0-52.0); Hemoglobin 10.7 g/dL (13.0-18.0); Mean Corp Hgb Conc. 33.6 g/dL (33.0-37.0); Mean Corpuscular Hgb 34.1 pg (27.0-31.0); Mean Corpuscular Volume 101.3 fL (80.0-94.0); Mean Platelet Volume 11.9 fL (7.4-10.4); Platelet Count 78 10^3/uL (130-400); Red Blood Cell Count 3.14 10^6/uL (4.70-6.10); Red Cell Dist. Width 13.8 % (11.5-14.5)
[2024-09-10 09:15] VITALS: BP 124/68
[2024-09-10 09:48] LABS: % Basophils 0.8 % (0-2); % Eosinophils 3.1 % (0-6); % Immature Granulocytes 0.2 % (0-0.5); % Lymphocytes 34.2 % (20.5-51.1); % Monocytes 6.7 % (1.7-9.3); Absolute Eosinophils 0.2 10^3/uL (0-0.7); Absolute Lymphocytes 1.7 10^3/uL (1.2-3.4); Absolute Monocytes 0.3 10^3/uL (0.1-0.6); Absolute Neutrophils 2.7 10^3/uL (1.4-6.5); Hematocrit 30.2 % (39.0-52.0); Hemoglobin 10.4 g/dL (13.0-18.0); Mean Corp Hgb Conc. 34.4 g/dL (33.0-37.0); Mean Corpuscular Hgb 34.9 pg (27.0-31.0); Mean Corpuscular Volume 101.3 fL (80.0-94.0); Platelet Count 68 10^3/uL (130-400); Red Blood Cell Count 2.98 10^6/uL (4.70-6.10); Red Cell Dist. Width 13.9 % (11.5-14.5); White Blood Cell Count 4.9 10^3/uL (4.8-10.8)
[2024-09-10 11:02] LABS: ALT (SGPT) 27 U/L (0-50); AST (SGOT) 30 U/L (17-59); Albumin 3.8 g/dl (3.5-5.0); Alkaline Phosphatase 77 U/L (38-126); Blood Urea Nitrogen 12 mg/dl (9-20); Carbon Dioxide 25 mmol/L (22-30); Chloride 107 mmol/L (98-107); Estimated Creatinine Clearance 117 ml/min; Glucose 169 mg/dl (70-99); Potassium 4.4 mmol/L (3.5-5.1); Sodium 138 mmol/L (135-145); Total Bilirubin 0.4 mg/dl (0.2-1.3); Total Protein 6.5 g/dl (6.3-8.2); eGFR > 60.00
[2024-09-13 09:15] VITALS: BP 128/61
[2024-09-13 09:42] LABS: % Basophils 0.4 % (0-2); % Immature Granulocytes 0.2 % (0-0.5); % Lymphocytes 34.3 % (20.5-51.1); % Monocytes 6.5 % (1.7-9.3); % Neutrophils 54.6 % (42.2-75.2); Absolute Eosinophils 0.2 10^3/uL (0-0.7); Absolute Lymphocytes 1.7 10^3/uL (1.2-3.4); Absolute Monocytes 0.3 10^3/uL (0.1-0.6); Absolute Neutrophils 2.7 10^3/uL (1.4-6.5); Hematocrit 31.7 % (39.0-52.0); Hemoglobin 10.6 g/dL (13.0-18.0); Mean Corp Hgb Conc. 33.4 g/dL (33.0-37.0); Mean Corpuscular Volume 101.6 fL (80.0-94.0); Mean Platelet Volume 10.4 fL (7.4-10.4); Platelet Count 57 10^3/uL (130-400); Red Blood Cell Count 3.12 10^6/uL (4.70-6.10); Red Cell Dist. Width 14.1 % (11.5-14.5)
[2024-09-17 09:24] VITALS: BP 126/67
[2024-09-17 10:13] LABS: ALT (SGPT) 29 U/L (0-50); AST (SGOT) 33 U/L (17-59); Albumin 4.4 g/dl (3.5-5.0); Alkaline Phosphatase 71 U/L (38-126); Blood Urea Nitrogen 17 mg/dl (9-20); Calcium 9.4 mg/dl (8.4-10.2); Carbon Dioxide 26 mmol/L (22-30); Chloride 106 mmol/L (98-107); Estimated Creatinine Clearance 100 ml/min; Glucose 152 mg/dl (70-99); Potassium 4.4 mmol/L (3.5-5.1); Sodium 138 mmol/L (135-145); Total Bilirubin 0.4 mg/dl (0.2-1.3); Total Protein 7.2 g/dl (6.3-8.2); eGFR > 60.00
[2024-09-17 10:25] LABS: % Basophils 0.7 % (0-2); % Eosinophils 6.6 % (0-6); % Immature Granulocytes 0.2 % (0-0.5); % Monocytes 10.2 % (1.7-9.3); % Neutrophils 44.3 % (42.2-75.2); Absolute Eosinophils 0.3 10^3/uL (0-0.7); Absolute Lymphocytes 1.6 10^3/uL (1.2-3.4); Absolute Monocytes 0.4 10^3/uL (0.1-0.6); Absolute Neutrophils 1.8 10^3/uL (1.4-6.5); Hemoglobin 11.3 g/dL (13.0-18.0); Mean Corp Hgb Conc. 34.2 g/dL (33.0-37.0); Mean Corpuscular Hgb 34.6 pg (27.0-31.0); Mean Corpuscular Volume 100.9 fL (80.0-94.0); Mean Platelet Volume 11.7 fL (7.4-10.4); Nucleated Red Blood Cells % 0 % (-); Platelet Count 58 10^3/uL (130-400); Red Blood Cell Count 3.27 10^6/uL (4.70-6.10); Red Cell Dist. Width 13.9 % (11.5-14.5); White Blood Cell Count 4.1 10^3/uL (4.8-10.8)
== END 2024-09-17 14:57 | disposition home or self-care (01) ==
LOC: OID 09:03
PROVIDERS: ATTENDING PHYSICIAN Internal Medicine Hematology & Oncology; FAMILY PHYSICIAN Nurse Practitioner Family
DX: D61.810 Antineoplastic chemotherapy induced pancytopenia (principal); D75.9 Disease of blood and blood-forming organs, unspecified; D46.22 Refractory anemia with excess of blasts 2
CPT/HCPCS: 36591; 80053; 85025; 86850; 86900; 86901; 96367; 96375; 96413; J2469; J9025

== ENCOUNTER → 2024-10-03 13:18 | Outpatient (REF) | payer MEDICARE, OTHER, SELFPAY | LOC: RAD 13:18 | PROVIDERS: ATTENDING PHYSICIAN Podiatrist Foot & Ankle Surgery; FAMILY PHYSICIAN Nurse Practitioner Family | DX: E11.51 Type 2 diabetes mellitus with diabetic peripheral angiopathy without gangrene (principal) | CPT/HCPCS: 93922; 93925 ==

== ENCOUNTER 2024-10-15 09:06 | Outpatient (RCR) | payer MEDICARE, OTHER, SELFPAY ==
[2024-09-24 11:01] LABS: Hematocrit 31.5 % (39.0-52.0); Hemoglobin 10.9 g/dL (13.0-18.0); Mean Corp Hgb Conc. 34.6 g/dL (33.0-37.0); Mean Corpuscular Volume 99.7 fL (80.0-94.0); Platelet Count 51 10^3/uL (130-400); Red Cell Dist. Width 13.1 % (11.5-14.5)
[2024-09-24 11:29] VITALS: BMI 29.1
[2024-09-24 11:34] VITALS: BP 135/68
[2024-09-24] MEDS: ALOXI 5 MG IV (11:44)
[2024-09-24] MEDS: DECADRON 50.8 MG IV (11:45)
[2024-09-24 11:50] LABS: ALT (SGPT) 27 U/L (0-50); AST (SGOT) 28 U/L (17-59); Albumin 4.1 g/dl (3.5-5.0); Alkaline Phosphatase 64 U/L (38-126); Blood Urea Nitrogen 10 mg/dl (9-20); Calcium 9.2 mg/dl (8.4-10.2); Carbon Dioxide 28 mmol/L (22-30); Chloride 105 mmol/L (98-107); Estimated Creatinine Clearance 115 ml/min; Glucose 144 mg/dl (70-99); Potassium 4.3 mmol/L (3.5-5.1); Sodium 139 mmol/L (135-145); Total Protein 6.9 g/dl (6.3-8.2); eGFR > 60.00
[2024-09-24] MEDS: VIDAZA 115.7 MG IV (12:33)
[2024-09-25 09:20] VITALS: BP 140/59
[2024-09-25] MEDS: VIDAZA 115.7 MG IV (09:43)
[2024-09-25 10:36] VITALS: BP 129/84
[2024-09-26] MEDS: VIDAZA 115.7 MG IV (10:11)
[2024-09-26 10:16] VITALS: BP 116/58
[2024-09-27 09:43] LABS: Hematocrit 30.8 % (39.0-52.0); Hemoglobin 10.6 g/dL (13.0-18.0); Mean Corp Hgb Conc. 34.4 g/dL (33.0-37.0); Mean Corpuscular Volume 99.4 fL (80.0-94.0); Platelet Count 58 10^3/uL (130-400); Red Cell Dist. Width 13.0 % (11.5-14.5)
[2024-09-27] MEDS: ALOXI 5 MG IV (09:52)
[2024-09-27] MEDS: VIDAZA 115.7 MG IV (09:53)
[2024-09-27 09:58] VITALS: BP 132/70
[2024-09-28 09:15] VITALS: BP 138/65
[2024-09-28] MEDS: VIDAZA 115.7 MG IV (09:51)
[2024-10-01 08:48] LABS: Hematocrit 32.0 % (39.0-52.0); Hemoglobin 10.9 g/dL (13.0-18.0); Mean Corp Hgb Conc. 34.1 g/dL (33.0-37.0); Mean Corpuscular Volume 99.7 fL (80.0-94.0); Platelet Count 48 10^3/uL (130-400); Red Cell Dist. Width 12.9 % (11.5-14.5)
[2024-10-01 09:04] VITALS: BP 120/76
[2024-10-01] MEDS: ALOXI 5 MG IV (09:12)
[2024-10-01] MEDS: VIDAZA 115.7 MG IV (09:14)
[2024-10-01 09:36] LABS: ALT (SGPT) 23 U/L (0-50); AST (SGOT) 24 U/L (17-59); Albumin 4.1 g/dl (3.5-5.0); Alkaline Phosphatase 90 U/L (38-126); Blood Urea Nitrogen 15 mg/dl (9-20); Calcium 9.3 mg/dl (8.4-10.2); Carbon Dioxide 28 mmol/L (22-30); Chloride 108 mmol/L (98-107); Estimated Creatinine Clearance 115 ml/min; Glucose 186 mg/dl (70-99); Potassium 4.2 mmol/L (3.5-5.1); Sodium 140 mmol/L (135-145); Total Protein 6.9 g/dl (6.3-8.2); eGFR > 60.00
[2024-10-02 10:10] VITALS: BP 109/58
[2024-10-02] MEDS: VIDAZA 115.7 MG IV (10:25)
[2024-10-08 09:30] VITALS: BP 114/65
[2024-10-08 10:07] LABS: Hematocrit 32.5 % (39.0-52.0); Hemoglobin 11.0 g/dL (13.0-18.0); Mean Corp Hgb Conc. 33.8 g/dL (33.0-37.0); Mean Corpuscular Volume 99.4 fL (80.0-94.0); Platelet Count 33 10^3/uL (130-400); Red Cell Dist. Width 13.1 % (11.5-14.5)
[2024-10-08 11:16] LABS: ALT (SGPT) 25 U/L (0-50); AST (SGOT) 27 U/L (17-59); Albumin 4.3 g/dl (3.5-5.0); Alkaline Phosphatase 75 U/L (38-126); Blood Urea Nitrogen 17 mg/dl (9-20); Calcium 9.4 mg/dl (8.4-10.2); Carbon Dioxide 28 mmol/L (22-30); Chloride 103 mmol/L (98-107); Estimated Creatinine Clearance 115 ml/min; Glucose 158 mg/dl (70-99); Potassium 4.6 mmol/L (3.5-5.1); Sodium 136 mmol/L (135-145); Total Protein 6.9 g/dl (6.3-8.2); eGFR > 60.00
[2024-10-11 09:25] VITALS: BP 138/64
[2024-10-11 09:40] LABS: Hematocrit 31.8 % (39.0-52.0); Hemoglobin 10.7 g/dL (13.0-18.0); Mean Corp Hgb Conc. 33.6 g/dL (33.0-37.0); Mean Corpuscular Volume 100.0 fL (80.0-94.0); Platelet Count 33 10^3/uL (130-400); Red Cell Dist. Width 13.1 % (11.5-14.5)
[2024-10-15 10:01] VITALS: BP 124/67
[2024-10-15 10:07] LABS: Hematocrit 32.3 % (39.0-52.0); Hemoglobin 11.0 g/dL (13.0-18.0); Mean Corp Hgb Conc. 34.1 g/dL (33.0-37.0); Mean Corpuscular Volume 99.4 fL (80.0-94.0); Platelet Count 45 10^3/uL (130-400); Red Cell Dist. Width 13.3 % (11.5-14.5)
[2024-10-15 10:41] LABS: ALT (SGPT) 24 U/L (0-50); AST (SGOT) 25 U/L (17-59); Albumin 4.1 g/dl (3.5-5.0); Alkaline Phosphatase 66 U/L (38-126); Blood Urea Nitrogen 14 mg/dl (9-20); Calcium 9.3 mg/dl (8.4-10.2); Carbon Dioxide 28 mmol/L (22-30); Chloride 105 mmol/L (98-107); Estimated Creatinine Clearance 115 ml/min; Glucose 182 mg/dl (70-99); Potassium 4.2 mmol/L (3.5-5.1); Sodium 138 mmol/L (135-145); Total Protein 7.1 g/dl (6.3-8.2); eGFR > 60.00
== END 2024-10-16 09:03 | disposition home or self-care (01) ==
LOC: OID 09:06
PROVIDERS: ATTENDING PHYSICIAN Internal Medicine Hematology & Oncology
DX: D61.810 Antineoplastic chemotherapy induced pancytopenia (principal); D75.9 Disease of blood and blood-forming organs, unspecified; D46.22 Refractory anemia with excess of blasts 2
CPT/HCPCS: 36591; 80053; 85025; 86850; 86900; 86901; 96375; 96413; 96523; J2469; J9025

== ENCOUNTER 2024-10-17 11:42 | Outpatient (RCR) | payer MEDICARE, OTHER, SELFPAY | END 2024-10-17 23:59 | disposition home or self-care (01) | LOC: RPT 11:42 | PROVIDERS: ATTENDING PHYSICIAN Internal Medicine Hematology & Oncology; FAMILY PHYSICIAN Nurse Practitioner Family | DX: R26.89 Other abnormalities of gait and mobility (principal); G62.9 Polyneuropathy, unspecified; C95.90 Leukemia, unspecified not having achieved remission; M62.81 Muscle weakness (generalized) | CPT/HCPCS: 97110; 97112 ==

== ENCOUNTER 2024-11-13 10:36 | Outpatient (RCR) | payer MEDICARE, OTHER, SELFPAY ==
[2024-10-22 09:15] VITALS: BP 140/78
[2024-10-22 09:53] LABS: ALT (SGPT) 24 U/L (0-50); AST (SGOT) 26 U/L (17-59); Albumin 4.2 g/dl (3.5-5.0); Alkaline Phosphatase 85 U/L (38-126); Blood Urea Nitrogen 11 mg/dl (9-20); Calcium 9.3 mg/dl (8.4-10.2); Carbon Dioxide 27 mmol/L (22-30); Chloride 101 mmol/L (98-107); Glucose 171 mg/dl (70-99); Potassium 4.4 mmol/L (3.5-5.1); Sodium 135 mmol/L (135-145); Total Protein 7.2 g/dl (6.3-8.2); eGFR > 60.00
[2024-10-22] MEDS: ALOXI 5 MG IV (09:56)
[2024-10-22] MEDS: DECADRON 50.8 MG IV (09:57)
[2024-10-22 10:00] LABS: Hematocrit 30.6 % (39.0-52.0); Hemoglobin 10.7 g/dL (13.0-18.0); Mean Corp Hgb Conc. 35.0 g/dL (33.0-37.0); Mean Corpuscular Volume 93.6 fL (80.0-94.0); Nucleated Red Blood Cells % 0 % (-); Platelet Count 99 10^3/uL (130-400); Red Cell Dist. Width 12.8 % (11.5-14.5)
[2024-10-22] MEDS: VIDAZA 115.7 MG IV (10:23)
[2024-10-23 09:15] VITALS: BP 136/66
[2024-10-23] MEDS: VIDAZA 115.7 MG IV (10:05)
[2024-10-24 09:15] VITALS: BP 111/60
[2024-10-24] MEDS: VIDAZA 115.7 MG IV (09:59)
[2024-10-25 09:15] VITALS: BP 121/60
[2024-10-25 09:45] LABS: Hematocrit 32.1 % (39.0-52.0); Hemoglobin 10.8 g/dL (13.0-18.0); Mean Corp Hgb Conc. 33.6 g/dL (33.0-37.0); Mean Corpuscular Volume 97.3 fL (80.0-94.0); Platelet Count 121 10^3/uL (130-400); Red Cell Dist. Width 12.9 % (11.5-14.5)
[2024-10-25] MEDS: ALOXI 5 MG IV (10:01)
[2024-10-25] MEDS: VIDAZA 115.7 MG IV (10:13)
[2024-10-26] MEDS: VIDAZA 115.7 MG IV (09:46)
[2024-10-26 10:08] VITALS: BP 130/67
[2024-10-29 09:24] VITALS: BP 128/67
[2024-10-29 09:36] LABS: Hematocrit 33.3 % (39.0-52.0); Hemoglobin 11.2 g/dL (13.0-18.0); Mean Corp Hgb Conc. 33.6 g/dL (33.0-37.0); Mean Corpuscular Volume 97.4 fL (80.0-94.0); Platelet Count 118 10^3/uL (130-400); Red Cell Dist. Width 13.0 % (11.5-14.5)
[2024-10-29] MEDS: ALOXI 5 MG IV (10:04)
[2024-10-29] MEDS: VIDAZA 115.7 MG IV (10:14)
[2024-10-29 10:34] LABS: ALT (SGPT) 23 U/L (0-50); AST (SGOT) 25 U/L (17-59); Albumin 4.2 g/dl (3.5-5.0); Alkaline Phosphatase 90 U/L (38-126); Blood Urea Nitrogen 21 mg/dl (9-20); Calcium 9.3 mg/dl (8.4-10.2); Carbon Dioxide 28 mmol/L (22-30); Chloride 101 mmol/L (98-107); Glucose 227 mg/dl (70-99); Potassium 5.0 mmol/L (3.5-5.1); Sodium 136 mmol/L (135-145); Total Protein 7.1 g/dl (6.3-8.2); eGFR > 60.00
[2024-10-30 09:17] VITALS: BP 125/80
[2024-10-30] MEDS: VIDAZA 115.7 MG IV (09:41)
[2024-10-30 10:20] VITALS: BP 114/71
[2024-11-06 09:53] VITALS: BP 115/67
[2024-11-06 09:53] LABS: Hematocrit 32.2 % (39.0-52.0); Hemoglobin 10.9 g/dL (13.0-18.0); Mean Corp Hgb Conc. 33.9 g/dL (33.0-37.0); Mean Corpuscular Volume 97.6 fL (80.0-94.0); Platelet Count 97 10^3/uL (130-400); Red Cell Dist. Width 13.1 % (11.5-14.5)
[2024-11-06 11:06] LABS: ALT (SGPT) 26 U/L (0-50); AST (SGOT) 29 U/L (17-59); Albumin 4.1 g/dl (3.5-5.0); Alkaline Phosphatase 70 U/L (38-126); Blood Urea Nitrogen 14 mg/dl (9-20); Calcium 9.5 mg/dl (8.4-10.2); Carbon Dioxide 26 mmol/L (22-30); Chloride 101 mmol/L (98-107); Glucose 209 mg/dl (70-99); Potassium 4.5 mmol/L (3.5-5.1); Sodium 135 mmol/L (135-145); Total Protein 7.1 g/dl (6.3-8.2); eGFR > 60.00
[2024-11-13 11:19] VITALS: BP 122/77
[2024-11-13 11:49] LABS: Hematocrit 32.2 % (39.0-52.0); Hemoglobin 10.9 g/dL (13.0-18.0); Mean Corp Hgb Conc. 33.9 g/dL (33.0-37.0); Mean Corpuscular Volume 94.7 fL (80.0-94.0); Nucleated Red Blood Cells % 0 % (-); Platelet Count 83 10^3/uL (130-400); Red Cell Dist. Width 13.0 % (11.5-14.5)
[2024-11-13 12:00] LABS: ALT (SGPT) 25 U/L (0-50); AST (SGOT) 29 U/L (17-59); Albumin 4.1 g/dl (3.5-5.0); Alkaline Phosphatase 76 U/L (38-126); Blood Urea Nitrogen 13 mg/dl (9-20); Calcium 9.6 mg/dl (8.4-10.2); Carbon Dioxide 28 mmol/L (22-30); Chloride 101 mmol/L (98-107); Glucose 207 mg/dl (70-99); Potassium 4.1 mmol/L (3.5-5.1); Sodium 136 mmol/L (135-145); Total Protein 7.3 g/dl (6.3-8.2); eGFR > 60.00
== END 2024-11-14 09:40 | disposition home or self-care (01) ==
LOC: OID 10:36
PROVIDERS: ATTENDING PHYSICIAN Internal Medicine Hematology & Oncology
DX: D61.810 Antineoplastic chemotherapy induced pancytopenia (principal); D75.9 Disease of blood and blood-forming organs, unspecified; D46.22 Refractory anemia with excess of blasts 2
CPT/HCPCS: 36415; 36591; 80053; 85025; 86850; 86900; 86901; 96367; 96375; 96413; J2469; J9025

== ENCOUNTER 2024-11-14 11:30 | Outpatient (RCR) | payer MEDICARE, OTHER, SELFPAY | END 2024-11-14 23:59 | disposition home or self-care (01) | LOC: RPT 11:30 | PROVIDERS: ATTENDING PHYSICIAN Internal Medicine Hematology & Oncology; FAMILY PHYSICIAN Nurse Practitioner Family | DX: R26.89 Other abnormalities of gait and mobility (principal); G62.9 Polyneuropathy, unspecified; C95.90 Leukemia, unspecified not having achieved remission; M62.81 Muscle weakness (generalized) | CPT/HCPCS: 97110; 97112 ==

== ENCOUNTER → 2024-11-20 06:57 | Outpatient (REF) | payer MEDICARE, OTHER, SELFPAY ==
[2024-11-20] VITALS (9 sets, daily range): BP systolic 64–160; BP diastolic 73–88
[2024-11-20 07:48] LABS: Hematocrit 32.0 % (39.0-52.0); Hemoglobin 10.8 g/dL (13.0-18.0); Mean Corp Hgb Conc. 33.8 g/dL (33.0-37.0); Mean Corpuscular Volume 95.2 fL (80.0-94.0); Nucleated Red Blood Cells % 0 % (-); Red Cell Dist. Width 13.0 % (11.5-14.5)
[2024-11-20] MEDS: ATIVAN 0.5 MG PO (07:54)
[2024-11-20 07:57] LABS: INR 1.07; PT 14.2 Sec (11.4-14.6)
[2024-11-20 08:15] LABS: Platelet Count 72 10^3/uL (130-400)
== END ==
LOC: RADI 06:57
PROVIDERS: Radiology Vascular & Interventional Radiology; ATTENDING PHYSICIAN Internal Medicine Hematology & Oncology; FAMILY PHYSICIAN Nurse Practitioner Family
DX: D61.818 Other pancytopenia (principal); D68.8 Other specified coagulation defects
CPT/HCPCS: 38222; 77012; 85025; 85610; 88305; 88311; 88312; 88313

== ENCOUNTER 2024-11-28 12:31 | Outpatient (RCR) | payer MEDICARE, OTHER, SELFPAY | END 2024-11-29 14:07 | disposition home or self-care (01) | LOC: RPT 12:31 | PROVIDERS: ATTENDING PHYSICIAN Internal Medicine Hematology & Oncology; FAMILY PHYSICIAN Nurse Practitioner Family | DX: R26.89 Other abnormalities of gait and mobility (principal); G62.9 Polyneuropathy, unspecified; C95.90 Leukemia, unspecified not having achieved remission; M62.81 Muscle weakness (generalized) | CPT/HCPCS: 97110 ==

== ENCOUNTER 2024-12-18 09:06 | Outpatient (RCR) | payer MEDICARE, OTHER, SELFPAY ==
[2024-11-26 09:42] LABS: Hematocrit 33.8 % (39.0-52.0); Hemoglobin 11.6 g/dL (13.0-18.0); Mean Corp Hgb Conc. 34.3 g/dL (33.0-37.0); Mean Corpuscular Volume 95.5 fL (80.0-94.0); Platelet Count 66 10^3/uL (130-400); Red Cell Dist. Width 12.9 % (11.5-14.5)
[2024-11-26 09:44] VITALS: BP 123/60
[2024-11-26] MEDS: ALOXI 5 MG IV (09:58)
[2024-11-26] MEDS: DECADRON 50.8 MG IV (09:59)
[2024-11-26 10:08] LABS: ALT (SGPT) 31 U/L (0-50); AST (SGOT) 33 U/L (17-59); Albumin 4.2 g/dl (3.5-5.0); Alkaline Phosphatase 97 U/L (38-126); Blood Urea Nitrogen 20 mg/dl (9-20); Calcium 9.9 mg/dl (8.4-10.2); Carbon Dioxide 27 mmol/L (22-30); Chloride 100 mmol/L (98-107); Glucose 234 mg/dl (70-99); Potassium 4.3 mmol/L (3.5-5.1); Sodium 136 mmol/L (135-145); Total Protein 7.5 g/dl (6.3-8.2); eGFR > 60.00
[2024-11-26] MEDS: VIDAZA 115.7 MG IV (10:28)
[2024-11-27 09:22] VITALS: BP 136/75
[2024-11-27] MEDS: VIDAZA 115.7 MG IV (09:46)
[2024-11-28 09:41] VITALS: BP 128/68
[2024-11-28] MEDS: VIDAZA 115.7 MG IV (09:47)
[2024-11-29 09:30] VITALS: BP 134/64
[2024-11-29 09:57] LABS: Hematocrit 33.4 % (39.0-52.0); Hemoglobin 11.1 g/dL (13.0-18.0); Mean Corp Hgb Conc. 33.2 g/dL (33.0-37.0); Mean Corpuscular Volume 95.7 fL (80.0-94.0); Platelet Count 73 10^3/uL (130-400); Red Cell Dist. Width 13.0 % (11.5-14.5)
[2024-11-29] MEDS: ALOXI 5 MG IV (10:09)
[2024-11-29] MEDS: VIDAZA 115.7 MG IV (10:11)
[2024-11-30 09:17] VITALS: BP 133/69
[2024-11-30] MEDS: VIDAZA 115.7 MG IV (09:49)
[2024-12-04 09:15] VITALS: BP 128/79
[2024-12-04 09:36] LABS: Hematocrit 33.9 % (39.0-52.0); Hemoglobin 11.4 g/dL (13.0-18.0); Mean Corp Hgb Conc. 33.6 g/dL (33.0-37.0); Mean Corpuscular Volume 96.9 fL (80.0-94.0); Platelet Count 61 10^3/uL (130-400); Red Cell Dist. Width 13.0 % (11.5-14.5)
[2024-12-04 10:33] LABS: ALT (SGPT) 30 U/L (0-50); AST (SGOT) 28 U/L (17-59); Albumin 4.1 g/dl (3.5-5.0); Alkaline Phosphatase 78 U/L (38-126); Blood Urea Nitrogen 20 mg/dl (9-20); Calcium 9.3 mg/dl (8.4-10.2); Carbon Dioxide 26 mmol/L (22-30); Chloride 102 mmol/L (98-107); Glucose 231 mg/dl (70-99); Potassium 4.5 mmol/L (3.5-5.1); Sodium 135 mmol/L (135-145); Total Protein 7.2 g/dl (6.3-8.2); eGFR > 60.00
[2024-12-11 10:52] VITALS: BP 135/78
[2024-12-11 11:04] LABS: Hematocrit 32.5 % (39.0-52.0); Hemoglobin 11.0 g/dL (13.0-18.0); Mean Corp Hgb Conc. 33.8 g/dL (33.0-37.0); Mean Corpuscular Volume 96.4 fL (80.0-94.0); Platelet Count 43 10^3/uL (130-400); Red Cell Dist. Width 13.6 % (11.5-14.5)
[2024-12-11 12:01] LABS: ALT (SGPT) 38 U/L (0-50); AST (SGOT) 38 U/L (17-59); Albumin 4.0 g/dl (3.5-5.0); Alkaline Phosphatase 58 U/L (38-126); Blood Urea Nitrogen 16 mg/dl (9-20); Calcium 9.3 mg/dl (8.4-10.2); Carbon Dioxide 28 mmol/L (22-30); Chloride 103 mmol/L (98-107); Glucose 221 mg/dl (70-99); Potassium 4.4 mmol/L (3.5-5.1); Sodium 136 mmol/L (135-145); Total Protein 7.0 g/dl (6.3-8.2); eGFR > 60.00
[2024-12-18 09:37] VITALS: BP 115/71
[2024-12-18 10:03] LABS: Hematocrit 32.6 % (39.0-52.0); Hemoglobin 10.9 g/dL (13.0-18.0); Mean Corp Hgb Conc. 33.4 g/dL (33.0-37.0); Mean Corpuscular Volume 96.2 fL (80.0-94.0); Platelet Count 47 10^3/uL (130-400); Red Cell Dist. Width 14.2 % (11.5-14.5)
[2024-12-18 11:05] LABS: ALT (SGPT) 35 U/L (0-50); AST (SGOT) 35 U/L (17-59); Albumin 4.2 g/dl (3.5-5.0); Alkaline Phosphatase 62 U/L (38-126); Blood Urea Nitrogen 15 mg/dl (9-20); Calcium 9.1 mg/dl (8.4-10.2); Carbon Dioxide 25 mmol/L (22-30); Chloride 103 mmol/L (98-107); Glucose 164 mg/dl (70-99); Potassium 4.3 mmol/L (3.5-5.1); Sodium 136 mmol/L (135-145); Total Protein 7.2 g/dl (6.3-8.2); eGFR > 60.00
== END 2024-12-18 23:59 | disposition home or self-care (01) ==
LOC: OID 09:06
PROVIDERS: ATTENDING PHYSICIAN Internal Medicine Hematology & Oncology; FAMILY PHYSICIAN Nurse Practitioner Family
DX: D61.810 Antineoplastic chemotherapy induced pancytopenia (principal); D75.9 Disease of blood and blood-forming organs, unspecified; D46.22 Refractory anemia with excess of blasts 2
CPT/HCPCS: 36591; 80053; 85025; 96367; 96375; 96413; J2469; J9025

== ENCOUNTER 2025-01-15 09:11 | Outpatient (RCR) | payer MEDICARE, OTHER, SELFPAY ==
[2024-12-24 09:40] VITALS: BP 124/78
[2024-12-24 09:44] LABS: Hematocrit 33.1 % (39.0-52.0); Hemoglobin 11.2 g/dL (13.0-18.0); Mean Corp Hgb Conc. 33.8 g/dL (33.0-37.0); Mean Corpuscular Volume 96.2 fL (80.0-94.0); Platelet Count 55 10^3/uL (130-400); Red Cell Dist. Width 14.2 % (11.5-14.5)
[2024-12-24 10:22] LABS: ALT (SGPT) 34 U/L (0-50); AST (SGOT) 37 U/L (17-59); Albumin 4.3 g/dl (3.5-5.0); Alkaline Phosphatase 70 U/L (38-126); Blood Urea Nitrogen 20 mg/dl (9-20); Calcium 9.4 mg/dl (8.4-10.2); Carbon Dioxide 26 mmol/L (22-30); Chloride 102 mmol/L (98-107); Glucose 181 mg/dl (70-99); Potassium 4.3 mmol/L (3.5-5.1); Sodium 136 mmol/L (135-145); Total Protein 7.4 g/dl (6.3-8.2); eGFR > 60.00
[2024-12-24] MEDS: DECADRON 50.8 MG IV (10:52)
[2024-12-24] MEDS: ALOXI 5 MG IV (10:52)
[2024-12-24] MEDS: VIDAZA 115.7 MG IV (11:14)
[2024-12-25] MEDS: VIDAZA 115.7 MG IV (09:41)
[2024-12-25 09:54] VITALS: BP 128/68
[2024-12-26 09:55] VITALS: BP 145/64
[2024-12-26] MEDS: VIDAZA 115.7 MG IV (10:23)
[2024-12-27 09:39] LABS: Hematocrit 32.6 % (39.0-52.0); Hemoglobin 10.9 g/dL (13.0-18.0); Mean Corp Hgb Conc. 33.4 g/dL (33.0-37.0); Mean Corpuscular Volume 96.4 fL (80.0-94.0); Platelet Count 64 10^3/uL (130-400); Red Cell Dist. Width 14.4 % (11.5-14.5)
[2024-12-27] MEDS: ALOXI 5 MG IV (09:58)
[2024-12-27] MEDS: VIDAZA 115.7 MG IV (10:06)
[2024-12-28 09:47] VITALS: BP 150/68
[2024-12-28] MEDS: VIDAZA 115.7 MG IV (09:58)
[2025-01-01 09:40] VITALS: BP 124/66
[2025-01-01 10:03] LABS: Hematocrit 34.9 % (39.0-52.0); Hemoglobin 11.7 g/dL (13.0-18.0); Mean Corp Hgb Conc. 33.5 g/dL (33.0-37.0); Mean Corpuscular Volume 96.7 fL (80.0-94.0); Platelet Count 62 10^3/uL (130-400); Red Cell Dist. Width 14.3 % (11.5-14.5)
[2025-01-01 10:57] LABS: Glycohemoglobin (HgbA1c) 7.7 % (4.0-5.6)
[2025-01-01 11:02] LABS: Microalb - Urine Creatinine 88.600 mg/dl
[2025-01-01 11:03] LABS: Microalbumin, Random Urine 1.2 mg/dl (0.6-1.7)
[2025-01-01 12:02] LABS: ALT (SGPT) 35 U/L (0-50); AST (SGOT) 32 U/L (17-59); Albumin 4.4 g/dl (3.5-5.0); Alkaline Phosphatase 101 U/L (38-126); Blood Urea Nitrogen 22 mg/dl (9-20); Calcium 9.3 mg/dl (8.4-10.2); Carbon Dioxide 26 mmol/L (22-30); Chloride 103 mmol/L (98-107); Glucose 196 mg/dl (70-99); Potassium 4.6 mmol/L (3.5-5.1); Sodium 137 mmol/L (135-145); Total Protein 7.4 g/dl (6.3-8.2); eGFR > 60.00
[2025-01-08 13:40] VITALS: BP 147/95
[2025-01-08 14:01] LABS: Hematocrit 32.7 % (39.0-52.0); Hemoglobin 11.1 g/dL (13.0-18.0); Mean Corp Hgb Conc. 33.9 g/dL (33.0-37.0); Mean Corpuscular Volume 95.9 fL (80.0-94.0); Platelet Count 42 10^3/uL (130-400); Red Cell Dist. Width 14.6 % (11.5-14.5)
[2025-01-08 15:18] LABS: ALT (SGPT) 42 U/L (0-50); AST (SGOT) 39 U/L (17-59); Albumin 4.5 g/dl (3.5-5.0); Alkaline Phosphatase 61 U/L (38-126); Blood Urea Nitrogen 19 mg/dl (9-20); Calcium 9.9 mg/dl (8.4-10.2); Carbon Dioxide 27 mmol/L (22-30); Chloride 102 mmol/L (98-107); Glucose 141 mg/dl (70-99); Potassium 4.4 mmol/L (3.5-5.1); Sodium 137 mmol/L (135-145); Total Protein 7.3 g/dl (6.3-8.2); eGFR > 60.00
[2025-01-15 09:27] VITALS: BP 118/70
[2025-01-15 10:03] LABS: Hematocrit 31.8 % (39.0-52.0); Hemoglobin 10.9 g/dL (13.0-18.0); Mean Corp Hgb Conc. 34.3 g/dL (33.0-37.0); Mean Corpuscular Volume 95.8 fL (80.0-94.0); Platelet Count 42 10^3/uL (130-400); Red Cell Dist. Width 15.0 % (11.5-14.5)
[2025-01-15 10:30] LABS: ALT (SGPT) 38 U/L (0-50); AST (SGOT) 35 U/L (17-59); Albumin 4.3 g/dl (3.5-5.0); Alkaline Phosphatase 67 U/L (38-126); Blood Urea Nitrogen 19 mg/dl (9-20); Calcium 9.3 mg/dl (8.4-10.2); Carbon Dioxide 28 mmol/L (22-30); Chloride 100 mmol/L (98-107); Glucose 174 mg/dl (70-99); Potassium 4.3 mmol/L (3.5-5.1); Sodium 136 mmol/L (135-145); Total Protein 7.2 g/dl (6.3-8.2); eGFR > 60.00
== END 2025-01-16 12:50 | disposition home or self-care (01) ==
LOC: OID 09:11
PROVIDERS: ATTENDING PHYSICIAN Internal Medicine Hematology & Oncology; FAMILY PHYSICIAN Nurse Practitioner Family; REFERRING PHYSICIAN Internal Medicine Endocrinology, Diabetes & Metabolism
DX: D61.810 Antineoplastic chemotherapy induced pancytopenia (principal); D75.9 Disease of blood and blood-forming organs, unspecified; D46.22 Refractory anemia with excess of blasts 2; E11.9 Type 2 diabetes mellitus without complications
CPT/HCPCS: 36591; 80053; 82043; 82570; 83036; 85025; 96367; 96375; 96413; 96523; J2469; J9025

== ENCOUNTER 2025-02-11 09:48 | Outpatient (RCR) | payer MEDICARE, OTHER, SELFPAY ==
[2025-01-21 09:43] VITALS: BP 134/70
[2025-01-21 09:52] LABS: Hematocrit 32.3 % (39.0-52.0); Hemoglobin 11.1 g/dL (13.0-18.0); Mean Corp Hgb Conc. 34.4 g/dL (33.0-37.0); Mean Corpuscular Volume 95.8 fL (80.0-94.0); Platelet Count 44 10^3/uL (130-400); Red Cell Dist. Width 15.0 % (11.5-14.5)
[2025-01-21] MEDS: ALOXI 5 MG IV (10:13)
[2025-01-21] MEDS: DECADRON 50.8 MG IV (10:14)
[2025-01-21 10:27] LABS: ALT (SGPT) 43 U/L (0-50); AST (SGOT) 40 U/L (17-59); Albumin 4.4 g/dl (3.5-5.0); Alkaline Phosphatase 65 U/L (38-126); Blood Urea Nitrogen 15 mg/dl (9-20); Calcium 9.2 mg/dl (8.4-10.2); Carbon Dioxide 28 mmol/L (22-30); Chloride 101 mmol/L (98-107); Glucose 162 mg/dl (70-99); Potassium 4.3 mmol/L (3.5-5.1); Sodium 136 mmol/L (135-145); Total Protein 7.4 g/dl (6.3-8.2); eGFR > 60.00
[2025-01-21] MEDS: VIDAZA 115.7 MG IV (10:39)
[2025-01-22 09:15] VITALS: BP 121/62
[2025-01-22] MEDS: VIDAZA 115.7 MG IV (09:46)
[2025-01-23 09:15] VITALS: BP 138/63
[2025-01-23] MEDS: VIDAZA 115.7 MG IV (10:13)
[2025-01-24 09:41] LABS: Hematocrit 31.4 % (39.0-52.0); Hemoglobin 10.5 g/dL (13.0-18.0); Mean Corp Hgb Conc. 33.4 g/dL (33.0-37.0); Mean Corpuscular Volume 96.6 fL (80.0-94.0); Platelet Count 47 10^3/uL (130-400); Red Cell Dist. Width 15.4 % (11.5-14.5)
[2025-01-24] MEDS: ALOXI 5 MG IV (09:51)
[2025-01-24] MEDS: VIDAZA 115.7 MG IV (09:52)
[2025-01-24 09:58] VITALS: BP 133/60
[2025-01-25] MEDS: VIDAZA 115.7 MG IV (13:53)
[2025-01-25 14:01] VITALS: BP 128/65
[2025-02-04 11:39] LABS: Hematocrit 32.5 % (39.0-52.0); Hemoglobin 11.0 g/dL (13.0-18.0); Mean Corp Hgb Conc. 33.8 g/dL (33.0-37.0); Mean Corpuscular Volume 97.9 fL (80.0-94.0); Platelet Count 31 10^3/uL (130-400); Red Cell Dist. Width 15.7 % (11.5-14.5)
[2025-02-04 12:05] LABS: ALT (SGPT) 47 U/L (0-50); AST (SGOT) 40 U/L (17-59); Albumin 4.4 g/dl (3.5-5.0); Alkaline Phosphatase 64 U/L (38-126); Blood Urea Nitrogen 19 mg/dl (9-20); Calcium 9.3 mg/dl (8.4-10.2); Carbon Dioxide 29 mmol/L (22-30); Chloride 99 mmol/L (98-107); Glucose 157 mg/dl (70-99); Potassium 4.4 mmol/L (3.5-5.1); Sodium 133 mmol/L (135-145); Total Protein 7.5 g/dl (6.3-8.2); eGFR > 60.00
[2025-02-11 10:46] VITALS: BP 119/62
[2025-02-11 11:03] LABS: ALT (SGPT) 41 U/L (0-50); AST (SGOT) 34 U/L (17-59); Albumin 4.2 g/dl (3.5-5.0); Alkaline Phosphatase 57 U/L (38-126); Blood Urea Nitrogen 17 mg/dl (9-20); Calcium 9.1 mg/dl (8.4-10.2); Carbon Dioxide 28 mmol/L (22-30); Chloride 103 mmol/L (98-107); Glucose 162 mg/dl (70-99); Potassium 4.4 mmol/L (3.5-5.1); Sodium 136 mmol/L (135-145); Total Protein 7.0 g/dl (6.3-8.2); eGFR > 60.00
[2025-02-11 11:22] LABS: Hematocrit 30.6 % (39.0-52.0); Hemoglobin 10.3 g/dL (13.0-18.0); Mean Corp Hgb Conc. 33.7 g/dL (33.0-37.0); Mean Corpuscular Volume 97.5 fL (80.0-94.0); Platelet Count 35 10^3/uL (130-400); Red Cell Dist. Width 16.3 % (11.5-14.5)
[2025-02-11 16:10] LABS: Absolute Neutrophils -Man Diff 0.6 10^3/uL (1.4-6.5); Normal RBC Morphology Yes; Platelets Checked Yes; Total Cells Counted 100
== END 2025-02-12 12:34 | disposition home or self-care (01) ==
LOC: OID 09:48
PROVIDERS: ATTENDING PHYSICIAN Internal Medicine Hematology & Oncology; FAMILY PHYSICIAN Nurse Practitioner Family; REFERRING PHYSICIAN Internal Medicine Endocrinology, Diabetes & Metabolism
DX: D61.810 Antineoplastic chemotherapy induced pancytopenia (principal); D75.9 Disease of blood and blood-forming organs, unspecified; D46.22 Refractory anemia with excess of blasts 2; E11.9 Type 2 diabetes mellitus without complications
CPT/HCPCS: 36591; 80053; 85025; 96367; 96375; 96413; J2469; J9025

== ENCOUNTER 2025-03-10 16:59 | Emergency (ER) | payer MEDICARE, OTHER, SELFPAY ==
[2025-03-10 17:05] VITALS: BP 102/64
[2025-03-10 17:46] LABS: ALT (SGPT) 36 U/L (0-50); AST (SGOT) 34 U/L (17-59); Albumin 4.4 g/dl (3.5-5.0); Alkaline Phosphatase 61 U/L (38-126); Blood Urea Nitrogen 23 mg/dl (9-20); Calcium 9.2 mg/dl (8.4-10.2); Carbon Dioxide 28 mmol/L (22-30); Chloride 100 mmol/L (98-107); Glucose 204 mg/dl (70-99); Potassium 4.3 mmol/L (3.5-5.1); Sodium 134 mmol/L (135-145); Total Protein 7.4 g/dl (6.3-8.2); eGFR > 60.00
[2025-03-10 18:02] LABS: Normal RBC Morphology Yes; Platelets Checked Yes; Total Cells Counted 100
[2025-03-10 18:06] LABS: Hematocrit 28.7 % (39.0-52.0); Hemoglobin 10.1 g/dL (13.0-18.0); Mean Corp Hgb Conc. 35.2 g/dL (33.0-37.0); Mean Corpuscular Volume 94.7 fL (80.0-94.0); Platelet Count 40 10^3/uL (130-400); Red Cell Dist. Width 16.0 % (11.5-14.5)
[2025-03-10 18:07] LABS: Absolute Neutrophils -Man Diff 0.5 10^3/uL (1.4-6.5)
--- NOTE | 2025-03-10 21:13 | ED.GENMED ---
Addendum entered and electronically signed by Ifeoma Moore DO 03/11/25 01:13:
While patient ambulating out of the emergency department he became lightheaded, slumped down but did not fall nor lose consciousness.
Noted to be mildly hypotensive.
He has had no return of epistaxis.
Accu-Chek 165.
Patient reports minimal oral intake throughout the day today.
He has known history of leukemia, pancytopenia. Blood work shows mild but stable anemia. Moderate but stable leukopenia. Platelet count of 40,000 has improved from previous at 20,000.
Will offer a box lunch, encourage clear liquids and then plan for orthostatic vital signs.
23:25
Orthostatic vital signs significantly positive. Thus we will establish IV and plan for 1 L normal saline solution.
He continues to have no recurrent epistaxis. Offers no complaints.
01:00
After 1 L normal saline solution, repeat orthostatic vital signs are negative.
Patient feeling well. Eager to be discharged to home.
Follow-up plan as discussed previously.
Discussed importance of staying well-hydrated on a daily basis.
Original Note:
History of Present Illness
General
Chief Complaint: Nose Bleed
Source: patient and spouse
Time Seen by Provider: 03/10/25 20:52
History of Present Illness
History of Present Illness:
This patient is a very pleasant 74-year-old male who is currently receiving chemotherapy. He has a history of thrombocytopenia and notes that he had intermittent nosebleeds for the last 3 days. Today, he noted a slow drip for about 7 hours which
prompted his visit here. Upon arrival, his nosebleed resolved. He denies any symptoms such as lightheadedness, dizziness, bleeding elsewhere, chest pain, shortness of breath, or other complaints.
Past History
Past History
ED Past Medical History: Cancer
ED Past Surgical History: Orthopedic
Social History
Tobacco: Non-smoker
Alcohol: None
Drug: None
Personal:
Living: with family
Phy Exam
Physical Exam
Physical Exam:
GENERAL: Alert , in no apparent distress
EYE: pupils equal and reactive
NECK: Supple, no significant adenopathy.
ENT: o/p clr, mmm. There is fresh blood noted R ant septum, noactive bleed
CARDIAC: Regular rate and rhythm .
LUNGS: Clear breath sounds bilaterally, no acute respiratory distress, no wheezes/rales/rhonchi
ABDOMEN: Soft, without focal tenderness, no r/g
NEUROLOGICAL: Alert and oriented, no focal neuro deficits
SKIN: Warm and dry, skin intact.
MUSCULOSKELETAL: No edema, well perfused.
PSYCH: Normal and appropriate interaction.
Course
Orders/Labs/Results
Orders:
Orders
03/10/25 17:25
Complete Blood Count/With Diff Urgent
Comprehensive Metabolic Panel Urgent
Manual Differential Urgent
Abnormal Lab Results
03/10/25
17:25
WBC 2.4 L* 10^3/uL
(4.8-10.8)
RBC 3.03 L 10^6/uL
(4.70-6.10)
Hgb 10.1 L g/dL
(13.0-18.0)
Hct 28.7 L %
(39.0-52.0)
MCV 94.7 H fL
(80.0-94.0)
MCH 33.3 H pg
(27.0-31.0)
RDW 16.0 H %
(11.5-14.5)
Plt Count 40 L 10^3/uL
(130-400)
Abs Neuts (Manual) 0.5 L* 10^3/uL
(1.4-6.5)
Segmented Neutrophils 21 L %
(42-75)
Lymphocytes (Manual) 58 H %
(20-51)
Blast Cells 9 H* %
(-)
Sodium 134 L mmol/L
(135-145)
BUN 23 H mg/dl
(9-20)
Glucose 204 H mg/dl
(70-99)
03/10/25 17:25
03/10/25 17:25
Vital Signs
Initial and Last Documented VS:
Initial Vital Signs
Temp Pulse Resp BP Pulse Ox
98.2 F 86 20 102/64 99
03/10/25 17:05 03/10/25 17:05 03/10/25 17:05 03/10/25 17:05 03/10/25 17:05
Last Documented Vital Signs
Temp Pulse Resp BP Pulse Ox
98.2 F 86 20 102/64 99
03/10/25 17:05 03/10/25 17:05 03/10/25 17:05 03/10/25 17:05 03/10/25 21:15
Procedures
Nosebleed
Drug treatment: Lidocaine and Epinephrine
Treatment: local pressure applied and Silver nitrate cautery
Post treatment bleeding: none- good control
Additional information:
R NARE CAUTERIZED, NO FURTHER BLEEDING
*Pulse Oximetry
SaO2: 99
Oxygen Mode of Delivery: Room air
Patient hypoxic: no
*Critical Care Note
Total Time (30-74mins, 75-104mins- exclusive of procedures): Not Applicable
Update Note
Update Note:
Patient presents to the Emergency Department with __epistaxis
Number and Complexity of Problems Addressed at the Encounter
� Chronic conditions affecting care:
� Acute Exacerbation and/or Progression of Chronic Illness:
� Differential Diagnosis includes: But not limited to anemia, thrombocytopenia, nasal trauma, etc. etc.
Amount and/or Complexity of Data to be Reviewed and Analyzed
� I performed an independent evaluation of and my interpretation is:
EKG:
CT:
Xrays:
Laboratory Studies: Hemoglobin reviewed here and is stable at 10.1. Patient made aware of his lab values including worsening neutropenia. Patient does not have fever or other infectious symptoms at this time.
Other:
� Review of other/old records reveals:
� Clinical information was obtained by an independent historian: who is bedside and recalls his most recent labs
� Prescriptions/Medications Considered but not given:
� Further testing considered but not performed:
Risk of Complications and/or Morbidity or Mortality of Patient Management
� Social determinants of health affecting care:
� Discussion with other providers (PCP, Hospitalists, Consultants, etc):
� Escalation of care including admission/observation vs risk of discharge considered:
ED Attending Note
-
Portions of this chart may have been created with voice recognition software.� Occasional wrong word or��sound alike� substitutions may have occurred due to the inherent limitations of voice recognition software.
Discharge Plan
Departure
Patient Disposition: Home (Routine Discharge)
Date of Disposition: 03/10/25
Time of Disposition: 22:21
Patient with high blood pressure during this ER visit?: Yes
Condition: Good
Discharge Problem:
Acute anterior epistaxis
Instructions: Nosebleeds (DC), BLOOD PRESSURE
Prescriptions:
No Action
rosuvastatin 20 mg Tablet
20 mg PO DAILY
cyanocobalamin (vitamin B-12) 1,000 mcg Tablet
1,000 mcg PO DAILY
metformin 500 mg Tablet Extended Release 24 Hr
1,000 mg PO DAILY
docusate sodium 100 mg capsule
100 mg PO DAILY
prochlorperazine maleate 10 mg Tablet
10 mg PO Q6HPRN PRN (Reason: nausea)
therapeutic multivitamin Tablet
1 tab PO DAILY
azacitidine [Vidaza] 100 mg Recon Soln
157 mg IV DAILY
Referrals:
Ian Apple MD [Active, Otology] - Next open appointment
UNKNOWN - PT NOT,INTERVIEWE [Unknown Provider]
Activity Restrictions/Additional Instructions:
IF YOU DEVELOP PERSISTENT/NEW BLEEDING, FEVER, VOMITING, SWELLING, OR OTHER WORRISOME SIGNS, GO TO THE ER IMMEDIATELY!
Interventions
Interventions:
*General Assessment Last Done: 03/10/25 17:05
*Neglect/Abuse Screening Last Done: 03/10/25 17:05
*Risk Screen - Suicide (C-SSRS) Last Done: 03/10/25 17:05
ED-EENT Assessment Last Done: 03/10/25 19:34
Discharge Date and Time
Print Language: FAROESE
[2025-03-10 22:40] LABS: Glucose - Point of Care 165 mg/dl (70-99)
[2025-03-10 22:52] VITALS: BP 102/53
--- NOTE | 2025-03-10 22:52 | EDRN ---
Patient discharged home, offered a wheelchair out, he wanted to walk out, once out front patient's legs started to feel weak and he felt like he was going to pass out, patient safely assisted to wheelchair and brought back to the room, patient is a
diabetic checked his blood sugar and it was 165, patient states he hadn't ate all day, provided with sandwich and drink of water, informed Dr. Silver and Dr. Moore, patient resting comfortably in bed at this time.
[2025-03-10] MEDS: NSS 1000 IV (23:28)
[2025-03-10 23:34] VITALS: BP 106/65; BP 79/37; BP 99/61; PULSE 76; PULSE 89; PULSE 92
--- NOTE | 2025-03-10 23:35 | EDRN ---
Orthostatic vitals completed patients blood pressure dropped form position change, Dr. Moore aware, IV placed and fluids started at this time.
[2025-03-11 00:30] VITALS: BP 114/56; BP 114/60; BP 114/63; PULSE 73; PULSE 77; PULSE 83
--- NOTE | 2025-03-11 00:31 | EDRN ---
Patients orthostatic vitals are improved and patient is feeling better, Dr. Moore aware.
--- NOTE | 2025-03-11 01:08 | EDRN ---
Patient feeling much better, ok to be discharged home at this time, patient was taken out in a wheelchair
== END 2025-03-11 01:12 | disposition home or self-care (01) ==
LOC: EMR 16:59
PROVIDERS: Emergency Medicine; EMERGENCY PHYSICIAN Emergency Medicine; FAMILY PHYSICIAN Nurse Practitioner Family
DX: R04.0 Epistaxis (principal); D69.6 Thrombocytopenia, unspecified; Z79.60 Long term (current) use of unspecified immunomodulators and immunosuppressants
CPT/HCPCS: 30901; 96360; 99284; 80053; 82962; 85025

== ENCOUNTER → 2025-03-15 07:04 | Outpatient (REF) | payer MEDICARE, OTHER, SELFPAY ==
[2025-03-15 08:05] LABS: Hematocrit 22.4 % (39.0-52.0); Hemoglobin 7.5 g/dL (13.0-18.0); Mean Corp Hgb Conc. 33.5 g/dL (33.0-37.0); Mean Corpuscular Volume 99.1 fL (80.0-94.0); Platelet Count 70 10^3/uL (130-400); Red Cell Dist. Width 16.7 % (11.5-14.5)
[2025-03-15 08:14] LABS: INR 1.13; PT 14.6 Sec (11.4-14.6)
[2025-03-15] MEDS: ATIVAN 0.5 MG PO (08:17)
[2025-03-15 08:24] VITALS: BP 116/75; BP_SYST 60
[2025-03-15 09:30] VITALS: BP 129/77
[2025-03-15 18:50] LABS: Normal RBC Morphology Yes; Platelets Checked Yes; Total Cells Counted 100
[2025-03-15 19:25] LABS: Absolute Neutrophils -Man Diff 0.5 10^3/uL (1.4-6.5)
== END ==
LOC: RADI 07:04
PROVIDERS: ATTENDING PHYSICIAN Internal Medicine Hematology & Oncology; FAMILY PHYSICIAN Nurse Practitioner Family
DX: C92.00 Acute myeloblastic leukemia, not having achieved remission (principal); D61.818 Other pancytopenia
CPT/HCPCS: 36415; 38222; 77012; 85025; 85610; 88305; 88311; 88312; 88313

== ENCOUNTER 2025-03-15 15:08 | Emergency (ER) | payer MEDICARE, OTHER, SELFPAY ==
[2025-03-15] VITALS (9 sets, daily range): BP systolic 110–119; BP diastolic 56–95; BMI 28.8
--- NOTE | 2025-03-15 17:17 | ED.GENMED ---
History of Present Illness
<DALLAS Andujar - Last Filed: 03/16/25 12:37>
General
Chief Complaint: Nose Bleed
Source: patient
Exam Limitations: none
Time Seen by Provider: 03/15/25 17:16
Nursing documentation reviewed up to this point in time: agreed with
History of Present Illness
History of Present Illness:
Patient is a 74 yr old male with past medical history of leukemia presents for bleeding to right nares since 9:30 this morning. patient is on Vidaza and receives this 5 days on and 2 days off last dose was 21 days ago. He is due for a dose next
week. He did have a bone marrow biopsy this morning done here at the hospital. At that time his hemoglobin was 7.5. After he left the hospital patient started with bleeding from his right nares. It has been intermittent bleeding since 9:30 AM.
He denies any lightheadedness dizziness, denies any fevers.
Past History
<DALLAS Andujar - Last Filed: 03/16/25 12:37>
Past History
ED Past Medical History: Cancer
ED Past Surgical History: Orthopedic
Social History
Tobacco: Non-smoker
Alcohol: None
Drug: None
Personal:
Living: with family
Phy Exam
<DALLAS Andujar - Last Filed: 03/16/25 12:37>
General Physical Exam
General Presentation: no apparent distress
General age: appears stated age
General Skin: warm and dry
General Habitus: normal
General Mental: alert
General Hydration: appears well hydrated
ENT Exam
ENT Exam: other
Additional ENT: right nares actively bleeding
Cardiovascular Exam
Cardiovascular Exam: regular rate/rhythm, no murmur and normal peripheral pulses
Pulmonary Exam
Pulmonary Exam: lungs clear and no respiratory distress
Neurological Exam
Neurological Exam: alert and oriented x3
Musculoskeletal Exam
Musculoskeletal Exam: full ROM
Skin Exam
Skin Exam: normal color and warm/dry
Psychiatric Exam
Psychiatric Exam: normal mood/affect
Course
<DALLAS Andujar - Last Filed: 03/16/25 12:37>
Orders/Labs/Results
Orders:
Orders
03/15/25 18:18
CBC/With Diff [Complete Blood Count/With Diff] Urgent
Manual Differential Urgent
03/15/25 19:48
* Blood Bank Products Routine
'juan carlos Orders: mustapha/kulwinder
Blood Bank Products: *Packed RBC Leuko (PRBC's
Quantity: 2
Transfuse Today: Yes
Reason: Anemia
Patient will require pre-treatment for transfusion:: No
Comment: obtained
IV Insert/Care/Rem.- Treatment PRN
03/15/25 20:11
Type+Screen Urgent
03/15/25 21:11
Chest [CR Chest - 2 Views ] Urgent
Comment:
Reason For Exam: confrim picc line placement
Abnormal Lab Results
03/15/25 03/15/25
18:18 20:11
WBC 2.9 L 10^3/uL
(4.8-10.8)
RBC 2.04 L 10^6/uL
(4.70-6.10)
Hgb 6.8 L* g/dL
(13.0-18.0)
Hct 19.7 L* %
(39.0-52.0)
MCV 96.6 H fL
(80.0-94.0)
MCH 33.3 H pg
(27.0-31.0)
RDW 16.5 H %
(11.5-14.5)
Plt Count 70 L 10^3/uL
(130-400)
Abs Neuts (Manual) 0.5 L* 10^3/uL
(1.4-6.5)
Segmented Neutrophils 19 L %
(42-75)
Lymphocytes (Manual) 67 H %
(20-51)
Blast Cells 7 H* %
(-)
Crossmatch IS Only See Detail
03/15/25 18:18
Vital Signs
Initial and Last Documented VS:
Initial Vital Signs
Temp Pulse Resp BP Pulse Ox
97.9 F 87 20 118/95 97
03/15/25 15:33 03/15/25 15:33 03/15/25 15:33 03/15/25 15:33 03/15/25 15:33
Last Documented Vital Signs
Temp Pulse Resp BP Pulse Ox
98.6 F 78 23 146/68 94
03/16/25 04:06 03/16/25 04:06 03/16/25 04:06 03/16/25 04:06 03/16/25 04:06
Microbiology Professor consulted with Physician
Microbiology Professor consulted with physician?: Yes
Name of Physician Consulted: kulwinder
<Nate Yoo PA-C - Last Filed: 03/16/25 01:55>
Orders/Labs/Results
Orders:
Orders
03/15/25 18:18
CBC/With Diff [Complete Blood Count/With Diff] Urgent
Manual Differential Urgent
03/15/25 19:48
* Blood Bank Products Routine
's Orders: mustapha/kulwinder
Blood Bank Products: *Packed RBC Leuko (PRBC's
Quantity: 2
Transfuse Today: Yes
Reason: Anemia
Patient will require pre-treatment for transfusion:: No
Comment: obtained
IV Insert/Care/Rem.- Treatment PRN
03/15/25 20:11
Type+Screen Urgent
03/15/25 21:11
Chest [CR Chest - 2 Views ] Urgent
Comment:
Reason For Exam: confrim picc line placement
Abnormal Lab Results
03/15/25 03/15/25
18:18 20:11
WBC 2.9 L 10^3/uL
(4.8-10.8)
RBC 2.04 L 10^6/uL
(4.70-6.10)
Hgb 6.8 L* g/dL
(13.0-18.0)
Hct 19.7 L* %
(39.0-52.0)
MCV 96.6 H fL
(80.0-94.0)
MCH 33.3 H pg
(27.0-31.0)
RDW 16.5 H %
(11.5-14.5)
Plt Count 70 L 10^3/uL
(130-400)
Abs Neuts (Manual) 0.5 L* 10^3/uL
(1.4-6.5)
Segmented Neutrophils 19 L %
(42-75)
Lymphocytes (Manual) 67 H %
(20-51)
Blast Cells 7 H* %
(-)
Crossmatch IS Only See Detail
03/15/25 18:18
Vital Signs
Initial and Last Documented VS:
Initial Vital Signs
Temp Pulse Resp BP Pulse Ox
97.9 F 87 20 118/95 97
03/15/25 15:33 03/15/25 15:33 03/15/25 15:33 03/15/25 15:33 03/15/25 15:33
Last Documented Vital Signs
Temp Pulse Resp BP Pulse Ox
98.6 F 78 23 146/68 94
03/16/25 04:06 03/16/25 04:06 03/16/25 04:06 03/16/25 04:06 03/16/25 04:06
Procedures
<DALLAS Andujar - Last Filed: 03/16/25 12:37>
Nosebleed
Drug treatment: Epinephrine
Treatment: other (rapid rhino )
<DALLAS Andujar - Last Filed: 03/16/25 12:37>
MDM/Problems Addressed
Differential Diagnosis Includes:
not limited to: Epistaxis, anemia
MDM/Problems Addressed:
Patient is a 74-year-old male with history of leukemia presents with right nares bleeding since 9:30 this morning. Patient incidentally went for bone marrow biopsy this morning and at that time his hemoglobin was found to be 7.5. In order to
control epistaxis a rapid Rhino was inserted which improved patient's bleeding. His hemoglobin was rechecked because of the bleeding it was found to be low at 6.8. Will transfuse 2 units of packed red blood cells. Case reviewed with oncology Dr.
nAnie.
Pt however is well appearing no further bleeding.
Patient has PICC line we will obtain a chest x-ray to confirm placement. Care of pt at this time transferred to [facility].
Plan to discharge home after blood transfusions.
<DALLAS Andujar - Last Filed: 03/16/25 12:37>
*Pulse Oximetry
SaO2: 97
Oxygen Mode of Delivery: Room air
Patient hypoxic: no
<Nate Yoo PA-C - Last Filed: 03/16/25 01:55>
*Critical Care Note
Total Time (30-74mins, 75-104mins- exclusive of procedures): Not Applicable
<DALLAS Andujar - Last Filed: 03/16/25 12:37>
Patient Management
Discussion with other providers: Advertising Campaign Manager (dr hoffman)
ED Attending Note
<DALLAS Andujar - Last Filed: 03/16/25 12:37>
-
Portions of this chart may have been created with voice recognition software.� Occasional wrong word or��sound alike� substitutions may have occurred due to the inherent limitations of voice recognition software.
Discharge Plan
Departure
Patient Disposition: Home (Routine Discharge)
Date of Disposition: 03/16/25
Time of Disposition: 01:43
Patient with high blood pressure during this ER visit?: No
Condition: Fair
Covid-19: Not Applicable
Discharge Problem:
EPISTAXIS, Anemia
Instructions: Nosebleeds (DC), Blood transfusion
Prescriptions:
No Action
rosuvastatin 20 mg Tablet
20 mg PO DAILY
cyanocobalamin (vitamin B-12) 1,000 mcg Tablet
1,000 mcg PO DAILY
metformin 500 mg Tablet Extended Release 24 Hr
1,000 mg PO DAILY
docusate sodium 100 mg capsule
100 mg PO DAILY
prochlorperazine maleate 10 mg Tablet
10 mg PO Q6HPRN PRN (Reason: nausea)
therapeutic multivitamin Tablet
1 tab PO DAILY
azacitidine [Vidaza] 100 mg Recon Soln
157 mg IV MONTHLY
Referrals:
Ranjan Young CRNP [Family Provider, Family Practice]
Lore Kwong MD [Active, Oncology]
Robby Sahu MD [Active, Otology]
Activity Restrictions/Additional Instructions:
As discussed follow-up as scheduled on Tuesday with your oncologist . In addition follow-up with ENT on Tuesday for packing removal. Return if any worsening of symptoms.
Interventions
Interventions:
*General Assessment Last Done: 03/15/25 19:11
*Neglect/Abuse Screening Last Done: 03/15/25 19:11
*ED COVID-19 Vaccine History Last Done: 03/15/25 19:11
*ED Influenza Vaccine History Last Done: 03/15/25 19:11
[facility] Risk Assessment Tool Last Done: 03/15/25 19:11
*Risk Screen - Suicide (C-SSRS) Last Done: 03/15/25 23:09
*Nursing Disposition Last Done: 03/16/25 04:06
ED-EENT Assessment Last Done: 03/15/25 19:11
Discharge Date and Time
Discharge Date/Time: 03/16/25 04:00
Print Language: IRAQI
[2025-03-15 19:21] LABS: Hematocrit 19.7 % (39.0-52.0); Hemoglobin 6.8 g/dL (13.0-18.0); Mean Corp Hgb Conc. 34.5 g/dL (33.0-37.0); Mean Corpuscular Volume 96.6 fL (80.0-94.0); Platelet Count 70 10^3/uL (130-400); Red Cell Dist. Width 16.5 % (11.5-14.5)
[2025-03-15 20:48] LABS: Normal RBC Morphology Yes; Platelets Checked Yes
[2025-03-15 20:49] LABS: Total Cells Counted 100
[2025-03-15 20:51] LABS: Absolute Neutrophils -Man Diff 0.5 10^3/uL (1.4-6.5)
[2025-03-16] VITALS (12 sets, daily range): BP systolic 117–146; BP diastolic 65–69
== END 2025-03-16 04:00 | disposition home or self-care (01) ==
LOC: EMR 15:08
PROVIDERS: Nurse Practitioner; EMERGENCY PHYSICIAN Emergency Medicine; FAMILY PHYSICIAN Nurse Practitioner Family
DX: R04.0 Epistaxis (principal); D64.9 Anemia, unspecified; C95.90 Leukemia, unspecified not having achieved remission; E11.40 Type 2 diabetes mellitus with diabetic neuropathy, unspecified
CPT/HCPCS: 99285; 36430; 30901; 71046; 85025; 86850; 86900; 86901; 86920; P9016

== ENCOUNTER 2025-03-18 09:50 | Outpatient (RCR) | payer MEDICARE, OTHER, SELFPAY ==
[2025-02-18 09:15] VITALS: BP 125/64
[2025-02-18 10:08] VITALS: BMI 29.7
[2025-02-18 10:21] LABS: Hematocrit 30.4 % (39.0-52.0); Hemoglobin 10.0 g/dL (13.0-18.0); Mean Corp Hgb Conc. 32.9 g/dL (33.0-37.0); Mean Corpuscular Volume 99.3 fL (80.0-94.0); Nucleated Red Blood Cells % 0 % (-); Platelet Count 48 10^3/uL (130-400); Red Cell Dist. Width 16.3 % (11.5-14.5)
[2025-02-18] MEDS: ALOXI 5 MG IV (10:37)
[2025-02-18] MEDS: VIDAZA 115.7 MG IV (10:38)
[2025-02-18 10:39] LABS: ALT (SGPT) 33 U/L (0-50); AST (SGOT) 32 U/L (17-59); Albumin 4.2 g/dl (3.5-5.0); Alkaline Phosphatase 64 U/L (38-126); Blood Urea Nitrogen 19 mg/dl (9-20); Calcium 8.8 mg/dl (8.4-10.2); Carbon Dioxide 28 mmol/L (22-30); Chloride 101 mmol/L (98-107); Estimated Creatinine Clearance 98 ml/min; Glucose 162 mg/dl (70-99); Potassium 4.3 mmol/L (3.5-5.1); Sodium 135 mmol/L (135-145); Total Protein 6.9 g/dl (6.3-8.2); eGFR > 60.00
[2025-02-19 09:47] VITALS: BP 123/53
[2025-02-19] MEDS: VIDAZA 115.7 MG IV (09:55)
[2025-02-20 09:15] VITALS: BP 128/59
[2025-02-20] MEDS: VIDAZA 115.7 MG IV (09:54)
[2025-02-21 10:45] VITALS: BP 132/65
[2025-02-21] MEDS: ALOXI 5 MG IV (11:24)
[2025-02-21] MEDS: VIDAZA 115.7 MG IV (11:25)
[2025-02-21 11:57] LABS: Hematocrit 29.7 % (39.0-52.0); Hemoglobin 10.0 g/dL (13.0-18.0); Mean Corp Hgb Conc. 33.7 g/dL (33.0-37.0); Mean Corpuscular Volume 97.1 fL (80.0-94.0); Red Cell Dist. Width 16.5 % (11.5-14.5)
[2025-02-21 17:13] LABS: Platelet Count 43 10^3/uL (130-400)
[2025-02-21 17:16] LABS: Absolute Neutrophils -Man Diff 1.2 10^3/uL (1.4-6.5); Platelets Checked Yes
[2025-02-21 18:33] LABS: Normal RBC Morphology Yes; Total Cells Counted 100
[2025-02-22 09:48] VITALS: BP 128/62
[2025-02-22] MEDS: VIDAZA 115.7 MG IV (09:58)
[2025-02-26 10:15] VITALS: BP 123/60
[2025-02-26 10:31] LABS: Hematocrit 30.7 % (39.0-52.0); Hemoglobin 10.3 g/dL (13.0-18.0); Mean Corp Hgb Conc. 33.6 g/dL (33.0-37.0); Mean Corpuscular Volume 99.7 fL (80.0-94.0); Platelet Count 38 10^3/uL (130-400); Red Cell Dist. Width 15.9 % (11.5-14.5)
[2025-02-26 11:23] LABS: ALT (SGPT) 41 U/L (0-50); AST (SGOT) 37 U/L (17-59); Albumin 4.3 g/dl (3.5-5.0); Alkaline Phosphatase 77 U/L (38-126); Blood Urea Nitrogen 19 mg/dl (9-20); Calcium 9.2 mg/dl (8.4-10.2); Carbon Dioxide 26 mmol/L (22-30); Chloride 100 mmol/L (98-107); Estimated Creatinine Clearance 98 ml/min; Glucose 191 mg/dl (70-99); Potassium 4.6 mmol/L (3.5-5.1); Sodium 131 mmol/L (135-145); Total Protein 7.2 g/dl (6.3-8.2); eGFR > 60.00
[2025-03-12 10:31] VITALS: BP 109/51
[2025-03-12 10:53] LABS: ALT (SGPT) 28 U/L (0-50); AST (SGOT) 26 U/L (17-59); Albumin 4.1 g/dl (3.5-5.0); Alkaline Phosphatase 79 U/L (38-126); Blood Urea Nitrogen 18 mg/dl (9-20); Calcium 8.9 mg/dl (8.4-10.2); Carbon Dioxide 23 mmol/L (22-30); Chloride 103 mmol/L (98-107); Estimated Creatinine Clearance 98 ml/min; Glucose 180 mg/dl (70-99); Potassium 4.4 mmol/L (3.5-5.1); Sodium 134 mmol/L (135-145); Total Protein 6.6 g/dl (6.3-8.2); eGFR > 60.00
[2025-03-12 11:52] LABS: Hematocrit 24.0 % (39.0-52.0); Hemoglobin 8.0 g/dL (13.0-18.0); Mean Corp Hgb Conc. 33.3 g/dL (33.0-37.0); Mean Corpuscular Volume 100.4 fL (80.0-94.0); Red Cell Dist. Width 16.3 % (11.5-14.5)
[2025-03-12 13:06] LABS: Nucleated Red Blood Cells % 0 % (-); Platelet Count 46 10^3/uL (130-400)
--- NOTE | 2025-03-15 12:39 | PTCARENOTE ---
Received call from patient 's . Pt had bone marrow biopsy in [facility] this morning. CBC was checked prior to procedure hgb is 7.5, dropped from 8 on 03/12/25. Pt currently has a 'mild'nose bleed. Platelet count is 70,000. Pt denies any chest pain,
dizziness or increased shortness of breath.
Spoke with Selma Garcia [employer] at [facility], recommended transfusion below 7.0.
Return call made to patient and , conveyed recommendation from [employer].
Reinforced with patient and to go to ED for any changes including chest pain, dizziness, shortness of breath and or if nose bleed worsens. Pt and verbalized good understanding.
Pt is due to [facility] on Tuesday03/18/25 for follow up blood work. Pt will be evaluated at that time.
[2025-03-18 10:41] VITALS: BP 115/71
--- NOTE | 2025-03-18 10:59 | PTCARENOTE ---
1000 Pt here for routine lab work. Pt has been in the ED on 03/15/25 for uncontrolled nose bleed. Pt had balloon placed to right nares. Pt was transfused with 2 units PRBC as HGB dropped to 6.8. Pt labs today HGB 9.8, Platelets 64,000, WBC 2.35 ANC
of 720. Pt is afebrile. Denies any further nose bleed as balloon is intact, to follow up with ENT tomorrow. Results rita texed to Dr. Kwong. She is calling in a script for Levaquin as prophylaxis. Pt notified.
[2025-03-18 11:22] LABS: ALT (SGPT) 24 U/L (0-50); AST (SGOT) 28 U/L (17-59); Albumin 4.1 g/dl (3.5-5.0); Alkaline Phosphatase 77 U/L (38-126); Blood Urea Nitrogen 15 mg/dl (9-20); Calcium 8.7 mg/dl (8.4-10.2); Carbon Dioxide 25 mmol/L (22-30); Chloride 100 mmol/L (98-107); Estimated Creatinine Clearance 98 ml/min; Glucose 192 mg/dl (70-99); Potassium 4.2 mmol/L (3.5-5.1); Sodium 134 mmol/L (135-145); Total Protein 6.9 g/dl (6.3-8.2); eGFR > 60.00
[2025-03-18 12:31] LABS: Hematocrit 29.7 % (39.0-52.0); Hemoglobin 9.8 g/dL (13.0-18.0); Mean Corp Hgb Conc. 33.0 g/dL (33.0-37.0); Mean Corpuscular Volume 99.0 fL (80.0-94.0); Platelet Count 69 10^3/uL (130-400); Red Cell Dist. Width 17.1 % (11.5-14.5)
[2025-03-18 12:33] LABS: Absolute Neutrophils -Man Diff 0.9 10^3/uL (1.4-6.5); Anisocytosis 1+; Hypochromasia 1+; Normal RBC Morphology No; Ovalocytes 1+; Platelets Checked Yes; Total Cells Counted 100
[2025-03-18 16:29] LABS: Absolute Neutrophils -Man Diff 0.6 10^3/uL (1.4-6.5)
[2025-03-18 16:48] LABS: Normal RBC Morphology Yes; Platelets Checked Yes; Total Cells Counted 100
== END 2025-03-19 09:18 | disposition home or self-care (01) ==
LOC: OID 09:50
PROVIDERS: ATTENDING PHYSICIAN Internal Medicine Hematology & Oncology; FAMILY PHYSICIAN Nurse Practitioner Family; REFERRING PHYSICIAN Internal Medicine Endocrinology, Diabetes & Metabolism
DX: D61.810 Antineoplastic chemotherapy induced pancytopenia (principal); D75.9 Disease of blood and blood-forming organs, unspecified; D46.22 Refractory anemia with excess of blasts 2; E11.9 Type 2 diabetes mellitus without complications
CPT/HCPCS: 36591; 80053; 85025; 96375; 96413; J2469; J9025